=== PATIENT | male | born 1965 | race African-American/Black ===

== ENCOUNTER → 2018-03-05 15:12 | Outpatient (REF) | payer OTHER, SELFPAY ==
[2018-03-05 18:56] LABS: Basophils # 0.1 K/mm3 (0-0.2); Eosinophils # 0.3 K/mm3 (0.0-0.4); Eosinophils % 1.8 % (0.1-12.0); Hematocrit 46.4 % (42.0-52.0); Hemoglobin 14.4 g/dL (14.1-18.0); Lymphocytes # 3.6 K/mm3 (0.7-4.5); Lymphocytes % 26.8 K/mm3 (10-50); Mean Corpuscular HGB Conc 31.1 g/dL (31.8-35.4); Mean Corpuscular Hemoglobin 31.3 pg (27.0-31.2); Mean Corpuscular Volume 100.8 fl (80-94); Monocytes # 0.6 K/mm3 (0.1-1.0); Monocytes % 4.6 % (1.7-9.3); Neutrophils # 8.9 K/mm3 (1.8-7.8); Neutrophils % 65.8 % (37.0-80.0); Platelet Count 376 K/mm3 (142-424); Red Cell Distribution Width 13.5 % (11.5-17.5); White Blood Count 13.6 K/mm3 (4.8-10.8)
[2018-03-05 19:02] LABS: Alanine Aminotransferase 27 U/L (12-78); Albumin Level 3.9 gm/dL (3.4-5.0); Albumin/Globulin Ratio 0.8 (1.1-1.8); Alkaline Phosphatase 94 U/L (46-116); Anion Gap 15.7 mEq/L (5-15); Aspartate Amino Transferase 73 U/L (15-37); Bilirubin,Total 0.9 mg/dL (0.2-1.0); Blood Urea Nitrogen 21 mg/dL (7-18); Calcium 10.3 mg/dL (8.5-10.1); Carbon Dioxide 28 mmol/L (21.0-32.0); Chloride 96 mmol/L (98-107); Chol/HDL Ratio 1.6 (1-3.5); Cholesterol 221 mg/dL (140-200); Creatinine,Serum 1.35 mg/dL (0.70-1.30); Estimated Glomerular Filt Rate 55 ml/min (>60); GFR (African American) 66 ML/MIN (>60); Globulin 5.2 gm/dl (1.3-3.2); Glucose 99 mg/dL (74-106); HDL Cholesterol 134 mg/dL (27-67); LDL Cholesterol 73 mg/dL (0-130); Potassium 4.7 mmoL/L (3.5-5.1); Sodium 135 mmol/L (136-145); Thyroid Stimulating Hormone 5.54 uIU/ml (0.358-3.740); Total Protein,Serum 9.1 gm/dL (6.4-8.2); Triglycerides 69 mg/dL (30-200); VLDL Cholesterol 14 mg/dL (0-40)
[2018-03-07 16:59] LABS: Vitamin D 25 Hydroxy 8.6 ng/mL (30.0-100.0)
== END ==
LOC: LAB 15:12
PROVIDERS: Visit Provider Nurse Practitioner Family
DX: M79.89 Other specified soft tissue disorders (principal); R60.0 Localized edema; Z79.899 Other long term (current) drug therapy; R53.83 Other fatigue
CPT/HCPCS: 80053; 80061; 82652; 84439; 84443; 85025

== ENCOUNTER → 2018-03-18 11:54 | Outpatient (CLI) | payer OTHER, SELFPAY ==
[2018-03-18 12:04] LABS: Basophils # 0.1 K/mm3 (0-0.2); Basophils % 0.9 % (0.1-2.0); Eosinophils # 0.2 K/mm3 (0.0-0.4); Eosinophils % 1.5 % (0.1-12.0); Hematocrit 41.4 % (42.0-52.0); Lymphocytes # 3.2 K/mm3 (0.7-4.5); Mean Corpuscular HGB Conc 31.5 g/dL (31.8-35.4); Mean Corpuscular Hemoglobin 30.6 pg (27.0-31.2); Mean Corpuscular Volume 97.3 fl (80-94); Mean Platelet Volume 9.1 fl (7.4-10.4); Monocytes # 1.1 K/mm3 (0.1-1.0); Neutrophils # 9.1 K/mm3 (1.8-7.8); Neutrophils % 66.6 % (37.0-80.0); Platelet Count 495 K/mm3 (142-424); Red Blood Count 4.25 M/mm3 (4.60-6.20); Red Cell Distribution Width 12.9 % (11.5-17.5); White Blood Count 13.7 K/mm3 (4.8-10.8)
[2018-03-18 12:14] LABS: Anion Gap 17.5 mEq/L (5-15); Blood Urea Nitrogen 29 mg/dL (7-18); Calcium 9.7 mg/dL (8.5-10.1); Carbon Dioxide 21 mmol/L (21.0-32.0); Chloride 98 mmol/L (98-107); Creatinine,Serum 1.49 mg/dL (0.70-1.30); Estimated Glomerular Filt Rate 49 ml/min (>60); GFR (African American) 59 ML/MIN (>60); Glucose 102 mg/dL (74-106); Potassium 4.5 mmoL/L (3.5-5.1); Sodium 132 mmol/L (136-145)
[2018-03-19 13:57] LABS: Folate 7.4 ng/mL (>3.0); Vitamin B12 335 pg/mL (232-1245)
== END ==
PROVIDERS: Family Provider Nurse Practitioner Family; PCP Emergency Medicine; Visit Provider Physician Assistant
DX: R60.0 Localized edema (principal); R94.31 Abnormal electrocardiogram [ECG] [EKG]; M10.9 Gout, unspecified; I10 Essential (primary) hypertension; R07.89 Other chest pain; F41.9 Anxiety disorder, unspecified; F32.9 Major depressive disorder, single episode, unspecified
CPT/HCPCS: 80048; 82607; 82746; 85025

== ENCOUNTER 2018-03-18 20:36 | Observation (INO) ==
[2018-03-18 21:20] LABS: Microscopic, Urine URINE MICROSCOPIC (MICROSCOPIC)
[2018-03-18 21:25] LABS: Appearance,Urine CLEAR (Clear); Bilirubin,Urine Negative (Negative); Blood, Urine Negative (Negative); Color,Urine YELLOW (Yellow); Glucose,Urine (UA) Negative (Negative); Ketones,Urine Negative (Negative); Leukocyte Esterase,Urine Negative (Negative); PH,Urine 5.5 (5.0-8.5); Protein,Urine Negative (Negative); Urobilinogen,Urine 0.2 EU/dl (0.2)
[2018-03-18 21:34] LABS: Amphetamine/Metha Screen,Urine Negative ng/mL (<1000); Barbiturates Screen,Urine Negative ng/mL (<200); Benzodiazepines Screen,Urine Negative ng/mL (200); Cannabinoid Screen,Urine Negative ng/mL (<50); Cocaine Screen,Urine Negative ng/g (<300); Methadone Screen,Urine Negative ng/mL (<300); Opiate Screen,Urine Negative ng/mL (<300); Phencyclidine Screen,Urine Negative ng/mL (<25)
[2018-03-18 21:48] LABS: Bacteria,Urine Trace /lpf; WBC,Urine Occasional #/hpf (0-3)
--- NOTE | 2018-03-18 21:53 | Emergency Department Note ---
ED Disposition Clinical Impression: Bilateral lower extremity edema, Arthritis, Renal insufficiency Disposition: Admitted as Observation Condition on Discharge: Good - Critical Care Critical Care Time: No Attestation: On 03/18/18, the high probability of a clinically significant, sudden or life threatening deterioration of the following system(s) required my full and direct attention, intervention and personal management. The time I documented below is in addition to time spent performing reported procedures but includes the following listed in this critical care notation. Medical Decision Making - Medical Records Medical records reviewed: Yes: I reviewed the patient's medical records. - Rodolfo Inquiry Pt receiving controlled substance: No Vital Signs: 03/18/18 20:36 03/18/18 22:05 Temperature 100.2 F H Temperature Source Oral Pulse Rate [Right Radial] 106 H 88 Respiratory Rate 20 18 Blood Pressure [Right Arm] 151/108 154/95 Blood Pressure Mean [Right Arm] 122 114 Blood Pressure Source [Right Arm] Automatic Cuff Blood Pressure Position [Right Arm] Sitting 02 Sat by Pulse Oximetry 100 99 Oxygen Delivery Method Room Air - Lab Data Lab results reviewed: Yes: I reviewed the patient's lab results. Lab Results 03/18/18 21:15: Urine Color Yellow, Urine Appearance Clear, Urine pH 5.5, Ur Specific [place] 1.010, Urine Protein Negative, Urine Glucose (UA) Negative, Urine Ketones Negative, Urine Blood Negative, Urine Nitrate Negative, Urine Bilirubin Negative, Urine Urobilinogen 0.2, Ur Leukocyte Esterase Negative, Urine RBC 3-5, Urine WBC Occasional, Ur Squamous Epith Cells 5-10, Urine Bacteria Trace, Hyaline Casts 3-5 03/18/18 21:15: Urine Opiates Screen Negative, Urine Methadone Screen Negative, Ur Barbituates Screen Negative, Ur Phencyclidine Scrn Negative, Ur Amphetamines Screen Negative, U Benzodiazepines Scrn Negative, Urine Cocaine Screen Negative , U Marijuana (THC) Screen Negative 03/18/18 21:51: WBC 17.5 H D, RBC 4.18 L, Hgb 12.6 L, Hct 40.0 L, MCV 95.7 H, MCH 30.1, MCHC 31.4 L, RDW 12.9, Plt Count 486 H, MPV 7.9, Neut % (Auto) 76.4, Lymph % (Auto) 14.3, [place] % (Auto) 7.8, Eos % (Auto) 1.0, Baso % (Auto) 0.6, Neut # (Auto) 13.4 H, Lymph # (Auto) 2.5, [place] # (Auto) 1.4 H, Eos # (Auto) 0.2 , Baso # (Auto) 0.1, Total Counted 100, Neutrophils % (Manual) 82 H, Lymphocytes % (Manual) 11, Monocytes % (Manual) 5, Eosinophils % (Manual) 1, Basophils % (Manual) 1.0, Platelet Estimate Normal, Anisocytosis 1+ 03/18/18 21:51: Sodium 130 L, Potassium 4.3, Chloride 97 L, Carbon Dioxide 20 L , Anion Gap 17.3 H, BUN 29 H, Creatinine 1.44 H, Estimated Creat Clear 55, Estimated GFR 51 L, Est GFR ( Amer) 62, Glucose 104, Uric Acid 9.8 H, Calcium 9.8, C-Reactive Protein 14.0 H 03/18/18 21:52: Total Bilirubin 0.9, Direct Bilirubin 0.4 H, Indirect Bilirubin 0.5, AST 43 H, ALT 21, Alkaline Phosphatase 78, Total Protein 8.5 H, Albumin 2.7 L Result diagrams: 03/18/18 21:51 03/18/18 21:51 Orders (Tests/Meds): ED MEDICATIONS Discontinued Medications Generic Name Dose Route Start Last Admin Trade Name Jared PRN Reason Stop Dose Admin Ketorolac Tromethamine 30 mg 03/18/18 21:57 03/18/18 22:00 Toradol 30mg/Ml Vial IV 03/18/18 21:58 30 mg ONCE ONE Administration Methylprednisolone Sodium Succinate 125 mg 03/18/18 21:57 03/18/18 22:00 Solu-Medrol 125mg/2ml Vial IV 03/18/18 21:58 125 mg ONCE ONE Administration Extremity Problem HPI - General Chief complaint: Weakness Stated complaint: swelling of lower extremities Time Seen by Provider: 03/18/18 20:50 Mode of Arrival: EMS Source of Information: Patient, Relative, Medical Record Limitations: Physical Limitations Description of Symptoms (Recalled from ER Triage Doc. by RN): pt seen in ed today earlier today, lower extremity doppler completed, pt followed up with dr odonnell, sent home. pt states he is returning to ed because he is unable to care for himself at home. pt states he can not walk and is "peeing in a coffee cup at home." - History of Present Illness HPI Narrative: pt with progressive lower ext edema and assoc pain in lower ext and had seen pcp and was seen in ed this am with neg doppler for dvt and seen by card - and was treated for htn and card disease - has hx of gout - MD Complaint: extremity pain, extremity swelling, joint swelling, joint paint Onset (ago): day(s) Consistency: constant Location: lower extremity Exacerbating factors: range of motion, weight bearing, walking - Related Data Home Medications Medication Instructions Recorded Confirmed cetirizine 10 mg tablet 10 mg PO DAILY tab 03/05/18 03/18/18 hydralazine 25 mg tablet 25 mg PO TID 03/05/18 03/18/18 indomethacin 25 mg capsule 25 mg PO TID 03/05/18 03/18/18 Cholecalciferol (Vitamin D3) 5,000 unit PO DAILY 03/18/18 03/18/18 [Vitamin D3] Ergocalciferol (Vitamin D2) 50,000 unit PO QWEEK 03/18/18 03/18/18 [Drisdol] Furosemide [Furosemide 40MG tAB] 40 mg PO DAILY 03/18/18 03/18/18 Levothyroxine Sodium [Synthroid 25 mcg PO DAILY 03/18/18 03/18/18 25mcg (0.025mg) tablet] Lisinopril [Prinivil 10mg Tablet] 10 mg PO DAILY 03/18/18 03/18/18 Allergies Allergy/AdvReac Type Severity Reaction Status Date / Time aspirin [ASPIRIN] Allergy Unknown Verified 03/18/18 20:42 Penicillins [PENICILLINS] Allergy Unknown Verified 03/18/18 20:42 [facility] History I have reviewed the patient's past medical history: Yes Medical History: Reports:: Anxiety, Depression, Hypertension Denies:: Cancer, Diabetes Mellitus Type 1, Diabetes Mellitus Type 2, MRSA Other Medical History: Reports: Thyroid Disease Comment: Gout Other Surgeries: Yes: No Previous Surgery Amputation: No Fractures: No - Social History Smoking Status: Never smoker Alcohol Intake: never Alcohol Intake Frequency:: a few times a week Substance Use Type: denies use Occupational Status: disabled Housing: apartment Household Members: none - Psychiatric History Expresses thoughts of harming self/others: None Suicide Plan Description: No Plan Pschychiatric History:: Reports:: Anxiety, Depression Family Hx:: Hypertension ROS Obtained: Yes All systems reviewed & no additional complaints - Constitutional Constitutional: Reports fever(s) - Eyes Eyes: Denies change in vision - ENT Ears, Nose, Mouth, and Throat: Denies sore throat - Cardiovascular Cardiovascular: Denies chest pain - Respiratory Respiratory: No cough - Gastrointestinal Gastrointestingal: Denies: abdominal pain - Genitourinary Male Genitourinary: Denies hematuria - Musculoskeletal Musculoskeletal: Reports as per HPI, Reports joint pain, Reports joint swelling , Reports limited range of motion - Integumentary/Breasts Skin/Breast: Denies rash - Neurologic Neurologic: Denies headache(s), Denies seizure-like activity Physical Exam - General General appearance: alert, in no apparent distress - Head Head exam: normocephalic - Eye Eye exam: Present: PERRL, EOMI. Absent: scleral icterus - ENT ENT exam: Present: mucous membranes dry - Neck Neck exam: Present: trachea midline - Respiratory Respiratory exam: Present: normal lung sounds bilaterally. Absent: respiratory distress - Cardiovascular Cardiovascular exam: Present: regular rate, systolic murmur, +S4 - Abdominal Exam Abdominal exam: Present: soft - Extremities Exam Extremities exam: Present: tenderness, pedal edema. Absent: calf tenderness - Neurological Exam Neurological exam: Present: alert, oriented X3, CN II-XII intact - Psychiatric Psychiatric exam: Present: normal affect - Skin Skin exam: Absent: rash
[2018-03-18 22:31] LABS: Basophils # 0.1 K/mm3 (0-0.2); Basophils % 0.6 % (0.1-2.0); Eosinophils # 0.2 K/mm3 (0.0-0.4); Hemoglobin 12.6 g/dL (14.1-18.0); Lymphocytes # 2.5 K/mm3 (0.7-4.5); Lymphocytes % 14.3 K/mm3 (10-50); Mean Corpuscular HGB Conc 31.4 g/dL (31.8-35.4); Mean Corpuscular Hemoglobin 30.1 pg (27.0-31.2); Mean Corpuscular Volume 95.7 fl (80-94); Mean Platelet Volume 7.9 fl (7.4-10.4); Monocytes # 1.4 K/mm3 (0.1-1.0); Monocytes % 7.8 % (1.7-9.3); Neutrophils # 13.4 K/mm3 (1.8-7.8); Neutrophils % 76.4 % (37.0-80.0); Platelet Count 486 K/mm3 (142-424); Red Blood Count 4.18 M/mm3 (4.60-6.20); Red Cell Distribution Width 12.9 % (11.5-17.5); White Blood Count 17.5 K/mm3 (4.8-10.8)
[2018-03-18 22:42] LABS: Albumin Level 2.7 gm/dL (3.4-5.0); Bilirubin,Total 0.9 mg/dL (0.2-1.0); Total Protein,Serum 8.5 gm/dL (6.4-8.2)
[2018-03-18 23:00] LABS: Bilirubin,Direct 0.4 mg/dL (0.0-0.2); Bilirubin,Indirect 0.5 mg/dL (0.0-0.9)
[2018-03-18 23:06] LABS: Eosinophils % 1 % (0-3); Lymphocytes % 11 % (10-50); Monocytes % 5 % (2-9); Neutrophils % 82 % (42-76); Total Cells Counted 100
[2018-03-18 23:07] LABS: Anisocytosis 1+
[2018-03-18 23:22] LABS: Anion Gap 17.3 mEq/L (5-15); Calcium 9.8 mg/dL (8.5-10.1); Potassium 4.3 mmoL/L (3.5-5.1); Uric Acid 9.8 mg/dL (2.6-7.2)
[2018-03-19 06:08] LABS: Basophils % 0.3 % (0.1-2.0); Eosinophils % 0.2 % (0.1-12.0); Hematocrit 43.3 % (42.0-52.0); Hemoglobin 13.4 g/dL (14.1-18.0); Lymphocytes # 1.5 K/mm3 (0.7-4.5); Lymphocytes % 10.4 K/mm3 (10-50); Mean Corpuscular HGB Conc 30.9 g/dL (31.8-35.4); Mean Corpuscular Hemoglobin 29.9 pg (27.0-31.2); Mean Corpuscular Volume 96.9 fl (80-94); Mean Platelet Volume 8.3 fl (7.4-10.4); Monocytes # 0.2 K/mm3 (0.1-1.0); Monocytes % 1.5 % (1.7-9.3); Neutrophils # 12.9 K/mm3 (1.8-7.8); Neutrophils % 87.6 % (37.0-80.0); Platelet Count 521 K/mm3 (142-424); Red Blood Count 4.47 M/mm3 (4.60-6.20); White Blood Count 14.7 K/mm3 (4.8-10.8)
[2018-03-19 06:30] LABS: Anion Gap 19.3 mEq/L (5-15); Calcium 9.7 mg/dL (8.5-10.1); Potassium 5.3 mmoL/L (3.5-5.1)
--- NOTE | 2018-03-19 07:03 | History & Physical Report ---
*Admission Date: 03/18/18 *Chief complaint: joint pain *History of present illness: this pt has progressive swelling and tenderness to lower ext with pain swollen jts - no trauma has hx of gout - he saw pcp last week and was seen in the ed and card clinic yesterday -There is no evidence of significant Reflux. 2. No evidence of deep or superficial vein thrombosis involving the right lower extremity and left lower extremity ere for a new patient from [facility] [employer] for swelling in BLE's Has had some occasional chest pain at times mainly with rest, and it feels like a sharp, stabbing chest pain and only lasts for a few seconds. Sob with exertion. BP is high today. Weight is stable. He is in a wheelchair today because he states the swelling has been bad in his lower extremities for him to walk or even use his cane. He states the swelling has been going on for around 3 weeks, and he states everyone keeps saying its his gout. Denies ever smoking. He states he does have a few beers but not every day. Denies ever having a heart attack, he did have a stroke around 3 years ago. He had fallen into a cabinet/table, hitting his head above his left eye, with trauma and bleeding noted. Then a few days later he suffered a bad stroke, he couldn't walk or talk. He spent several weeks in rehab to learn to walk and talk again. Family history of heart disease is present. Venous doppler in the ER today was negative. He has bounding pulses bilaterally in BLE's along with 2+ pitting edema. He is shaking today, he states he is cold and he doesn't due this all time. LDL was 73, TSH: 5.54 and he was started on synthroid by his PCP. BUN: 21, Creat : 1.35 EKG is NSR, anterior infarct, age undetermined, rate 69 bpm. He is to start lasix 40 mg daily. He is to start lisinopril 10 mg daily for better BP control. BMP, CBC, B12, and Folate today along with urinalysis. I am concerned that he may have either Cardiomyopathy with CHF or something like nephrotic syndrome due to long standing poorly treated HTN. ECHO to look at LV function. BMP in 1 [facility] History I have reviewed the patient's past medical history: Yes Medical History: Reports:: Anxiety, Depression, Hypertension Denies:: Cancer, Diabetes Mellitus Type 1, Diabetes Mellitus Type 2, MRSA Other Medical History: Reports: Thyroid Disease Other Surgeries: Yes: No Previous Surgery Amputation: No Fractures: No - *Social History Smoking Status: Light tobacco smoker Tobacco Type: cigarettes Alcohol Intake: current Alcohol Intake Frequency:: holidays/special occasions only Substance Use Type: denies use Occupational Status: disabled Housing: apartment Household Members: none - Psychiatric History Expresses thoughts of harming self/others: None Suicide Plan Description: No Plan Pschychiatric History:: Reports:: Anxiety, Depression *Family Hx:: Hypertension Review of Systems - Review of Systems Review of systems:: pertinent systems reviewed and negative unless documented below - Constitutional Denies headache(s) - Eyes Denies change in vision - ENT Denies sinus pain - *Cardiovascular Denies chest pain at rest - *Respiratory Denies cough - *Gastrointestinal Denies abdominal pain - *Genitourinary Denies blood in urine - *Musculoskeletal Reports joint pain, Reports joint swelling, Reports limited joint movement - Integumentary/Breasts Denies rash - *Neurologic Denies headache(s), Denies seizure-like activity - Psychiatric Denies anxiety Meds Home Medications Medication Instructions Recorded Confirmed Type cetirizine 10 mg tablet 10 mg PO DAILY tab 03/05/18 03/18/18 History hydralazine 25 mg tablet 25 mg PO TID 03/05/18 03/18/18 History indomethacin 25 mg capsule 25 mg PO TIDWM 03/05/18 03/19/18 History Cholecalciferol (Vitamin D3) 5,000 unit PO DAILY 03/18/18 03/18/18 History [Vitamin D3] Ergocalciferol (Vitamin D2) 50,000 unit PO QWEEK 03/18/18 03/18/18 History [Drisdol] Furosemide [Furosemide 40MG tAB] 40 mg PO DAILY 03/18/18 03/18/18 History Levothyroxine Sodium [Synthroid 25 mcg PO DAILY 03/18/18 03/18/18 History 25mcg (0.025mg) tablet] Lisinopril [Prinivil 10mg Tablet] 10 mg PO DAILY 03/18/18 03/18/18 History Allergies Allergy/AdvReac Type Severity Reaction Status Date / Time aspirin [ASPIRIN] Allergy Unknown Verified 03/18/18 20:42 Penicillins [PENICILLINS] Allergy Unknown Verified 03/18/18 20:42 Exam Vital signs and Labs for Last 24 Hours: Temp Pulse Resp BP Pulse Ox 97.6 F 76 18 148/94 100 03/19/18 00:41 03/19/18 00:41 03/19/18 00:41 03/19/18 00:41 03/19/18 01:00 Laboratory Results - last 24 hr 03/18/18 21:15: Urine Color Yellow, Urine Appearance Clear, Urine pH 5.5, Ur Specific [place] 1.010, Urine Protein Negative, Urine Glucose (UA) Negative, Urine Ketones Negative, Urine Blood Negative, Urine Nitrate Negative, Urine Bilirubin Negative, Urine Urobilinogen 0.2, Ur Leukocyte Esterase Negative, Urine RBC 3-5, Urine WBC Occasional, Ur Squamous Epith Cells 5-10, Urine Bacteria Trace, Hyaline Casts 3-5 03/18/18 21:15: Urine Opiates Screen Negative, Urine Methadone Screen Negative, Ur Barbituates Screen Negative, Ur Phencyclidine Scrn Negative, Ur Amphetamines Screen Negative, U Benzodiazepines Scrn Negative, Urine Cocaine Screen Negative , U Marijuana (THC) Screen Negative 03/18/18 21:51: WBC 17.5 H D, RBC 4.18 L, Hgb 12.6 L, Hct 40.0 L, MCV 95.7 H, MCH 30.1, MCHC 31.4 L, RDW 12.9, Plt Count 486 H, MPV 7.9, Neut % (Auto) 76.4, Lymph % (Auto) 14.3, [place] % (Auto) 7.8, Eos % (Auto) 1.0, Baso % (Auto) 0.6, Neut # (Auto) 13.4 H, Lymph # (Auto) 2.5, [place] # (Auto) 1.4 H, Eos # (Auto) 0.2 , Baso # (Auto) 0.1, Total Counted 100, Neutrophils % (Manual) 82 H, Lymphocytes % (Manual) 11, Monocytes % (Manual) 5, Eosinophils % (Manual) 1, Basophils % (Manual) 1.0, Platelet Estimate Normal, Anisocytosis 1+ 03/18/18 21:51: Sodium 130 L, Potassium 4.3, Chloride 97 L, Carbon Dioxide 20 L , Anion Gap 17.3 H, BUN 29 H, Creatinine 1.44 H, Estimated Creat Clear 55, Estimated GFR 51 L, Est GFR ( Amer) 62, Glucose 104, Uric Acid 9.8 H, Calcium 9.8, C-Reactive Protein 14.0 H 03/18/18 21:52: Total Bilirubin 0.9, Direct Bilirubin 0.4 H, Indirect Bilirubin 0.5, AST 43 H, ALT 21, Alkaline Phosphatase 78, Total Protein 8.5 H, Albumin 2.7 L 03/18/18 22:20: ESR 111 H 03/19/18 05:05: WBC 14.7 H, RBC 4.47 L, Hgb 13.4 L, Hct 43.3, MCV 96.9 H, MCH 29.9, MCHC 30.9 L, RDW 13.0, Plt Count 521 H, MPV 8.3, Neut % (Auto) 87.6 H, Lymph % (Auto) 10.4, [place] % (Auto) 1.5 L, Eos % (Auto) 0.2, Baso % (Auto) 0.3, Neut # (Auto) 12.9 H, Lymph # (Auto) 1.5, [place] # (Auto) 0.2, Eos # (Auto) 0.0, Baso # (Auto) 0.0 03/19/18 05:05: Sodium 133 L, Potassium 5.3 H D, Chloride 98, Carbon Dioxide 21 , Anion Gap 19.3 H, BUN 34 H, Creatinine 1.62 H, Estimated Creat Clear 45, Estimated GFR 44 L, Est GFR ( Amer) 54 L, Glucose 129 H D, Calcium 9.7 I & O for Last 24 hours: Intake & Output 03/16/18 03/17/18 03/18/18 03/19/18 11:59 11:59 11:59 11:59 Intake Total 258 / 258 Output Total 200 / 200 Balance 58 / 58 Weight 137 lb - Constitutional no acute distress - *Routine HEENT Exam Head: Present: normocephalic Eye: Present: EOMI, PERRL ENT: Present: mucous membranes dry - *Routine Neck Exam Absent: JVD - *Routine Respiratory Exam Present: CTA bilaterally - *Routine Cardiovascular Exam Present: RRR, murmur - *Routine Abdominal Exam Present: soft - *Routine Extremities Exam Comments: jts less tender today and less edema - *Routine Skin Exam Present: intact - *Routine Neurological Exam Present: alert, oriented X3, CN II-XII intact - Routine Psychiatric Exam Present: normal affect H&P: Result - Labs Labs: Short CBC 03/18/18 03/19/18 Range/Units 21:51 05:05 WBC 17.5 H D 14.7 H (4.8-10.8) K/mm3 Hgb 12.6 L 13.4 L (14.1-18.0) g/dL Hct 40.0 L 43.3 (42.0-52.0) % Plt Count 486 H 521 H (142-424) K/mm3 BMP 03/18/18 03/19/18 21:51 05:05 Sodium 130 L 133 L Potassium 4.3 5.3 H D Chloride 97 L 98 Carbon Dioxide 20 L 21 BUN 29 H 34 H Creatinine 1.44 H 1.62 H Glucose 104 129 H D Calcium 9.8 9.7 Liver Function 03/18/18 Range/Units 21:52 Total Bilirubin 0.9 (0.2-1.0) mg/dL Direct Bilirubin 0.4 H (0.0-0.2) mg/dL AST 43 H (15-37) U/L ALT 21 (12-78) U/L Alkaline Phosphatase 78 (46-116) U/L Albumin 2.7 L (3.4-5.0) gm/dL Urine 03/18/18 Range/Units 21:15 Urine Color Yellow (Yellow) Urine Appearance Clear (Clear) Urine pH 5.5 (5.0-8.5) Ur Specific [place] 1.010 (1.005-1.030) Urine Protein Negative (Negative) Urine Glucose (UA) Negative (Negative) Assessment and Plan (1) Edema of both legs Current visit: Yes Status: Acute Category: Medical Code(s): R60.0 - Localized edema (2) Arthritis Current visit: Yes Status: Acute Category: Medical Code(s): M19.90 - Unspecified osteoarthritis, unspecified site (3) Renal insufficiency Current visit: Yes Status: Acute Category: Medical Code(s): N28.9 - Disorder of kidney and ureter, unspecified (4) Gout Current visit: No Status: Acute Qualifiers: Gout site: unspecified site Gout etiology: unspecified cause Chronicity: unspecified Qualified Code(s): M10.9 - Gout, unspecified Category: Medical Code(s): M10.9 - Gout, unspecified (5) Hypertension Current visit: No Status: Acute Qualifiers: Hypertension type: essential hypertension Qualified Code(s): I10 - Essential (primary) hypertension Category: Medical Code(s): I10 - Essential (primary) hypertension
--- NOTE | 2018-03-19 07:08 | Pharmacy Consult Notes ---
[facility] Pharmacy VTE Monitoring - Patient Demographics Admission date: 03/19/18 Report Date: 03/19/18 Time: 07:07 Allergies/Adverse Reactions: Patient Allergies aspirin [ASPIRIN] Allergy (Unknown, Verified 03/18/18 20:42) Penicillins [PENICILLINS] Allergy (Unknown, Verified 03/18/18 20:42) Height: 1.63 m Weight: 62.142 kg Patient Problems: Current Active Problems Edema of both legs (Acute) Arthritis (Acute) Renal insufficiency (Acute) - VTE Risk Labs: VTE Related Lab Results Hgb 13.4 g/dL (14.1-18.0) L 03/19/18 05:05 Hct 43.3 % (42.0-52.0) 03/19/18 05:05 Plt Count 521 K/mm3 (142-424) H 03/19/18 05:05 BUN 34 mg/dL (7-18) H 03/19/18 05:05 Creatinine 1.62 mg/dL (0.70-1.30) H 03/19/18 05:05 Estimated Creat Clear 45 mL/min (0-300) 03/19/18 05:05 Was VTE Risk Assessment Performed: Yes VTE Score: 2 VTE Risk Level: Low Risk Clinical Trial Participant: No - Prophylaxis VTE Prophylaxis Ordered?: Yes Types of VTE Prophylaxis: TEDS Knee High
--- NOTE | 2018-03-19 08:32 | Consult Report ---
History of Present Illness Consult date: 03/19/18 Requesting physician: Daljit Aguilar Chief complaint: LE edema, unable to walk Additional Medical History:: 1. HTN 2. Gout with elevated CRP and ESR (14.0 and 111, respectively), 02/2018 3. ETOH use 4. Hypothyroid, on supplement 5. 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 History of present illness: 53-year-old black male admitted through the emergency department for complaint of lower extremity edema and inability to walk. Patient had been seen in the emergency department the night before with lower extremity venous Dopplers negative for DVT. It was felt that he had a gout that was causing the lower extremity edema and was started on occasion for that. He is referred to cardiology for further evaluation. He was seen in our office yesterday with plans to obtain an echocardiogram to evaluate left ventricular ejection fraction and rule out congestive heart failure. Patient was started on lisinopril for blood pressure and Lasix for the edema. However he returned to the emergency department due to inability to care for himself stating that he was unable to get up to go the bathroom was having to urinate and. Patient does have some atypical chest pain described as a sharp stinging sensation that lasts only a few seconds time. He denies any history of hyperlipidemia, diabetes or tobacco use. Patient was admitted for treatment. His sed rate noted to be markedly elevated at greater than 100 and his CRP was 14. Patient was started on IV steroids with improvement in his edema and discomfort this a.m. Potassium noted to be elevated at 5.3 and slightly elevated BUN and creatinine after 1 dose of lisinopril. Cardiology consulted for evaluation recommendations. Echocardiogram is in progress at this time with preliminary evaluation showing preserved ejection fraction. [facility] History Medical History: Reports:: Anxiety, Depression, Hypertension Denies:: Cancer, Diabetes Mellitus Type 1, Diabetes Mellitus Type 2, MRSA Other Medical History: Reports: Thyroid Disease Other Surgeries: Yes: No Previous Surgery Amputation: No Fractures: No - *Social History Smoking Status: Light tobacco smoker Tobacco Type: cigarettes Alcohol Intake: current Alcohol Intake Frequency:: holidays/special occasions only Substance Use Type: denies use Occupational Status: disabled Housing: apartment Household Members: none - Psychiatric History Expresses thoughts of harming self/others: None Suicide Plan Description: No Plan Pschychiatric History:: Reports:: Anxiety, Depression *Family Hx:: Hypertension Meds Home Medications Medication Instructions Recorded Confirmed Type cetirizine 10 mg tablet 10 mg PO DAILY tab 03/05/18 03/18/18 History hydralazine 25 mg tablet 25 mg PO TID 03/05/18 03/18/18 History indomethacin 25 mg capsule 25 mg PO TIDWM 03/05/18 03/19/18 History Cholecalciferol (Vitamin D3) 5,000 unit PO DAILY 03/18/18 03/18/18 History [Vitamin D3] Ergocalciferol (Vitamin D2) 50,000 unit PO QWEEK 03/18/18 03/18/18 History [Drisdol] Furosemide [Furosemide 40MG tAB] 40 mg PO DAILY 03/18/18 03/18/18 History Levothyroxine Sodium [Synthroid 25 mcg PO DAILY 03/18/18 03/18/18 History 25mcg (0.025mg) tablet] Lisinopril [Prinivil 10mg Tablet] 10 mg PO DAILY 03/18/18 03/18/18 History Allergies Allergy/AdvReac Type Severity Reaction Status Date / Time aspirin [ASPIRIN] Allergy Unknown Verified 03/18/18 20:42 Penicillins [PENICILLINS] Allergy Unknown Verified 03/18/18 20:42 Review of Systems - *Cardiovascular Reports chest pain, Reports shortness of breath with activity - *Respiratory Reports shortness of breath with activity - *Gastrointestinal Denies abdominal pain - *Genitourinary Denies difficulty urinating - *Neurologic Denies headache(s), Denies seizure-like activity Exam Vital signs and Labs for Last 24 Hours: Temp Pulse Resp BP Pulse Ox 97.2 F L 73 18 146/95 98 03/19/18 07:51 03/19/18 07:51 03/19/18 07:51 03/19/18 07:51 03/19/18 07:51 Laboratory Results - last 24 hr 03/18/18 21:15: Urine Color Yellow, Urine Appearance Clear, Urine pH 5.5, Ur Specific Mohler 1.010, Urine Protein Negative, Urine Glucose (UA) Negative, Urine Ketones Negative, Urine Blood Negative, Urine Nitrate Negative, Urine Bilirubin Negative, Urine Urobilinogen 0.2, Ur Leukocyte Esterase Negative, Urine RBC 3-5, Urine WBC Occasional, Ur Squamous Epith Cells 5-10, Urine Bacteria Trace, Hyaline Casts 3-5 03/18/18 21:15: Urine Opiates Screen Negative, Urine Methadone Screen Negative, Ur Barbituates Screen Negative, Ur Phencyclidine Scrn Negative, Ur Amphetamines Screen Negative, U Benzodiazepines Scrn Negative, Urine Cocaine Screen Negative , U Marijuana (THC) Screen Negative 03/18/18 21:51: WBC 17.5 H D, RBC 4.18 L, Hgb 12.6 L, Hct 40.0 L, MCV 95.7 H, MCH 30.1, MCHC 31.4 L, RDW 12.9, Plt Count 486 H, MPV 7.9, Neut % (Auto) 76.4, Lymph % (Auto) 14.3, Hendricks % (Auto) 7.8, Eos % (Auto) 1.0, Baso % (Auto) 0.6, Neut # (Auto) 13.4 H, Lymph # (Auto) 2.5, Hendricks # (Auto) 1.4 H, Eos # (Auto) 0.2 , Baso # (Auto) 0.1, Total Counted 100, Neutrophils % (Manual) 82 H, Lymphocytes % (Manual) 11, Monocytes % (Manual) 5, Eosinophils % (Manual) 1, Basophils % (Manual) 1.0, Platelet Estimate Normal, Anisocytosis 1+ 03/18/18 21:51: Sodium 130 L, Potassium 4.3, Chloride 97 L, Carbon Dioxide 20 L , Anion Gap 17.3 H, BUN 29 H, Creatinine 1.44 H, Estimated Creat Clear 55, Estimated GFR 51 L, Est GFR ( Amer) 62, Glucose 104, Uric Acid 9.8 H, Calcium 9.8, C-Reactive Protein 14.0 H 03/18/18 21:52: Total Bilirubin 0.9, Direct Bilirubin 0.4 H, Indirect Bilirubin 0.5, AST 43 H, ALT 21, Alkaline Phosphatase 78, Total Protein 8.5 H, Albumin 2.7 L 03/18/18 22:20: ESR 111 H 03/19/18 05:05: WBC 14.7 H, RBC 4.47 L, Hgb 13.4 L, Hct 43.3, MCV 96.9 H, MCH 29.9, MCHC 30.9 L, RDW 13.0, Plt Count 521 H, MPV 8.3, Neut % (Auto) 87.6 H, Lymph % (Auto) 10.4, Hendricks % (Auto) 1.5 L, Eos % (Auto) 0.2, Baso % (Auto) 0.3, Neut # (Auto) 12.9 H, Lymph # (Auto) 1.5, Hendricks # (Auto) 0.2, Eos # (Auto) 0.0, Baso # (Auto) 0.0 03/19/18 05:05: Sodium 133 L, Potassium 5.3 H D, Chloride 98, Carbon Dioxide 21 , Anion Gap 19.3 H, BUN 34 H, Creatinine 1.62 H, Estimated Creat Clear 45, Estimated GFR 44 L, Est GFR ( Amer) 54 L, Glucose 129 H D, Calcium 9.7 03/19/18 05:05: B-Natriuretic Peptide 103 H I & O for Last 24 hours: Intake & Output 03/16/18 03/17/18 03/18/18 03/19/18 11:59 11:59 11:59 11:59 Intake Total 258 / 258 Output Total 200 / 200 Balance 58 / 58 Weight 137 lb - *Routine Neck Exam Absent: JVD - *Routine Respiratory Exam Present: CTA bilaterally - *Routine Cardiovascular Exam Present: RRR, murmur. Absent: gallop, rubs - *Routine Abdominal Exam Present: soft. Absent: tenderness - *Routine Extremities Exam Present: edema - *Routine Neurological Exam Present: alert, oriented X3, moving all extremities Assessment and Plan (1) Edema of both legs Current visit: Yes Status: Acute Category: Medical Code(s): R60.0 - Localized edema (2) Arthritis Current visit: Yes Status: Acute Category: Medical Code(s): M19.90 - Unspecified osteoarthritis, unspecified site (3) Renal insufficiency Current visit: Yes Status: Acute Category: Medical Code(s): N28.9 - Disorder of kidney and ureter, unspecified (4) Gout Current visit: No Status: Acute Qualifiers: Gout site: unspecified site Gout etiology: unspecified cause Chronicity: unspecified Qualified Code(s): M10.9 - Gout, unspecified Category: Medical Code(s): M10.9 - Gout, unspecified (5) Hypertension Current visit: No Status: Acute Qualifiers: Hypertension type: essential hypertension Qualified Code(s): I10 - Essential (primary) hypertension Category: Medical Code(s): I10 - Essential (primary) hypertension - Assessment and plan all Dx Assessment and Plan for all problems:: 1. Will await the results of the echocardiogram but unofficially the ejection fraction appeared preserved with some mild aortic regurgitation. 2. In light of the hyperkalemia and slightly increased renal functions, will recommend discontinuing lisinopril and using lasix only short term if needed. 3. Due to elevated blood pressure and heart rate on admission we will try low- dose beta-rena therapy in the form of metoprolol 25 mg twice daily. 4. No further cardiac workup at this time. Okay from cardiology standpoint for discharge home with outpatient follow-up.
--- NOTE | 2018-03-19 15:20 | Cardiology Report ---
PROCEDURE: 2-D M-mode and color Doppler study INDICATIONS FOR THE TEST: Chest pain+ COPD Heart Murmur Tobacco Smoking+ Palpitations Fatigue+ Syncope Edema+ Hypertension+Diabetes Mellitus Rheumatic Fever SOB+AKERS Obesity Hyperlipidemia Family History HD+ Additional History Old CVA PATIENT INFORMATION HEIGHT: 64 WEIGHT: 149 GENDER: Male B/P: 162/102 2-D/M-MODE INTERPRETATION: 2-D MEASUREMENTS OBSERVED VALUES IN CMS Right Ventricular Dimension (RVDd) 1.6 Interventricular Septum (Thickness)(IVsd) 0.7 Left Ventricular Internal Dimensions(LVIDd) 4.0 Left Ventricular Posterior Wall (Thickness)(LVPWd) 0.8 Aortic Root 2.7 Aortic Cusp Separation 2.0 Left Atrial Dimensions (LAD) 2.5 2D 1. Left atrium is mildly enlarged, left ventricle is normal size, mild concentric left ventricular hypertrophy, visually estimated ejection fraction 55% with no obvious regional wall motion abnormality. 2. The right atrium and right ventricle are normal size and contractility. 3. The aortic valve is minimally thickened and fibrosed. 4. The mitral and tricuspid valve leaflets are minimally thickened. 5. The pulmonic valve is poorly visualized. 6. No significant pericardial effusion noted. DOPPLER INTERROGATION: Doppler interrogation of the aortic, mitral and tricuspid presence of mild aortic, mild mitral and tricuspid regurgitation, tricuspid and jet velocity insufficient for calculation of the right ventricular systolic pressure, grade 1 diastolic dysfunction seen with tissue Doppler evidence of raised left atrial pressure. CONCLUSION: 1. Mildly enlarged left atrium, normal left ventricular size, mild concentric left ventricular hypertrophy, visually estimated ejection fraction 55% with no obvious regional wall motion abnormality, grade 1 diastolic dysfunction seen with tissue Doppler evidence of raised left atrial pressure. 2. Mild aortic, mild mitral and tricuspid regurgitation 3. No significant pericardial effusion noted.
[2018-03-20 07:10] LABS: Basophils % 0.1 % (0.1-2.0); Eosinophils # 0.2 K/mm3 (0.0-0.4); Hematocrit 39.9 % (42.0-52.0); Hemoglobin 12.5 g/dL (14.1-18.0); Lymphocytes # 1.8 K/mm3 (0.7-4.5); Lymphocytes % 8.3 K/mm3 (10-50); Mean Corpuscular HGB Conc 31.2 g/dL (31.8-35.4); Mean Corpuscular Hemoglobin 29.9 pg (27.0-31.2); Mean Corpuscular Volume 95.7 fl (80-94); Mean Platelet Volume 7.8 fl (7.4-10.4); Monocytes % 4.7 % (1.7-9.3); Neutrophils # 18.7 K/mm3 (1.8-7.8); Neutrophils % 85.9 % (37.0-80.0); Platelet Count 572 K/mm3 (142-424); Red Blood Count 4.18 M/mm3 (4.60-6.20); Red Cell Distribution Width 12.9 % (11.5-17.5); White Blood Count 21.7 K/mm3 (4.8-10.8)
[2018-03-20 07:15] LABS: Calcium 8.9 mg/dL (8.5-10.1)
[2018-03-20 07:40] LABS: Lymphocytes % 6 % (10-50); Monocytes % 10 % (2-9); Neutrophils % 84 % (42-76); Total Cells Counted 100
[2018-03-20 07:41] LABS: RBC Morphology Normal
--- NOTE | 2018-03-21 07:43 | Progress Note ---
Internal Medicine - PN: Subj *Date: 03/20/18 *Time: 07:40 Interval history: pt seen and doing better Exam Vital signs and Labs for Last 24 Hours: Temp Pulse Resp BP Pulse Ox 98.2 F 60 18 147/78 100 03/21/18 07:28 03/21/18 07:28 03/21/18 07:28 03/21/18 07:28 03/21/18 07:28 Laboratory Results - last 24 hr 03/20/18 07:00: Total Counted 100, Neutrophils % (Manual) 84 H, Lymphocytes % ( Manual) 6 L, Monocytes % (Manual) 10 H, Platelet Estimate Moderate i, RBC Morphology Normal I & O for Last 24 hours: Intake & Output 03/18/18 03/19/18 03/20/18 03/21/18 11:59 11:59 11:59 11:59 Intake Total 738 / 738 2795 / 2795 780 / 780 Output Total 200 / 200 850 / 850 325 / 325 Balance 538 / 538 1945 / 1945 455 / 455 Weight 137 lb 138 lb 7 oz 138 lb - Constitutional no acute distress Comments: pt seen on 03/[address] note - *Routine HEENT Exam Head: Present: normocephalic Eye: Present: EOMI, PERRL ENT: Present: mucous membranes dry - *Routine Neck Exam Present: supple - *Routine Respiratory Exam Present: CTA bilaterally - *Routine Cardiovascular Exam Present: RRR - *Routine Abdominal Exam Present: soft - *Routine Extremities Exam Absent: calf tenderness - *Routine Skin Exam Present: intact - *Routine Neurological Exam Present: alert, CN II-XII intact - Routine Psychiatric Exam Present: normal affect Assessment and Plan (1) Edema of both legs Current visit: Yes Status: Acute Category: Medical Code(s): R60.0 - Localized edema (2) Arthritis Current visit: Yes Status: Acute Category: Medical Code(s): M19.90 - Unspecified osteoarthritis, unspecified site (3) Renal insufficiency Current visit: Yes Status: Acute Category: Medical Code(s): N28.9 - Disorder of kidney and ureter, unspecified (4) Gout Current visit: No Status: Acute Qualifiers: Gout site: unspecified site Gout etiology: unspecified cause Chronicity: unspecified Qualified Code(s): M10.9 - Gout, unspecified Category: Medical Code(s): M10.9 - Gout, unspecified (5) Hypertension Current visit: No Status: Acute Qualifiers: Hypertension type: essential hypertension Qualified Code(s): I10 - Essential (primary) hypertension Category: Medical Code(s): I10 - Essential (primary) hypertension
--- NOTE | 2018-03-21 07:45 | Discharge Summary ---
General - General Admission date:: 03/19/18 Discharge date: 03/21/18 HPI HPI: this pt has progressive swelling and tenderness to lower ext with pain swollen jts - no trauma has hx of gout - he saw pcp last week and was seen in the ed and card clinic yesterday -There is no evidence of significant Reflux. 2. No evidence of deep or superficial vein thrombosis involving the right lower extremity and left lower extremity ere for a new patient from [facility] for swelling in BLE's Has had some occasional chest pain at times mainly with rest, and it feels like a sharp, stabbing chest pain and only lasts for a few seconds. Sob with exertion. BP is high today. Weight is stable. He is in a wheelchair today because he states the swelling has been bad in his lower extremities for him to walk or even use his cane. He states the swelling has been going on for around 3 weeks, and he states everyone keeps saying its his gout. Denies ever smoking. He states he does have a few beers but not every day. Denies ever having a heart attack, he did have a stroke around 3 years ago. He had fallen into a cabinet/table, hitting his head above his left eye, with trauma and bleeding noted. Then a few days later he suffered a bad stroke, he couldn't walk or talk. He spent several weeks in rehab to learn to walk and talk again. Family history of heart disease is present. Venous doppler in the ER today was negative. He has bounding pulses bilaterally in BLE's along with 2+ pitting edema. He is shaking today, he states he is cold and he doesn't due this all time. LDL was 73, TSH: 5.54 and he was started on synthroid by his PCP. BUN: 21, Creat : 1.35 EKG is NSR, anterior infarct, age undetermined, rate 69 bpm. He is to start lasix 40 mg daily. He is to start lisinopril 10 mg daily for better BP control. BMP, CBC, B12, and Folate today along with urinalysis. I am concerned that he may have either Cardiomyopathy with CHF or something like nephrotic syndrome due to long standing poorly treated HTN. ECHO to look at LV function. BMP in 1 Hospital Course Hospital Course: pt responded well to iv steroids with dec jt pain and swelling and no reddness - wbc elevated thought to be due to steroids and has inc bun/cr - uncertain etiology but pt with ability to ambulate and yoshi diet - will review meds - pt was seen by rosette ANGEL 2. Gout with elevated CRP and ESR (14.0 and 111, respectively), 02/2018 3. ETOH use 4. Hypothyroid, on supplement 5. 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 History of present illness: 53-year-old black male admitted through the emergency department for complaint of lower extremity edema and inability to walk. Patient had been seen in the emergency department the night before with lower extremity venous Dopplers negative for DVT. It was felt that he had a gout that was causing the lower extremity edema and was started on occasion for that. He is referred to cardiology for further evaluation. He was seen in our office yesterday with plans to obtain an echocardiogram to evaluate left ventricular ejection fraction and rule out congestive heart failure. Patient was started on lisinopril for blood pressure and Lasix for the edema. However he returned to the emergency department due to inability to care for himself stating that he was unable to get up to go the bathroom was having to urinate and. Patient does have some atypical chest pain described as a sharp stinging sensation that lasts only a few seconds time. He denies any history of hyperlipidemia, diabetes or tobacco use. Patient was admitted for treatment. His sed rate noted to be markedly elevated at greater than 100 and his CRP was 14. Patient was started on IV steroids with improvement in his edema and discomfort this a.m. Potassium noted to be elevated at 5.3 and slightly elevated BUN and creatinine after 1 dose of lisinopril. Cardiology consulted for evaluation recommendations. Echocardiogram is in progress at this time with preliminary evaluation showing preserved ejection fraction. l await the results of the echocardiogram but unofficially the ejection fraction appeared preserved with some mild aortic regurgitation. 2. In light of the hyperkalemia and slightly increased renal functions, will recommend discontinuing lisinopril and using lasix only short term if needed. 3. Due to elevated blood pressure and heart rate on admission we will try low- dose beta-rena therapy in the form of metoprolol 25 mg twice daily. 4. No further cardiac workup at this time. Okay from cardiology standpoint for discharge home with outpatient follow-up. Objective Vital signs: Temp Pulse Resp BP Pulse Ox 98.2 F 60 18 147/78 100 03/21/18 07:28 03/21/18 07:28 03/21/18 07:28 03/21/18 07:28 03/21/18 07:28 no acute distress - *Routine HEENT Exam Head: Present: normocephalic Eye: Present: EOMI, PERRL ENT: Present: mucous membranes moist - *Routine Neck Exam Present: supple - *Routine Respiratory Exam Present: CTA bilaterally - *Routine Cardiovascular Exam Present: RRR, murmur - *Routine Abdominal Exam Present: soft - *Routine Extremities Exam Absent: calf tenderness Comments: pt with no swollen jt and no edema - *Routine Skin Exam Present: intact - *Routine Neurological Exam Present: alert, oriented X3, CN II-XII intact - Routine Psychiatric Exam Present: normal affect DS: Diagnosis - Discharge Diagnosis (1) Edema of both legs Status: Acute (2) Arthritis Status: Acute (3) Renal insufficiency Status: Acute (4) Gout Status: Acute (5) Hypertension Status: Acute Discharge Plan - Patient Discharge Instructions ACTIVITY: Continue current activity DIET: continue same diet Patient Instructions: Low-Purine Diet, Low-Sodium Diet - Follow up Plan Disposition: Home, Self-Detention Medications: Home Medications Medication Instructions Recorded Confirmed Type cetirizine 10 mg tablet 10 mg PO DAILY tab 03/05/18 03/18/18 History hydralazine 25 mg tablet 25 mg PO TID 03/05/18 03/18/18 History indomethacin 25 mg capsule 25 mg PO TIDWM 03/05/18 03/19/18 History Cholecalciferol (Vitamin D3) 5,000 unit PO DAILY 03/18/18 03/18/18 History [Vitamin D3] Ergocalciferol (Vitamin D2) 50,000 unit PO QWEEK 03/18/18 03/18/18 History [Drisdol] Furosemide [Furosemide 40MG tAB] 40 mg PO DAILY 03/18/18 03/18/18 History Levothyroxine Sodium [Synthroid 25 mcg PO DAILY 03/18/18 03/18/18 History 25mcg (0.025mg) tablet] Lisinopril [Prinivil 10mg Tablet] 10 mg PO DAILY 03/18/18 03/18/18 History Prescriptions/Medication Reconciliation: New Metoprolol Tartrate [Lopressor 25mg tablet] 25 mg PO BID tablet Continue hydralazine 25 mg tablet 25 mg PO TID Ergocalciferol (Vitamin D2) [Drisdol] 50,000 unit PO QWEEK Cholecalciferol (Vitamin D3) [Vitamin D3] 5,000 unit PO DAILY Levothyroxine Sodium [Synthroid 25mcg (0.025mg) tablet] 25 mcg PO DAILY Discontinued cetirizine 10 mg tablet 10 mg PO DAILY tab indomethacin 25 mg capsule 25 mg PO TIDWM Lisinopril [Prinivil 10mg Tablet] 10 mg PO DAILY Furosemide [Furosemide 40MG tAB] 40 mg PO DAILY
== END 2018-03-21 10:10 | disposition home or self-care (01) ==
LOC: ER 20:36 → 2ND 20:36
PROVIDERS: ADMIT Emergency Medicine; ATTEND Emergency Medicine

== ENCOUNTER → 2018-03-27 14:36 | Outpatient (CLI) | payer OTHER, SELFPAY ==
[2018-03-27 17:11] LABS: Basophils # 0.2 K/mm3 (0-0.2); Basophils % 1.3 % (0.1-2.0); Eosinophils # 0.3 K/mm3 (0.0-0.4); Eosinophils % 2.2 % (0.1-12.0); Hematocrit 42.3 % (42.0-52.0); Lymphocytes # 3.8 K/mm3 (0.7-4.5); Lymphocytes % 28.8 K/mm3 (10-50); Mean Corpuscular HGB Conc 30.8 g/dL (31.8-35.4); Mean Corpuscular Hemoglobin 30.2 pg (27.0-31.2); Mean Corpuscular Volume 98.3 fl (80-94); Mean Platelet Volume 8.1 fl (7.4-10.4); Monocytes # 0.8 K/mm3 (0.1-1.0); Neutrophils # 8.1 K/mm3 (1.8-7.8); Neutrophils % 61.8 % (37.0-80.0); Red Cell Distribution Width 13.3 % (11.5-17.5); White Blood Count 13.1 K/mm3 (4.8-10.8)
[2018-03-27 17:14] LABS: Platelet Count 689 K/mm3 (142-424)
[2018-03-27 17:39] LABS: Anion Gap 16.4 mEq/L (5-15); Blood Urea Nitrogen 32 mg/dL (7-18); Calcium 9.8 mg/dL (8.5-10.1); Carbon Dioxide 24 mmol/L (21.0-32.0); Chloride 101 mmol/L (98-107); Creatinine,Serum 1.83 mg/dL (0.70-1.30); Estimated Glomerular Filt Rate 39 ml/min (>60); GFR (African American) 47 ML/MIN (>60); Glucose 108 mg/dL (74-106); Potassium 4.4 mmoL/L (3.5-5.1); Sodium 137 mmol/L (136-145)
[2018-03-27 17:43] LABS: Uric Acid 12.5 mg/dL (2.6-7.2)
== END ==
PROVIDERS: Visit Provider Emergency Medicine
DX: I10 Essential (primary) hypertension (principal)
CPT/HCPCS: 80048; 84550; 85025

== ENCOUNTER 2019-02-03 14:05 | Observation (INO) | payer OTHER, SELFPAY ==
[2019-02-03] VITALS (12 sets, daily range): BP systolic 79–135; BP diastolic 57–89; PULSE 70–108; RESP 15–20; TEMP 36.5–37.1; O2SAT 92–100; BMI 22.3
--- NOTE | 2019-02-03 14:11 | CT_ITS ---
CT head/brain wo con HISTORY: Headache, pain, injury/contusion/abrasion/hematoma following injury ITS.REASON: fall ORDERING PHYSICIAN: Delfino London MD PATIENT AGE: 53 years COMPARISON: 07/12/2017 TECHNIQUE: Axial images obtained without contrast. Brain and bone windows reviewed. All CT scans at the facility use one or more dose reduction, viz: automated exposure control, ma/kV adjustment per patient size (including targeted exams where dose is matched to indication, i.e. head), or iterative reconstruction technique. FINDINGS: No midline shift, mass effect, intracranial hemorrhage, hydrocephalus, or extra-axial fluid collection is evident. There is generalized atrophy with periventricular ischemic gliotic change. Encephalomalacia changes are present in the right cerebellar hemisphere. There is a 7 mm isodensity in the left cerebellar hemisphere. Previously there was a hyperdense nodule at this area. This could represent a treated neoplasm. No pertinent history made available. The calvarium has an unremarkable appearance. No mastoid effusion. No sinus air-fluid levels.. IMPRESSION: 1. No acute intracranial findings. 2. Atrophy with chronic ischemic changes with encephalomalacia change in the right cerebellar hemisphere. 3. Rounded area of low density in the left cerebellar hemisphere previously occupied by hyperdense nodule and could be due to small area of encephalomalacia. Please correlate with clinical findings
--- NOTE | 2019-02-03 14:11 | CT_ITS ---
CT abdomen pelvis wo con CLINICAL INDICATION: Generalized abdominal pain following injury ITS.REASON: fall ORDERING PHYSICIAN: Delfino London MD PATIENT AGE: 53 years COMPARISON: None TECHNIQUE: Axial images obtained with sagittal and coronal reformats. All CT scans at the facility use one or more dose reduction, viz: automated exposure control, ma/kV adjustment per patient size (including targeted exams where dose is matched to indication, i.e. head), or iterative reconstruction technique. PROCEDURE: Oral Contrast: None IV Contrast: None . FINDINGS: There is bilateral gynecomastia. Coronary artery calcifications are present. There is diffuse fatty liver infiltration with some sparing of fatty liver in the pericholecystic region. Spleen, adrenal glands, and pancreas are unremarkable. No renal or ureteral calculi. There is no evidence of intestinal obstruction or free air. No evidence of appendicitis. Urinary bladder wall is thickened and may in part be due to nondistention. Cystitis is also a consideration. There is diverticulosis of the colon with no evidence of diverticulitis. No intestinal obstruction or free air. No acute bony findings. IMPRESSION: 1. Colonic diverticulosis. No evidence of diverticulitis. 2. Thickened urinary bladder which may in part be due to nondistention. Cystitis is also considered 3. Diffuse hepatic steatosis
--- NOTE | 2019-02-03 14:11 | CT_ITS ---
CT CERVICAL SPINE WITHOUT CONTRAST CT RECONSTRUCTIONS HISTORY:Neck pain following injury ORDERING PHYSICIAN: Delfino London MD PATIENT AGE: 53 years COMPARISON: 07/12/2017 Technique: All CT scans at the facility use one or more dose reduction, viz: automated exposure control, ma/kV adjustment per patient size (including targeted exams where dose is matched to indication, i.e. head), or iterative reconstruction technique PROCEDURE: Axial spiral CT scanning performed of the cervical spine beginning at the base of the skull and continuing to the upper T-spine. 3-D multiplanar reconstruction with 3-D manipulation of volumetric data set in image rendering was completed by the radiologist and/or technologist with the supervision of the radiologist on independent workstation. FINDINGS: Multiple dental caries noted. Normal cervical alignment. No acute fracture or dislocation. There is degenerative disc disease from C2 to T1 with mild endplate hypertrophic change and uncovertebral hypertrophy. Left-sided foraminal narrowing C4-C5, bilateral foraminal narrowing C5-C6, mild bilateral foraminal narrowing C6-C7. Lung apices are clear. IMPRESSION: 1. No acute fracture. 2. Multilevel spondylosis
--- NOTE | 2019-02-03 14:14 | HMH.EDGENADL ---
ED Disposition Clinical Impression: Syncope and collapse, Dehydration, Gastroenteritis Closed head injury Qualifiers: Encounter type: initial encounter Qualified Code(s): S09.90XA - Unspecified injury of head, initial encounter Cervical strain Qualifiers: Encounter type: initial encounter Qualified Code(s): S16.1XXA - Strain of muscle, fascia and tendon at neck level, initial encounter Acute renal failure Qualifiers: Acute renal failure type: unspecified Qualified Code(s): N17.9 - Acute kidney failure, unspecified Sepsis Qualifiers: Sepsis type: sepsis due to unspecified organism Qualified Code(s): A41.9 - Sepsis, unspecified organism Disposition: Admitted As Inpatient Condition on Discharge: Fair - Critical Care Critical Care Time: Yes Attestation: On 02/03/19, the high probability of a clinically significant, sudden or life threatening deterioration of the following system(s) required my full and direct attention, intervention and personal management. The time I documented below is in addition to time spent performing reported procedures but includes the following listed in this critical care notation. Total Critical Care Time: 35 Vital system(s) involved:: Circulatory Failure, Renal Failure My critical care processes included: Assessment & monitoring of V/S, Initial and Re-exams, Data Review/Interpretation, Coordinating Care, Medication Orders and management, Documentation Medical Decision Making - Rodolfo Inquiry Pt receiving controlled substance: No Vital Signs: 02/03/19 14:05 02/03/19 14:28 02/03/19 14:39 Temperature 97.7 F Temperature Source Oral Pulse Rate [Left Radial] 70 104 H 102 H Respiratory Rate 15 Blood Pressure [Right Arm] 83/57 L 79/64 L 100/73 L Blood Pressure Mean [Right Arm] 65 69 82 Blood Pressure Source [Right Arm] Automatic Cuff Automatic Cuff Blood Pressure Position [Right Arm] Sitting Sitting 02 Sat by Pulse Oximetry 98 92 L 99 Oxygen Delivery Method Room Air 02/03/19 16:29 02/03/19 17:03 02/03/19 17:41 Temperature Temperature Source Pulse Rate [Left Radial] 103 H 89 88 Respiratory Rate Blood Pressure [Right Arm] 126/81 128/89 135/86 Blood Pressure Mean [Right Arm] 96 102 102 Blood Pressure Source [Right Arm] Automatic Cuff Blood Pressure Position [Right Arm] Sitting 02 Sat by Pulse Oximetry 100 100 100 Oxygen Delivery Method - Lab Data Lab Results 02/03/19 14:40: WBC 12.7 H, RBC 3.73 L, Hgb 11.8 L, Hct 36.2 L, MCV 97.1 H, MCH 31.7 H, MCHC 32.7, RDW 13.6, Plt Count 327, MPV 8.7, Neut % (Auto) 67.6, Lymph % (Auto) 21.4, Millard % (Auto) 8.7, Eos % (Auto) 1.3, Baso % (Auto) 1.0, Neut # (Auto) 8.6 H, Lymph # (Auto) 2.7, Millard # (Auto) 1.1 H, Eos # (Auto) 0.2, Baso # (Auto) 0.1 02/03/19 14:40: Sodium 134 L, Potassium 3.5, Chloride 92 L, Carbon Dioxide 25, Anion Gap 20.5 H, BUN 36 H, Creatinine 2.53 H, Estimated Creat Clear 28, Estimated GFR 27 L, Est GFR ( Amer) 32 L, Glucose 107 H, Calcium 10.9 H, Total Bilirubin 0.6, AST 52 H, ALT 43, Alkaline Phosphatase 65, Troponin I < 0.02, Total Protein 9.3 H, Albumin 3.8, Globulin 5.5 H, Albumin/Globulin Ratio 0.7 L, Plasma/Serum Alcohol 52 02/03/19 14:40: Lactate 4.8 H 02/03/19 14:40: Magnesium 1.6 02/03/19 15:15: PT 10.5, INR 1.01 02/03/19 16:42: Urine Color Yellow, Urine Appearance Clear, Urine pH 6.0, Ur Specific [place] 1.010, Urine Protein Negative, Urine Glucose (UA) Negative, Urine Ketones Negative, Urine Blood Negative, Urine Nitrate Negative, Urine Bilirubin Negative, Urine Urobilinogen 0.2, Ur Leukocyte Esterase Negative, Urine WBC Occasional, Ur Squamous Epith Cells Occasional, Urine Bacteria Trace, Hyaline Casts Occasional 02/03/19 16:42: Urine Opiates Screen Negative, Urine Methadone Screen Negative, Ur Barbituates Screen Negative, Ur Phencyclidine Scrn Negative, Ur Amphetamines Screen Negative, U Benzodiazepines Scrn Negative, Urine Cocaine Screen Negative, U Marijuana (THC) Screen Negative Resu
--- NOTE | 2019-02-03 14:22 | XR_ITS ---
XR chest portable HISTORY: Shortness of air ITS.REASON: syncope, abdo pain, soa ORDERING PHYSICIAN: Delfino London MD PATIENT AGE: 53 years COMPARISON: 07/12/2017 FINDINGS: The cardiomediastinal silhouette and pulmonary vascularity are within normal limits. The lungs are clear without infiltrates, suspicious nodules, or pleural effusions. No acute bony abnormalities. IMPRESSION: Negative chest, no acute finding
[2019-02-03 14:56] LABS: Basophils # 0.1 K/mm3 (0-0.2); Eosinophils # 0.2 K/mm3 (0.0-0.4); Eosinophils % 1.3 % (0.1-12.0); Hematocrit 36.2 % (42.0-52.0); Hemoglobin 11.8 g/dL (14.1-18.0); Lymphocytes # 2.7 K/mm3 (0.7-4.5); Lymphocytes % 21.4 % (10-50); Mean Corpuscular HGB Conc 32.7 g/dL (31.8-35.4); Mean Corpuscular Hemoglobin 31.7 pg (27.0-31.2); Mean Corpuscular Volume 97.1 fl (80-94); Mean Platelet Volume 8.7 fl (7.4-10.4); Monocytes # 1.1 K/mm3 (0.1-1.0); Monocytes % 8.7 % (1.7-9.3); Neutrophils # 8.6 K/mm3 (1.8-7.8); Neutrophils % 67.6 % (37.0-80.0); Platelet Count 327 K/mm3 (142-424); Red Blood Count 3.73 M/mm3 (4.60-6.20); Red Cell Distribution Width 13.6 % (11.5-17.5); White Blood Count 12.7 K/mm3 (4.8-10.8)
[2019-02-03 15:13] LABS: Alanine Aminotransferase 43 U/L (12-78); Albumin Level 3.8 gm/dL (3.4-5.0); Albumin/Globulin Ratio 0.7 (1.1-1.8); Alkaline Phosphatase 65 U/L (46-116); Anion Gap 20.5 mEq/L (5-15); Aspartate Amino Transferase 52 U/L (15-37); Bilirubin,Total 0.6 mg/dL (0.2-1.0); Blood Urea Nitrogen 36 mg/dL (7-18); Calcium 10.9 mg/dL (8.5-10.1); Carbon Dioxide 25 mmol/L (21.0-32.0); Chloride 92 mmol/L (98-107); Creatinine Clearance Estimated 28 mL/min (50-200); Creatinine,Serum 2.53 mg/dL (0.70-1.30); Estimated Glomerular Filt Rate 27 ml/min (>60); Ethyl Alcohol 52 mg/dL (0-99); GFR (African American) 32 ML/MIN (>60); Globulin 5.5 gm/dl (1.3-3.2); Glucose 107 mg/dL (74-106); Potassium 3.5 mmoL/L (3.5-5.1); Sodium 134 mmol/L (136-145); Total Protein,Serum 9.3 gm/dL (6.4-8.2); Troponin I < 0.02 ng/ml (0.00-0.06)
[2019-02-03 15:14] LABS: Lactic Acid 4.8 mmol/L (0.4-2.0)
[2019-02-03 15:17] LABS: Magnesium 1.6 mg/dL (1.4-2.2)
--- NOTE | 2019-02-03 15:21 | PC.NURSE ---
dr gil informed of lactic acid of 4.8
[2019-02-03 15:34] LABS: INR 1.01 (0.9-1.1); Prothrombin Time 10.5 seconds (9.4-11.8)
--- NOTE | 2019-02-03 15:52 | XR_ITS ---
XR pelvis 1-2V HISTORY: Fall with injury and pain ITS.REASON: FALL ORDERING PHYSICIAN: Delfino London MD PATIENT AGE: 53 years Comparison: None FINDINGS: No fracture or dislocation is evident. No significant degenerative change. No lytic or blastic change. The SI joints have an unremarkable appearance. Unremarkable soft tissues. There is minimal heterotopic ossification along the left greater trochanter IMPRESSION: No acute finding.
--- NOTE | 2019-02-03 16:45 | PC.NURSE ---
speaking to dr richard
[2019-02-03 16:47] LABS: Microscopic, Urine URINE MICROSCOPIC (MICROSCOPIC)
[2019-02-03 16:51] LABS: Appearance,Urine CLEAR (Clear); Blood, Urine Negative (Negative); Color,Urine YELLOW (Yellow); Glucose,Urine (UA) Negative (Negative); Ketones,Urine Negative (Negative); Leukocyte Esterase,Urine Negative (Negative); Nitrate,Urine Negative (Negative); Protein,Urine Negative (Negative); Urobilinogen,Urine 0.2 EU/dl (0.2)
--- NOTE | 2019-02-03 16:56 | PC.NURSE ---
states that pt does meet criteria for sepsis workup although he feels at this time that the pt does need antibiotics for the gastroenteritis at this time for pt. Contacting Lauren at this time to follow up about antibiotic administration for pt.
[2019-02-03 17:00] LABS: Amphetamine/Metha Screen,Urine Negative ng/mL (<1000); Barbiturates Screen,Urine Negative ng/mL (<200); Benzodiazepines Screen,Urine Negative ng/mL (<200); Cannabinoid Screen,Urine Negative ng/mL (<50); Cocaine Screen,Urine Negative ng/mL (<300); Methadone Screen,Urine Negative ng/mL (<300); Opiate Screen,Urine Negative ng/mL (<300); Phencyclidine Screen,Urine Negative ng/mL (<25)
[2019-02-03 17:05] LABS: Bilirubin,Urine Negative (Negative)
[2019-02-03 17:11] LABS: WBC,Urine Occasional #/hpf (0-3)
[2019-02-03 17:12] LABS: Bacteria,Urine Trace /lpf; Hyaline Casts,Urine Occasional #/lpf (0); Squamous Epithelial Cell,Urine Occasional #/hpf (0-5)
[2019-02-03 17:58] LABS: Activated Partial Thrombo Time 25.7 seconds (23.6-34.0)
[2019-02-03 18:21] LABS: Phosphorous 4.4 mg/dL (2.4-4.9)
--- NOTE | 2019-02-03 18:22 | PC.NURSE ---
Report received from Beth Tesfaye RN. She states they will bring him to the floor as soon as someone is available to do so.
--- NOTE | 2019-02-03 18:24 | PC.NURSE ---
Artem pack mixed and sent with pt to nurse on the floor
--- NOTE | 2019-02-03 18:29 | PC.NURSE ---
Pt states he is too weak to stand to weigh him
[2019-02-03 18:35] LABS: Thyroid Stimulating Hormone 3.15 uIU/ml (0.358-3.740)
[2019-02-03 18:49] LABS: Reflex Lactic Add Lactic Reflex
[2019-02-03 19:22] LABS: Lactic Acid Follow Up (RFLX 1) 1.8 (0.4-2.0)
--- NOTE | 2019-02-03 20:01 | HMH.HP ---
*Admission Date: 02/03/19 *Chief complaint: syncope- *History of present illness: this patient presented to the ed with tates he has been feeling bad with stomach pain and vomiting for the last week but felt better today so he walked to his friends house where he passed out and hit the porch, states he doesnt recall anything other than waking up on the porch. He tried to get up a few times after sitting for a some time but no improvement. c/o headache and neck pain with some abdomen pain. States he started drinking beer this morning. History obtained from patient and sister. Patient brought in by ambulance after syncopal episode. States he started getting sick on Friday 4 days ago. He has had vomiting and diarrhea and abdominal pain which she locates is being diffuse periumbilical and lower abdomen. He felt better today, no vomiting or diarrhea, so he walked to a friend's house. While there, he alon from sitting position and became dizzy and passed out. He tried to get up and got dizzy and fell down again. He says he hit the back of his head, but no loss of consciousness. Admits to being a daily drinker, sister says that he drinks vodka and beer, as much as he can get his hands on . Admits to drinking today. pt was admitted for eval and treatment [facility] History I have reviewed the patient's past medical history: Yes Medical History: Reports:: Anxiety, Depression, Hypertension Denies:: Cancer, Diabetes Mellitus Type 1, Diabetes Mellitus Type 2, MRSA *Have you ever received a pneumonia vaccine?: No *Have you received a flu vaccine this season?: No Other Medical History: Reports: Thyroid Disease Other Surgeries: Yes: No Previous Surgery Amputation: No Fractures: No - *Social History Educational Level: Attended High School Smoking Status: Light tobacco smoker Tobacco Type: cigarettes Alcohol Intake: current Alcohol Intake Frequency:: 3 or more drinks per day Substance Use Type: denies use *Occupational Status:: disabled Housing: apartment Household Members: none *Travel in the last 8 weeks: None - Psychiatric History Expresses thoughts of harming self/others: None Suicide Plan Description: No Plan Pschychiatric History:: Reports:: Anxiety, Depression Family Hx:: Hypertension Review of Systems - Review of Systems Review of systems:: pertinent systems reviewed and negative unless documented below - Constitutional Reports weakness - Eyes Denies change in vision - ENT Denies mouth lesions, Denies sore throat - *Cardiovascular Reports chest pain, Denies shortness of breath, Denies generalized swelling - *Respiratory Reports shortness of breath, Denies cough - *Gastrointestinal Reports nausea, Reports vomiting, Denies abdominal pain - *Genitourinary Denies blood in urine - *Musculoskeletal Denies joint pain, Denies neck pain - Integumentary/Breasts Denies rash - *Neurologic Reports fainting, Denies abnormal speech, Denies localized weakness, Denies numbness - Psychiatric Denies anxiety Meds Home Medications Medication Instructions Recorded Confirmed Type hydralazine 25 mg tablet 25 mg PO TID #270 tab 10/19/18 02/03/19 Rx cholecalciferol (vitamin D3) 5,000 5,000 unit PO DAILY #90 cap 12/29/18 02/03/19 Rx unit capsule Ergocalciferol (Vitamin D2) See Rx Instructions .ROUTE .COMPLEX 02/03/19 02/03/19 History [Drisdol] Furosemide [Furosemide 40MG tAB] 40 mg PO DAILY 02/03/19 02/03/19 History Indomethacin 50 mg PO TID 02/03/19 02/03/19 History Lisinopril [Lisinopril 10mg Tab] 10 mg PO DAILY 02/03/19 02/03/19 History Cetirizine HCl 10 mg PO DAILY 02/04/19 02/04/19 History Allergies Allergy/AdvReac Type Severity Reaction Status Date / Time aspirin [ASPIRIN] Allergy Unknown Verified 04/16/18 08:58 Penicillins [PENICILLINS] Allergy Unknown Verified 04/16/18 08:58 Exam Vital signs and Labs for Last 24 Hours: Temp Pulse Resp BP Pulse Ox 98.7 F 96 H 16 116/65 99 05/1
[2019-02-04] VITALS (20 sets, daily range): BP systolic 101–156; BP diastolic 60–97; PULSE 65–110; RESP 14–18; TEMP 36.6–36.8; O2SAT 97–100; BMI 23.1
--- NOTE | 2019-02-04 | IR_ITS ---
CARDIAC CATHETERIZATION DATE OF CATHETERIZATION:02/04/2019 12:13 PM PROCEDURES: 1. Left heart catheterization 2. Left ventriculogram 3. Selective coronary angiogram INDICATION FOR TEST: 1. Syncope 2. Suspected acute coronary syndrome 3. Chronic renal failure creatinine 1.9 Informed consent was obtained prior to the procedure. COMPLICATIONS: None ESTIMATED BLOOD LOSS: Less than 10 ml. TECHNIQUE: One percent lidocaine used to anesthetize the right anterior aspect of the wrist. The right radial artery was accessed via the Seldinger technique. A 6 Ghanaian sheath was placed in the right radial artery. 2.5 mg of verapamil, 800 mcg of nitroglycerin, 1mg Lidocaine and 5000 U Heparin were given through the arterial sheath. The trap catheter was also used to perform left heart catheterization, left ventriculogram and selective coronary angiogram. At the end of the procedure the sheath was removed good hemostasis was achieved using Traclet band, patient was transferred to the postop holding area in stable condition . ANGIOGRAPHIC RESULTS: 1. The left main artery normal 2. The left anterior descending artery has external calcifications with no intraluminal compression greater than 10% 3. The circumflex artery is a large dominant vessel and normal 4. The right coronary artery vestigial and normal 5. The [facility] ventriculogram reveals normal 65% 6. The left ventricular end-diastolic pressure 10 mmHg IMPRESSION: 1. Mild nonflow limiting coronary artery disease 2. Normal ejection fraction 3. Normal left ventricular end-diastolic pressure PLAN: 1. Medical management
--- NOTE | 2019-02-04 06:30 | PC.NURSE ---
Awake most of shift w/ no complaints voiced. Remains on room air w/ no s/s of resp distress. Requires standby assistance to BSC d/t weakness. Currently NSR on teley w/ HR in 70's. #20 RAC w/ NS @ 75 mls/hr. VSS. Will continue to monitor.
--- NOTE | 2019-02-04 07:36 | HMH.PHAVTE ---
[facility] Pharmacy VTE Monitoring - Patient Demographics Admission date: 02/03/19 Report Date: 02/04/19 Time: 07:36 Allergies/Adverse Reactions: Patient Allergies aspirin [ASPIRIN] Allergy (Unknown, Verified 04/16/18 08:58) Penicillins [PENICILLINS] Allergy (Unknown, Verified 04/16/18 08:58) Height: 1.63 m Weight: 58.967 kg Patient Problems: Current Active Problems (Updated 02/03/19 @ 16:56 by Delfino oLndon MD) Syncope and collapse (Acute) Closed head injury (Acute) Cervical strain (Acute) Acute renal failure (Acute) Dehydration (Acute) Gastroenteritis (Acute) Sepsis (Acute) - VTE Risk Labs: VTE Related Lab Results Hgb 11.8 g/dL (14.1-18.0) L 02/03/19 14:40 Hct 36.2 % (42.0-52.0) L 02/03/19 14:40 Plt Count 327 K/mm3 (142-424) 02/03/19 14:40 PT 10.5 seconds (9.4-11.8) 02/03/19 15:15 INR 1.01 (0.9-1.1) 02/03/19 15:15 APTT 25.7 seconds (23.6-34.0) 02/03/19 15:15 BUN 36 mg/dL (7-18) H 02/03/19 14:40 Creatinine 2.53 mg/dL (0.70-1.30) H 02/03/19 14:40 Estimated Creat Clear 28 mL/min (50-200) 02/03/19 14:40 Was VTE Risk Assessment Performed: Yes VTE Score: 4 VTE Risk Level: Low Risk - Prophylaxis VTE Prophylaxis Ordered?: Yes Types of VTE Prophylaxis: TEDS Knee High Location of Applied Device: Bilateral Lower Extremeties - VTE Diagnosis Confirmed Treatment or plan recommended: Continue Current Treatment
[2019-02-04 07:41] LABS: Anion Gap 12.7 mEq/L (5-15); Blood Urea Nitrogen 34 mg/dL (7-18); Carbon Dioxide 26 mmol/L (21.0-32.0); Chloride 102 mmol/L (98-107); Creatinine Clearance Estimated 37 mL/min (50-200); Creatinine,Serum 1.86 mg/dL (0.70-1.30); Estimated Glomerular Filt Rate 38 ml/min (>60); GFR (African American) 46 ML/MIN (>60); Glucose 94 mg/dL (74-106); Potassium 3.7 mmoL/L (3.5-5.1); Sodium 137 mmol/L (136-145)
--- NOTE | 2019-02-04 07:44 | HMH.PHAINT ---
MEDICATION RECONCILIATION COMPLETED ON PATIENT USING EXTERNAL FILL HISTORY FROM PHARMACY. -ANKITA FABIAN, ISAACD
--- NOTE | 2019-02-04 07:50 | CA_ITS ---
PROCEDURE: 2-D M-mode and color Doppler study INDICATIONS FOR THE TEST: Chest pain+ COPD Heart Murmur Tobacco Smoking+ Palpitations Fatigue+ Syncope+ Edema+ Hypertension+Diabetes Mellitus Rheumatic Fever SOB+AKERS Obesity Hyperlipidemia Family History HD+ Additional History old CVA, alcohol abuse, septic, renal failure, CAD PATIENT INFORMATION HEIGHT: 64 WEIGHT: 130 GENDER: Male B/P: 116/65 2-D/M-MODE INTERPRETATION: 2-D MEASUREMENTS OBSERVED VALUES IN CMS Right Ventricular Dimension (RVDd) 2.3 Interventricular Septum (Thickness)(IVsd) 0.9 Left Ventricular Internal Dimensions(LVIDd) 3.7 Left Ventricular Posterior Wall (Thickness)(LVPWd) 1.0 Aortic Root 2.5 Aortic Cusp Separation 2.0 Left Atrial Dimensions (LAD) 2.6 2D 1. Left atrium is mildly enlarged, left ventricle is normal size, mild concentric left ventricular hypertrophy, visually estimated ejection fraction 55% with no regional wall motion abnormality. 2. The right atrium and right ventricle are mildly enlarged with normal contractility. 3. The aortic valve is thickened and calcified leaflet continue to display mobility. 4. The mitral and tricuspid valve are grossly normal. 5. The pulmonic valve is poorly present. 6. No significant pericardial effusion noted. DOPPLER INTERROGATION: Doppler interrogation of the aortic, mitral and tricuspid valvular presence of mild aortic, mild mitral and tricuspid regurgitation, calculated right ventricular systolic pressure is 40 mmHg consistent with mild pulmonary hypertension, grade 1 diastolic dysfunction seen with tissue Doppler evidence of raised left atrial pressure. CONCLUSION: 1. Mildly enlarged left atrium, normal left ventricular size, mild concentric left ventricular hypertrophy, visually estimated ejection fraction 55% with no regional wall motion abnormality, grade 1 diastolic dysfunction seen with tissue Doppler evidence of raised left atrial pressure. 2. Mildly enlarged right ventricle with normal contractility. 3. Mild aortic, mild mitral and tricuspid regurgitation, calculated right ventricular systolic pressure is 40 mmHg consistent with mild pulmonary hypertension, inferior vena cava is not well visualized. 4. No significant pericardial effusion noted.
[2019-02-04 07:51] LABS: Calcium 8.9 mg/dL (8.5-10.1)
[2019-02-04 08:47] LABS: Adenovirus F 40/41, stool Not Detected (NotDetected); Astrovirus Not Detected (NotDetected); Campylobacter Not Detected (NotDetected); Cryptosporidium Not Detected (NotDetected); Cyclospora Cayetanesis Not Detected (NotDetected); Entamoeba histolytica Not Detected (NotDetected); Enteroaggregative E coli Not Detected (NotDetected); Enteropathogenic E coli Not Detected (NotDetected); Enterotoxigenic E coli Not Detected (NotDetected); Giardia lamblia Not Detected (NotDetected); Norovirus Not Detected (NotDetected); Plesimonas Shigalloides, PCR Not Detected (NotDetected); Rotavirus A Not Detected (NotDetected); Salmonella, PCR Not Detected (NotDetected); Sapovirus Not Detected (NotDetected); Shiga-like toxin E coli Not Detected (NotDetected); Shigella Enterovasive E coli Not Detected (NotDetected); Vibrio Cholerae Not Detected (NotDetected); Vibrio, PCR Not Detected (NotDetected); Yersinia Entercolitica, PCR Not Detected (NotDetected)
--- NOTE | 2019-02-04 09:11 | CI_ITS ---
Cerebrovascular Exam Indications: 785.9 Bruit. IMPRESSIONS 1. The bilateral vertebral arteries are patent with normal antegrade flow. 2. Study suggests 20-49% stenosis involving the right internal carotid artery and the left internal carotid artery. 3. Tortuous carotid arteries seen bilaterally. Carotid duplex study. Complete study and Doppler flow study including spectral analysis, color and christie scale imaging. Height: Height: 162.6cm. Height: 64in. Weight: Weight: 59kg. Weight: 129.7lb. Body mass index: BMI: 22.3kg/m^2. Body surface area: BSA: 1.64m^2. Location: Bedside. Patient status: Inpatient. Tables: Arterial flow: + +--------+--------+ Location V sys V ed + +--------+--------+ Right CCA - proximal 95.1cm/s 22.8cm/s + +--------+--------+ Right CCA - distal 87.2cm/s 36.9cm/s + +--------+--------+ Right ECA 73.9cm/s -------- + +--------+--------+ Right ICA - proximal 87.7cm/s 38.6cm/s + +--------+--------+ Right ICA - mid 89.9cm/s 46.3cm/s + +--------+--------+ Right ICA - distal 80.6cm/s 40.3cm/s + +--------+--------+ Right vertebral 51.1cm/s -------- + +--------+--------+ Left CCA - proximal 93.2cm/s 40.3cm/s + +--------+--------+ Left CCA - distal 84cm/s 33.4cm/s + +--------+--------+ Left ECA 78.1cm/s -------- + +--------+--------+ Left ICA - proximal 87.4cm/s 43.7cm/s + +--------+--------+ Left ICA - mid 117cm/s 56.2cm/s + +--------+--------+ Left ICA - distal 95.9cm/s 48.9cm/s + +--------+--------+ Left vertebral 61.4cm/s -------- + +--------+--------+ Velocity ratios: + + + + + + Right, V sys Right, V ed Left, V sys Left, V ed + + + + + + Max ICA/dist CCA 1.03 1.25 1.39 1.68 + + + + + + (Report amended ) Electronically signed by: Aren Bermeo [id number]
--- NOTE | 2019-02-04 09:12 | HMH.CNCARD ---
History of Present Illness Consult date: 02/04/19 Requesting physician: Daljit Aguilar Chief complaint: syncope Additional Medical History:: 1. tobacco use 2. 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 CT of head, 01/2019, 1. No acute intracranial findings. 2. Atrophy with chronic ischemic changes with encephalomalacia change in the right cerebellar hemisphere. 3. Rounded area of low density in the left cerebellar hemisphere previously occupied by hyperdense nodule and could be due to small area of encephalomalacia. Please correlate with clinical findings 4. HTN A. Echo, 02/2018, 1. Mildly enlarged left atrium, normal left ventricular size, mild concentric left ventricular hypertrophy, visually estimated ejection fraction 55% with no obvious regional wall motion abnormality, grade 1 diastolic dysfunction seen with tissue Doppler evidence of raised left atrial pressure. 2. Mild aortic, mild mitral and tricuspid regurgitation 3. No significant pericardial effusion noted 5. Syncope, 01/2019, with N/V/Diarrhea A. CT of head, no acute changes. See above results. B. CT of Abd/pelvis, 1. Colonic diverticulosis. No evidence of diverticulitis. 2. Thickened urinary bladder which may in part be due to nondistention. Cystitis is also considered 3. Diffuse hepatic steatosis C. Cervical spine CT, 1. No acute fracture. 2. Multilevel spondylosis History of present illness: this patient presented to the ed with states he has been feeling bad with stomach pain and vomiting for the last week but felt better today so he walked to his friends house where he passed out and hit the porch, states he doesnt recall anything other than waking up on the porch. He tried to get up a few times after sitting for a some time but no improvement. c/o headache and neck pain with some abdomen pain. States he started drinking beer this morning. History obtained from patient and sister. Patient brought in by ambulance after syncopal episode. States he started getting sick on Friday 4 days ago. He has had vomiting and diarrhea and abdominal pain which she locates is being diffuse periumbilical and lower abdomen. He felt better today, no vomiting or diarrhea, so he walked to a friend's house. While there, he alon from sitting position and became dizzy and passed out. He tried to get up and got dizzy and fell down again. He says he hit the back of his head, but no loss of consciousness. Admits to being a daily drinker, sister says that he drinks vodka and beer, as much as he can get his hands on . Admits to drinking today. pt was admitted for eval and treatment The above per Dr. Aguilar Pt relates exertional chest pain with routine activities recently that resolves with rest. Denies any previous cardiac history or workup. EKG is sinus with early repolarization abnormalities. Preliminary echo shows preserved to hyperdynamic LVEF with mild to mod valve disease unchanged from echo last year. CT of abdomen and chest shows significant coronary calcification of the left coronary artery system. [facility] History Medical History: Reports:: Anxiety, Depression, Hypertension Denies:: Cancer, Diabetes Mellitus Type 1, Diabetes Mellitus Type 2, MRSA *Have you ever received a pneumonia vaccine?: No *Have you received a flu vaccine this season?: No Other Medical History: Reports: Thyroid Disease Other Surgeries: Yes: No Previous Surgery Amputation: No Fractures: No - *Social History Educational Level: Attended High School Smoking Status: Light tobacco smoker Tobacco Type: cigarettes Alcohol Intake: current Alcohol Intake Frequency:: 3 or more drinks per day Substance Use Type: denies use *Occupational Status:: disabled Housing: apartment Household Members: none *Travel in the last 8 weeks: None - Psychiatric History Expresses thoughts of harming self/others: None Suicide Plan Description: No Plan Pschychiatric History:: Reports:: Anxiety, Depres
--- NOTE | 2019-02-04 09:36 | HMH.ACPN2 ---
Internal Medicine - PN: Subj *Date: 02/04/19 *Time: 09:39 Interval history: 53-year-old male patient sitting up in bed this morning. He does report abd tenderness and he denies nausea. this patient presented to the ed with states he has been feeling bad with stomach pain and vomiting for the last week but felt better today so he walked to his friends house where he passed out and hit the porch, states he doesnt recall anything other than waking up on the porch. He tried to get up a few times after sitting for a some time but no improvement. c/o headache and neck pain with some abdomen pain. States he started drinking beer this morning. History obtained from patient and sister. Patient brought in by ambulance after syncopal episode. States he started getting sick on Friday 4 days ago. He has had vomiting and diarrhea and abdominal pain which she locates is being diffuse periumbilical and lower abdomen. He felt better today, no vomiting or diarrhea, so he walked to a friend's house. While there, he alon from sitting position and became dizzy and passed out. He tried to get up and got dizzy and fell down again. He says he hit the back of his head, but no loss of consciousness. Admits to being a daily drinker, sister says that he drinks vodka and beer, as much as he can get his hands on . Admits to drinking today. (Per Dr. Aguilar) Exam Vital signs and Labs for Last 24 Hours: Temp Pulse Resp BP Pulse Ox 98.2 F 95 H 16 135/97 H 97 02/04/19 08:00 02/04/19 08:00 02/04/19 08:00 02/04/19 08:00 02/04/19 08:00 Laboratory Results - last 24 hr 02/03/19 14:40: WBC 12.7 H, RBC 3.73 L, Hgb 11.8 L, Hct 36.2 L, MCV 97.1 H, MCH 31.7 H, MCHC 32.7, RDW 13.6, Plt Count 327, MPV 8.7, Neut % (Auto) 67.6, Lymph % (Auto) 21.4, [place] % (Auto) 8.7, Eos % (Auto) 1.3, Baso % (Auto) 1.0, Neut # (Auto) 8.6 H, Lymph # (Auto) 2.7, [place] # (Auto) 1.1 H, Eos # (Auto) 0.2, Baso # (Auto) 0.1 02/03/19 14:40: Sodium 134 L, Potassium 3.5, Chloride 92 L, Carbon Dioxide 25, Anion Gap 20.5 H, BUN 36 H, Creatinine 2.53 H, Estimated Creat Clear 28, Estimated GFR 27 L, Est GFR ( Amer) 32 L, Glucose 107 H, Calcium 10.9 H, Total Bilirubin 0.6, AST 52 H, ALT 43, Alkaline Phosphatase 65, Troponin I < 0.02, Total Protein 9.3 H, Albumin 3.8, Globulin 5.5 H, Albumin/Globulin Ratio 0.7 L, Plasma/Serum Alcohol 52 02/03/19 14:40: Lactate 4.8 H 02/03/19 14:40: Magnesium 1.6 02/03/19 14:40: TSH 3.15 D 02/03/19 15:15: PT 10.5, INR 1.01 02/03/19 15:15: APTT 25.7 02/03/19 15:15: Phosphorus 4.4 02/03/19 16:42: Urine Color Yellow, Urine Appearance Clear, Urine pH 6.0, Ur Specific [place] 1.010, Urine Protein Negative, Urine Glucose (UA) Negative, Urine Ketones Negative, Urine Blood Negative, Urine Nitrate Negative, Urine Bilirubin Negative, Urine Urobilinogen 0.2, Ur Leukocyte Esterase Negative, Urine WBC Occasional, Ur Squamous Epith Cells Occasional, Urine Bacteria Trace, Hyaline Casts Occasional 02/03/19 16:42: Urine Opiates Screen Negative, Urine Methadone Screen Negative, Ur Barbituates Screen Negative, Ur Phencyclidine Scrn Negative, Ur Amphetamines Screen Negative, U Benzodiazepines Scrn Negative, Urine Cocaine Screen Negative, U Marijuana (THC) Screen Negative 02/03/19 19:00: Lactate 1.8 02/04/19 06:18: Sodium 137, Potassium 3.7, Chloride 102, Carbon Dioxide 26, Anion Gap 12.7, BUN 34 H, Creatinine 1.86 H D, Estimated Creat Clear 37, Estimated GFR 38 L, Est GFR ( Amer) 46 L D, Glucose 94, Calcium 8.9 D I & O for Last 24 hours: Intake & Output 02/01/19 02/02/19 02/03/19 02/04/19 23:59 23:59 23:59 23:59 Intake Total 1276 / 1276 Output Total 400 / 400 300 / 300 Balance -400 / -400 976 / 976 Weight 130 lb - Constitutional no acute distress - *Routine HEENT Exam Head: Present: normocephalic Eye: Present: EOMI, PERRL - *Routine Neck Exam Present: supple, full ROM. Absent: JVD - *Routine Respiratory Exam Present: CTA bilaterally - *
[2019-02-04 11:06] LABS: Clostridium Difficile A/B, PCR Detected (NotDetected)
--- NOTE | 2019-02-04 11:08 | PC.NURSE ---
CALLED MD OFFICE TO REPORT POSITIVE CDIFF RESULT. UNABLE TO GET AHOLD OF AT THIS TIME. LEFT MESSAGE TO HAVE RN AT OFFICE RETURN CALL.
--- NOTE | 2019-02-04 12:12 | PC.NURSE ---
moses gustafson rn from dr. rodriguez office returned call and relayed to her about patient postive cdiff test
[2019-02-04 12:50] LABS: Occult Blood,Stool Positive (Negative)
--- NOTE | 2019-02-04 17:11 | PC.NURSE ---
tracelet removed cleaned with chloraprep and telfa and tegaderm placed on site. no signs of hematoma or bleeding
--- NOTE | 2019-02-04 18:26 | PC.NURSE ---
patient has done well this shift. some shaking noted and patient complaining of being cold. sister concerned of patient getting gout in ankles will pass this along to oncoming nurse. patient also complaints of having redness to penis stating it was from where he had a lot of diarrhea and couldn't clean self. his vss will continue to monitor.
[2019-02-05] VITALS (7 sets, daily range): BP systolic 133–160; BP diastolic 80–97; PULSE 100–130; RESP 15–20; TEMP 36.9–37.7; O2SAT 93–100; BMI 23.0
--- NOTE | 2019-02-05 02:55 | PC.NURSE ---
PT C/O BOTH HIS KNEES HURTING. NO EDEMA NOTED. PT DID FALL AT LEAST 2 TIMES PRIOR TO EMS BRINGING HIM TO HOSPITAL ON 02/03. NO ABRASIONS NOTED, BUT PT VERY LIKELY COULD BE SORE FROM HIS FALLS. CAPILLARY REFILL <3SECS, BILATERAL POPLITEAL PULSES AND BILATERAL PEDAL PULSES STRONG. PT RECEIVING HIS SCHEDULED OXAZEPAM AT THIS TIME. WILL CONTINUE TO MONITOR.
--- NOTE | 2019-02-05 05:32 | PC.NURSE ---
PT SLEPT INTERVALS TONIGHT. C/O KNEE PAIN. PULSES IN BILATERAL EXTREMITIES +. RESPIRATIONS EVEN AND UNLABORED ON ROOM AIR. BREATH SOUNDS CLEAR. PT HAD TREMORS NOTED FIRST SEVERAL HOURS OF SHIFT. PT IS RECEIVING SCHEDULED OXAZEPAM, ALSO RECEIVED A DOSE OF HALDOL AND PRN TYLENOL. RT RADIAL DSG INTACT FROM HEART CATH SITE YESTERDAY, NO ACTIVE BLEEDING NOTED. IV SECURE AND PATENT, INFUSING NS@ 75/HR. PT IN CONTACT ENTERIC PRECAUTIONS FOR C-DIFF. PT VOIDING, USING URINAL W/O ASSISTANCE, NO STOOL NOTED THIS SHIFT OF THIS TIME. NSR ON MONITOR. NO C/O CHEST PAIN OR SOA. ONLY PAIN COMPLAINT PT HAS REPORTED THIS SHIFT OF THIS TIME HAS BEEN CHERI. KNEE PAIN. PT STABLE. WILL CONTINUE TO MONITOR. REPORT TO BE GIVEN TO ONCOMING NURSE.
[2019-02-05 08:01] LABS: Anion Gap 13.9 mEq/L (5-15); Blood Urea Nitrogen 25 mg/dL (7-18); Calcium 8.9 mg/dL (8.5-10.1); Carbon Dioxide 24 mmol/L (21.0-32.0); Chloride 105 mmol/L (98-107); Creatinine Clearance Estimated 44 mL/min (50-200); Creatinine,Serum 1.64 mg/dL (0.70-1.30); Estimated Glomerular Filt Rate 44 ml/min (>60); GFR (African American) 53 ML/MIN (>60); Glucose 131 mg/dL (74-106); Potassium 3.9 mmoL/L (3.5-5.1); Sodium 139 mmol/L (136-145)
--- NOTE | 2019-02-05 08:06 | HMH.PNCARD ---
Subjective Date: 02/05/19 Time: 08:06 Principal diagnosis: syncope Interval history: 53 yo BM in bed in NAD. Involuntary shaking noted. Pt states he has pain in both knees this AM that started after moving in bed. No chest pain. Last ETOH was the day of admission. Exam Vital signs and Labs for Last 24 Hours: Temp Pulse Resp BP Pulse Ox 98.5 F 112 H 15 145/80 H 93 L 02/05/19 04:00 02/05/19 04:00 02/05/19 04:00 02/05/19 04:00 02/05/19 04:00 Laboratory Results - last 24 hr 02/04/19 08:20: Stl Aeromonas (PCR) Not detected, Stl C. cayetanensis PCR Not detected, Stool Rotavirus (PCR) Not detected, Stl Adenov F 40/41 PCR Not detected, Stool Astrovirus (PCR) Not detected, Stool Campylobacter PCR Not detected, Stl C.difficile Tox PCR Detected A, Stool Cryptosporidium PCR Not detected, Stl E.coli Shiga Tox PCR Not detected, Stool E coli O157 PCR Not detected, Stl Enterotoxigenic E PCR Not detected, Stool EPEC (PCR) Not detected, Stool EAEC (PCR) Not detected, Stl E. histolytica PCR Not detected, Stool Giardia Lamblia PCR Not detected, Stool Salmonella PCR Not detected, Stool Sapovirus (PCR) Not detected, Stl P. shigelloides PCR Not detected, Stl Shigella/EIEC PCR Not detected, St Y.enterocolitica PCR Not detected, Stool Vibrio (PCR) Not detected, Stl Vibrio cholerae PCR Not detected, Stl Norovirus GI/GII PCR Not detected 02/04/19 08:20: Stool Occult Blood Positive A 02/05/19 07:35: Sodium 139, Potassium 3.9, Chloride 105, Carbon Dioxide 24, Anion Gap 13.9, BUN 25 H D, Creatinine 1.64 H, Estimated Creat Clear 44, Estimated GFR 44 L, Est GFR ( Amer) 53 L, Glucose 131 H, Calcium 8.9 I & O for Last 24 hours: Intake & Output 02/02/19 02/03/19 02/04/19 02/05/19 11:59 11:59 11:59 11:59 Intake Total 1516 / 1516 1979 / 1979 Output Total 900 / 900 775 / 775 Balance 616 / 616 1205 / 1205 Weight 135 lb 134 lb 2 oz - *Routine HEENT Exam Head: Present: normocephalic Eye: Present: EOMI, PERRL ENT: Present: mucous membranes moist - *Routine Respiratory Exam Present: CTA bilaterally. Absent: accessory muscle use, rales, rhonchi, wheezes - *Routine Cardiovascular Exam Present: RRR. Absent: murmur, gallop, rubs - *Routine Extremities Exam Present: edema. Absent: calf tenderness Comments: mild swelling of the knees noted. - *Routine Neurological Exam Present: alert, oriented X3, moving all extremities Progress Note: A&P (1) Severe sepsis Status: Acute Current Visit: Yes (2) Acute renal failure Status: Acute Current Visit: Yes (3) Cervical strain Status: Acute Current Visit: Yes (4) Closed head injury Status: Acute Current Visit: Yes (5) Syncope and collapse Status: Acute Current Visit: Yes (6) Septic shock Status: Acute Current Visit: Yes (7) Encephalomalacia Status: Acute Current Visit: Yes (8) Cervical spondylolysis Status: Acute Current Visit: Yes (9) Diverticulosis Status: Acute Current Visit: Yes (10) Alcohol abuse Status: Acute Current Visit: Yes (11) Gynecomastia, male Status: Acute Current Visit: Yes (12) CAD (coronary artery disease) Status: Acute Current Visit: Yes Assessment and Plan for All Diagnoses:: Cardiac status stable. No significant CAD by cardiac cath. Echo shows normal LVEF without significant valve disease and only mild pulmonary HTN with RVSP of 40 mm Hg. Resume home BP meds (lisinopril and hydralazine). Nothing further to add. OK for discharge home from Cardiology standpoint.
[2019-02-05 08:08] LABS: Basophils % 0.2 % (0.1-2.0); Eosinophils % 0.4 % (0.1-12.0); Hematocrit 27.5 % (42.0-52.0); Hemoglobin 9.1 g/dL (14.1-18.0); Lymphocytes # 1.5 K/mm3 (0.7-4.5); Lymphocytes % 17.3 % (10-50); Mean Corpuscular HGB Conc 33.1 g/dL (31.8-35.4); Mean Corpuscular Hemoglobin 32.1 pg (27.0-31.2); Mean Corpuscular Volume 96.9 fl (80-94); Mean Platelet Volume 8.3 fl (7.4-10.4); Monocytes # 0.8 K/mm3 (0.1-1.0); Monocytes % 9.9 % (1.7-9.3); Neutrophils # 6.1 K/mm3 (1.8-7.8); Neutrophils % 72.2 % (37.0-80.0); Platelet Count 233 K/mm3 (142-424); Red Blood Count 2.84 M/mm3 (4.60-6.20); Red Cell Distribution Width 13.7 % (11.5-17.5); White Blood Count 8.4 K/mm3 (4.8-10.8)
--- NOTE | 2019-02-05 08:32 | HMH.ACPN2 ---
Internal Medicine - PN: Subj *Date: 02/05/19 *Time: 08:35 Interval history: Patient complaining of bilateral knee pain. Refused OT this morning due to knee pain. Exam Vital signs and Labs for Last 24 Hours: Temp Pulse Resp BP Pulse Ox 98.5 F 112 H 15 145/80 H 93 L 02/05/19 04:00 02/05/19 04:00 02/05/19 04:00 02/05/19 04:00 02/05/19 04:00 Laboratory Results - last 24 hr 02/04/19 08:20: Stl Aeromonas (PCR) Not detected, Stl C. cayetanensis PCR Not detected, Stool Rotavirus (PCR) Not detected, Stl Adenov F 40/41 PCR Not detected, Stool Astrovirus (PCR) Not detected, Stool Campylobacter PCR Not detected, Stl C.difficile Tox PCR Detected A, Stool Cryptosporidium PCR Not detected, Stl E.coli Shiga Tox PCR Not detected, Stool E coli O157 PCR Not detected, Stl Enterotoxigenic E PCR Not detected, Stool EPEC (PCR) Not detected, Stool EAEC (PCR) Not detected, Stl E. histolytica PCR Not detected, Stool Giardia Lamblia PCR Not detected, Stool Salmonella PCR Not detected, Stool Sapovirus (PCR) Not detected, Stl P. shigelloides PCR Not detected, Stl Shigella/EIEC PCR Not detected, St Y.enterocolitica PCR Not detected, Stool Vibrio (PCR) Not detected, Stl Vibrio cholerae PCR Not detected, Stl Norovirus GI/GII PCR Not detected 02/04/19 08:20: Stool Occult Blood Positive A 02/05/19 07:35: WBC 8.4 D, RBC 2.84 L, Hgb 9.1 L, Hct 27.5 L, MCV 96.9 H, MCH 32.1 H, MCHC 33.1, RDW 13.7, Plt Count 233 D, MPV 8.3, Neut % (Auto) 72.2, Lymph % (Auto) 17.3, [place] % (Auto) 9.9 H, Eos % (Auto) 0.4, Baso % (Auto) 0.2, Neut # (Auto) 6.1, Lymph # (Auto) 1.5, [place] # (Auto) 0.8, Eos # (Auto) 0.0, Baso # (Auto) 0.0 02/05/19 07:35: Sodium 139, Potassium 3.9, Chloride 105, Carbon Dioxide 24, Anion Gap 13.9, BUN 25 H D, Creatinine 1.64 H, Estimated Creat Clear 44, Estimated GFR 44 L, Est GFR ( Amer) 53 L, Glucose 131 H, Calcium 8.9 I & O for Last 24 hours: Intake & Output 02/02/19 02/03/19 02/04/19 02/05/19 11:59 11:59 11:59 11:59 Intake Total 1516 / 1516 1979 Output Total 900 / 900 775 / 775 Balance 616 / 616 1205 / 1205 Weight 135 lb 134 lb 2 oz - Constitutional no acute distress - *Routine HEENT Exam Head: Present: normocephalic Eye: Present: PERRL ENT: Present: mucous membranes moist - *Routine Neck Exam Present: supple. Absent: lymphadenopathy - *Routine Respiratory Exam Present: CTA bilaterally - *Routine Cardiovascular Exam Present: RRR - *Routine Abdominal Exam Present: soft, normoactive bowel sounds, tenderness - *Routine Extremities Exam Present: normal capillary refill. Absent: cyanosis, clubbing, edema Comments: effusion to left knee tender to palpate - *Routine Skin Exam Present: warm. Absent: rash - *Routine Neurological Exam Present: alert, oriented X3 - Routine Psychiatric Exam Present: normal affect Assessment and Plan (1) Severe sepsis Current visit: Yes Status: Acute Category: Medical Code(s): A41.9 - Sepsis, unspecified organism; R65.20 - Severe sepsis without septic shock (2) Acute renal failure Current visit: Yes Status: Acute Qualifiers: Acute renal failure type: unspecified Qualified Code(s): N17.9 - Acute kidney failure, unspecified Category: Medical Code(s): N17.9 - Acute kidney failure, unspecified (3) Cervical strain Current visit: Yes Status: Acute Qualifiers: Encounter type: initial encounter Qualified Code(s): S16.1XXA - Strain of muscle, fascia and tendon at neck level, initial encounter Category: Medical Code(s): S16.1XXA - Strain of muscle, fascia and tendon at neck level, initial encounter (4) Closed head injury Current visit: Yes Status: Acute Qualifiers: Encounter type: initial encounter Qualified Code(s): S09.90XA - Unspecified injury of head, initial encounter Category: Medical Code(s): S09.90XA - Unspecified injury of head, initial encounter (5) Syncope and collapse Current visit: Yes
--- NOTE | 2019-02-05 09:07 | XR_ITS ---
XR knee LT 4V HISTORY: ITS.REASON: bilateral knee pain ORDERING PHYSICIAN: Daljit Aguilar MD PATIENT AGE: 53 years COMPARISON: None FINDINGS: No fracture or dislocation. No lytic or blastic change. Normal mineralization. Minimal spurring is noted along the posterior patella. No fracture or dislocation. There is a moderate size suprapatellar effusion. There is an area of sclerosis involving the proximal tibia at 14 mm seen only on the lateral view. IMPRESSION: Moderate size knee joint effusion
--- NOTE | 2019-02-05 09:07 | XR_ITS ---
XR knee RT 4V HISTORY: ITS.REASON: bilateral knee pain ORDERING PHYSICIAN: Daljit Aguilar MD PATIENT AGE: 53 years COMPARISON: Her FINDINGS: No fracture or dislocation. No lytic or blastic change. Normal mineralization. There is slight decrease in the joint space medially suggesting early osteoarthritic change. There is a suprapatellar effusion. IMPRESSION: Minimal osteoarthritic change with suprapatellar effusion
[2019-02-05 13:00] LABS: Uric Acid 8.5 mg/dL (2.6-7.2)
--- NOTE | 2019-02-05 14:32 | HMH.OTEV ---
OT Inpatient Evaluation Rehab OT IP Evaluation Start: 02/04/19 09:46 Freq: ONCE Status: Complete Protocol: [facility] (Rec: 02/05/19 14:32 [facility] [id number]) Rehab OT IP Assessment Subjective History Pt oriented x 2 upon arrival. Pt agreeable to engage in therapy evaluation. Pt reports he lived at [facility] alone prior to being admitted to the hospital. Pt claims he was independent with all ADL's and IADL's before he became ill. Pt used a cane in order to transfer prior. Subjective I haven't felt well in a while. Objective Upper Extremity Gross ROM Min Limitation <25% Shoulder ROM Limitations Muscle Weakness Elbow ROM Limitations Muscle Weakness Wrist Limitations of Range of Motion Muscle Weakness Bed Mobility bed mobility-scooting,bed mobility - supine/sit,bed mobility - rolling Assist Level Maximum x 2 (75% assist) Transfer Training Sit/Stand Transfer Assist Level Maximum x 2 (75% assist) Chair Transfer Ability Maximum x 2 (75% assist) Chair Transfer Technique Sit to/from Ambulatory Chair Transfer Assistive Devices Rolling Walker decrease in endurance Yes Rehab OT IP prob,goals,plan Problems Date of Evaluation: 02/05/19 OT IP Problems Bed Mobility,Transfers,Gait, Balance,Self care,Safety Rehab Potential Rehab Potential Good Equipment Needs Assistive Devices Rolling / Wheeled Walker Plan OT intervention Plan Bed Mobility,Transfers,Gait, Balance,Self care,Safety, Therapeutic Exercise OT Plan Frequency Daily Duration LOS Discharge Goals Bed Mobility Ability Standby Assistance Sit to Stand Chair Transfer Ability Minimal x 1 (25% assist) Chair Transfer Ability Minimal x 1 (25% assist) Chair Transfer Technique Sit to/from Ambulatory Chair Transfer Assistive Devices Rolling Walker Feeding Ability Independent Lower Body Dressing Ability Assistance X1 Upper Body Dressing Ability Standby Assistance Bathing Ability Assistance x1 Performing Toilet Hygiene Ability Standby Assistance Overall Commode/Toilet Transfer Ability Standby Assistance Commode/Toilet Transfer Technique Sit to/from Ambulatory Oral Care Ability Indepen
--- NOTE | 2019-02-05 15:18 | HMH.ORTHOCON ---
*Admission Date: 02/03/19 *Chief complaint: Bilateral knee pain and swelling *History of present illness: 53-year-old gentleman with a chief complaint of bilateral knee pain and swelling present x3 days. He was admitted for work-up of the syncopal episode in which he fell but denies LOC. He reports 2 separate incidences of dizziness with possible hypotension upon standing. He is a daily alcohol consumer and has often had withdrawal symptoms when he does not drink. He says he has considered quitting and has stopped for periods of time in the past but when a major life event has occurred he has resumed drinking; no history of detox/rehab or AA attendance. He also reports a history of gout with occasional flares but never anything this severe and mostly confined to the feet. His knees began hurting on the evening of 02/02/2019 but he does not recall having any fevers or chills. No redness or warmth to the knees, no wounds or drainage. It hurts to stand or bend the knees at all. He is never had surgery on the knees in his gout treatment has been medical thus far. The left knee is currently more painful than the right. Afebrile since admission, but mild hypotension/leukocytosis. Found to have an KAMLESH and positive for c. diff; being treated with oral vanc. Review of Systems - Review of Systems Review of systems:: pertinent systems reviewed and negative unless documented below - Constitutional Denies chills, Denies fever(s) - *Cardiovascular Denies chest pain - *Gastrointestinal Denies abdominal pain - *Musculoskeletal Reports abnormal walking, Reports joint pain, Reports joint swelling - *Neurologic Reports fainting, Reports weakness, Denies abnormal speech, Denies localized weakness, Denies numbness [facility] History I have reviewed the patient's past medical history: Yes Medical History: Reports:: Anxiety, Depression, Hypertension Denies:: Cancer, Diabetes Mellitus Type 1, Diabetes Mellitus Type 2, MRSA *Have you ever received a pneumonia vaccine?: No *Have you received a flu vaccine this season?: No Other Medical History: Reports: Thyroid Disease Comment:: gout Other Surgeries: Yes: No Previous Surgery Amputation: No Fractures: No - *Social History Educational Level: Attended High School Smoking Status: Light tobacco smoker Tobacco Type: cigarettes Alcohol Intake: current Alcohol Intake Frequency:: 3 or more drinks per day Substance Use Type: denies use *Occupational Status:: disabled Housing: apartment Household Members: none *Travel in the last 8 weeks: None - Psychiatric History Expresses thoughts of harming self/others: None Suicide Plan Description: No Plan Pschychiatric History:: Reports:: Anxiety, Depression Family Hx:: Hypertension Meds Home Medications Medication Instructions Recorded Confirmed Type hydralazine 25 mg tablet 25 mg PO TID #270 tab 10/19/18 02/03/19 Rx cholecalciferol (vitamin D3) 5,000 5,000 unit PO DAILY #90 cap 12/29/18 02/03/19 Rx unit capsule Ergocalciferol (Vitamin D2) 50,000 units PO WEEKLY 02/03/19 02/04/19 History [Drisdol] Furosemide [Furosemide 40MG tAB] 40 mg PO DAILY 02/03/19 02/03/19 History Indomethacin 50 mg PO TID 02/03/19 02/03/19 History Lisinopril [Lisinopril 10mg Tab] 10 mg PO DAILY 02/03/19 02/03/19 History Cetirizine HCl 10 mg PO DAILY 02/04/19 02/04/19 History Allergies Allergy/AdvReac Type Severity Reaction Status Date / Time aspirin [ASPIRIN] Allergy Unknown Verified 04/16/18 08:58 Penicillins [PENICILLINS] Allergy Unknown Verified 04/16/18 08:58 Exam Vital signs and Labs for Last 24 Hours: Temp Pulse Resp BP Pulse Ox 98.5 F 117 H 19 141/82 H 100 02/05/19 12:00 02/05/19 12:00 02/05/19 12:00 02/05/19 12:00 02/05/19 12:00 Laboratory Results - last 24 hr 02/05/19 07:35: WBC 8.4 D, RBC 2.84 L, Hgb 9.1 L, Hct 27.5 L, MCV 96.9 H, MCH 32.1 H, MCHC 33.1, RDW 13.7, Plt Count 233 D, MPV 8.3, Neut % (Auto) 72.2, Lymph % (Auto) 17.3, [place] %
--- NOTE | 2019-02-05 15:21 | P.CONS_ITS ---
*Admission Date: 02/03/19 *Chief complaint: Bilateral knee pain and swelling *History of present illness: 53-year-old gentleman with a chief complaint of bilateral knee pain and swelling present x3 days. He was admitted for work-up of the syncopal episode in which he fell but denies LOC. He reports 2 separate incidences of dizziness with possible hypotension upon standing. He is a daily alcohol consumer and has often had withdrawal symptoms when he does not drink. He says he has considered quitting and has stopped for periods of time in the past but when a major life event has occurred he has resumed drinking; no history of detox/rehab or AA attendance. He also reports a history of gout with occasional flares but never anything this severe and mostly confined to the feet. His knees began hurting on the evening of 02/02/2019 but he does not recall having any fevers or chills. No redness or warmth to the knees, no wounds or drainage. It hurts to stand or bend the knees at all. He is never had surgery on the knees in his gout treatment has been medical thus far. The left knee is currently more painful than the right. Afebrile since admission, but mild hypotension/leukocytosis. Found to have an KAMLESH and positive for c. diff; being treated with oral vanc. Review of Systems - Review of Systems Review of systems:: pertinent systems reviewed and negative unless documented below - Constitutional Denies chills, Denies fever(s) - *Cardiovascular Denies chest pain - *Gastrointestinal Denies abdominal pain - *Musculoskeletal Reports abnormal walking, Reports joint pain, Reports joint swelling - *Neurologic Reports fainting, Reports weakness, Denies abnormal speech, Denies localized weakness, Denies numbness [facility] History I have reviewed the patient's past medical history: Yes Medical History: Reports:: Anxiety, Depression, Hypertension Denies:: Cancer, Diabetes Mellitus Type 1, Diabetes Mellitus Type 2, MRSA *Have you ever received a pneumonia vaccine?: No *Have you received a flu vaccine this season?: No Other Medical History: Reports: Thyroid Disease Comment:: gout Other Surgeries: Yes: No Previous Surgery Amputation: No Fractures: No - *Social History Educational Level: Attended High School Smoking Status: Light tobacco smoker Tobacco Type: cigarettes Alcohol Intake: current Alcohol Intake Frequency:: 3 or more drinks per day Substance Use Type: denies use *Occupational Status:: disabled Housing: apartment Household Members: none *Travel in the last 8 weeks: None - Psychiatric History Expresses thoughts of harming self/others: None Suicide Plan Description: No Plan Pschychiatric History:: Reports:: Anxiety, Depression Family Hx:: Hypertension Meds Home Medications Medication Instructions Recorded Confirmed Type hydralazine 25 mg tablet 25 mg PO TID #270 tab 10/19/18 02/03/19 Rx cholecalciferol (vitamin D3) 5,000 5,000 unit PO DAILY #90 cap 12/29/18 02/03/19 Rx unit capsule Ergocalciferol (Vitamin D2) 50,000 units PO WEEKLY 02/03/19 02/04/19 History [Drisdol] Furosemide [Furosemide 40MG tAB] 40 mg PO DAILY 02/03/19 02/03/19 History Indomethacin 50 mg PO TID 02/03/19 02/03/19 History Lisinopril [Lisinopril 10mg Tab] 10 mg PO DAILY 02/03/19 02/03/19 History Cetirizine HCl 10 mg PO DAILY 02/04/19 02/04/19 History Allergies Allergy/AdvReac Type Severity Reaction Status Date / Time aspirin [ASPIRIN] Allergy Unknown
--- NOTE | 2019-02-05 19:02 | PC.NURSE ---
Pt rested for most of shift. C/O knee pain. Seen by ortho. (L) knee drained and fluid sent to lab. IV (L) AC infusing IV fluids /s difficulty. No s/s of infiltration Noted.
--- NOTE | 2019-02-05 19:16 | PC.NURSE ---
report given to justin
[2019-02-05 20:44] LABS: C-Reactive Protein 16.8 mg/L (0.0-0.9)
[2019-02-05 21:06] LABS: Erythrocyte Sedimentation Rate 77 mm/hr (0-20)
[2019-02-06] VITALS (8 sets, daily range): BP systolic 133–162; BP diastolic 84–97; PULSE 120–140; RESP 16–20; TEMP 37–39.5; O2SAT 98–100; BMI 24.2
--- NOTE | 2019-02-06 03:26 | PC.NURSE ---
Late entry Spoke with MD العلي @ [phone]. stated that pt could have something to eat tonight. Make pt NPO @ 0000 02/06/19 for possible washout in AM. Orders were passed to primary nurse Mary Vaughan RN.
--- NOTE | 2019-02-06 03:31 | PC.NURSE ---
A&OX4. FINE TREMORS NOTED WHILE AWAKE; SERAX CONTINUED PER NOV. CONTACT [employer]UTIONS MAINTAINED T/O SHIFT. PT. C/O PAIN IN L KNEE WITH MOVEMENT; L KNEE +2 NONPITTING EDEMA NOTED. LOWER ABD QUADRANTS TENDER; HYPERACTIVE BOWEL SOUNDS IN ALL QUADRANTS. NEW IV SITE ACCESSED IN RAC; IV PATENT AND INFUSING SHOWING NO S/S OF INFILTRATION. PT. HAS NOT C/O N/V/D, DIZZINESS, H/A, OR SOB. VSS. WILL CONTINUE TO MONITOR.
--- NOTE | 2019-02-06 06:35 | HMH.ACPN2 ---
Internal Medicine - PN: Subj *Date: 02/06/19 *Time: 06:35 Interval history: feels a little better- lt knee still with effusion and warm with dec rom -but has temp 103--will talk to phar to change abx this am Exam Vital signs and Labs for Last 24 Hours: Temp Pulse Resp BP Pulse Ox 98.6 F 129 H 18 157/95 H 99 02/06/19 04:00 02/06/19 04:00 02/06/19 04:00 02/06/19 04:00 02/06/19 04:00 Laboratory Results - last 24 hr 02/05/19 07:35: WBC 8.4 D, RBC 2.84 L, Hgb 9.1 L, Hct 27.5 L, MCV 96.9 H, MCH 32.1 H, MCHC 33.1, RDW 13.7, Plt Count 233 D, MPV 8.3, Neut % (Auto) 72.2, Lymph % (Auto) 17.3, [place] % (Auto) 9.9 H, Eos % (Auto) 0.4, Baso % (Auto) 0.2, Neut # (Auto) 6.1, Lymph # (Auto) 1.5, [place] # (Auto) 0.8, Eos # (Auto) 0.0, Baso # (Auto) 0.0 02/05/19 07:35: Sodium 139, Potassium 3.9, Chloride 105, Carbon Dioxide 24, Anion Gap 13.9, BUN 25 H D, Creatinine 1.64 H, Estimated Creat Clear 44, Estimated GFR 44 L, Est GFR ( Amer) 53 L, Glucose 131 H, Calcium 8.9 02/05/19 07:35: Uric Acid 8.5 H 02/05/19 20:25: C-Reactive Protein 16.8 H 02/05/19 20:25: ESR 77 H I & O for Last 24 hours: Intake & Output 02/03/19 02/04/19 02/05/19 02/06/19 11:59 11:59 11:59 11:59 Intake Total 1516 / 1516 2100 / 2100 1461 / 1461 Output Total 900 / 900 775 / 775 Balance 616 / 616 1325 / 1325 1461 / 1461 Weight 135 lb 134 lb 2 oz 141 lb 4 oz Microbiology Reports for the Last 24 Hours: Microbiology 02/03/19 14:40 Blood Blood Culture - Preliminary NO GROWTH AFTER 48 HOURS 02/03/19 14:40 Blood Blood Culture - Preliminary NO GROWTH AFTER 48 HOURS 02/05/19 12:45 Synovial Fluid Gram Stain - Final - Constitutional no acute distress - *Routine HEENT Exam Head: Present: normocephalic Eye: Present: EOMI, PERRL ENT: Present: mucous membranes dry - *Routine Neck Exam Present: supple. Absent: JVD - *Routine Respiratory Exam Present: CTA bilaterally - *Routine Cardiovascular Exam Present: RRR, murmur - *Routine Abdominal Exam Present: soft - *Routine Extremities Exam Absent: Candace's sign Comments: lt knee with effusion - *Routine Skin Exam Present: intact - *Routine Neurological Exam Present: alert, oriented X3, CN II-XII intact - Routine Psychiatric Exam Present: normal affect Assessment and Plan (1) Alcohol abuse Current visit: Yes Status: Acute Category: Medical Code(s): F10.10 - Alcohol abuse, uncomplicated (2) Gout attack Current visit: Yes Status: Acute Category: Medical Code(s): M10.9 - Gout, unspecified (3) Bilateral knee effusions Current visit: Yes Status: Acute Category: Medical Code(s): M25.461 - Effusion, right knee; M25.462 - Effusion, left knee (4) Pulmonary HTN Current visit: Yes Status: Acute Category: Medical Code(s): I27.20 - Pulmonary hypertension, unspecified
[2019-02-06 07:41] LABS: Basophils % 0.1 % (0.1-2.0); Eosinophils % 0.4 % (0.1-12.0); Hematocrit 26.3 % (42.0-52.0); Hemoglobin 8.8 g/dL (14.1-18.0); Lymphocytes # 1.4 K/mm3 (0.7-4.5); Lymphocytes % 14.3 % (10-50); Mean Corpuscular HGB Conc 33.3 g/dL (31.8-35.4); Mean Corpuscular Hemoglobin 31.7 pg (27.0-31.2); Mean Corpuscular Volume 95.3 fl (80-94); Mean Platelet Volume 8.5 fl (7.4-10.4); Monocytes # 1.4 K/mm3 (0.1-1.0); Monocytes % 14.2 % (1.7-9.3); Neutrophils % 70.8 % (37.0-80.0); Platelet Count 243 K/mm3 (142-424); Red Blood Count 2.76 M/mm3 (4.60-6.20); Red Cell Distribution Width 13.8 % (11.5-17.5); White Blood Count 9.9 K/mm3 (4.8-10.8)
[2019-02-06 07:46] LABS: Anion Gap 15.6 mEq/L (5-15); Blood Urea Nitrogen 16 mg/dL (7-18); Calcium 8.8 mg/dL (8.5-10.1); Carbon Dioxide 22 mmol/L (21.0-32.0); Chloride 103 mmol/L (98-107); Creatinine Clearance Estimated 48 mL/min (50-200); Creatinine,Serum 1.56 mg/dL (0.70-1.30); Estimated Glomerular Filt Rate 46 ml/min (>60); GFR (African American) 56 ML/MIN (>60); Glucose 106 mg/dL (74-106); Potassium 3.6 mmoL/L (3.5-5.1); Sodium 137 mmol/L (136-145)
--- NOTE | 2019-02-06 09:31 | HMH.PHACONS ---
- Pharmacy Consult Date: 02/06/19 Time: 09:31 Referring provider: DR. HARGROVE Reason for Consult:: VANCOMYCIN DOSING Allergies and ADEs:: Allergies Allergy/AdvReac Type Severity Reaction Status Date / Time aspirin [ASPIRIN] Allergy Unknown Verified 04/16/18 08:58 Penicillins [PENICILLINS] Allergy Unknown Verified 04/16/18 08:58 Home Medications:: Home Medications Medication Instructions Recorded Confirmed Type hydralazine 25 mg tablet 25 mg PO TID #270 tab 10/19/18 02/03/19 Rx cholecalciferol (vitamin D3) 5,000 5,000 unit PO DAILY #90 cap 12/29/18 02/03/19 Rx unit capsule Ergocalciferol (Vitamin D2) 50,000 units PO WEEKLY 02/03/19 02/04/19 History [Drisdol] Furosemide [Furosemide 40MG tAB] 40 mg PO DAILY 02/03/19 02/03/19 History Indomethacin 50 mg PO TID 02/03/19 02/03/19 History Lisinopril [Lisinopril 10mg Tab] 10 mg PO DAILY 02/03/19 02/03/19 History Cetirizine HCl 10 mg PO DAILY 02/04/19 02/04/19 History Height: 1.63 m Weight: 64.07 kg Laboratory Results:: Laboratory Results - last 24 hr 02/05/19 07:35: Uric Acid 8.5 H 02/05/19 20:25: C-Reactive Protein 16.8 H 02/05/19 20:25: ESR 77 H 02/06/19 07:30: WBC 9.9, RBC 2.76 L, Hgb 8.8 L, Hct 26.3 L, MCV 95.3 H, MCH 31.7 H, MCHC 33.3, RDW 13.8, Plt Count 243, MPV 8.5, Neut % (Auto) 70.8, Lymph % (Auto) 14.3, [place] % (Auto) 14.2 H, Eos % (Auto) 0.4, Baso % (Auto) 0.1, Neut # (Auto) 7.0, Lymph # (Auto) 1.4, [place] # (Auto) 1.4 H, Eos # (Auto) 0.0, Baso # (Auto) 0.0 02/06/19 07:30: Sodium 137, Potassium 3.6, Chloride 103, Carbon Dioxide 22, Anion Gap 15.6 H, BUN 16 D, Creatinine 1.56 H, Estimated Creat Clear 48, Estimated GFR 46 L, Est GFR ( Amer) 56 L, Glucose 106, Calcium 8.8 Medical History: Reports:: Anxiety, Depression, Hypertension Denies:: Cancer, Diabetes Mellitus Type 1, Diabetes Mellitus Type 2, MRSA Assessment and Plan (1) Alcohol abuse Current visit: Yes Status: Acute Category: Medical Code(s): F10.10 - Alcohol abuse, uncomplicated (2) Gout attack Current visit: Yes Status: Acute Category: Medical Code(s): M10.9 - Gout, unspecified (3) Bilateral knee effusions Current visit: Yes Status: Acute Category: Medical Code(s): M25.461 - Effusion, right knee; M25.462 - Effusion, left knee (4) Pulmonary HTN Current visit: Yes Status: Acute Category: Medical Code(s): I27.20 - Pulmonary hypertension, unspecified - Assessment and plan all Dx Assessment and Plan for all problems:: BASED ON PATIENT FACTORS, RECOMMEND VANCOMYCIN 1GM IV EVERY 24 HOURS. PHARMACY WILL MONITOR AND ADJUST DOSE APPROPRIATE. -ANKITA FABIAN, ISAACD
--- NOTE | 2019-02-06 11:15 | HMH.ORTHPN ---
Subjective Date: 02/06/19 Time: 10:00 Principal diagnosis: syncope, KAMLESH, c. diff, knee pain/effusion Interval history: The patient spiked a fever overnight to 103.1, tachy to 130's with chills and sweats. His left knee feels a little better today after the aspiration but bilateral knee pain/effusions persist. IV vanc started this morning. PN: Obj Ex Vital signs: Temp Pulse Resp BP Pulse Ox 103.1 F H 129 H 18 157/95 H 99 02/06/19 06:37 02/06/19 04:00 02/06/19 04:00 02/06/19 04:00 02/06/19 04:00 - Routine Extremities Exam Comments: AAOx3, NAD bilateral knees with moderate effusions, L > R no erythema of B/L knees, mild warmth, diffusely tender patient does not tolerate ROM of the knees beyond 30-40 degrees flexion able to perform unassisted SLR BLE +DF/PF/EHL BLE B/L calves soft, nontender palpable pedal pulses BLE, feet warm/well-perfused Progress Note: A&P (1) Alcohol abuse Status: Acute Current Visit: Yes (2) Gout attack Status: Acute Current Visit: Yes (3) Bilateral knee effusions Status: Acute Current Visit: Yes (4) Pulmonary HTN Status: Acute Current Visit: Yes Assessment and Plan for All Diagnoses:: 53yo M with bilateral knee pain/effusion; admitted for syncope, +c. diff, KAMLESH -- knee aspirate from yesterday had to be sent out, only results thus far are <10 WBC per LPF and no organisms seen on gram stain; everything else pending -- L knee aspirated again today (separate arthrocentesis site), fluid had the same thick/creamy white appearance as yesterday; does not appear purulent but possibly chylous or tophaceous --> will have lab at [facility] place sample under microscope for micro/crystal eval and send the remainder to the outside lab to add on lipid profile, fungal/mycobacterial cultures -- R knee aspirated today, appeared inflammatory but much closer to normal synovial fluid; cloudy yellow fluid, non-purulent --> will send for cell count/diff, gram stain/culture, crystals will order serum RPR, hepatitis panel, HIV, TB, Lyme tests -- serum uric acid elevated at 8.5, ESR/CRP elevated at 77/16.8 as well -- repeat blood cultures drawn today; original cultures NGTD -- patient on [facility] protocol for EtOH withdrawl
--- NOTE | 2019-02-06 11:22 | P.PN_ITS ---
Subjective Date: 02/06/19 Time: 10:00 Principal diagnosis: syncope, KAMLESH, c. diff, knee pain/effusion Interval history: The patient spiked a fever overnight to 103.1, tachy to 130's with chills and sweats. His left knee feels a little better today after the aspiration but bilateral knee pain/effusions persist. IV vanc started this morning. PN: Obj Ex Vital signs: Temp Pulse Resp BP Pulse Ox 103.1 F H 129 H 18 157/95 H 99 02/06/19 06:37 02/06/19 04:00 02/06/19 04:00 02/06/19 04:00 02/06/19 04:00 - Routine Extremities Exam Comments: AAOx3, NAD bilateral knees with moderate effusions, L > R no erythema of B/L knees, mild warmth, diffusely tender patient does not tolerate ROM of the knees beyond 30-40 degrees flexion able to perform unassisted SLR BLE +DF/PF/EHL BLE B/L calves soft, nontender palpable pedal pulses BLE, feet warm/well-perfused Progress Note: A&P (1) Alcohol abuse Status: Acute Current Visit: Yes (2) Gout attack Status: Acute Current Visit: Yes (3) Bilateral knee effusions Status: Acute Current Visit: Yes (4) Pulmonary HTN Status: Acute Current Visit: Yes Assessment and Plan for All Diagnoses:: 53yo M with bilateral knee pain/effusion; admitted for syncope, +c. diff, KAMLESH -- knee aspirate from yesterday had to be sent out, only results thus far are <10 WBC per LPF and no organisms seen on gram stain; everything else pending -- L knee aspirated again today (separate arthrocentesis site), fluid had the same thick/creamy white appearance as yesterday; does not appear purulent but possibly chylous or tophaceous --> will have lab at [facility] place sample under microscope for micro/crystal eval and send the remainder to the outside lab to add on lipid profile, fungal/mycobacterial cultures -- R knee aspirated today, appeared inflammatory but much closer to normal synovial fluid; cloudy yellow fluid, non-purulent --> will send for cell count/diff, gram stain/culture, crystals will order serum RPR, hepatitis panel, HIV, TB, Lyme tests -- serum uric acid elevated at 8.5, ESR/CRP elevated at 77/16.8 as well -- repeat blood cultures drawn today; original cultures NGTD -- patient on [facility] protocol for EtOH withdrawl
--- NOTE | 2019-02-06 11:26 | PC.NURSE ---
nurse aware of heart rate 139
--- NOTE | 2019-02-06 11:29 | PC.NURSE ---
1030 physician at bedside, to perform needle aspiration of bilateral knees. consent obtained and specimens sent to lab. patient tolerated procedure with mild distress. denies needing pain medications at this time.
--- NOTE | 2019-02-06 13:43 | PC.NURSE ---
patient nurse on break, charge notified of elevated bp
[2019-02-06 13:55] LABS: Lactic Acid 0.9 mmol/L (0.4-2.0)
--- NOTE | 2019-02-06 14:57 | PC.NURSE ---
patient has had chills on and off throughout shift. low grade temperatures noted throughout the day. complains of pain after drainage of bilateral knees. treated with tylenol effectively. patient has had no further chills and pain is acceptable to him. left leg elevated on pillow for patient comfort. heart rate has been between 120s at rest and up to 150s with activity
--- NOTE | 2019-02-06 16:41 | PC.NURSE ---
nurse made aware of patients elevated vital signs
--- NOTE | 2019-02-06 20:15 | PC.NURSE ---
rn made aware of all vs
[2019-02-07] VITALS (10 sets, daily range): BP systolic 114–138; BP diastolic 74–93; PULSE 100–144; RESP 16–18; TEMP 36.8–38.9; O2SAT 98–100; BMI 23.1
--- NOTE | 2019-02-07 00:23 | PC.NURSE ---
rn made aware of all vs
--- NOTE | 2019-02-07 01:06 | PC.NURSE ---
Dr Aguilar in room, discussed lumbar puncture, pt agreed. Karla CruzRN getting consent and providing education at this time.
--- NOTE | 2019-02-07 01:40 | PC.NURSE ---
0106 - Consent obtained for lumbar puncture, education provided, questions answered at this time. Dr. Aguilar discussed need for procedure, all risk/possible side effects. 0111 - Assisted Dr. Aguilar with lumbar puncture procedure. After multiple attempts, no success. Pt tolerated procedure fairly well with minimal pain reported. Dr Aguilar informed patient that he would contact anesthesia later on this morning to have them perform the LP. Pt agreeable at this time. Afterwards, patient received linen change, attends were changed, and patient repositioned back in the bed. 0132 - Paged Bruno in pharmacy for Acyclovir dosing. 0134 - Jenny Suarez returned call. Stated the dose of Acyclovir to use would be 10mg/kg Q8H, therefore patient's dose is to be 640mg IV Acyclovir Q8H. Informed Dr Aguilar, and he stated he would enter in the order. 0136 - Relayed information to Neel RN - pt primary RN.
--- NOTE | 2019-02-07 01:45 | HMH.ACPN2 ---
Internal Medicine - PN: Subj *Date: 02/07/19 *Time: 01:45 Interval history: pt with high fever and has neck pain which started today and worse but has no sig shipley and cogniive clear and looks better uyen earlier - discussed lp with pt and consent given Exam Vital signs and Labs for Last 24 Hours: Temp Pulse Resp BP Pulse Ox 102.0 F H 135 H 17 133/93 H 100 02/07/19 00:00 02/07/19 00:00 02/07/19 00:00 02/07/19 00:00 02/07/19 00:00 Laboratory Results - last 24 hr 02/06/19 07:30: WBC 9.9, RBC 2.76 L, Hgb 8.8 L, Hct 26.3 L, MCV 95.3 H, MCH 31.7 H, MCHC 33.3, RDW 13.8, Plt Count 243, MPV 8.5, Neut % (Auto) 70.8, Lymph % (Auto) 14.3, [place] % (Auto) 14.2 H, Eos % (Auto) 0.4, Baso % (Auto) 0.1, Neut # (Auto) 7.0, Lymph # (Auto) 1.4, [place] # (Auto) 1.4 H, Eos # (Auto) 0.0, Baso # (Auto) 0.0 02/06/19 07:30: Sodium 137, Potassium 3.6, Chloride 103, Carbon Dioxide 22, Anion Gap 15.6 H, BUN 16 D, Creatinine 1.56 H, Estimated Creat Clear 48, Estimated GFR 46 L, Est GFR ( Amer) 56 L, Glucose 106, Calcium 8.8 02/06/19 13:26: Lactate 0.9 I & O for Last 24 hours: Intake & Output 02/04/19 02/05/19 02/06/19 02/07/19 11:59 11:59 11:59 11:59 Intake Total 1516 / 1516 2100 / 2100 1461 / 1461 1229 / 1229 Output Total 900 / 900 775 / 775 Balance 616 / 616 1325 / 1325 1461 / 1461 1229 / 1229 Weight 135 lb 134 lb 2 oz 141 lb 4 oz Microbiology Reports for the Last 24 Hours: Microbiology 02/06/19 10:22 Synovial Fluid Gram Stain - Final 02/05/19 12:45 Synovial Fluid Gram Stain - Final 02/05/19 12:45 Synovial Fluid Body Fluid Culture - Preliminary NO GROWTH AFTER 24 HOURS - Constitutional no acute distress, cooperative - *Routine HEENT Exam Head: Present: normocephalic Eye: Present: EOMI, PERRL ENT: Present: mucous membranes dry - *Routine Neck Exam Present: trachea midline. Absent: full ROM Comments: dec rom but no gross meningitis - kernigs/brudzinski neg - *Routine Respiratory Exam Present: CTA bilaterally - *Routine Cardiovascular Exam Present: RRR. Absent: murmur - *Routine Abdominal Exam Present: soft - *Routine Extremities Exam Present: pulses intact Comments: has swollen tender knees bilat - *Routine Skin Exam Present: intact - *Routine Neurological Exam Present: alert, CN II-XII intact - Routine Psychiatric Exam Present: normal affect Assessment and Plan (1) Alcohol abuse Current visit: Yes Status: Acute Category: Medical Code(s): F10.10 - Alcohol abuse, uncomplicated (2) Gout attack Current visit: Yes Status: Acute Category: Medical Code(s): M10.9 - Gout, unspecified (3) Bilateral knee effusions Current visit: Yes Status: Acute Category: Medical Code(s): M25.461 - Effusion, right knee; M25.462 - Effusion, left knee (4) Pulmonary HTN Current visit: Yes Status: Acute Category: Medical Code(s): I27.20 - Pulmonary hypertension, unspecified
--- NOTE | 2019-02-07 05:15 | PC.NURSE ---
Pt had a rough night. Febrile 101.3, 102, 99.6, tachycardia continues. Pt shook and c/o being cold. Tylenol would bring fever down to acceptable level but the chills and fever would begin again before time for the tylenol to be given again. Bilateral knee dressing/marlyn wraps are c/d/i and in place. Hyperactive bowel sounds with one bm thus far. Dr Aguilar here at 0100 for round and discussion. His assessment revealed pt had a stiff neck and c/o pain with MD moving head around. MD decided to do a spinal tap to check for meningitis. Spinal tap unsuccessful, pt needed bath and bed change following attempts. MD voiced he would get anesthesia to do spinal tap today. Following the bath, administration of Ketorolac, tylenol, and oxazepam and two new antibiotics were ordered; Ceftriaxone and Acyclovir were infused per MD order. Following education concerning new meds, phoning Jhonatan Suarez, PHA concerning appropriate dosing of Acyclovir, pt slept well, not awakening on rounds. 0400 round pt was 99.6 and appeared comfortable, only waking momentarily for vital signs. Pt remained safe during my care, will continue monitoring.
--- NOTE | 2019-02-07 07:16 | PC.NURSE ---
Shift report given to Eleazar Baker RN with no changes from previous note.
[2019-02-07 07:39] LABS: Basophils % 0.2 % (0.1-2.0); Eosinophils % 0.1 % (0.1-12.0); Hemoglobin 8.6 g/dL (14.1-18.0); Lymphocytes # 1.5 K/mm3 (0.7-4.5); Lymphocytes % 12.4 % (10-50); Mean Corpuscular Hemoglobin 31.7 pg (27.0-31.2); Mean Corpuscular Volume 96.1 fl (80-94); Mean Platelet Volume 10.5 fl (7.4-10.4); Monocytes # 1.5 K/mm3 (0.1-1.0); Monocytes % 11.9 % (1.7-9.3); Neutrophils # 9.2 K/mm3 (1.8-7.8); Neutrophils % 75.4 % (37.0-80.0); Platelet Count 230 K/mm3 (142-424); Red Cell Distribution Width 13.9 % (11.5-17.5); White Blood Count 12.2 K/mm3 (4.8-10.8)
[2019-02-07 07:48] LABS: Anion Gap 17.6 mEq/L (5-15); Blood Urea Nitrogen 19 mg/dL (7-18); Calcium 8.1 mg/dL (8.5-10.1); Carbon Dioxide 20 mmol/L (21.0-32.0); Chloride 103 mmol/L (98-107); Creatinine Clearance Estimated 41 mL/min (50-200); Creatinine,Serum 1.76 mg/dL (0.70-1.30); Estimated Glomerular Filt Rate 40 ml/min (>60); GFR (African American) 49 ML/MIN (>60); Glucose 136 mg/dL (74-106); Potassium 3.6 mmoL/L (3.5-5.1); Sodium 137 mmol/L (136-145)
--- NOTE | 2019-02-07 09:07 | P.PN_ITS ---
Internal Medicine - PN: Subj *Date: 02/07/19 *Time: 09:07 Exam Vital signs and Labs for Last 24 Hours: Temp Pulse Resp BP Pulse Ox 98.3 F 121 H 18 115/81 100 02/07/19 08:00 02/07/19 08:00 02/07/19 08:00 02/07/19 08:00 02/07/19 08:00 Laboratory Results - last 24 hr 02/06/19 13:26: Lactate 0.9 02/07/19 07:31: WBC 12.2 H, RBC 2.70 L, Hgb 8.6 L, Hct 26.0 L, MCV 96.1 H, MCH 31.7 H, MCHC 33.0, RDW 13.9, Plt Count 230, MPV 10.5 H, Neut % (Auto) 75.4, Lymph % (Auto) 12.4, [place] % (Auto) 11.9 H, Eos % (Auto) 0.1, Baso % (Auto) 0.2, Neut # (Auto) 9.2 H, Lymph # (Auto) 1.5, [place] # (Auto) 1.5 H, Eos # (Auto) 0.0, Baso # (Auto) 0.0 02/07/19 07:31: Sodium 137, Potassium 3.6, Chloride 103, Carbon Dioxide 20 L, Anion Gap 17.6 H, BUN 19 H, Creatinine 1.76 H, Estimated Creat Clear 41, Estimated GFR 40 L, Est GFR ( Amer) 49 L, Glucose 136 H, Calcium 8.1 L I & O for Last 24 hours: Intake & Output 02/04/19 02/05/19 02/06/19 02/07/19 23:59 23:59 23:59 23:59 Intake Total 2527 / 2527 2186 / 2186 1593 / 1593 1280 / 1280 Output Total 1100 / 1100 175 / 175 Balance 1427 / 1427 2010 1593 / 1593 1280 / 1280 Weight 61.235 kg 60.838 kg 64.07 kg 61.235 kg Microbiology Reports for the Last 24 Hours: Microbiology 02/06/19 10:22 Synovial Fluid Gram Stain - Final 02/05/19 12:45 Synovial Fluid Gram Stain - Final 02/05/19 12:45 Synovial Fluid Body Fluid Culture - Preliminary NO GROWTH AFTER 24 HOURS Assessment and Plan (1) Alcohol abuse Current visit: Yes Status: Acute Category: Medical Code(s): F10.10 - Alcohol abuse, uncomplicated (2) Gout attack Current visit: Yes Status: Acute Category: Medical Code(s): M10.9 - Gout, unspecified (3) Bilateral knee effusions Current visit: Yes Status: Acute Category: Medical Code(s): M25.461 - Effusion, right knee; M25.462 - Effusion, left knee (4) Pulmonary HTN Current visit: Yes Status: Acute Category: Medical Code(s): I27.20 - Pulmonary hypertension, unspecified The patient's infection will respond to the chosen ABx?: Yes Is the patient receiving the right drug, dose, and route?: Yes Could a more targeted ABx be ordered?: No (PATIENT BEING TREATED FOR POSSIBLE MENINGITIS )
--- NOTE | 2019-02-07 09:18 | P.PN_ITS ---
Internal Medicine - PN: Subj *Date: 02/07/19 *Time: 23:35 Interval history: looks better - lp done with ansthesia Exam Vital signs and Labs for Last 24 Hours: Temp Pulse Resp BP Pulse Ox 98.3 F 121 H 18 115/81 100 02/07/19 08:00 02/07/19 08:00 02/07/19 08:00 02/07/19 08:00 02/07/19 08:00 Laboratory Results - last 24 hr 02/06/19 13:26: Lactate 0.9 02/07/19 07:31: WBC 12.2 H, RBC 2.70 L, Hgb 8.6 L, Hct 26.0 L, MCV 96.1 H, MCH 31.7 H, MCHC 33.0, RDW 13.9, Plt Count 230, MPV 10.5 H, Neut % (Auto) 75.4, Lymph % (Auto) 12.4, [place] % (Auto) 11.9 H, Eos % (Auto) 0.1, Baso % (Auto) 0.2, Neut # (Auto) 9.2 H, Lymph # (Auto) 1.5, [place] # (Auto) 1.5 H, Eos # (Auto) 0.0, Baso # (Auto) 0.0 02/07/19 07:31: Sodium 137, Potassium 3.6, Chloride 103, Carbon Dioxide 20 L, Anion Gap 17.6 H, BUN 19 H, Creatinine 1.76 H, Estimated Creat Clear 41, Estimated GFR 40 L, Est GFR ( Amer) 49 L, Glucose 136 H, Calcium 8.1 L I & O for Last 24 hours: Intake & Output 02/04/19 02/05/19 02/06/19 02/07/19 11:59 11:59 11:59 11:59 Intake Total 1516 / 1516 2100 / 2100 1461 / 1461 2509 / 2509 Output Total 900 / 900 775 / 775 Balance 616 / 616 1325 / 1325 1461 / 1461 2509 / 2509 Weight 135 lb 134 lb 2 oz 141 lb 4 oz 135 lb Microbiology Reports for the Last 24 Hours: Microbiology 02/06/19 10:22 Synovial Fluid Gram Stain - Final 02/05/19 12:45 Synovial Fluid Gram Stain - Final 02/05/19 12:45 Synovial Fluid Body Fluid Culture - Preliminary NO GROWTH AFTER 24 HOURS - Constitutional no acute distress, thin - *Routine HEENT Exam Head: Present: normocephalic Eye: Present: EOMI, PERRL. Absent: conjunctival icterus ENT: Present: mucous membranes dry - *Routine Neck Exam Absent: meningismus - *Routine Respiratory Exam Present: CTA bilaterally - *Routine Cardiovascular Exam Present: RRR, murmur - *Routine Abdominal Exam Present: soft - *Routine Extremities Exam Comments: bilat knee chhanges - *Routine Skin Exam Present: intact - *Routine Neurological Exam Present: alert, oriented X3, CN II-XII intact - Routine Psychiatric Exam Present: normal affect Assessment and Plan (1) Alcohol abuse Current visit: Yes Status: Acute Category: Medical Code(s): F10.10 - Alcohol abuse, uncomplicated (2) Gout attack Current visit: Yes Status: Acute Category: Medical Code(s): M10.9 - Gout, unspecified (3) Bilateral knee effusions Current visit: Yes Status: Acute Category: Medical Code(s): M25.461 - Effusion, right knee; M25.462 - Effusion, left knee (4) Pulmonary HTN Current visit: Yes Status: Acute Category: Medical Code(s): I27.20 - Pulmonary hypertension, unspecified
[2019-02-07 09:22] LABS: Glucose,CSF 73 mg/dL (40-70); Total Protein,CSF 49.9 mg/dL (15-45)
--- NOTE | 2019-02-07 09:42 | P.PN_ITS ---
[facility] Anesthesia Checklist - Patient Identification Patient Identification: Arm Band, Verbal (Name & ) - Structural Data Admitted From: Inpatient Planned Operative Procedure/s: LP Consent for Planned Operative Procedure(s) Verified: Yes Verified Documents: History and Physical - Additional verifications Patient : No Anesthesia Reactions: No Hx Blood Transfusions: No Blood Transfusion Reaction: No Cephalosporin Allergy: No Previous Colonoscopy: No - Cardiovascular Assessment Heart Sounds: S1 & S2 Pulse Strength: Baseline Pulse Rhythm: Regular Peripheral Edema: No - Airway Assessment C-Spine Mobility Assessed: Yes TMJ Mobility Assessed: Yes Dentition: Good Dentition - Neurological Assessment Level of Consciousness: Awake, Alert, Appropriate Hx Seizures: No Numbness or tingling in extremities: No - Anesthesia Plan Anesthesia Risk discussed: Yes Anesthesia Plan: Verified ASA Class: III Anesthesia Type: Spinal [facility] History I have reviewed the patient's past medical history: Yes Medical History: Reports:: Anxiety, Depression, Hypertension Denies:: Cancer, Diabetes Mellitus Type 1, Diabetes Mellitus Type 2, MRSA *Have you ever received a pneumonia vaccine?: No *Have you received a flu vaccine this season?: No Other Medical History: Reports: Thyroid Disease Other Surgeries: Yes: No Previous Surgery Amputation: No Fractures: No - *Social History Educational Level: Attended High School Smoking Status: Light tobacco smoker Tobacco Type: cigarettes Alcohol Intake: current Alcohol Intake Frequency:: 3 or more drinks per day Substance Use Type: denies use *Occupational Status:: disabled Housing: apartment Household Members: none *Travel in the last 8 weeks: None - Psychiatric History Expresses thoughts of harming self/others: None Suicide Plan Description: No Plan Pschychiatric History:: Reports:: Anxiety, Depression Family Hx:: Hypertension
[2019-02-07 09:52] LABS: Appearance,CSF Clear (Clear); Red Blood Cell,CSF 22 cells/uL (0); Volume,CSF 2.8 mL; White Blood Cell,CSF 2 cells/uL (0-5)
[2019-02-07 09:53] LABS: Mononuclear WBCs,CSF 100 %; Polynuclear WBCs,CSF 0 %
[2019-02-07 11:07] LABS: Hep A Ab, IgM Negative (Negative); Hepatitis B Core Antibody IgM Negative (Negative); Hepatitis B Surface Antigen Negative (Negative)
--- NOTE | 2019-02-07 11:43 | PC.NURSE ---
LUMBAR PUNCTURE PERFORMED THIS MORNING 842 BY DENISE SUMNER CRNA. AREA INJECTED WITH LIDOCAINE 1% ACCESS WAS SOMEWHAT DIFFICULT, INVOLVING 6 SEPARATE STICKS UNTIL ABLE TO GAIN ASSESS TO CSF. PT TOLERATES PROCEDURE FAIRLY.
--- NOTE | 2019-02-07 13:08 | HMH.ORTHPN ---
Subjective Date: 02/07/19 Time: 11:00 Principal diagnosis: syncope, KAMLESH, c. diff, knee pain/effusion Interval history: The patient has persistent headache/stiff neck, LP done this morning. Knees feel slightly better but pain/effusion still present. Intermittent fevers, chills. Shaking from likely EtOH withdrawl has improved; on CIWA protocol. PN: Obj Ex Vital signs: Temp Pulse Resp BP Pulse Ox 98.3 F 115 H 16 132/85 99 02/07/19 11:18 02/07/19 11:18 02/07/19 11:18 02/07/19 11:18 02/07/19 11:18 - Routine Extremities Exam Comments: AAOx3, NAD bilateral knees with mild effusions, L > R no erythema of B/L knees, mild warmth, diffusely tender but less so than yesterday patient does not tolerate ROM of the knees beyond 30-40 degrees flexion able to perform unassisted SLR BLE +DF/PF/EHL BLE B/L calves soft, nontender palpable pedal pulses BLE, feet warm/well-perfused Progress Note: A&P (1) Alcohol abuse Status: Acute Current Visit: Yes (2) Gout attack Status: Acute Current Visit: Yes (3) Bilateral knee effusions Status: Acute Current Visit: Yes (4) Pulmonary HTN Status: Acute Current Visit: Yes Assessment and Plan for All Diagnoses:: 53yo M admitted with syncope, found to have KAMLESH, c. diff, sepsis, EtOH withdrawl, intermittent fevers and bilateral knee pain/effusions -- LP performed today, awaiting results -- blood cultures pending -- knee aspirate studies/cultures pending -- lab work from yesterday pending: RPR, hepatitis panel, HIV, TB, Lyme -- being treated with IV vancomycin, ceftriaxone and acyclovir -- will continue to follow closely
[2019-02-07 17:32] LABS: HIV Screen 4th Generation wRfx Non Reactive (Non Reactive); Hepatitis C Antibody <0.1 s/co ratio (0.0-0.9); Rapid Plasma Reagin Ab Titer Non Reactive (NonRea<1:1)
--- NOTE | 2019-02-07 17:51 | PC.NURSE ---
1535: advised dr richard that one of pt's aerobic BC bottles came back positive for gram + cocci in clusters, but PCR is negative. no further orders.
--- NOTE | 2019-02-07 20:10 | PC.NURSE ---
rn made aware of all vs
[2019-02-08] VITALS (10 sets, daily range): BP systolic 122–165; BP diastolic 66–99; PULSE 110–160; RESP 16–20; TEMP 37.3–38.7; O2SAT 97–100; BMI 23.6; BMI 23.4
--- NOTE | 2019-02-08 05:35 | PC.NURSE ---
Pt appeared to be in better spirits this shift versus last shift. Talking more, reporting he had several visitors yesterday. Physically pt remains unchanged, right hand with noted swelling from gout, both legs remain marlyn wrapped, pedal pulses palpable. Pt is unable to move his legs on his own, therefore ask to be repositioned. He reported, I am tired of laying in this bed, but I know if I even tried to get up, my legs would collapse and not hold me, so I am thankful to be in this bed. Encouraged pt that spinal tap did not show meningitis being a positive thing. Fever continued throughout the shift, 100.2, 101.7, 99.2, manageable with Tylenol. Pt shakes and shivers when spiking a temperature causing telemetry readings to be false. Heart rate remains tachy. Unless pt moves his pain is manageable. Remained safe during my care, will continue monitoring.
--- NOTE | 2019-02-08 07:18 | PC.NURSE ---
Shift report given to Arden Cherry RN with no changes from previous note.
[2019-02-08 08:51] LABS: Basophils % 0.2 % (0.1-2.0); Eosinophils # 0.1 K/mm3 (0.0-0.4); Eosinophils % 0.5 % (0.1-12.0); Hematocrit 26.8 % (42.0-52.0); Hemoglobin 8.7 g/dL (14.1-18.0); Lymphocytes # 1.6 K/mm3 (0.7-4.5); Lymphocytes % 10.8 % (10-50); Mean Corpuscular HGB Conc 32.5 g/dL (31.8-35.4); Mean Corpuscular Hemoglobin 31.5 pg (27.0-31.2); Mean Corpuscular Volume 96.9 fl (80-94); Monocytes # 1.1 K/mm3 (0.1-1.0); Monocytes % 7.5 % (1.7-9.3); Neutrophils # 11.6 K/mm3 (1.8-7.8); Neutrophils % 81.1 % (37.0-80.0); Platelet Count 302 K/mm3 (142-424); Red Blood Count 2.77 M/mm3 (4.60-6.20); Red Cell Distribution Width 13.8 % (11.5-17.5); White Blood Count 14.4 K/mm3 (4.8-10.8)
[2019-02-08 08:57] LABS: Anion Gap 17.4 mEq/L (5-15); Blood Urea Nitrogen 21 mg/dL (7-18); Calcium 8.1 mg/dL (8.5-10.1); Carbon Dioxide 20 mmol/L (21.0-32.0); Chloride 103 mmol/L (98-107); Creatinine Clearance Estimated 45 mL/min (50-200); Creatinine,Serum 1.65 mg/dL (0.70-1.30); Estimated Glomerular Filt Rate 44 ml/min (>60); GFR (African American) 53 ML/MIN (>60); Glucose 118 mg/dL (74-106); Potassium 3.4 mmoL/L (3.5-5.1); Sodium 137 mmol/L (136-145)
--- NOTE | 2019-02-08 09:16 | XR_ITS ---
XR chest portable HISTORY: ITS.REASON: sob ORDERING PHYSICIAN: Daljit Aguilar MD PATIENT AGE: 53 years COMPARISON: [facility] spine chest 02/03/2019 FINDINGS: The cardiomediastinal silhouette and pulmonary vascularity are within normal limits. The lungs are clear without infiltrates, suspicious nodules, or pleural effusions. There may be some minimal atelectasis at the left base. No acute bony abnormalities. IMPRESSION: Negative chest, no acute finding other than minimal left basilar atelectasis
--- NOTE | 2019-02-08 09:33 | PC.NURSE ---
0915 dr. pickett at bedside, chart reviewed and assessment completed. discussed applying ice packs 15 min q 2 hrs to swollen areas. patient is agreeable. also discussed the need to quit drinking and how it effects the build up of uric acid.
--- NOTE | 2019-02-08 12:36 | HMH.ORTHPN ---
Subjective Date: 02/08/19 Time: 10:00 Principal diagnosis: syncope, KAMLESH, c. diff, knee pain/effusion Interval history: Patient feels better this morning but still having intermittent low-grade fevers and chills. Now reports pain and swelling in right hand. All joint fluid cultures are negative to date but 1 blood culture positive for GPC this morning. No crystal analysis back on the joint fluid. 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 diff, sepsis, EtOH withdrawl, intermittent fevers and bilateral knee pain/effusions -- cultures from joint aspirates + LP negative to date; blood culture +GPC -- awaiting crystal analysis of joint aspirate -- RPR, HIV, hepatitis panel negative thus far; awaiting TB quantiferon + Lyme -- being treated with IV vancomycin, ceftriaxone -- will continue to follow closely
[2019-02-08 14:28] LABS: Color,Fluid White (Yellow)
--- NOTE | 2019-02-08 14:34 | PC.NURSE ---
patient temerature back up to 100. degrees farenheit, patient shivering. tylenol 650 mg given po.
--- NOTE | 2019-02-08 19:19 | PC.NURSE ---
report given to mackenzie
--- NOTE | 2019-02-08 20:10 | HMH.ACPN2 ---
Internal Medicine - PN: Subj *Date: 02/09/19 *Time: 08:19 Interval history: still with episodes of fever but less Exam Vital signs and Labs for Last 24 Hours: Temp Pulse Resp BP Pulse Ox 99.8 F H 132 H 20 151/66 H 100 02/08/19 16:00 02/08/19 16:00 02/08/19 16:00 02/08/19 16:00 02/08/19 16:00 Laboratory Results - last 24 hr 02/08/19 08:35: WBC 14.4 H, RBC 2.77 L, Hgb 8.7 L, Hct 26.8 L, MCV 96.9 H, MCH 31.5 H, MCHC 32.5, RDW 13.8, Plt Count 302 D, MPV 9.0, Neut % (Auto) 81.1 H, Lymph % (Auto) 10.8, [place] % (Auto) 7.5, Eos % (Auto) 0.5, Baso % (Auto) 0.2, Neut # (Auto) 11.6 H, Lymph # (Auto) 1.6, [place] # (Auto) 1.1 H, Eos # (Auto) 0.1, Baso # (Auto) 0.0 02/08/19 08:35: Sodium 137, Potassium 3.4 L, Chloride 103, Carbon Dioxide 20 L, Anion Gap 17.4 H, BUN 21 H, Creatinine 1.65 H, Estimated Creat Clear 45, Estimated GFR 44 L, Est GFR ( Amer) 53 L, Glucose 118 H, Calcium 8.1 L I & O for Last 24 hours: Intake & Output 02/06/19 02/07/19 02/08/19 02/09/19 11:59 11:59 11:59 11:59 Intake Total 1461 / 1461 2509 / 2509 2551 / 2551 1527 / 1527 Balance 1461 / 1461 2509 / 2509 2551 / 2551 1527 / 1527 Weight 141 lb 4 oz 135 lb 137 lb 6 oz 137 lb 5.991 oz Microbiology Reports for the Last 24 Hours: Microbiology 02/03/19 14:40 Blood Blood Culture - Final NO GROWTH AFTER 5 DAYS 02/03/19 14:40 Blood Blood Culture - Final NO GROWTH AFTER 5 DAYS 02/06/19 10:22 Synovial Fluid Gram Stain - Final 02/06/19 10:22 Synovial Fluid Body Fluid Culture - Preliminary NO GROWTH AFTER 48 HOURS 02/05/19 12:45 Synovial Fluid Gram Stain - Final 02/05/19 12:45 Synovial Fluid Body Fluid Culture - Preliminary NO GROWTH AFTER 72 HOURS 02/06/19 07:30 Blood Blood Culture - Preliminary Gram Positive Cocci 02/07/19 08:55 Cerebral Spinal Fluid Gram Stain - Final 02/07/19 08:55 Cerebral Spinal Fluid CSF Culture - Preliminary NO GROWTH AFTER 24 HOURS 02/06/19 07:30 Blood Blood Culture - Preliminary NO GROWTH AFTER 48 HOURS - Constitutional no acute distress, chronically ill appearing - *Routine HEENT Exam Head: Present: normocephalic Eye: Present: EOMI, PERRL. Absent: conjunctival icterus ENT: Present: mucous membranes dry - *Routine Neck Exam Present: supple - *Routine Respiratory Exam Present: CTA bilaterally - *Routine Cardiovascular Exam Present: RRR, murmur - *Routine Abdominal Exam Present: soft - *Routine Extremities Exam Comments: has some improvement with jts - *Routine Skin Exam Present: intact - *Routine Neurological Exam Present: alert, oriented X3, CN II-XII intact - Routine Psychiatric Exam Present: normal affect Assessment and Plan (1) Alcohol abuse Current visit: Yes Status: Acute Category: Medical Code(s): F10.10 - Alcohol abuse, uncomplicated (2) Gout attack Current visit: Yes Status: Acute Category: Medical Code(s): M10.9 - Gout, unspecified (3) Bilateral knee effusions Current visit: Yes Status: Acute Category: Medical Code(s): M25.461 - Effusion, right knee; M25.462 - Effusion, left knee (4) Pulmonary HTN Current visit: Yes Status: Acute Category: Medical Code(s): I27.20 - Pulmonary hypertension, unspecified
[2019-02-09] VITALS (25 sets, daily range): BP systolic 128–171; BP diastolic 80–113; PULSE 71–130; RESP 18–22; TEMP 36.1–37.4; O2SAT 19–100; BMI 25.7
--- NOTE | 2019-02-09 05:58 | PC.NURSE ---
0600 courtesy check; pt supine asleep
--- NOTE | 2019-02-09 08:38 | PC.NURSE ---
Pt is A&O and has not ambulated OOB this shift, pt turned & repositioned PRN as he will allow. Pt refuses to shift too much and only in slow, slight increments. BLE elevated on pillows, edema noted, HERNANDEZ wraps in place from above to below bilat knees. No drainage noted, dressings CDI.
--- NOTE | 2019-02-09 08:39 | P.PN_ITS ---
Subjective Date: 02/09/19 Time: 08:00 Principal diagnosis: syncope, KAMLESH, c. diff, knee pain/effusion Interval history: The patient reports continued pain in bilateral knees, feet and R hand. No recent fevers, all cultures negative to date. One blood culture positive, bel ieved to be contaminant. Patient has not been able to do much with PT/OT so far, but is willing to keep trying today. 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 diff, sepsis, EtOH withdrawl, intermittent fevers and bilateral knee pain/effusions -- cultures from joint aspirates + LP negative to date -- crystal analysis of joint aspirate = monosodium urate crystals, confirmed with the lab -- RPR, HIV, hepatitis panel negative thus far; awaiting TB quantiferon + Lyme -- being treated with IV vancomycin, ceftriaxone -- believe this to be a severe, acute gout flare; IV steroids may help, recommend medial management with allopurinol/colchicine and abstinence from alcohol -- will continue to follow closely
--- NOTE | 2019-02-09 08:40 | HMH.ACPN2 ---
Internal Medicine - PN: Subj *Date: 02/09/19 *Time: 08:45 Interval history: 53-year-old patient sitting up in bed this morning eating his breakfast denies any increase in pain. Right hand is still edematous and painful. Is agreeable to being out of bed up to chair and physical therapy Exam Vital signs and Labs for Last 24 Hours: Temp Pulse Resp BP Pulse Ox 99.0 F 115 H 20 155/92 H 99 02/09/19 08:00 02/09/19 08:00 02/09/19 08:00 02/09/19 08:00 02/09/19 08:00 Laboratory Results - last 24 hr 02/08/19 08:35: WBC 14.4 H, RBC 2.77 L, Hgb 8.7 L, Hct 26.8 L, MCV 96.9 H, MCH 31.5 H, MCHC 32.5, RDW 13.8, Plt Count 302 D, MPV 9.0, Neut % (Auto) 81.1 H, Lymph % (Auto) 10.8, [place] % (Auto) 7.5, Eos % (Auto) 0.5, Baso % (Auto) 0.2, Neut # (Auto) 11.6 H, Lymph # (Auto) 1.6, [place] # (Auto) 1.1 H, Eos # (Auto) 0.1, Baso # (Auto) 0.0 02/08/19 08:35: Sodium 137, Potassium 3.4 L, Chloride 103, Carbon Dioxide 20 L, Anion Gap 17.4 H, BUN 21 H, Creatinine 1.65 H, Estimated Creat Clear 45, Estimated GFR 44 L, Est GFR ( Amer) 53 L, Glucose 118 H, Calcium 8.1 L I & O for Last 24 hours: Intake & Output 02/06/19 02/07/19 02/08/19 02/09/19 23:59 23:59 23:59 23:59 Intake Total 1593 / 1593 2916 / 2916 2442 / 2442 1732 / 1732 Balance 1593 / 1593 2916 / 2916 2442 / 2442 1732 / 1732 Weight 141 lb 4 oz 135 lb 137 lb 5.991 oz 150 lb 7 oz Microbiology Reports for the Last 24 Hours: Microbiology 02/06/19 07:30 Blood Blood Culture - Preliminary Micrococcus luteus/lylae 02/06/19 10:22 Knee,Left - Final 02/06/19 10:22 Knee,Left - Final 02/06/19 10:22 Knee,Left - Final 02/06/19 10:22 Knee,Left Acid Fast Bacilli Smear - Final 02/03/19 14:40 Blood Blood Culture - Final NO GROWTH AFTER 5 DAYS 02/03/19 14:40 Blood Blood Culture - Final NO GROWTH AFTER 5 DAYS 02/06/19 10:22 Synovial Fluid Gram Stain - Final 02/06/19 10:22 Synovial Fluid Body Fluid Culture - Preliminary NO GROWTH AFTER 48 HOURS 02/05/19 12:45 Synovial Fluid Gram Stain - Final 02/05/19 12:45 Synovial Fluid Body Fluid Culture - Preliminary NO GROWTH AFTER 72 HOURS 02/07/19 08:55 Cerebral Spinal Fluid Gram Stain - Final 02/07/19 08:55 Cerebral Spinal Fluid CSF Culture - Preliminary NO GROWTH AFTER 24 HOURS 02/06/19 07:30 Blood Blood Culture - Preliminary NO GROWTH AFTER 48 HOURS - Constitutional no acute distress - *Routine HEENT Exam Head: Present: normocephalic Eye: Present: EOMI, PERRL ENT: Present: mucous membranes dry - *Routine Neck Exam Present: supple - *Routine Respiratory Exam Present: CTA bilaterally - *Routine Cardiovascular Exam Present: RRR, murmur - *Routine Abdominal Exam Present: soft, normoactive bowel sounds - *Routine Extremities Exam Present: pulses intact, joint swelling - Routine Back/Spine/Pelvis Exam Back/Spine: Present: full ROM - *Routine Skin Exam Present: intact, erythema - *Routine Neurological Exam Present: alert, oriented X3, CN II-XII intact - Routine Psychiatric Exam Present: normal affect Assessment and Plan (1) Alcohol abuse Current visit: Yes Status: Acute Category: Medical Code(s): F10.10 - Alcohol abuse, uncomplicated (2) Gout attack Current visit: Yes Status: Acute Category: Medical Code(s): M10.9 - Gout, unspecified (3) Bilateral knee effusions Current visit: Yes Status: Acute Category: Medical Code(s): M25.461 - Effusion, right knee; M25.462 - Effusion, left knee (4) Pulmonary HTN Current visit: Yes Status: Acute Category: Medical Code(s): I27.20 - Pulmonary hypertension, unspecified - Assessment and plan all Dx Assessment and Plan for all problems:: Rounded with Dr. Aguilar all orders per Dr. Aguilar Will
[2019-02-09 09:13] LABS: MANUAL DIFFERENTIAL MANUAL DIFFERENTIAL (MANUAL DIFF)
[2019-02-09 09:16] LABS: Basophils % 0.2 % (0.1-2.0); Eosinophils # 0.2 K/mm3 (0.0-0.4); Eosinophils % 1.4 % (0.1-12.0); Lymphocytes % 13.7 % (10-50); Mean Corpuscular HGB Conc 32.5 g/dL (31.8-35.4); Mean Corpuscular Hemoglobin 31.7 pg (27.0-31.2); Mean Corpuscular Volume 97.8 fl (80-94); Monocytes # 0.9 K/mm3 (0.1-1.0); Monocytes % 5.9 % (1.7-9.3); Neutrophils # 11.6 K/mm3 (1.8-7.8); Neutrophils % 78.7 % (37.0-80.0); Platelet Count 356 K/mm3 (142-424); Red Blood Count 2.33 M/mm3 (4.60-6.20); Red Cell Distribution Width 14.3 % (11.5-17.5); White Blood Count 14.8 K/mm3 (4.8-10.8)
[2019-02-09 09:26] LABS: Anion Gap 16.4 mEq/L (5-15); Blood Urea Nitrogen 19 mg/dL (7-18); Calcium 8.2 mg/dL (8.5-10.1); Carbon Dioxide 20 mmol/L (21.0-32.0); Chloride 104 mmol/L (98-107); Creatinine Clearance Estimated 55 mL/min (50-200); Creatinine,Serum 1.47 mg/dL (0.70-1.30); Estimated Glomerular Filt Rate 50 ml/min (>60); GFR (African American) 60 ML/MIN (>60); Glucose 115 mg/dL (74-106); Sodium 136 mmol/L (136-145)
[2019-02-09 09:30] LABS: Potassium 4.4 mmoL/L (3.5-5.1)
[2019-02-09 09:32] LABS: Hematocrit 22.8 % (42.0-52.0); Hemoglobin 7.4 g/dL (14.1-18.0)
[2019-02-09 09:42] LABS: Vancomycin,Trough 12.9 mcg/ml (10.0-20.0)
--- NOTE | 2019-02-09 09:55 | HMH.PHACONS ---
- Pharmacy Consult Date: 02/09/19 Time: 09:55 Referring provider: DR. HARGROVE Reason for Consult:: VANCOMYCIN TROUGH LEVEL Allergies and ADEs:: Allergies Allergy/AdvReac Type Severity Reaction Status Date / Time aspirin [ASPIRIN] Allergy Unknown Verified 04/16/18 08:58 Penicillins [PENICILLINS] Allergy Unknown Verified 04/16/18 08:58 Home Medications:: Home Medications Medication Instructions Recorded Confirmed Type hydralazine 25 mg tablet 25 mg PO TID #270 tab 10/19/18 02/03/19 Rx cholecalciferol (vitamin D3) 5,000 5,000 unit PO DAILY #90 cap 12/29/18 02/03/19 Rx unit capsule Ergocalciferol (Vitamin D2) 50,000 units PO WEEKLY 02/03/19 02/04/19 History [Drisdol] Furosemide [Furosemide 40MG tAB] 40 mg PO DAILY 02/03/19 02/03/19 History Indomethacin 50 mg PO TID 02/03/19 02/03/19 History Lisinopril [Lisinopril 10mg Tab] 10 mg PO DAILY 02/03/19 02/03/19 History Cetirizine HCl 10 mg PO DAILY 02/04/19 02/04/19 History Height: 1.63 m Weight: 68.237 kg Laboratory Results:: Laboratory Results - last 24 hr 02/05/19 12:45: Synovial Crystals Comment 02/05/19 12:45: Fluid Clarity Milky., Fluid Lining Cell TNP, Synovial Color White, Synovial RBC TNP, Synovial Tot Nuc Cell Comment, Synovial Eosinophils% TNP, Synovial Polynuclear % TNP, Synovial Lymphocytes % TNP, Synovial Macrophages % TNP, Synovial Crystal ID Comment, Synovial Fluid Comment TNP 02/09/19 09:05: Vancomycin Trough 12.9 02/09/19 09:05: WBC 14.8 H, RBC 2.33 L, Hgb 7.4 L*, Hct 22.8 L*, MCV 97.8 H, MCH 31.7 H, MCHC 32.5, RDW 14.3, Plt Count 356, Neut % (Auto) 78.7, Lymph % (Auto) 13.7, [place] % (Auto) 5.9, Eos % (Auto) 1.4, Baso % (Auto) 0.2, Neut # (Auto) 11.6 H, Lymph # (Auto) 2.0, [place] # (Auto) 0.9, Eos # (Auto) 0.2, Baso # (Auto) 0.0 02/09/19 09:05: Sodium 136, Potassium 4.4 D, Chloride 104, Carbon Dioxide 20 L, Anion Gap 16.4 H, BUN 19 H, Creatinine 1.47 H, Estimated Creat Clear 55, Estimated GFR 50 L, Est GFR ( Amer) 60, Glucose 115 H, Calcium 8.2 L Medical History: Reports:: Anxiety, Depression, Hypertension Denies:: Cancer, Diabetes Mellitus Type 1, Diabetes Mellitus Type 2, MRSA, Seizures Assessment and Plan (1) Alcohol abuse Current visit: Yes Status: Acute Category: Medical Code(s): F10.10 - Alcohol abuse, uncomplicated (2) Gout attack Current visit: Yes Status: Acute Category: Medical Code(s): M10.9 - Gout, unspecified (3) Bilateral knee effusions Current visit: Yes Status: Acute Category: Medical Code(s): M25.461 - Effusion, right knee; M25.462 - Effusion, left knee (4) Pulmonary HTN Current visit: Yes Status: Acute Category: Medical Code(s): I27.20 - Pulmonary hypertension, unspecified - Assessment and plan all Dx Assessment and Plan for all problems:: BASED ON VANCOMYCIN TROUGH LEVEL AND PATIENT FACTORS, RECOMMEND CONTINUING VANCOMYCIN 1 GM IV Q24H. PHARMACY WILL CONTINUE TO MONITOR DAILY AND ADJUST APPROPRIATE.
--- NOTE | 2019-02-09 10:03 | PC.NURSE ---
Late entry: received critical lab results at 0932. called [facility] office to report value, message left at 0934. Called office again and spoke with Deacon Bowen, H/H 7.4/22.8 relayed. no new orders at this time. Primary RN notified of results and that [facility] notified at 0950
[2019-02-09 10:04] LABS: Eosinophils % 2 % (0-3); Lymphocytes % 12 % (10-50); Monocytes % 3 % (2-9); Neutrophils % 83 % (42-76); Total Cells Counted 100
[2019-02-09 10:05] LABS: Platelet Estimate Normal; RBC Morphology Normal
--- NOTE | 2019-02-09 10:30 | HMH.ACPN ---
Internal Medicine - PN: Subj *Date: 02/09/19 *Time: 10:30 Exam Vital signs and Labs for Last 24 Hours: Temp Pulse Resp BP Pulse Ox 99.0 F 115 H 20 155/92 H 99 02/09/19 08:00 02/09/19 08:00 02/09/19 08:00 02/09/19 08:00 02/09/19 08:00 Laboratory Results - last 24 hr 02/05/19 12:45: Synovial Crystals Comment 02/05/19 12:45: Fluid Clarity Milky., Fluid Lining Cell TNP, Synovial Color White, Synovial RBC TNP, Synovial Tot Nuc Cell Comment, Synovial Eosinophils% TNP, Synovial Polynuclear % TNP, Synovial Lymphocytes % TNP, Synovial Macrophages % TNP, Synovial Crystal ID Comment, Synovial Fluid Comment TNP 02/09/19 09:05: Vancomycin Trough 12.9 02/09/19 09:05: WBC 14.8 H, RBC 2.33 L, Hgb 7.4 L*, Hct 22.8 L*, MCV 97.8 H, MCH 31.7 H, MCHC 32.5, RDW 14.3, Plt Count 356, Neut % (Auto) 78.7, Lymph % (Auto) 13.7, [place] % (Auto) 5.9, Eos % (Auto) 1.4, Baso % (Auto) 0.2, Neut # (Auto) 11.6 H, Lymph # (Auto) 2.0, [place] # (Auto) 0.9, Eos # (Auto) 0.2, Baso # (Auto) 0.0, Total Counted 100, Neutrophils % (Manual) 83 H, Lymphocytes % (Manual) 12, Monocytes % (Manual) 3, Eosinophils % (Manual) 2, Platelet Estimate Normal, RBC Morphology Normal 02/09/19 09:05: Sodium 136, Potassium 4.4 D, Chloride 104, Carbon Dioxide 20 L, Anion Gap 16.4 H, BUN 19 H, Creatinine 1.47 H, Estimated Creat Clear 55, Estimated GFR 50 L, Est GFR ( Amer) 60, Glucose 115 H, Calcium 8.2 L I & O for Last 24 hours: Intake & Output 02/06/19 02/07/19 02/08/19 02/09/19 23:59 23:59 23:59 23:59 Intake Total 1593 / 1593 2916 / 2916 2442 / 2442 1732 / 1732 Balance 1593 / 1593 2916 / 2916 2442 / 2442 1732 / 1732 Weight 64.07 kg 61.235 kg 62.312 kg 68.237 kg Microbiology Reports for the Last 24 Hours: Microbiology 02/07/19 08:55 Cerebral Spinal Fluid Gram Stain - Final 02/07/19 08:55 Cerebral Spinal Fluid CSF Culture - Preliminary NO GROWTH AFTER 48 HOURS 02/06/19 07:30 Blood Blood Culture - Preliminary Micrococcus luteus/lylae 02/06/19 10:22 Knee,Left - Final 02/06/19 10:22 Knee,Left - Final 02/06/19 10:22 Knee,Left - Final 02/06/19 10:22 Knee,Left Acid Fast Bacilli Smear - Final 02/03/19 14:40 Blood Blood Culture - Final NO GROWTH AFTER 5 DAYS 02/03/19 14:40 Blood Blood Culture - Final NO GROWTH AFTER 5 DAYS 02/06/19 10:22 Synovial Fluid Gram Stain - Final 02/06/19 10:22 Synovial Fluid Body Fluid Culture - Preliminary NO GROWTH AFTER 48 HOURS 02/05/19 12:45 Synovial Fluid Gram Stain - Final 02/05/19 12:45 Synovial Fluid Body Fluid Culture - Preliminary NO GROWTH AFTER 72 HOURS 02/06/19 07:30 Blood Blood Culture - Preliminary NO GROWTH AFTER 48 HOURS Assessment and Plan (1) Alcohol abuse Current visit: Yes Status: Acute Category: Medical Code(s): F10.10 - Alcohol abuse, uncomplicated (2) Gout attack Current visit: Yes Status: Acute Category: Medical Code(s): M10.9 - Gout, unspecified (3) Bilateral knee effusions Current visit: Yes Status: Acute Category: Medical Code(s): M25.461 - Effusion, right knee; M25.462 - Effusion, left knee (4) Pulmonary HTN Current visit: Yes Status: Acute Category: Medical Code(s): I27.20 - Pulmonary hypertension, unspecified The patient's infection will respond to the chosen ABx?: Yes Is the patient receiving the right drug, dose, and route?: Yes Could a more targeted ABx be ordered?: No (MICROCOCCUS LUTEUS GROWING OUT. SENSITIVITIES NOT BACK YET.)
--- NOTE | 2019-02-09 11:23 | SW/DCPLANNER ---
I have spoke with this patient regarding discharge plans. Patient stated that he lives at home alone. Patient and I had a lengthy discussion regarding discharge plans: patient has refused placement and stated he wants to return home with assistance from family and friends. Patient has asked for a Rollator walker: this has been ordered from [facility], patient agrees to have home health services: this will be set up at time of discharge, and I have also provided this patient with outpatient alcohol rehab/resources: AA meetings in [place], [facility], and information to contact [facility] if any other further assistance is needed once patient discharges home. Patient has no other needs at this time. I will follow up with [facility] and home health prior to discharge. Patient could potentially be ready for discharge tomorrow.
--- NOTE | 2019-02-09 18:58 | PC.NURSE ---
pt has had no changes from previous assessment. telemetry shows NSR and sinus tach. pt has been up to chair this shift. 2 units PRBC ordered and pt has had 1 unit at this time with no issues. pt eating and drinking well. marlyn wraps to bilateral knees. isolation precautions remain in place. alert and oriented. iv patent and infusing per order. call light in reach. will continue to monitor pt condition. v/s/s. pt blood pressure has been elevated at times.
--- NOTE | 2019-02-09 21:18 | PC.NURSE ---
2100 courtesy check, pt supine awake, took snack, no other needs voiced
[2019-02-10] VITALS (13 sets, daily range): BP systolic 144–158; BP diastolic 77–98; PULSE 61–90; RESP 16–20; TEMP 36.4–36.9; O2SAT 17–100; BMI 26.3
[2019-02-10 01:55] LABS: Hematocrit 30.9 % (42.0-52.0)
[2019-02-10 01:59] LABS: Hemoglobin 10.4 g/dL (14.1-18.0)
--- NOTE | 2019-02-10 06:03 | PC.NURSE ---
PT ALERT AND ORIENTED. NO C/O PAIN REPORTED. PT RECEIVED HIS 2ND UNIT OF BLOOD THIS SHIFT. 1 HOUR POST H&H IMPROVED. PT HAD ORDER FOR A.M. LABS. NEW IV PLACED. CONTINUES ON NS @ 75/HR WELL IV ABX AND STEROIDS. PT STILL HAS GENERALIZED EDEMA, MOSTLY IN EXTREMITIES. RESPIRATIONS EVEN AND UNLABORED ON ROOM AIR. BREATH SOUNDS CLEAR. PT STABLE. WILL CONTINUE TO MONITOR. REPORT TO BE GIVEN TO ONCOMING NURSE.
--- NOTE | 2019-02-10 06:31 | PC.NURSE ---
0600 courtesy check, pt sitting up asleep
--- NOTE | 2019-02-10 07:19 | PC.NURSE ---
REPORT GIVEN TO Gwendolyn ARROYO
[2019-02-10 07:33] LABS: Anion Gap 17.3 mEq/L (5-15); Blood Urea Nitrogen 26 mg/dL (7-18); Calcium 8.1 mg/dL (8.5-10.1); Carbon Dioxide 18 mmol/L (21.0-32.0); Chloride 106 mmol/L (98-107); Creatinine Clearance Estimated 60 mL/min (50-200); Creatinine,Serum 1.37 mg/dL (0.70-1.30); Estimated Glomerular Filt Rate 54 ml/min (>60); GFR (African American) 65 ML/MIN (>60); Glucose 143 mg/dL (74-106); Potassium 3.3 mmoL/L (3.5-5.1); Sodium 138 mmol/L (136-145)
[2019-02-10 07:37] LABS: Hematocrit 32.7 % (42.0-52.0); Hemoglobin 10.7 g/dL (14.1-18.0); Lymphocytes # 1.4 K/mm3 (0.7-4.5); Lymphocytes % 9.4 % (10-50); Mean Corpuscular HGB Conc 32.7 g/dL (31.8-35.4); Mean Corpuscular Hemoglobin 29.8 pg (27.0-31.2); Mean Corpuscular Volume 91.2 fl (80-94); Mean Platelet Volume 8.4 fl (7.4-10.4); Monocytes # 0.7 K/mm3 (0.1-1.0); Monocytes % 4.6 % (1.7-9.3); Neutrophils # 12.9 K/mm3 (1.8-7.8); Platelet Count 331 K/mm3 (142-424); Red Blood Count 3.58 M/mm3 (4.60-6.20)
[2019-02-10 07:43] LABS: MANUAL DIFFERENTIAL MANUAL DIFFERENTIAL (MANUAL DIFF)
--- NOTE | 2019-02-10 09:14 | SW/DCPLANNER ---
Patient is now agreeable to a rehabilitation facility. [facility] does have male beds available at this time per [facility]. Patient information has been faxed to [facility]. I will follow up with [facility] this afternoon. I will also follow up with [facility] regarding Rollator walker that was ordered and delivered yesterday. Patient is currently ready for discharge.
[2019-02-10 10:33] LABS: Lymphocytes % 7 % (10-50); Monocytes % 4 % (2-9); Neutrophils % 89 % (42-76); Total Cells Counted 100
[2019-02-10 10:37] LABS: Platelet Estimate Slight Increase; RBC Morphology Normal
--- NOTE | 2019-02-10 13:41 | DIET.NUTRFU ---
Patient complaints that he has not been receiving menus. PO intakes remain poor at 25%. He is currently on a regular diet that is being supplemented with yanni ensure. Good acceptance to [facility]. Noted weight gain from 135 lbs to current 125
--- NOTE | 2019-02-10 13:45 | DIET.NUTRFU ---
Patient complains he has not been receiving menus. He is on a regular diet with poor po intakes average 25%. Diet is supplemented with yanni Ensure and patient is drinking these. Weighted utensils have been beneficial and will continue to provide. Patient is receiving bedtime sandwiches as he is up at nights. Noted weight gain from 135 lbs to current 150 lbs. Will continue to encourage adequate intake.
--- NOTE | 2019-02-10 15:53 | PC.NURSE ---
PATIENT STOOD UP WITH ASSIST OF 2 AND HELD ONTO WALKER TO BE CHANGED.
--- NOTE | 2019-02-10 16:29 | HMH.ACPN2 ---
Internal Medicine - PN: Subj *Date: 02/10/19 *Time: 08:30 Interval history: doing better - jt better will need rehab Exam Vital signs and Labs for Last 24 Hours: Temp Pulse Resp BP Pulse Ox 97.6 F 88 16 156/98 H 99 02/10/19 15:52 02/10/19 15:52 02/10/19 15:52 02/10/19 15:52 02/10/19 15:52 Laboratory Results - last 24 hr 02/06/19 10:44: Lyme Screen IgG & IgM <0.91 02/09/19 12:25: Blood Type O Negative, Antibody Screen Negative, Crossmatch (AHG) See Detail 02/10/19 01:45: Hgb 10.4 L D, Hct 30.9 L 02/10/19 06:47: WBC 15.0 H, RBC 3.58 L D, Hgb 10.7 L, Hct 32.7 L, MCV 91.2, MCH 29.8, MCHC 32.7, RDW 16.0, Plt Count 331, MPV 8.4, Neut % (Auto) 86.0 H, Lymph % (Auto) 9.4 L, [place] % (Auto) 4.6, Eos % (Auto) 0.0 L, Baso % (Auto) 0.0 L, Neut # (Auto) 12.9 H, Lymph # (Auto) 1.4, [place] # (Auto) 0.7, Eos # (Auto) 0.0, Baso # (Auto) 0.0, Total Counted 100, Neutrophils % (Manual) 89 H, Lymphocytes % (Manual) 7 L, Monocytes % (Manual) 4, Platelet Estimate Slight increase, RBC Morphology Normal 02/10/19 06:47: Sodium 138, Potassium 3.3 L D, Chloride 106, Carbon Dioxide 18 L, Anion Gap 17.3 H, BUN 26 H D, Creatinine 1.37 H, Estimated Creat Clear 60, Estimated GFR 54 L, Est GFR ( Amer) 65, Glucose 143 H D, Calcium 8.1 L I & O for Last 24 hours: Intake & Output 02/08/19 02/09/19 02/10/19 02/11/19 11:59 11:59 11:59 11:59 Intake Total 2551 / 2551 3259 / 3259 2945 / 2945 240 / 240 Balance 2551 / 2551 3259 / 3259 2945 / 2945 240 / 240 Weight 137 lb 6 oz 150 lb 7 oz 154 lb 3 oz Microbiology Reports for the Last 24 Hours: Microbiology 02/06/19 10:22 Synovial Fluid Gram Stain - Final 02/06/19 10:22 Synovial Fluid Body Fluid Culture - Preliminary NO GROWTH AFTER 4 DAYS 02/05/19 12:45 Synovial Fluid Gram Stain - Final 02/05/19 12:45 Synovial Fluid Body Fluid Culture - Final NO GROWTH AFTER 5 DAYS 02/07/19 08:55 Cerebral Spinal Fluid Gram Stain - Final 02/07/19 08:55 Cerebral Spinal Fluid CSF Culture - Preliminary NO GROWTH AFTER 72 HOURS - Constitutional no acute distress - *Routine HEENT Exam Head: Present: normocephalic Eye: Present: EOMI, PERRL ENT: Present: mucous membranes dry - *Routine Neck Exam Absent: JVD - *Routine Respiratory Exam Present: CTA bilaterally - *Routine Cardiovascular Exam Present: RRR, murmur - *Routine Abdominal Exam Present: soft - *Routine Extremities Exam Absent: calf tenderness Comments: bilat knees better - *Routine Skin Exam Present: intact - *Routine Neurological Exam Present: alert, oriented X3, CN II-XII intact - Routine Psychiatric Exam Present: normal affect Assessment and Plan (1) Alcohol abuse Current visit: Yes Status: Acute Category: Medical Code(s): F10.10 - Alcohol abuse, uncomplicated (2) Gout attack Current visit: Yes Status: Acute Category: Medical Code(s): M10.9 - Gout, unspecified (3) Bilateral knee effusions Current visit: Yes Status: Acute Category: Medical Code(s): M25.461 - Effusion, right knee; M25.462 - Effusion, left knee (4) Pulmonary HTN Current visit: Yes Status: Acute Category: Medical Code(s): I27.20 - Pulmonary hypertension, unspecified
--- NOTE | 2019-02-10 17:19 | SW/DCPLANNER ---
This patient has been accepted to [facility] as [facility] pending. Patient will discharge to [facility] tomorrow pending no setbacks. I have informed Dr Aguilar of acceptance.
--- NOTE | 2019-02-10 19:16 | PC.NURSE ---
report given to jose
--- NOTE | 2019-02-10 19:59 | PC.NURSE ---
rn made aware of bp
[2019-02-11] VITALS: BP 158/91; PULSE 60; PULSE 81; RESP 17; TEMP 36.9; O2SAT 100
[2019-02-11 03:33] VITALS: BP 160/88; PULSE 67; RESP 19; TEMP 36.7; O2SAT 98
[2019-02-11 04:00] VITALS: PULSE 60
[2019-02-11 05:54] VITALS: BMI 26.0
[2019-02-11 07:37] VITALS: BP 170/100; PULSE 102; RESP 15; TEMP 36.8; O2SAT 98
--- NOTE | 2019-02-11 07:37 | PC.NURSE ---
NURSE NOTIFIED OF PATIENTS ELEVATED BP TAKEN MANUAL IN RT ARM 170/100
[2019-02-11 08:00] VITALS: PULSE 90
--- NOTE | 2019-02-11 08:34 | HMH.DCSUM ---
General - General Admission date:: 02/03/19 53-year-old male patient sitting up in bed this morning eating breakfast. Reports bilat knees are feeling better and his hand is feeling better now and is able to move it and use it more. States he is ready to be discharged today and that he is ready to go. Discharge date: 02/11/19 HPI HPI: this patient presented to the ed with tates he has been feeling bad with stomach pain and vomiting for the last week but felt better today so he walked to his friends house where he passed out and hit the porch, states he doesnt recall anything other than waking up on the porch. He tried to get up a few times after sitting for a some time but no improvement. c/o headache and neck pain with some abdomen pain. States he started drinking beer this morning. History obtained from patient and sister. Patient brought in by ambulance after syncopal episode. States he started getting sick on Friday 4 days ago. He has had vomiting and diarrhea and abdominal pain which she locates is being diffuse periumbilical and lower abdomen. He felt better today, no vomiting or diarrhea, so he walked to a friend's house. While there, he alon from sitting position and became dizzy and passed out. He tried to get up and got dizzy and fell down again. He says he hit the back of his head, but no loss of consciousness. Admits to being a daily drinker, sister says that he drinks vodka and beer, as much as he can get his hands on . Admits to drinking today. pt was admitted for eval and treatment Hospital Course Hospital Course: 02/03 CXR: IMPRESSION: Negative chest, no acute finding other than minimal left basilar atelectasis Dictated By: Deacon Alcocer 02/[address]: MPRESSION: 1. No acute intracranial findings. 2. Atrophy with chronic ischemic changes with encephalomalacia change in the right cerebellar hemisphere. 3. Rounded area of low density in the left cerebellar hemisphere previously occupied by hyperdense nodule and could be due to small area of encephalomalacia. Please correlate with clinical findings Dictated By: Aren Bermeo MD 02/03 Abd/Pelvic CT: IMPRESSION: 1. Colonic diverticulosis. No evidence of diverticulitis. 2. Thickened urinary bladder which may in part be due to nondistention. Cystitis is also considered 3. Diffuse hepatic steatosis 53-year-old male patient came into the ER on 02/03/2019 complaining of stomach pain and vomiting for a week. On that day he stated that he had been feeling better but then was having abd pain and walked to his friend's house and proceeded to pass out on his front porch. Brought into the emergency room head CT was negative chest x-ray was negative abdomen pelvic CT showed colonic diverticulosis with no diverticulitis also showing diffuse hepatic steatosis Orthopedics has been consulted and they have seen patient. Has aspirated bilateral knees and aspirates have been negative. Right hand edema and pain is also decreased patient will be discharged with allopurinol with acute kidney injury has been rehydrated and that has since improved. He has also went through alcohol withdrawal he is also back to baseline currently. H&H was 7.4/22.8 for that he has received 2 units of packed cells 1 hour post infusion he was to 10.4/30.9 there has been no visible blood present. Patient was also positive for C. difficile and has been receiving vancomycin IV for that, will continue 3 days with p.o. vancomycin to finish the course Patient does admit that he is a daily consumer of alcohol, alcohol abuse programs and material have been offered and refused, patient has received alcohol abuse material RPR, HIV, hepatitis panel have all been negative. Blood cultures x2 has also been negative. Patient has received IV vancomycin and ceftriaxone during his stay Objective Vital signs: Temp Pulse Resp BP Pulse Ox 98.2 F 102 H 15 170/100 H 98 02/11/19 07:37
--- NOTE | 2019-02-11 09:31 | SW/DCPLANNER ---
I have informed Florencia at [facility] that this patient will discharge to them today. Florencia stated that they are able to take this patient today.
[2019-02-11 12:33] LABS: QuantiFERON-TB Gold Plus Negative (Negative)
== END 2019-02-11 10:40 ==
LOC: ER 16:56 → ICU 18:52 → 2ND 02-04 17:25
PROVIDERS: Internal Medicine; Nurse Practitioner Family; Orthopaedic Surgery; Physician Assistant; Admitting Provider Emergency Medicine; Emergency Provider Emergency Medicine; Visit Provider Emergency Medicine
DX: F10.231 Alcohol dependence with withdrawal delirium (principal); M10.9 Gout, unspecified; M25.461 Effusion, right knee; M25.462 Effusion, left knee; I27.20 Pulmonary hypertension, unspecified; N17.9 Acute kidney failure, unspecified; S16.1XXA Strain of muscle, fascia and tendon at neck level, initial encounter; S09.90XA Unspecified injury of head, initial encounter; G93.89 Other specified disorders of brain; M43.02 Spondylolysis, cervical region; K57.90 Diverticulosis of intestine, part unspecified, without perforation or abscess without bleeding; I25.119 Atherosclerotic heart disease of native coronary artery with unspecified angina pectoris; N62 Hypertrophy of breast; R55 Syncope and collapse; R42 Dizziness and giddiness; Z88.6 Allergy status to analgesic agent; Z72.0 Tobacco use; Z88.0 Allergy status to penicillin; I70.8 Atherosclerosis of other arteries; Z79.899 Other long term (current) drug therapy; K76.0 Fatty (change of) liver, not elsewhere classified
CPT/HCPCS: 36415; 70450; 71045; 72125; 72170; 73564; 74176; 80048; 80053; 80074; 80202; 80305; 81001; 82272; 82945; 83605; 83735; 84100; 84155; 84443; 84484; 84550; 85007; 85014; 85018; 85025; 85048; 85049; 85610; 85651; 85730; 86140; 86480; 86592; 86618; 86703; 86850; 87040; 87070; 87077; 87102; 87116; 87186; 87205; 87206; 87507; 89051; 89060; 93005; 93306; 93458; 93880; 96365; 96366; 96367; 97110; 97116; 97161; 97166; 97530; 99152; 99285; C1725; C1769; G0328; G0378; G0432; J1644; J1956; J2405; J3370; P9016; Q9967

== ENCOUNTER 2019-02-19 15:38 | Inpatient (IN) | payer OTHER, SELFPAY ==
[2019-02-19 15:39] VITALS: BP 154/110; PULSE 119; RESP 18; TEMP 37.7; O2SAT 99; BMI 24.2
--- NOTE | 2019-02-19 15:45 | CT_ITS ---
CT abdomen pelvis wo con CLINICAL INDICATION: Lower abdominal pain with diarrhea ITS.REASON: pain ORDERING PHYSICIAN: Onel Arevalo MD PATIENT AGE: 54 years COMPARISON: 02/03/2019 TECHNIQUE: Axial images obtained with sagittal and coronal reformats. All CT scans at the facility use one or more dose reduction, viz: automated exposure control, ma/kV adjustment per patient size (including targeted exams where dose is matched to indication, i.e. head), or iterative reconstruction technique. PROCEDURE: Oral Contrast: None IV Contrast: None . FINDINGS: There are trace bilateral effusions with mild bibasilar atelectasis. The liver, spleen, adrenal glands and pancreas have an unremarkable appearance. No renal or ureteral calculi. Unremarkable appendix. There is pain and diverticulosis. No evidence of diverticulitis. There is mild diffuse thickening of the colon in the transverse, descending, and sigmoid colon with some minimal stranding of the pericolic fat consistent with colitis. There is moderate thickening of the urinary bladder which in part may be due to nondistention. Cystitis is also considered. There is mild haziness of the perirectal fat and presacral fat. No acute bony anomalies. IMPRESSION: 1. The findings are compatible with colitis. There is diffuse colonic diverticulosis without evidence of diverticulitis. 2. Thickened urinary bladder which may in part be due to nondistention versus cystitis 3. Trace bilateral effusions with bibasilar atelectasis
--- NOTE | 2019-02-19 15:46 | HMH.EDGENADL ---
ED Disposition Clinical Impression: Colitis Disposition: Admitted as Observation Condition on Discharge: Good - Critical Care Critical Care Time: No Attestation: On , the high probability of a clinically significant, sudden or life threatening deterioration of the following system(s) required my full and direct attention, intervention and personal management. The time I documented below is in addition to time spent performing reported procedures but includes the following listed in this critical care notation. Medical Decision Making - Medical Records Medical records reviewed: Yes: I reviewed the patient's medical records. - Rodolfo Inquiry Pt receiving controlled substance: No Vital Signs: 02/19/19 15:39 02/19/19 17:19 Temperature 99.9 F H Temperature Source Oral Pulse Rate [Right Radial] 119 H 125 H Respiratory Rate 18 Blood Pressure [Right Arm] 154/110 H 156/107 H Blood Pressure Mean [Right Arm] 124 123 Blood Pressure Source [Right Arm] Automatic Cuff Blood Pressure Position [Right Arm] Sitting Sitting 02 Sat by Pulse Oximetry 99 98 Oxygen Delivery Method Room Air Room Air - Lab Data Lab results reviewed: Yes: I reviewed the patient's lab results. Lab Results 02/19/19 15:55: WBC 23.8 H*, RBC 3.26 L, Hgb 9.8 L, Hct 28.8 L, MCV 88.5, MCH 30.0, MCHC 33.9, RDW 15.2, Plt Count 509 H, MPV 8.1, Neut % (Auto) 87.1 H, Lymph % (Auto) 7.5 L, [place] % (Auto) 4.4, Eos % (Auto) 0.7, Baso % (Auto) 0.3, Neut # (Auto) 20.8 H, Lymph # (Auto) 1.8, [place] # (Auto) 1.1 H, Eos # (Auto) 0.2, Baso # (Auto) 0.1, Total Counted 100, Neutrophils % (Manual) 81 H, Band Neutrophils % 4.0, Lymphocytes % (Manual) 8 L, Monocytes % (Manual) 6, Eosinophils % (Manual) 1, Platelet Estimate Slight increase, RBC Morphology Normal 02/19/19 15:55: Sodium 139, Potassium 3.8, Chloride 103, Carbon Dioxide 26, Anion Gap 13.8, BUN 19 H, Creatinine 1.70 H, Estimated Creat Clear 44, Estimated GFR 42 L, Est GFR ( Amer) 51 L, Glucose 106, Calcium 8.9, Total Bilirubin 0.6, AST 23, ALT 28, Alkaline Phosphatase 96, Total Protein 6.8 D, Albumin 2.1 L, Globulin 4.7 H, Albumin/Globulin Ratio 0.4 L, Lipase 59 L 02/19/19 15:55: Lactate 1.6 02/19/19 17:57: Urine Color Yellow, Urine Appearance Clear, Urine pH 7.0, Ur Specific [place] 1.015, Urine Protein Trace, Urine Glucose (UA) Negative, Urine Ketones Negative, Urine Blood Negative, Urine Nitrate Negative, Urine Bilirubin Negative, Urine Urobilinogen 0.2, Ur Leukocyte Esterase Negative, Urine WBC 10-20 Result diagrams: 02/19/19 15:55 02/19/19 15:55 Orders (Tests/Meds): ED MEDICATIONS Generic Name Dose Route Start Last Admin Trade Name Freq PRN Reason Stop Dose Admin Levofloxacin/Dextrose 500 mg in 100 mls @ 100 mls/hr 02/19/19 19:15 Levaquin 500mg/100ml Premix IV 03/05/19 19:14 Q24H FERMIN Protocol Discontinued Medications Generic Name Dose Route Start Last Admin Trade Name Freq PRN Reason Stop Dose Admin Acetaminophen 650 mg 02/19/19 17:56 02/19/19 17:57 Acetaminophen 325mg Tab PO 02/19/19 17:57 650 mg ONCE ONE Administration Sodium Chloride 1,000 mls @ 999 mls/hr 02/19/19 16:00 02/19/19 16:13 Sod Chlor 0.9% 1000ml Bag IV 02/19/19 17:00 999 mls/hr .Q1H1M FERMIN Administration Ondansetron HCl 4 mg 02/19/19 15:46 02/19/19 16:13 Zofran 4mg/2ml Vial IV 02/19/19 15:47 4 mg ONCE ONE Administration ORDERS Category Date Time Status Diarrhea 23 Panel, PCR Stat Lab 02/19/19 16:07 Ordered Blood Culture Stat Micro 02/19/19 15:55 Received Urine Culture Stat Micro 02/19/19 17:57 Received - Radiology Data #1 Image(s): Chest Image Reviewed: Yes I have reviewed radiologist's interpretation Preliminary Findings: Normal/NAD - CT Data CT Scan: Abdomen, Pelvis Time Received: 19:06 (+colitis) ED CT Reviewed: Yes: I have viewed the radiologist's interpretation Preliminary Findings: Abnormal Medical Decision Narrative: admit d/w Dr Felder
--- NOTE | 2019-02-19 15:49 | ED_ITS ---
ED Disposition Clinical Impression: Colitis Disposition: Admitted as Observation Condition on Discharge: Good - Critical Care Critical Care Time: No Attestation: On , the high probability of a clinically significant, sudden or life threatening deterioration of the following system(s) required my full and direct attention, intervention and personal management. The time I documented below is in addition to time spent performing reported procedures but includes the following listed in this critical care notation. Medical Decision Making - Medical Records Medical records reviewed: Yes: I reviewed the patient's medical records. - Rodolfo Inquiry Pt receiving controlled substance: No Vital Signs: 02/19/19 15:39 02/19/19 17:19 Temperature 99.9 F H Temperature Source Oral Pulse Rate [Right Radial] 119 H 125 H Respiratory Rate 18 Blood Pressure [Right Arm] 154/110 H 156/107 H Blood Pressure Mean [Right Arm] 124 123 Blood Pressure Source [Right Arm] Automatic Cuff Blood Pressure Position [Right Arm] Sitting Sitting 02 Sat by Pulse Oximetry 99 98 Oxygen Delivery Method Room Air Room Air - Lab Data Lab results reviewed: Yes: I reviewed the patient's lab results. Lab Results 02/19/19 15:55: WBC 23.8 H*, RBC 3.26 L, Hgb 9.8 L, Hct 28.8 L, MCV 88.5, MCH 30.0, MCHC 33.9, RDW 15.2, Plt Count 509 H, MPV 8.1, Neut % (Auto) 87.1 H, Lymph % (Auto) 7.5 L, [place] % (Auto) 4.4, Eos % (Auto) 0.7, Baso % (Auto) 0.3, Neut # (Auto) 20.8 H, Lymph # (Auto) 1.8, [place] # (Auto) 1.1 H, Eos # (Auto) 0.2, Baso # (Auto) 0.1, Total Counted 100, Neutrophils % (Manual) 81 H, Band Neutrophils % 4.0, Lymphocytes % (Manual) 8 L, Monocytes % (Manual) 6, Eosinophils % (Manual) 1, Platelet Estimate Slight increase, RBC Morphology Normal 02/19/19 15:55: Sodium 139, Potassium 3.8, Chloride 103, Carbon Dioxide 26, Anion Gap 13.8, BUN 19 H, Creatinine 1.70 H, Estimated Creat Clear 44, Estimated GFR 42 L, Est GFR ( Amer) 51 L, Glucose 106, Calcium 8.9, Total Bilirubin 0.6, AST 23, ALT 28, Alkaline Phosphatase 96, Total Protein 6.8 D, Albumin 2.1 L, Globulin 4.7 H, Albumin/Globulin Ratio 0.4 L, Lipase 59 L 02/19/19 15:55: Lactate 1.6 02/19/19 17:57: Urine Color Yellow, Urine Appearance Clear, Urine pH 7.0, Ur Specific [place] 1.015, Urine Protein Trace, Urine Glucose (UA) Negative, Urine Ketones Negative, Urine Blood Negative, Urine Nitrate Negative, Urine Bilirubin Negative, Urine Urobilinogen 0.2, Ur Leukocyte Esterase Negative, Urine WBC 10- 20 Result diagrams: 02/19/19 15:55 02/19/19 15:55 Orders (Tests/Meds): ED MEDICATIONS Generic Name Dose Route Start Last Admin Trade Name Freq PRN Reason Stop Dose Admin Levofloxacin/Dextrose 500 mg in 100 mls @ 100 mls/hr 02/19/19 19:15 Levaquin 500mg/100ml Premix IV 03/05/19 19:14 Q24H [facility] Protocol Discontinued Medications Generic Name Dose Route Start Last Admin Trade Name Freq PRN Reason Stop Dose Admin Acetaminophen 650 mg 02/19/19 17:56 02/19/19 17:57 Acetaminophen 325mg Tab PO 02/19/19 17:57 650 mg ONCE ONE Administration Sodium Chloride 1,000 mls @ 999 mls/hr 02/19/19 16:00 02/19/19 16:13 Sod Chlor 0.9% 1000ml Bag IV 02/19/19 17:00 999 mls/hr
--- NOTE | 2019-02-19 16:07 | PC.NURSE ---
pt Ct scan to be delayed r/t CT scanner is down at this time. ER MD is aware
--- NOTE | 2019-02-19 16:08 | XR_ITS ---
XR chest portable HISTORY: Fever with pain ITS.REASON: fever ORDERING PHYSICIAN: Onel Arevalo MD PATIENT AGE: 54 years COMPARISON: None FINDINGS: The cardiomediastinal silhouette and pulmonary vascularity are within normal limits. The lungs are clear without infiltrates, suspicious nodules, or pleural effusions. No acute bony abnormalities. IMPRESSION: Negative chest, no acute finding
[2019-02-19 16:14] LABS: Basophils # 0.1 K/mm3 (0-0.2); Basophils % 0.3 % (0.1-2.0); Eosinophils # 0.2 K/mm3 (0.0-0.4); Eosinophils % 0.7 % (0.1-12.0); Hematocrit 28.8 % (42.0-52.0); Hemoglobin 9.8 g/dL (14.1-18.0); Lymphocytes # 1.8 K/mm3 (0.7-4.5); Lymphocytes % 7.5 % (10-50); Mean Corpuscular HGB Conc 33.9 g/dL (31.8-35.4); Mean Corpuscular Volume 88.5 fl (80-94); Mean Platelet Volume 8.1 fl (7.4-10.4); Monocytes # 1.1 K/mm3 (0.1-1.0); Monocytes % 4.4 % (1.7-9.3); Neutrophils # 20.8 K/mm3 (1.8-7.8); Neutrophils % 87.1 % (37.0-80.0); Platelet Count 509 K/mm3 (142-424); Red Blood Count 3.26 M/mm3 (4.60-6.20); Red Cell Distribution Width 15.2 % (11.5-17.5); White Blood Count 23.8 K/mm3 (4.8-10.8)
[2019-02-19 16:22] LABS: MANUAL DIFFERENTIAL MANUAL DIFFERENTIAL (MANUAL DIFF)
[2019-02-19 16:23] LABS: Alanine Aminotransferase 28 U/L (12-78); Albumin Level 2.1 gm/dL (3.4-5.0); Albumin/Globulin Ratio 0.4 (1.1-1.8); Alkaline Phosphatase 96 U/L (46-116); Anion Gap 13.8 mEq/L (5-15); Aspartate Amino Transferase 23 U/L (15-37); Bilirubin,Total 0.6 mg/dL (0.2-1.0); Blood Urea Nitrogen 19 mg/dL (7-18); Calcium 8.9 mg/dL (8.5-10.1); Carbon Dioxide 26 mmol/L (21.0-32.0); Chloride 103 mmol/L (98-107); Creatinine Clearance Estimated 44 mL/min (50-200); Estimated Glomerular Filt Rate 42 ml/min (>60); GFR (African American) 51 ML/MIN (>60); Globulin 4.7 gm/dl (1.3-3.2); Glucose 106 mg/dL (74-106); Lipase 59 u/L (73-393); Potassium 3.8 mmoL/L (3.5-5.1); Sodium 139 mmol/L (136-145); Total Protein,Serum 6.8 gm/dL (6.4-8.2)
[2019-02-19 16:28] LABS: Lactic Acid 1.6 mmol/L (0.4-2.0)
--- NOTE | 2019-02-19 16:48 | PC.NURSE ---
pt sister at
--- NOTE | 2019-02-19 16:49 | PC.NURSE ---
Pt is awaiting transport per EMS to [facility] to receive a CT scan r/t our CT scan is down at this time. EMS is waiting on a truck to be available.
[2019-02-19 17:11] LABS: Eosinophils % 1 % (0-3); Lymphocytes % 8 % (10-50); Monocytes % 6 % (2-9); Neutrophils % 81 % (42-76); Platelet Estimate Slight Increase; RBC Morphology Normal; Total Cells Counted 100
[2019-02-19 17:19] VITALS: BP 156/107; PULSE 125; O2SAT 98
--- NOTE | 2019-02-19 17:38 | PC.NURSE ---
Gave pt a urinal and asked him to pee for a test and he stated that they stuck that thing up in him at the residential and it hurt like mitzi stated he couldn't go right now
[2019-02-19 18:01] LABS: Microscopic, Urine URINE MICROSCOPIC (MICROSCOPIC)
[2019-02-19 18:09] LABS: Appearance,Urine CLEAR (Clear); Bilirubin,Urine Negative (Negative); Blood, Urine Negative (Negative); Color,Urine YELLOW (Yellow); Glucose,Urine (UA) Negative (Negative); Ketones,Urine Negative (Negative); Leukocyte Esterase,Urine Negative (Negative); Nitrate,Urine Negative (Negative); Protein,Urine TRACE (Negative); Specific Gravity, Urine 1.015 (1.005-1.030); Urobilinogen,Urine 0.2 EU/dl (0.2)
--- NOTE | 2019-02-19 18:15 | PC.NURSE ---
pT WITH RAD.
--- NOTE | 2019-02-19 18:17 | PC.NURSE ---
notified radiology staff at [facility] that our CT scanner is back up and running
--- NOTE | 2019-02-19 18:20 | PC.NURSE ---
Pt returned from rad.
--- NOTE | 2019-02-19 18:21 | PC.NURSE ---
pt return from CT
--- NOTE | 2019-02-19 19:01 | PC.NURSE ---
being paged at this time.
--- NOTE | 2019-02-19 19:02 | PC.NURSE ---
speaking to at this time.
[2019-02-19 19:22] VITALS: BP 144/85; PULSE 123; RESP 18; TEMP 36.8; O2SAT 99
--- NOTE | 2019-02-19 19:23 | PC.NURSE ---
Pt has a bm on himself, he was cleaned and put in clean in a dry clean attends. No other needs voiced at this time.
--- NOTE | 2019-02-19 19:24 | PC.NURSE ---
report given to AleRN
[2019-02-19 19:26] LABS: Adenovirus F 40/41, stool Not Detected (NotDetected); Astrovirus Not Detected (NotDetected); Campylobacter Not Detected (NotDetected); Cryptosporidium Not Detected (NotDetected); Cyclospora Cayetanesis Not Detected (NotDetected); Entamoeba histolytica Not Detected (NotDetected); Enteroaggregative E coli Not Detected (NotDetected); Enteropathogenic E coli Not Detected (NotDetected); Enterotoxigenic E coli Not Detected (NotDetected); Giardia lamblia Not Detected (NotDetected); Norovirus Not Detected (NotDetected); Plesimonas Shigalloides, PCR Not Detected (NotDetected); Rotavirus A Not Detected (NotDetected); Salmonella, PCR Not Detected (NotDetected); Sapovirus Not Detected (NotDetected); Shiga-like toxin E coli Not Detected (NotDetected); Shigella Enterovasive E coli Not Detected (NotDetected); Vibrio Cholerae Not Detected (NotDetected); Vibrio, PCR Not Detected (NotDetected); Yersinia Entercolitica, PCR Not Detected (NotDetected)
[2019-02-19 20:25] VITALS: BP 143/89; PULSE 120; RESP 18; TEMP 37.5; O2SAT 99
--- NOTE | 2019-02-19 20:28 | PC.NURSE ---
Report called to Zohreh Lambert RN at this time.
[2019-02-19 20:36] VITALS: BP 143/89; PULSE 120; RESP 18; TEMP 37.5; O2SAT 99
[2019-02-19 20:44] VITALS: BP 135/79; PULSE 118; RESP 18; TEMP 37; O2SAT 99; BMI 23.7
--- NOTE | 2019-02-19 20:52 | PC.NURSE ---
PT ARRIVED TO FLOOR AT 2043
[2019-02-19 21:20] LABS: Clostridium Difficile A/B, PCR Detected (NotDetected)
--- NOTE | 2019-02-19 22:35 | PC.NURSE ---
2139 - Notified Dr. Merritt that diarrhea panel positive for c. diff. New orders received for: - Levaquin to be DC'd - Antibiotics to be changed to 250 mg Vanco PO Q6H - PRN Zofran 4 mg Q6H for nausea - PRN Morphine 2 mg Q4H for pain 2217 - Spoke w/ J Suarez about Vanco PO preperation. Vanco to be mixed w/ 10 cc Sterile water. 2.5 cc of prepared Vanco to be adminstered to pt. Verified w/ M RUSSELL Vaughan when mixing medication.
[2019-02-20] VITALS (13 sets, daily range): BP systolic 120–143; BP diastolic 69–93; PULSE 126–143; RESP 17–20; TEMP 37.5–39.4; O2SAT 96–98; BMI 23.7
--- NOTE | 2019-02-20 02:58 | PC.NURSE ---
Rested at intervals since arriving to floor. Pt reports that since eating supper on 02/18 he has had abdominal pain w/ diarrhea. Rates abdominal pain a 8/10, that he says feels like gas pain and cramping. Has been nauseous at times w/ no vomiting reported. Upon assessment lungs CTA. Abdomen soft, flat, tender w/ active bowel sounds. Pulses present and equal. +1 edema present to BLE. No skin breakdown noted. Does report that the skin in his dorian area is irritated d/t him being incontinent of stool so frequently. Barrier cream and powder applied frequent w/ change of attends. Pt is in contact-enteric precautions d/t diarrhea panel being positive for c. diff (physician notified of this earlier in the shift). Staff discussed and taught pt about these precautions and the reasoning for them Pt states he is able to ambulate w/ a walker and has been doing so at the assisted to transfer back and forth to bathroom, but is unable to do so safely since these symptoms have began. Pt calls out appropriately to notify staff of when he has had a bowel movement. Pt bathed per staff w/ linen change. @ VS check this AM pt running temp of 102.1, PRN 650 mg of tylenol given per NOV, will recheck. Refuses TEDS. #20 RAC w/ NS @ 50 mls/hr. VSS. Will continue to monitor.
--- NOTE | 2019-02-20 03:16 | PC.NURSE ---
rn made aware of all vs
[2019-02-20 07:40] LABS: Basophils # 0.1 K/mm3 (0-0.2); Basophils % 0.4 % (0.1-2.0); Eosinophils # 0.2 K/mm3 (0.0-0.4); Eosinophils % 0.6 % (0.1-12.0); Hematocrit 28.5 % (42.0-52.0); Hemoglobin 9.8 g/dL (14.1-18.0); Lymphocytes # 2.4 K/mm3 (0.7-4.5); Lymphocytes % 8.7 % (10-50); Mean Corpuscular HGB Conc 34.4 g/dL (31.8-35.4); Mean Corpuscular Hemoglobin 30.2 pg (27.0-31.2); Mean Corpuscular Volume 87.6 fl (80-94); Mean Platelet Volume 8.9 fl (7.4-10.4); Monocytes # 1.5 K/mm3 (0.1-1.0); Monocytes % 5.4 % (1.7-9.3); Neutrophils # 23.1 K/mm3 (1.8-7.8); Neutrophils % 84.9 % (37.0-80.0); Platelet Count 375 K/mm3 (142-424); Red Blood Count 3.25 M/mm3 (4.60-6.20); Red Cell Distribution Width 15.3 % (11.5-17.5); White Blood Count 27.2 K/mm3 (4.8-10.8)
[2019-02-20 07:41] LABS: Blood Urea Nitrogen 18 mg/dL (7-18); Calcium 8.7 mg/dL (8.5-10.1); Carbon Dioxide 20 mmol/L (21.0-32.0); Chloride 107 mmol/L (98-107); Creatinine Clearance Estimated 42 mL/min (50-200); Creatinine,Serum 1.75 mg/dL (0.70-1.30); Estimated Glomerular Filt Rate 41 ml/min (>60); GFR (African American) 49 ML/MIN (>60); Glucose 86 mg/dL (74-106); Sodium 142 mmol/L (136-145)
[2019-02-20 07:44] LABS: MANUAL DIFFERENTIAL MANUAL DIFFERENTIAL (MANUAL DIFF)
--- NOTE | 2019-02-20 07:53 | HMH.HP ---
*Admission Date: 02/20/19 *Chief complaint: Abdominal pain *History of present illness: 54-year-old male with hypertension and chronic kidney disease presented to the emergency department with 2 days of abdominal pain, abdominal distention, diarrhea. Patient resides at a local alf. He was hospitalized in mid January and had a heart catheterization at that time. Patient reports he was in his normal state of health until 2 days ago when he developed symptoms. He was sent to the emergency department for work-up. Evaluation revealed significant elevation of white blood cell count, diarrhea panel positive for C. difficile, CT scan showing diffuse colitis. Patient was admitted on IV fluids and started on oral vancomycin 250 mg every 6 hours. He denies any recent antibiotic use, at least that he is aware of. This morning he complains of significant abdominal pain, loss of appetite. He denies nausea at present [facility] History I have reviewed the patient's past medical history: Yes Medical History: Reports:: Anxiety, Depression, Hypertension Denies:: Cancer, Diabetes Mellitus Type 1, Diabetes Mellitus Type 2, MRSA, Seizures *Have you ever received a pneumonia vaccine?: Yes *Have you received a flu vaccine this season?: Yes Other Medical History: Reports: Thyroid Disease. Denies: Blood Transfusion Reaction Other Surgeries: Yes: No Previous Surgery Amputation: No Fractures: No - *Social History Educational Level: Completed High School Smoking Status: Light tobacco smoker Tobacco Type: cigarettes Alcohol Intake: current Alcohol Intake Frequency:: a few times a week Substance Use Type: denies use *Occupational Status:: disabled Housing: alf Household Members: other *Travel in the last 8 weeks: None - Psychiatric History Expresses thoughts of harming self/others: None Suicide Plan Description: No Plan Pschychiatric History:: Reports:: Anxiety, Depression Family Hx:: No significant family history Review of Systems - Review of Systems Review of systems:: pertinent systems reviewed and negative unless documented below - Constitutional Reports anorexia, Reports chills, Reports fever(s), Denies excessive sweating - *Cardiovascular Denies chest pain, Denies chest pain at rest, Denies chest pain with activity, Denies shortness of breath, Denies shortness of breath with activity, Denies irregular heart rhythm - *Respiratory Denies change in phlegm color, Denies chest congestion - *Gastrointestinal Denies abdominal pain, Denies belching - *Neurologic Denies dizziness Meds Home Medications Medication Instructions Recorded Confirmed Type hydralazine 25 mg tablet 25 mg PO TID #270 tab 10/19/18 02/19/19 Rx cholecalciferol (vitamin D3) 5,000 5,000 unit PO DAILY #90 cap 12/29/18 02/19/19 Rx unit capsule Ergocalciferol (Vitamin D2) 50,000 units PO WEEKLY 02/03/19 02/19/19 History [Drisdol] Furosemide [Furosemide 40MG tAB] 40 mg PO DAILY 02/03/19 02/19/19 History Indomethacin 50 mg PO TID 02/03/19 02/19/19 History Lisinopril [Lisinopril 10mg Tab] 10 mg PO DAILY 02/03/19 02/19/19 History Cetirizine HCl 10 mg PO DAILY 02/04/19 02/19/19 History Allopurinol [Allopurinol 100mg 100 mg PO DAILY 02/19/19 02/19/19 History tablet] Allergies Allergy/AdvReac Type Severity Reaction Status Date / Time aspirin [ASPIRIN] Allergy Unknown Verified 04/16/18 08:58 Penicillins [PENICILLINS] Allergy Unknown Verified 04/16/18 08:58 Exam Vital signs and Labs for Last 24 Hours: Temp Pulse Resp BP Pulse Ox 99.5 F 133 H 18 136/91 H 96 02/20/19 07:22 02/20/19 03:15 02/20/19 03:15 02/20/19 03:15 02/20/19 03:15 Laboratory Results - last 24 hr 02/19/19 15:55: WBC 23.8 H*, RBC 3.26 L, Hgb 9.8 L, Hct 28.8 L, MCV 88.5, MCH 30.0, MCHC 33.9, RDW 15.2, Plt Count 509 H, MPV 8.1, Neut % (Auto) 87.1 H, Lymph % (Auto) 7.5 L, [place] % (Auto) 4.4, Eos % (Auto) 0.7, Baso % (Auto) 0.3, Neut # (Auto) 20.8 H, Lymph # (Auto) 1.
--- NOTE | 2019-02-20 07:57 | P.HP_ITS ---
*Admission Date: 02/20/19 *Chief complaint: Abdominal pain *History of present illness: 54-year-old male with hypertension and chronic kidney disease presented to the emergency department with 2 days of abdominal pain, abdominal distention, diarrhea. Patient resides at a local half-way. He was hospitalized in mid January and had a heart catheterization at that time. Patient reports he was in his normal state of health until 2 days ago when he developed symptoms. He was sent to the emergency department for work-up. Evaluation revealed significant elevation of white blood cell count, diarrhea panel positive for C. difficile, CT scan showing diffuse colitis. Patient was admitted on IV fluids and started on oral vancomycin 250 mg every 6 hours. He denies any recent antibiotic use, at least that he is aware of. This morning he complains of significant abdominal pain, loss of appetite. He denies nausea at present [facility] History I have reviewed the patient's past medical history: Yes Medical History: Reports:: Anxiety, Depression, Hypertension Denies:: Cancer, Diabetes Mellitus Type 1, Diabetes Mellitus Type 2, MRSA, Seizures *Have you ever received a pneumonia vaccine?: Yes *Have you received a flu vaccine this season?: Yes Other Medical History: Reports: Thyroid Disease. Denies: Blood Transfusion Reaction Other Surgeries: Yes: No Previous Surgery Amputation: No Fractures: No - *Social History Educational Level: Completed High School Smoking Status: Light tobacco smoker Tobacco Type: cigarettes Alcohol Intake: current Alcohol Intake Frequency:: a few times a week Substance Use Type: denies use *Occupational Status:: disabled Housing: half-way Household Members: other *Travel in the last 8 weeks: None - Psychiatric History Expresses thoughts of harming self/others: None Suicide Plan Description: No Plan Pschychiatric History:: Reports:: Anxiety, Depression Family Hx:: No significant family history Review of Systems - Review of Systems Review of systems:: pertinent systems reviewed and negative unless documented below - Constitutional Reports anorexia, Reports chills, Reports fever(s), Denies excessive sweating - *Cardiovascular Denies chest pain, Denies chest pain at rest, Denies chest pain with activity, Denies shortness of breath, Denies shortness of breath with activity, Denies irregular heart rhythm - *Respiratory Denies change in phlegm color, Denies chest congestion - *Gastrointestinal Denies abdominal pain, Denies belching - *Neurologic Denies dizziness Meds Home Medications Medication Instructions Recorded Confirmed Type hydralazine 25 mg tablet 25 mg PO TID #270 tab 10/19/18 02/19/19 Rx cholecalciferol (vitamin D3) 5,000 5,000 unit PO DAILY #90 cap 12/29/18 02/19/19 Rx unit capsule Ergocalciferol (Vitamin D2) 50,000 units PO WEEKLY 02/03/19 02/19/19 History [Drisdol] Furosemide [Furosemide 40MG tAB] 40 mg PO DAILY 02/03/19 02/19/19 History Indomethacin 50 mg PO TID 02/03/19 02/19/19 History Lisinopril [Lisinopril 10mg Tab] 10 mg PO DAILY 02/03/19 02/19/19 History Cetirizine HCl 10 mg PO DAILY 02/04/19 02/19/19 History Allopurinol [Allopurinol 100mg 100 mg PO DAILY 02/19/19 02/19/19 History tablet] Allergies Allergy/AdvReac Type Severity Reaction Status Date / Time aspirin [ASPIRIN] Allergy Unknown Verified 04/16/18 08:58 Penicillins [PENICILLINS] Aller
--- NOTE | 2019-02-20 08:28 | PC.NURSE ---
Addendum entered by Dionne Li CNA 02/20/19 15:31: Original Note: NURSE NOTIFIED OF PATIENTS ELEVATED PULSE & TEMP.
--- NOTE | 2019-02-20 09:00 | P.CONPHA_ITS ---
[facility] Pharmacy VTE Monitoring - Patient Demographics Admission date: 02/19/19 Report Date: 02/20/19 Time: 09:00 Allergies/Adverse Reactions: Patient Allergies aspirin [ASPIRIN] Allergy (Unknown, Verified 04/16/18 08:58) Penicillins [PENICILLINS] Allergy (Unknown, Verified 04/16/18 08:58) Height: 1.63 m Weight: 62.652 kg Patient Problems: Current Active Problems (Updated 02/20/19 @ 08:01 by Sree Merritt MD) Colitis (Acute) Chronic kidney disease (Acute) - VTE Risk Labs: VTE Related Lab Results Hgb 9.8 g/dL (14.1-18.0) L 02/20/19 07:10 Hct 28.5 % (42.0-52.0) L 02/20/19 07:10 Plt Count 375 K/mm3 (142-424) D 02/20/19 07:10 BUN 18 mg/dL (7-18) 02/20/19 07:10 Creatinine 1.75 mg/dL (0.70-1.30) H 02/20/19 07:10 Estimated Creat Clear 42 mL/min (50-200) 02/20/19 07:10 Was VTE Risk Assessment Performed: Yes VTE Score: 4 VTE Risk Level: Low Risk - Prophylaxis VTE Prophylaxis Ordered?: Yes Types of VTE Prophylaxis: TEDS Knee High Location of Applied Device: Bilateral Lower Extremeties
[2019-02-20 09:11] LABS: Lymphocytes % 5 % (10-50); Monocytes % 3 % (2-9); Neutrophils % 63 % (42-76); Platelet Estimate Normal; RBC Morphology Normal; Total Cells Counted 100
[2019-02-20 09:34] LABS: Prothrombin Time 13.4 seconds (9.4-11.8)
--- NOTE | 2019-02-20 10:46 | HMH.PHAINT ---
HOME MEDICATIONS RECONCILED BASED ON DISCHARGE LIST FROM 02/11/19.
--- NOTE | 2019-02-20 11:28 | PC.NURSE ---
NURSE NOTIFIED OF PATIENTS TEMP 100.8 ORAL
--- NOTE | 2019-02-20 15:30 | PC.NURSE ---
NURSE NOTIFIED IMMEDIATELY OF PATIENTS ELEVATED HEART RATE & TEMP.
--- NOTE | 2019-02-20 18:31 | PC.NURSE ---
PATIENT A&O X4, LUNGS CLEAR, PULSES EQUAL, CONSTRUCTION WORKER WEAK AND EQUAL. PATIENT TEMP HAS UP AND DOWN THRU THIS SHIFT. LOWEST 99.8 AND HIGHEST 102.0. RN ADMINISTERED TYLENOL, TURNED ROOM TEMP DOWN, REMOVED BLANKETS FOR ALL ELEVATED TEMPS. RN PAGED DR. ESPAÑA TO REPORT TEMPERATURE FLUCTUATIONS. MD ORDERED TORADOL IV 15MG PRN Q6HRS FOR FEVER OR PAIN. RN EDUCATED PATIENT IN REGARDS TO PAIN CONTROL. RN ADVISED PATIENT TO CALL WHEN HE IS IN PAIN SO THE RN CAN ASSESS HIM AND SEE IF IT IS APPROPRIATED FOR MEDICATIONS. PATIENT STATED WELL THEY ONLY GAVE ME MEDICATION 1X ONLY LAST NIGHT. RN EXPLAINED THAT HIS PAIN MEDICATION IS A PRN, NOT A SCHEDULED MED AND HE WILL HAVE TO CALL THE SENIOR CONSTRUCTION ESTIMATOR FOR MEDICATION. PATIENT VERBALIZED AN UNDERSTANDING. PATIENT HAD 3 LOOSE STOOLS DURING SHIFT. RIGHT AFTER A BRIEF CHANGE, PATIENT STATED OH I JUST PEED ALOT. RN ASKED PATIENT, DO YOU KNOW WHEN YOU HAVE TO PEE? PATIENT WOULD NOT ANSWER QUESTION. NO OTHER NEEDS OR CONCERNS AT THIS TIME.
--- NOTE | 2019-02-20 18:54 | PC.NURSE ---
RN REASSESSED TEMPERATURE AFTER TYLENOL ADMINISTRATION, TEMPERATURE WAS 103.. RN ADMINISTERED KETOROLAC 15MG. RN WILL PASS ALONG FINDINGS TO CORDELIA RN.
--- NOTE | 2019-02-20 19:47 | PC.NURSE ---
rn made aware of all VS
[2019-02-21] VITALS: TEMP 36.9
[2019-02-21 04:00] VITALS: BP 146/90; PULSE 129; RESP 17; TEMP 37.6; O2SAT 98
--- NOTE | 2019-02-21 04:22 | PC.NURSE ---
PT HAS SLEPT. ALERT/ORIENTED. INCONTINENT OF B/B. PT ABLE TO TURNS SELF. SWELLING NOTED AT BASE OF GREAT TOE ON BILAT FEET. NO COMPLAINTS OF PAIN.
--- NOTE | 2019-02-21 04:32 | PC.NURSE ---
rn made aware of all VS
[2019-02-21 05:00] VITALS: BMI 23.6
[2019-02-21 06:31] LABS: Basophils # 0.1 K/mm3 (0-0.2); Basophils % 0.2 % (0.1-2.0); Eosinophils # 0.2 K/mm3 (0.0-0.4); Eosinophils % 0.8 % (0.1-12.0); Lymphocytes # 1.8 K/mm3 (0.7-4.5); Lymphocytes % 7.4 % (10-50); Mean Corpuscular HGB Conc 32.8 g/dL (31.8-35.4); Mean Corpuscular Hemoglobin 29.5 pg (27.0-31.2); Mean Corpuscular Volume 89.9 fl (80-94); Mean Platelet Volume 8.9 fl (7.4-10.4); Monocytes # 1.2 K/mm3 (0.1-1.0); Monocytes % 4.8 % (1.7-9.3); Neutrophils # 21.4 K/mm3 (1.8-7.8); Neutrophils % 86.7 % (37.0-80.0); Platelet Count 414 K/mm3 (142-424); Red Blood Count 2.93 M/mm3 (4.60-6.20); Red Cell Distribution Width 15.2 % (11.5-17.5); White Blood Count 24.7 K/mm3 (4.8-10.8)
[2019-02-21 06:32] LABS: Hematocrit 26.4 % (42.0-52.0); Hemoglobin 8.6 g/dL (14.1-18.0); MANUAL DIFFERENTIAL MANUAL DIFFERENTIAL (MANUAL DIFF)
[2019-02-21 06:35] LABS: Anion Gap 14.6 mEq/L (5-15); Blood Urea Nitrogen 14 mg/dL (7-18); Carbon Dioxide 23 mmol/L (21.0-32.0); Chloride 107 mmol/L (98-107); Creatinine Clearance Estimated 45 mL/min (50-200); Creatinine,Serum 1.62 mg/dL (0.70-1.30); Estimated Glomerular Filt Rate 44 ml/min (>60); GFR (African American) 54 ML/MIN (>60); Potassium 3.6 mmoL/L (3.5-5.1); Sodium 141 mmol/L (136-145)
[2019-02-21 06:37] LABS: Glucose 115 mg/dL (74-106)
[2019-02-21 06:54] LABS: Lymphocytes % 6 % (10-50); Monocytes % 1 % (2-9); Neutrophils % 86 % (42-76); Platelet Estimate Normal; Poikilocytosis 1+; Polychromasia 1+; Total Cells Counted 100
--- NOTE | 2019-02-21 07:32 | HMH.ACPN2 ---
Internal Medicine - PN: Subj *Date: 02/21/19 *Time: 07:32 Interval history: Patient states his abdominal pain is slightly better this morning. While he has clear liquids ordered he is consumed very little because of discomfort and nausea with liquids. He is having a gout flare in his toe as well and the IV Toradol is helping this. Exam Vital signs and Labs for Last 24 Hours: Temp Pulse Resp BP Pulse Ox 99.7 F H 129 H 17 146/90 H 98 02/21/19 04:00 02/21/19 04:00 02/21/19 04:00 02/21/19 04:00 02/21/19 04:00 Laboratory Results - last 24 hr 02/20/19 07:10: WBC 27.2 H*, RBC 3.25 L, Hgb 9.8 L, Hct 28.5 L, MCV 87.6, MCH 30.2, MCHC 34.4, RDW 15.3, Plt Count 375 D, MPV 8.9, Neut % (Auto) 84.9 H, Lymph % (Auto) 8.7 L, [place] % (Auto) 5.4, Eos % (Auto) 0.6, Baso % (Auto) 0.4, Neut # (Auto) 23.1 H, Lymph # (Auto) 2.4, [place] # (Auto) 1.5 H, Eos # (Auto) 0.2, Baso # (Auto) 0.1, Total Counted 100, Neutrophils % (Manual) 63, Band Neutrophils % 29.0 H, Lymphocytes % (Manual) 5 L, Monocytes % (Manual) 3, Platelet Estimate Normal, RBC Morphology Normal 02/20/19 07:10: Sodium 142, Potassium 5.0 D, Chloride 107, Carbon Dioxide 20 L D, Anion Gap 20.0 H, BUN 18, Creatinine 1.75 H, Estimated Creat Clear 42, Estimated GFR 41 L, Est GFR ( Amer) 49 L, Glucose 86, Calcium 8.7 02/20/19 09:20: PT 13.4 H, INR 1.30 H 02/21/19 06:19: WBC 24.7 H*, RBC 2.93 L, Hgb 8.6 L D, Hct 26.4 L, MCV 89.9, MCH 29.5, MCHC 32.8, RDW 15.2, Plt Count 414, MPV 8.9, Neut % (Auto) 86.7 H, Lymph % (Auto) 7.4 L, [place] % (Auto) 4.8, Eos % (Auto) 0.8, Baso % (Auto) 0.2, Neut # (Auto) 21.4 H, Lymph # (Auto) 1.8, [place] # (Auto) 1.2 H, Eos # (Auto) 0.2, Baso # (Auto) 0.1, Total Counted 100, Neutrophils % (Manual) 86 H, Band Neutrophils % 7.0, Lymphocytes % (Manual) 6 L, Monocytes % (Manual) 1 L, Platelet Estimate Normal, Polychromasia 1+, Poikilocytosis 1+ 02/21/19 06:19: Sodium 141, Potassium 3.6 D, Chloride 107, Carbon Dioxide 23, Anion Gap 14.6, BUN 14, Creatinine 1.62 H, Estimated Creat Clear 45, Estimated GFR 44 L, Est GFR ( Amer) 54 L, Glucose 115 H D, Calcium 8.0 L I & O for Last 24 hours: Intake & Output 02/18/19 02/19/19 02/20/19 02/21/19 11:59 11:59 11:59 11:59 Intake Total 782 / 782 2351 / 2351 Balance 782 / 782 2351 / 2351 Weight 138 lb 2 oz 137 lb 4 oz Microbiology Reports for the Last 24 Hours: Microbiology 02/19/19 17:57 Urine,Clean Catch Urine Culture - Preliminary NO GROWTH AFTER 24 HOURS Narrative: He appears comfortable. Abdomen is distended and tender with hypoactive bowel sounds. Assessment and Plan (1) Colitis Current visit: Yes Status: Acute Category: Medical Code(s): K52.9 - Noninfective gastroenteritis and colitis, unspecified Clinically patient is slowly improving. White blood cell count has decreased slightly. Continue both oral vancomycin and IV Flagyl. (2) Chronic kidney disease Current visit: Yes Status: Acute Category: Medical Code(s): N18.9 - Chronic kidney disease, unspecified (3) Hypertension Current visit: No Status: Acute Qualifiers: Hypertension type: essential hypertension Qualified Code(s): I10 - Essential (primary) hypertension Category: Medical Code(s): I10 - Essential (primary) hypertension (4) Sepsis Current visit: No Status: Acute Qualifiers: Sepsis type: sepsis due to unspecified organism Qualified Code(s): A41.9 - Sepsis, unspecified organism Category: Medical Code(s): A41.9 - Sepsis, unspecified organism (5) Gout attack Current visit: No Status: Acute Category: Medical Code(s): M10.9 - Gout, unspecified Use as needed IV Toradol and patient will remain on his allopurinol
[2019-02-21 07:44] VITALS: BP 132/76; PULSE 125; RESP 20; TEMP 37.8; O2SAT 99
--- NOTE | 2019-02-21 07:44 | PC.NURSE ---
NURSE NOTIFIED OF PATIENTS TEMP 100.0 TAKEN ORAL.
[2019-02-21 07:53] VITALS: O2SAT 99
--- NOTE | 2019-02-21 15:33 | PC.NURSE ---
PATIENTS TEMPERATURE RETAKEN AT 1100, 99.3.( ORALLY ) WILL CONTINUE TO MONITOR
[2019-02-21 15:43] VITALS: BP 146/87; PULSE 128; RESP 18; TEMP 37.2; O2SAT 99
--- NOTE | 2019-02-21 15:44 | PC.NURSE ---
RN WAS NOTIFIED OF VITAL SIGNS.
--- NOTE | 2019-02-21 17:57 | PC.NURSE ---
PATIENT RESTING IN BED, HAS SLEPT MOST OF THE DAY. PATIENT ON CLEAR LIQUIDS AND HAS REFUSED ALL THREE MEALS TODAY. PATIENT IS INCONTINENT AND HAS HAD THREE SMALL SOFT BOWEL MOVEMENTS TODAY. VSS STABLE, LUNG SOUNDS CLEAR, CALL QUINONES IN REACH, BED IN LOWEST POSITION, NO DISTRESS NOTED, WILL CONTINUE TO MONITOR.
[2019-02-21 19:17] VITALS: BP 158/89; PULSE 124; RESP 18; TEMP 37.6; O2SAT 99
[2019-02-22 04:00] VITALS: BP 126/79; PULSE 101; RESP 17; TEMP 37; O2SAT 99
--- NOTE | 2019-02-22 04:26 | PC.NURSE ---
PT HAS SLEPT INTERMITTENTLY. CONTINUES TO HAVE COMPLAINTS OF ABD PAIN. RECEIVED TORADOL TIMES ONE AND MORPHINE TIMES ONE THIS SHIFT. CONTINUES WITH DIARRHEA. COCCYX WITHOUT BREAKDOWN. PT REMAINS INCONTINENT OF BOTH B/B.
[2019-02-22 05:02] VITALS: BMI 23.7
[2019-02-22 06:46] LABS: Anion Gap 16.2 mEq/L (5-15); Calcium 7.6 mg/dL (8.5-10.1); Carbon Dioxide 19 mmol/L (21.0-32.0); Chloride 110 mmol/L (98-107); Creatinine Clearance Estimated 49 mL/min (50-200); Creatinine,Serum 1.49 mg/dL (0.70-1.30); Estimated Glomerular Filt Rate 49 ml/min (>60); GFR (African American) 59 ML/MIN (>60); Glucose 98 mg/dL (74-106); Potassium 4.2 mmoL/L (3.5-5.1); Sodium 141 mmol/L (136-145)
[2019-02-22 06:58] LABS: Blood Urea Nitrogen 17 mg/dL (7-18)
[2019-02-22 07:30] LABS: Basophils % 0.2 % (0.1-2.0); Eosinophils # 0.4 K/mm3 (0.0-0.4); Eosinophils % 2.2 % (0.1-12.0); Hematocrit 26.6 % (42.0-52.0); Hemoglobin 8.5 g/dL (14.1-18.0); Lymphocytes # 2.2 K/mm3 (0.7-4.5); Lymphocytes % 13.2 % (10-50); Mean Corpuscular HGB Conc 32.1 g/dL (31.8-35.4); Mean Corpuscular Hemoglobin 29.8 pg (27.0-31.2); Mean Corpuscular Volume 92.8 fl (80-94); Mean Platelet Volume 8.1 fl (7.4-10.4); Monocytes # 0.9 K/mm3 (0.1-1.0); Monocytes % 5.1 % (1.7-9.3); Neutrophils # 13.3 K/mm3 (1.8-7.8); Neutrophils % 79.3 % (37.0-80.0); Platelet Count 383 K/mm3 (142-424); Red Blood Count 2.87 M/mm3 (4.60-6.20); Red Cell Distribution Width 15.1 % (11.5-17.5); White Blood Count 16.8 K/mm3 (4.8-10.8)
[2019-02-22 07:34] LABS: MANUAL DIFFERENTIAL MANUAL DIFFERENTIAL (MANUAL DIFF)
[2019-02-22 07:55] VITALS: BP 136/85; PULSE 99; RESP 18; TEMP 36.6; O2SAT 100
--- NOTE | 2019-02-22 08:05 | HMH.ACPN ---
Internal Medicine - PN: Subj *Date: 02/22/19 *Time: 08:05 Exam Vital signs and Labs for Last 24 Hours: Temp Pulse Resp BP Pulse Ox 97.8 F 99 H 18 136/85 100 02/22/19 07:55 02/22/19 07:55 02/22/19 07:55 02/22/19 07:55 02/22/19 07:55 Laboratory Results - last 24 hr 02/22/19 06:20: Sodium 141, Potassium 4.2, Chloride 110 H, Carbon Dioxide 19 L, Anion Gap 16.2 H, BUN 17, Creatinine 1.49 H, Estimated Creat Clear 49, Estimated GFR 49 L, Est GFR ( Amer) 59, Glucose 98, Calcium 7.6 L 02/22/19 07:14: WBC 16.8 H D, RBC 2.87 L, Hgb 8.5 L, Hct 26.6 L, MCV 92.8, MCH 29.8, MCHC 32.1, RDW 15.1, Plt Count 383, MPV 8.1, Neut % (Auto) 79.3, Lymph % (Auto) 13.2, [place] % (Auto) 5.1, Eos % (Auto) 2.2, Baso % (Auto) 0.2, Neut # (Auto) 13.3 H, Lymph # (Auto) 2.2, [place] # (Auto) 0.9, Eos # (Auto) 0.4, Baso # (Auto) 0.0 I & O for Last 24 hours: Intake & Output 02/19/19 02/20/19 02/21/19 02/22/19 23:59 23:59 23:59 23:59 Intake Total 1987 308 / 3084 3161 / 3161 Balance 1987 / 308 3161 / 3161 Weight 62.652 kg 62.652 kg 62.256 kg 63.078 kg Microbiology Reports for the Last 24 Hours: Microbiology 02/19/19 17:57 Urine,Clean Catch Urine Culture - Final NO GROWTH AFTER 48 HOURS 02/19/19 15:55 Blood Blood Culture - Preliminary NO GROWTH AFTER 48 HOURS 02/19/19 15:55 Blood Blood Culture - Preliminary NO GROWTH AFTER 48 HOURS Assessment and Plan (1) Colitis Current visit: Yes Status: Acute Category: Medical Code(s): K52.9 - Noninfective gastroenteritis and colitis, unspecified (2) Chronic kidney disease Current visit: Yes Status: Acute Category: Medical Code(s): N18.9 - Chronic kidney disease, unspecified (3) Hypertension Current visit: No Status: Acute Qualifiers: Hypertension type: essential hypertension Qualified Code(s): I10 - Essential (primary) hypertension Category: Medical Code(s): I10 - Essential (primary) hypertension (4) Sepsis Current visit: No Status: Acute Qualifiers: Sepsis type: sepsis due to unspecified organism Qualified Code(s): A41.9 - Sepsis, unspecified organism Category: Medical Code(s): A41.9 - Sepsis, unspecified organism (5) Gout attack Current visit: No Status: Acute Category: Medical Code(s): M10.9 - Gout, unspecified The patient's infection will respond to the chosen ABx?: Yes Is the patient receiving the right drug, dose, and route?: Yes Could a more targeted ABx be ordered?: No (RECOMMEND TAPERED DOSE OF PO VANCOMYCIN ONCE PATIENT IS DISCHARGED)
[2019-02-22 10:15] LABS: Eosinophils % 3 % (0-3); Lymphocytes % 13 % (10-50); Monocytes % 5 % (2-9); Neutrophils % 79 % (42-76); Total Cells Counted 100
[2019-02-22 10:16] LABS: Platelet Estimate Normal
[2019-02-22 10:17] LABS: Schistocytes 1+
--- NOTE | 2019-02-22 10:45 | SW/DCPLANNER ---
This patient currently resides at [facility]. I have spoke with Florencia from [facility] this morning and she has stated that they will accept this patient back once he is ready for discharge. I will continue to follow up with [facility] regarding this patient.
--- NOTE | 2019-02-22 11:16 | HMH.ACPN ---
Internal Medicine - PN: Subj *Date: 02/22/19 *Time: 11:16 Interval history: Patient was admitted 02/19/19 for C diff. Also has acute flare of gout in right foot causing significant discomfort. Clinically, patient seems to be improving. He states he still has significant nausea and stomach cramping at times. He has only tried liquids to this point, and has diarrhea each time. States pain meds are helping. Is fairly comfortable at rest until he tries to drink something. Exam Vital signs and Labs for Last 24 Hours: Temp Pulse Resp BP Pulse Ox 97.8 F 99 H 18 136/85 100 02/22/19 07:55 02/22/19 07:55 02/22/19 07:55 02/22/19 07:55 02/22/19 07:55 Laboratory Results - last 24 hr 02/22/19 06:20: Sodium 141, Potassium 4.2, Chloride 110 H, Carbon Dioxide 19 L, Anion Gap 16.2 H, BUN 17, Creatinine 1.49 H, Estimated Creat Clear 49, Estimated GFR 49 L, Est GFR ( Amer) 59, Glucose 98, Calcium 7.6 L 02/22/19 07:14: WBC 16.8 H D, RBC 2.87 L, Hgb 8.5 L, Hct 26.6 L, MCV 92.8, MCH 29.8, MCHC 32.1, RDW 15.1, Plt Count 383, MPV 8.1, Neut % (Auto) 79.3, Lymph % (Auto) 13.2, [place] % (Auto) 5.1, Eos % (Auto) 2.2, Baso % (Auto) 0.2, Neut # (Auto) 13.3 H, Lymph # (Auto) 2.2, [place] # (Auto) 0.9, Eos # (Auto) 0.4, Baso # (Auto) 0.0, Total Counted 100, Neutrophils % (Manual) 79 H, Lymphocytes % (Manual) 13, Monocytes % (Manual) 5, Eosinophils % (Manual) 3, Platelet Estimate Normal, Schistocytes 1+ I & O for Last 24 hours: Intake & Output 02/19/19 02/20/19 02/21/19 02/22/19 11:59 11:59 11:59 11:59 Intake Total 782 / 782 2671 / 2671 4881 / 4881 Balance 782 / 782 2670 / 2670 488 / 4881 Weight 138 lb 2 oz 137 lb 4 oz 139 lb 1 oz Microbiology Reports for the Last 24 Hours: Microbiology 02/19/19 17:57 Urine,Clean Catch Urine Culture - Final NO GROWTH AFTER 48 HOURS 02/19/19 15:55 Blood Blood Culture - Preliminary NO GROWTH AFTER 48 HOURS 02/19/19 15:55 Blood Blood Culture - Preliminary NO GROWTH AFTER 48 HOURS - Constitutional no acute distress - *Routine HEENT Exam Head: Present: normocephalic, tenderness of temporal artery ENT: Present: mucous membranes moist - *Routine Respiratory Exam Present: CTA bilaterally - *Routine Cardiovascular Exam Present: RRR - *Routine Abdominal Exam Present: soft, tenderness (mild). Absent: distended Comments: bowel sounds present all quads - *Routine Extremities Exam Present: full ROM, normal capillary refill Comments: gout right great toe - *Routine Skin Exam Present: intact - *Routine Neurological Exam Present: alert, oriented X3 Assessment and Plan (1) Colitis Start date: 02/19/19 Problem details: Still having diarrhea with PO liquids, has not yet tried solids; Current visit: Yes Status: Acute Category: Medical Code(s): K52.9 - Noninfective gastroenteritis and colitis, unspecified (2) Chronic kidney disease Problem details: Labs stable Current visit: Yes Status: Acute Category: Medical Code(s): N18.9 - Chronic kidney disease, unspecified (3) Hypertension Current visit: No Status: Acute Qualifiers: Hypertension type: essential hypertension Qualified Code(s): I10 - Essential (primary) hypertension Category: Medical Code(s): I10 - Essential (primary) hypertension (4) Sepsis Problem details: Clinically improving; WBC has decreased with antibiotics Current visit: No Status: Acute Qualifiers: Sepsis type: sepsis due to unspecified organism Qualified Code(s): A41.9 - Sepsis, unspecified organism Category: Medical Code(s): A41.9 - Sepsis, unspecified organism (5) Gout attack Current visit: No Status: Acute Category: Medical Code(s): M10.9 - Gout, unspecified - Assessment and plan all Dx Assessment and Plan for all problems:: Continue IV fluids, PO Vanc and IV flagyl, pain meds as needed
[2019-02-22 13:55] VITALS: BMI 23.7
--- NOTE | 2019-02-22 14:24 | DIET.NUTRFU ---
Nutritional assessment completed by student lazaro under my supervision. Diet will be supplemented with Breeze. Weighted utensils for tremors.
[2019-02-22 15:06] VITALS: BP 124/82; PULSE 109; RESP 18; TEMP 36.7; O2SAT 98
--- NOTE | 2019-02-22 15:17 | PC.NURSE ---
patient trash done, refused ice.
--- NOTE | 2019-02-22 17:59 | PC.NURSE ---
No acute changes since morning biophysical, patient has slept in intervals, medications per mar tolerated well, VSS, call light in place, isolation continues with proper sign noted on the door, will continue to monitor.
--- NOTE | 2019-02-22 19:15 | PC.NURSE ---
eport guy.[place]
[2019-02-22 19:34] VITALS: BP 160/86; PULSE 111; RESP 18; TEMP 37.3; O2SAT 99
--- NOTE | 2019-02-23 03:13 | PC.NURSE ---
A&OX4. ABD DISTENDED WITH HYPOACTIVE BOWEL SOUNDS; PT. REPORTS TENDERNESS IN UPPER QUADRANTS; PT. REQUESTED MORPHINE PER NOV FOR ABD PAIN RATING 8/10; SEE NOV. PT. HAS HAD ONE SMALL LOOSE BM THIS SHIFT. +1 NONPITTING R FOOT EDEMA NOTED. PT. C/O OF R FOOT PAIN; TX WITH TORADOL PER NOV; EFFECTIVENESS NOTED. INTERMITTENT NONPRODUCTIVE COUGH NOTED; CLEAR LUNG SOUND T/O BILAT. LUNGS. PT. TOLERATING CLEAR LIQUID DIET. IV PATENT AND INFUSING SHOWING NO S/S OF INFILTRATION. VSS. WILL CONTINUE TO MONITOR.
[2019-02-23 04:00] VITALS: BP 137/81; PULSE 104; RESP 20; TEMP 37; O2SAT 98
[2019-02-23 06:00] VITALS: BMI 24.9
[2019-02-23 07:04] LABS: Basophils % 0.3 % (0.1-2.0); Eosinophils # 0.4 K/mm3 (0.0-0.4); Eosinophils % 4.1 % (0.1-12.0); Hematocrit 25.7 % (42.0-52.0); Hemoglobin 8.5 g/dL (14.1-18.0); Lymphocytes % 22.3 % (10-50); Mean Corpuscular HGB Conc 33.1 g/dL (31.8-35.4); Mean Corpuscular Hemoglobin 29.9 pg (27.0-31.2); Mean Corpuscular Volume 90.4 fl (80-94); Mean Platelet Volume 8.4 fl (7.4-10.4); Monocytes # 0.8 K/mm3 (0.1-1.0); Monocytes % 9.5 % (1.7-9.3); Neutrophils # 5.6 K/mm3 (1.8-7.8); Neutrophils % 63.7 % (37.0-80.0); Platelet Count 381 K/mm3 (142-424); Red Blood Count 2.84 M/mm3 (4.60-6.20); Red Cell Distribution Width 15.2 % (11.5-17.5); White Blood Count 8.7 K/mm3 (4.8-10.8)
--- NOTE | 2019-02-23 07:25 | PC.NURSE ---
REPORT GIVEN TO Emmanuel SALEH
[2019-02-23 08:00] VITALS: BP 150/90; PULSE 100; RESP 16; TEMP 37; O2SAT 100
--- NOTE | 2019-02-23 08:16 | HMH.ACPN ---
Internal Medicine - PN: Subj *Date: 02/23/19 *Time: 08:16 Exam Vital signs and Labs for Last 24 Hours: Temp Pulse Resp BP Pulse Ox 98.6 F 104 H 20 137/81 98 02/23/19 04:00 02/23/19 04:00 02/23/19 04:00 02/23/19 04:00 02/23/19 04:00 Laboratory Results - last 24 hr 02/22/19 07:14: Total Counted 100, Neutrophils % (Manual) 79 H, Lymphocytes % (Manual) 13, Monocytes % (Manual) 5, Eosinophils % (Manual) 3, Platelet Estimate Normal, Schistocytes 1+ 02/23/19 06:22: WBC 8.7 D, RBC 2.84 L, Hgb 8.5 L, Hct 25.7 L, MCV 90.4, MCH 29.9, MCHC 33.1, RDW 15.2, Plt Count 381, MPV 8.4, Neut % (Auto) 63.7, Lymph % (Auto) 22.3, [place] % (Auto) 9.5 H, Eos % (Auto) 4.1, Baso % (Auto) 0.3, Neut # (Auto) 5.6, Lymph # (Auto) 2.0, [place] # (Auto) 0.8, Eos # (Auto) 0.4, Baso # (Auto) 0.0 I & O for Last 24 hours: Intake & Output 02/20/19 02/21/19 02/22/19 02/23/19 23:59 23:59 23:59 23:59 Intake Total 1987 / 3084 5418 / 5418 1451 / 1451 Balance 1987 / 308418 / 5418 1451 / 1451 Weight 62.652 kg 62.256 kg 63.078 kg 66.281 kg Assessment and Plan (1) Colitis Start date: 02/19/19 Problem details: Still having diarrhea with PO liquids, has not yet tried solids; Current visit: Yes Status: Acute Category: Medical Code(s): K52.9 - Noninfective gastroenteritis and colitis, unspecified (2) Chronic kidney disease Problem details: Labs stable Current visit: Yes Status: Acute Category: Medical Code(s): N18.9 - Chronic kidney disease, unspecified (3) Hypertension Current visit: No Status: Acute Qualifiers: Hypertension type: essential hypertension Qualified Code(s): I10 - Essential (primary) hypertension Category: Medical Code(s): I10 - Essential (primary) hypertension (4) Sepsis Problem details: Clinically improving; WBC has decreased with antibiotics Current visit: No Status: Acute Qualifiers: Sepsis type: sepsis due to unspecified organism Qualified Code(s): A41.9 - Sepsis, unspecified organism Category: Medical Code(s): A41.9 - Sepsis, unspecified organism (5) Gout attack Current visit: No Status: Acute Category: Medical Code(s): M10.9 - Gout, unspecified The patient's infection will respond to the chosen ABx?: Yes Is the patient receiving the right drug, dose, and route?: Yes Could a more targeted ABx be ordered?: No (wbc wnl)
--- NOTE | 2019-02-23 09:02 | HMH.DCSUM ---
General - General Admission date:: 02/19/19 HPI HPI: 54-year-old male patient sitting up in bed resting quietly tolerating breakfast without any difficulty. Reports he is ready to go back to residential. 54-year-old male with hypertension and chronic kidney disease presented to the emergency department with 2 days of abdominal pain, abdominal distention, diarrhea. Patient resides at a local residential. He was hospitalized in mid January and had a heart catheterization at that time. Patient reports he was in his normal state of health until 2 days ago when he developed symptoms. He was sent to the emergency department for work-up. Evaluation revealed significant elevation of white blood cell count, diarrhea panel positive for C. difficile, CT scan showing diffuse colitis. Patient was admitted on IV fluids and started on oral vancomycin 250 mg every 6 hours. He denies any recent antibiotic use, at least that he is aware of. This morning he complains of significant abdominal pain, loss of appetite. He denies nausea at present Hospital Course Hospital Course: 02/19/2019 CXR: IMPRESSION: Negative chest, no acute finding Dictated By: Aren Bermeo MD I02/19/2019 Abd/Pelvis CT: MPRESSION: 1. The findings are compatible with colitis. There is diffuse colonic diverticulosis without evidence of diverticulitis. 2. Thickened urinary bladder which may in part be due to nondistention versus cystitis 3. Trace bilateral effusions with bibasilar atelectasis Dictated By: Aren Bermeo MD 54-year-old male admitted to the hospital after 2 days of abdominal pain distention and diarrhea. During his stay he has had a negative UA negative blood cultures X 2. His white blood cell count on admission was 23.7 and has returned to normal at 8.7 this morning, for his C. difficile during his stay he has received Flagyl and vancomycin IV. He will be discharged with p.o. vancomycin per instruction. He will be discharged back to [facility] today to cont PT. Objective Vital signs: Temp Pulse Resp BP Pulse Ox 98.6 F 100 H 16 150/90 H 100 02/23/19 08:00 02/23/19 08:00 02/23/19 08:00 02/23/19 08:00 02/23/19 08:00 no acute distress - *Routine HEENT Exam Head: Present: normocephalic Eye: Present: EOMI, PERRL ENT: Present: mucous membranes dry - *Routine Neck Exam Present: supple - *Routine Respiratory Exam Present: CTA bilaterally. Absent: respiratory distress - *Routine Cardiovascular Exam Present: murmur - *Routine Abdominal Exam Present: soft, normoactive bowel sounds. Absent: tenderness - *Routine Extremities Exam Present: edema, pulses intact. Absent: cyanosis - Routine Back/Spine/Pelvis Exam Back/Spine: Present: full ROM. Absent: CVA tenderness - *Routine Skin Exam Present: intact - *Routine Neurological Exam Present: alert, oriented X3, CN II-XII intact - Routine Psychiatric Exam Present: normal affect, normal thought process Results Labs on day of discharge: Labs from last 24 hours 02/23/19 02/22/19 06:22 07:14 WBC 8.7 D RBC 2.84 L Hgb 8.5 L Hct 25.7 L MCV 90.4 MCH 29.9 MCHC 33.1 RDW 15.2 Plt Count 381 MPV 8.4 Neut % (Auto) 63.7 Lymph % (Auto) 22.3 [place] % (Auto) 9.5 H Eos % (Auto) 4.1 Baso % (Auto) 0.3 Neut # (Auto) 5.6 Lymph # (Auto) 2.0 [place] # (Auto) 0.8 Eos # (Auto) 0.4 Baso # (Auto) 0.0 Total Counted 100 Neutrophils % (Manual) 79 H Lymphocytes % (Manual) 13 Monocytes % (Manual) 5 Eosinophils % (Manual) 3 Platelet Estimate Normal Schistocytes 1+ Preliminary micro results at discharge 02/19/19 15:55 Blood Culture - Preliminary Blood NO GROWTH AFTER 48 HOURS 02/19/19 15:55 Blood Culture - Preliminary Blood NO GROWTH AFTER 48 HOURS - Additional Comments Rounds per Dr. Aguilar all orders per Dr. Aguilar DS: Diagnosis - Discharge Diagnosis (1) Colitis Status: Acute Problem de
[2019-02-23 09:10] LABS: Anion Gap 16.6 mEq/L (5-15); Blood Urea Nitrogen 15 mg/dL (7-18); Calcium 7.7 mg/dL (8.5-10.1); Carbon Dioxide 18 mmol/L (21.0-32.0); Chloride 112 mmol/L (98-107); Creatinine Clearance Estimated 59 mL/min (50-200); Creatinine,Serum 1.32 mg/dL (0.70-1.30); Estimated Glomerular Filt Rate 56 ml/min (>60); GFR (African American) 68 ML/MIN (>60); Glucose 85 mg/dL (74-106); Potassium 3.6 mmoL/L (3.5-5.1); Sodium 143 mmol/L (136-145)
--- NOTE | 2019-02-23 10:32 | SW/DCPLANNER ---
I have notified Florencia at [facility] that this patient will be discharging today. Patient will discharge back to [facility] level of care.
--- NOTE | 2019-02-23 11:32 | PC.NURSE ---
Report called to Porsha Carlton LPN at [facility]. [facility] called for transport.
== END 2019-02-23 11:53 | DRG 872 ==
LOC: ER 19:08 → 2ND 21:26
PROVIDERS: Admitting Provider Family Medicine; Emergency Provider Emergency Medicine Emergency Medical Services; PCP Emergency Medicine; Visit Provider Emergency Medicine
DX: A41.9 Sepsis, unspecified organism (principal); A04.72 Enterocolitis due to Clostridium difficile, not specified as recurrent; F17.210 Nicotine dependence, cigarettes, uncomplicated; F41.9 Anxiety disorder, unspecified; F32.9 Major depressive disorder, single episode, unspecified; E07.9 Disorder of thyroid, unspecified; I12.9 Hypertensive chronic kidney disease with stage 1 through stage 4 chronic kidney disease, or unspecified chronic kidney disease; N18.9 Chronic kidney disease, unspecified; M10.9 Gout, unspecified; Z79.899 Other long term (current) drug therapy; Z88.6 Allergy status to analgesic agent; Z88.0 Allergy status to penicillin
CPT/HCPCS: 36415; 71045; 74176; 80048; 80053; 81001; 83605; 83690; 85007; 85025; 85610; 87040; 87086; 87507; 96365; 96367; 96375; 99284; J1956; J2405; J3370

== ENCOUNTER 2020-10-20 23:08 | Inpatient (IN) | payer MEDICAID, SELFPAY ==
[2020-10-20 23:07] VITALS: BP 120/79; PULSE 94; RESP 16; TEMP 37.3; O2SAT 100; BMI 23.0; BMI 26.4
--- NOTE | 2020-10-20 23:24 | HMH.EDNVD ---
ED Disposition Clinical Impression: Metastatic cancer to spine, KAMLESH (acute kidney injury) Pancreatitis, acute Qualifiers: Pancreatitis type: other Acute pancreatitis complication: unspecified Qualified Code(s): K85.80 - Other acute pancreatitis without necrosis or infection Gastric cancer Qualifiers: Malignant neoplasm of stomach location: unspecified location Qualified Code(s): C16.9 - Malignant neoplasm of stomach, unspecified Anemia Qualifiers: Anemia type: unspecified type Qualified Code(s): D64.9 - Anemia, unspecified Disposition: Admitted As Inpatient Condition on Discharge: Serious Instructions: DI for Acute Abdominal Pain Referrals: Daljit Aguilar MD [Primary Care Provider] - - Critical Care Critical Care Time: No Attestation: On 10/20/20, the high probability of a clinically significant, sudden or life threatening deterioration of the following system(s) required my full and direct attention, intervention and personal management. The time I documented below is in addition to time spent performing reported procedures but includes the following listed in this critical care notation. Medical Decision Making - Medical Records Medical records reviewed: Yes: I reviewed the patient's medical records. - Rodolfo Inquiry Pt receiving controlled substance: No Vital Signs: 10/20/20 23:07 10/20/20 23:31 10/21/20 01:31 Temperature 99.2 F Temperature Source Oral Pulse Rate [Right] 94 H 95 H 83 Respiratory Rate 16 Blood Pressure [Right Arm] 120/79 127/81 114/81 Blood Pressure Mean [Right Arm] 92 96 92 Blood Pressure Source [Right Arm] Automatic Cuff Blood Pressure Position [Right Arm] Supine 02 Sat by Pulse Oximetry 100 99 98 Oxygen Delivery Method Room Air 10/21/20 03:00 Temperature Temperature Source Pulse Rate [Right] 71 Respiratory Rate Blood Pressure [Right Arm] 124/86 Blood Pressure Mean [Right Arm] 98 Blood Pressure Source [Right Arm] Blood Pressure Position [Right Arm] 02 Sat by Pulse Oximetry 97 Oxygen Delivery Method - Lab Data Lab results reviewed: Yes: I reviewed the patient's lab results. Lab Results 10/20/20 23:18: WBC 15.8 H, RBC 3.07 L, Hgb 9.2 L, Hct 29.9 L, MCV 97.6 H, MCH 29.9, MCHC 30.7 L, RDW 15.7, Plt Count 620 H, MPV 8.3, Neut % (Auto) 68.3, Lymph % (Auto) 21.7, [place] % (Auto) 6.5, Eos % (Auto) 3.0, Baso % (Auto) 0.6, Neut # (Auto) 10.8 H, Lymph # (Auto) 3.4, [place] # (Auto) 1.0, Eos # (Auto) 0.5 H, Baso # (Auto) 0.1, Total Counted 100, Neutrophils % (Manual) 80 H, Band Neutrophils % 3.0, Lymphocytes % (Manual) 15, Eosinophils % (Manual) 2, Toxic Granulation 1+, Platelet Estimate Moderate increase, Hypochromasia 1+, Macrocytosis 1+, Rouleaux 1+ 10/20/20 23:18: Sodium 138, Potassium 3.5, Chloride 104, Carbon Dioxide 20 L, Anion Gap 17.5 H, BUN 44 H, Creatinine 2.10 H, Estimated Creat Clear 38, Estimated GFR 33 L, Est GFR ( Amer) 40 L, Glucose 121 H, Calcium 9.8, Total Bilirubin 0.5, Direct Bilirubin 0.4, Conjugated Bilirubin 0.0, Indirect Bilirubin 0.1, Unconjugated Bilirubin 0.0, AST 20, ALT 7 L, Alkaline Phosphatase 117, C-Reactive Protein 77.5 H, Total Protein 7.2, Albumin 3.2 L, Amylase 1359 H*, Lipase 6802 H, Procalcitonin 0.188, Salicylates < 1.0 L, Acetaminophen < 10 L 10/20/20 23:18: Lactate 1.2 10/20/20 23:18: Plasma/Serum Alcohol < 10 10/20/20 23:18: ESR 67 H 10/20/20 23:18: Chlamy pneumoniae PCR Not detected, Adenovirus (PCR) Not detected, B. pertussis DNA (PCR) Not detected, Coronavirus OC43 (PCR) Not detected, Coronavirus HKU1 (PCR) Not detected, Coronavirus 229E (PCR) Not detected, SARS-CoV-2 (PCR) Not detected, Coronavirus NL63 (PCR) Not detected, Human Metapneumovir PCR Not detected, Influenza A (H1) PCR Not detected, Influ A (H1N1/09) PCR Not detected, Influenza A (H3) PCR Not detected, Influenza Type A (PCR) Not detected, Influenza Type B (PCR) Not detected, M. pneumoniae (PCR) Not detected, Parainfluenza 1 (PCR) Not detected, Parainfluenza 2 (P
[2020-10-20 23:25] LABS: Adenovirus,PCR Not Detected (NotDetected); Bordetella Pertussis Not Detected (NotDetected); Chlamydophila Pneumoniae, PCR Not Detected (NotDetected); Coronavirus 19, PCR Not Detected (NotDetected); Coronavirus 229E Not Detected (NotDetected); Coronavirus NL63 Not Detected (NotDetected); Coronavirus OC43 Not Detected (NotDetected); Coronovirus HKU1,PCR Not Detected (NotDetected); Human Metapneumovirus Not Detected (NotDetected); Influenza A, PCR Not Detected (NotDetected); Influenza AH1, 2009 Not Detected (NotDetected); Influenza AH1, PCR Not Detected (NotDetected); Influenza AH3,PCR Not Detected (NotDetected); Influenza B, PCR Not Detected (NotDetected); Mycoplasma Pneumoniae, PCR Not Detected (NotDetected); Parainfluenza 1, PCR Not Detected (NotDetected); Parainfluenza 2, PCR Not Detected (NotDetected); Parainfluenza 3, PCR Not Detected (NotDetected); Parainfluenza 4, PCR Not Detected (NotDetected); Respiratory Syncytial Virus Not Detected (NotDetected); Rhinovirus/Enterovirus Not Detected (NotDetected)
[2020-10-20 23:27] LABS: Basophils # 0.1 K/mm3 (0-0.2); Basophils % 0.6 % (0.1-2.0); Eosinophils # 0.5 K/mm3 (0.0-0.4); Hemoglobin 9.2 g/dL (14.1-18.0); Lymphocytes # 3.4 K/mm3 (0.7-4.5); Lymphocytes % 21.7 % (10-50); Mean Corpuscular HGB Conc 30.7 g/dL (31.8-35.4); Mean Corpuscular Hemoglobin 29.9 pg (27.0-31.2); Mean Corpuscular Volume 97.6 fl (80-94); Mean Platelet Volume 8.3 fl (7.4-10.4); Monocytes % 6.5 % (1.7-9.3); Neutrophils # 10.8 K/mm3 (1.8-7.8); Neutrophils % 68.3 % (37.0-80.0); Red Blood Count 3.07 M/mm3 (4.60-6.20); Red Cell Distribution Width 15.7 % (11.5-17.5); White Blood Count 15.8 K/mm3 (4.8-10.8)
[2020-10-20 23:30] LABS: Hematocrit 29.9 % (42.0-52.0); Platelet Count 620 K/mm3 (142-424)
[2020-10-20 23:31] VITALS: BP 127/81; PULSE 95; O2SAT 99
[2020-10-20 23:31] LABS: MANUAL DIFFERENTIAL MANUAL DIFFERENTIAL (MANUAL DIFF)
[2020-10-20 23:37] LABS: Alanine Aminotransferase 7 U/L (12-78); Albumin Level 3.2 g/dl (3.5-5.0); Alkaline Phosphatase 117 U/L (38-126); Anion Gap 17.5 mEq/L (5-15); Aspartate Amino Transferase 20 U/L (17-59); Bilirubin,Direct 0.4 mg/dl (0.0-0.4); Bilirubin,Indirect 0.1 mg/dL (0.0-0.9); Bilirubin,Total 0.5 mg/dl (0.2-1.3); Blood Urea Nitrogen 44 mg/dl (9-20); Calcium 9.8 mg/dl (8.4-10.2); Carbon Dioxide 20 mmol/L (22.0-30.0); Chloride 104 mmol/L (98-107); Creatinine Clearance Estimated 38 mL/min (50-200); Estimated Glomerular Filt Rate 33 ml/min (>60); GFR (African American) 40 ML/MIN (>60); Glucose 121 mg/dl (74-100); Potassium 3.5 mmoL/L (3.5-5.1); Sodium 138 mmol/L (136-145); Total Protein,Serum 7.2 g/dl (6.3-8.2)
[2020-10-20 23:38] LABS: Lactic Acid 1.2 mmol/L (0.7-2.1)
[2020-10-20 23:40] LABS: Acetaminophen < 10 ug/ml (10-30); Ethyl Alcohol < 10 mg/dl (0-10); Salicylate < 1.0 mg/dL (2.0-20.0)
[2020-10-20 23:43] LABS: C-Reactive Protein 77.5 mg/L (0-4)
[2020-10-20 23:46] LABS: Amylase 1359 U/L (30-110)
[2020-10-20 23:47] LABS: Lipase 6802 U/L (23-300)
[2020-10-20 23:48] LABS: Coronavirus 19 IgG Antibody Negative (Negative); Coronavirus 19 IgM Antibody Negative (Negative)
[2020-10-20 23:49] LABS: Eosinophils % 2 % (0-3); Lymphocytes % 15 % (10-50); Neutrophils % 80 % (42-76); Platelet Estimate Moderate Increase; Total Cells Counted 100
[2020-10-20 23:50] LABS: Hypochromasia 1+; Macrocytosis 1+; Rouleaux 1+; Toxic Granulation 1+
[2020-10-20 23:55] LABS: Erythrocyte Sedimentation Rate 67 mm/hr (0-20)
[2020-10-20 23:56] LABS: Procalcitonin 0.188 ng/mL (0.0-2.0)
[2020-10-21] VITALS (11 sets, daily range): BP systolic 114–139; BP diastolic 73–88; PULSE 71–102; RESP 16–20; TEMP 36.7–37.3; O2SAT 97–100; BMI 21.4
--- NOTE | 2020-10-21 00:15 | PC.NURSE ---
Pt completed oral contrast, Radiology notified
--- NOTE | 2020-10-21 00:39 | XR_ITS ---
PROCEDURE: XR CHEST PORTABLE Referring Doctor: Daljit Aguilar Patient Age:55Y CLINICAL HISTORY: ABD PAIN COMPARISON: CT CHW CT CHEST W/ CONTRAST from 07/24/2014 CR CHEST-PORTABLE from 06/26/2016 CR CXR2 CHEST-AP VIEW ONLY from 07/12/2017 CR Chest from 03/15/2019 FINDINGS: Portable upright AP chest performed. Less optimal overall inspiration with diaphragm only down to the anterior 5th rib on right previously down to the anterior 6 rib. This yield some slight crowding at the lung markings but the lung bases appear clear with no definite infiltrate or pneumonia. The less optimal inspiration accentuates heart size with borderline cardiomegaly on today's study. Normal pulmonary vascularity. Sandee and mediastinal structures satisfactory, IMPRESSION: Nothing definitely acute Less optimal inspiration slightly crowds markings at the bases but overall nothing definitely acute Dictated by: Ciro Martinez MD 10/22/2020 07:51 Ciro Martinez MD in [place] 10/22/2020 07:51
[2020-10-21 01:42] LABS: Microscopic, Urine URINE MICROSCOPIC (MICROSCOPIC)
[2020-10-21 01:43] LABS: Appearance,Urine CLEAR (Clear); Bilirubin,Urine Negative (Negative); Blood, Urine Negative (Negative); Color,Urine YELLOW (Yellow); Glucose,Urine (UA) Negative (Negative); Ketones,Urine Negative (Negative); Leukocyte Esterase,Urine Negative (Negative); Nitrate,Urine Negative (Negative); PH,Urine 5.5 (5.0-8.5); Protein,Urine Negative (Negative); Urobilinogen,Urine 0.2 EU/dl (0.2)
[2020-10-21 01:45] LABS: Squamous Epithelial Cell,Urine Occasional #/hpf (0-5)
[2020-10-21 01:46] LABS: Amorphous Sediment,Urine Trace /lpf
[2020-10-21 01:54] LABS: Barbiturates Screen,Urine Negative ng/ml (<200)
[2020-10-21 01:55] LABS: Amphetamine/Metha Screen,Urine Negative ng/ml (<1000); Benzodiazepines Screen,Urine Negative ng/ml (<200)
[2020-10-21 01:56] LABS: Cannabinoid Screen,Urine Negative ng/ml (<50)
--- NOTE | 2020-10-21 01:56 | CT_ITS ---
Procedure: CT ABDOMEN PELVIS WO CON Referring Doctor: Daljit Aguilar Patient Age:55Y CLINICAL INDICATION: abd pain leukocytosis Elevated amylase and lipase of suggesting pancreatitis. The COMPARISON: CT CSWO CT CERVICAL SPINE W/O CONT from 07/12/[address] abdomen pelvis wo con from 02/19/2019 CR Chest from 03/15/2019 CR XR CHEST PORTABLE from 10/21/2020 TECHNIQUE: No IV contrast. However oral contrast was given the Helical axial images obtained with sagittal and coronal reformats. All CT scans at the facility use one or more dose reduction, viz: automated exposure control, ma/kV adjustment per patient size (including targeted exams where dose is matched to indication, i.e. head), or iterative reconstruction technique. FINDINGS: Lower thorax: Small left pleural effusion. Atelectasis most likely accounts for the minimal airspace disease at the left lung base > right.. Borderline-mild cardiomegaly Fluid/ascites is seen surrounding the liver with minimal fluid tracking along the right gutter, associated also with the fluid passing along the anterior aspect to Gerota fascia on the right right pelvis but free fluid also surrounds the cecum as it collects inferiorly towards the right pelvis there also is a focal fluid collection is appears yield some mild mass effect upon the anterior aspect of the does seem somewhat localized. No air here to suggest abscess and could be a or resolving subcapsular hematoma or possibly a pseudocyst. With this there is also increased fluid along the anterior aspect of the stomach with fluid tracking towards the head of the pancreas adjacent to the descending duodenum. Pancreas: Fuzzy appearance about the generous head pancreas is the the suspect for pancreatitis-I believe there is some associated wall thickening of the descending duodenum as well and thickening at the distal stomach.-Again these latter features could be due to a pancreatitis rather than a neoplastic process as suggestion V RC report thus upper endoscopy required to further evaluate these regions when feasible. Liver: . no biliary ductal dilatation. Again note concavity anterior margin of left lobe related to the focal fluid collection here I suspect reflects a old hematoma or loculated pseudocyst rather than a abscess or hepatic lesion. But this is nicely seen on sagittal image 35 , also nicely seen on axial slice 20-16 where it measures up to near 10 cm length and wide X 4 cm AP Gallbladder: Likely sludge throughout noting the slight increased density throughout the gallbladder no focal stone. There is either wall thickening or possibly some low-density stones floating more anteriorly accounting for the lucent line GB axial image 29 Spleen: unremarkable normal size granulomatous calcifications Adrenals: unremarkable ---- tract --- Kidneys/ureter: Unremarkable Bladder: Diffuse generous wall thickening as seen previously the -----GI tract:----- Stomach: Thickening of the gastric antrum with fluid overlying stomach. Thickening at the descending duodenum Also suggestion of mildly hyperdense exophytic mass along lateral aspect of descending duodenum measures the 3 cm. Again a could reflect slightly hemorrhagic pseudocyst collection presuming pancreatitis in the picture,, but could not exclude developing mass lesion. Warrants follow-up postcontrast CT study as current episode resolved Small bowel: Scattered small air-fluid levels of but no dilatation. Upper normal caliber and wall thickness proximal most small bowel Large bowel.: Diffuse colonic diverticulosis most evident at left colon and sigmoid. No acute diverticulitis. Oral contrast is passed rapidly through small-bowel and majority of the large luciana
[2020-10-21 01:57] LABS: Cocaine Screen,Urine Negative ng/ml (<300); Methadone Screen,Urine Negative ng/ml (<300)
[2020-10-21 01:58] LABS: Opiate Screen,Urine Negative ng/ml (<300); Phencyclidine Screen,Urine Negative ng/ml (<25)
[2020-10-21 04:08] LABS: Prostate Specific Ag Screen 42.9 ng/ml (0.0-4.0)
--- NOTE | 2020-10-21 05:25 | PC.NURSE ---
PT ARRIVED TO THE FLOOR VIA W/C FROM ED WITH STAFF AT 0008
[2020-10-21 07:10] LABS: Basophils # 0.1 K/mm3 (0-0.2); Basophils % 0.4 % (0.1-2.0); Eosinophils # 0.5 K/mm3 (0.0-0.4); Eosinophils % 3.1 % (0.1-12.0); Hematocrit 28.9 % (42.0-52.0); Hemoglobin 9.2 g/dL (14.1-18.0); Lymphocytes # 3.2 K/mm3 (0.7-4.5); Lymphocytes % 20.9 % (10-50); Mean Corpuscular Hemoglobin 30.7 pg (27.0-31.2); Mean Corpuscular Volume 96.1 fl (80-94); Mean Platelet Volume 8.1 fl (7.4-10.4); Monocytes # 1.1 K/mm3 (0.1-1.0); Monocytes % 7.4 % (1.7-9.3); Neutrophils # 10.4 K/mm3 (1.8-7.8); Neutrophils % 68.2 % (37.0-80.0); Platelet Count 514 K/mm3 (142-424); Red Cell Distribution Width 15.6 % (11.5-17.5); White Blood Count 15.2 K/mm3 (4.8-10.8)
[2020-10-21 07:36] LABS: Blood Urea Nitrogen 41 mg/dl (9-20); Carbon Dioxide 21 mmol/L (22.0-30.0); Chloride 107 mmol/L (98-107); Creatinine Clearance Estimated 36 mL/min (50-200); Estimated Glomerular Filt Rate 39 ml/min (>60); GFR (African American) 47 ML/MIN (>60); Glucose 116 mg/dl (74-100); Sodium 137 mmol/L (136-145)
[2020-10-21 09:03] LABS: Lipase 3854 U/L (23-300)
--- NOTE | 2020-10-21 09:03 | HMH.GSCON ---
*Admission Date: 10/21/20 *Reason for consult:: Possible EGD *History of present illness: Patient is a 55-year-old male who presented to the emergency department last night with several day history of feeling generally ill with some flulike symptoms and diffuse abdominal pain and pain in his back. Evaluation in the emergency department revealed findings consistent with chemical pancreatitis with elevated amylase and lipase. Patient also describes some symptoms of early satiety. He underwent CT scanning of the abdomen and pelvis. This is most notable for blastic changes of the spine and bony pelvis consistent with metastatic disease, large hepatic subcapsular fluid collection, thickening and exophytic mass of the antrum and duodenum consistent with neoplasm, possible adenocarcinoma versus lymphoma. Surgical consultation was obtained for possible EGD. Review of Systems - Review of Systems Review of systems:: pertinent systems reviewed and negative unless documented below - *Neurologic Denies localized weakness, Denies seizure-like activity [facility] History Medical History: Reports:: Anxiety, Cancer, Depression, Hypertension Denies:: Diabetes Mellitus Type 1, Diabetes Mellitus Type 2, MRSA, Seizures *Have you ever received a pneumonia vaccine?: Yes *Have you received a flu vaccine this season?: No Other Medical History: Reports: Arthritis, Thyroid Disease. Denies: Blood Transfusion Reaction Other Surgeries: Yes: No Previous Surgery Amputation: No Fractures: No - *Social History Last grade of school completed: 11th or 12th Smoking Status: Former smoker Alcohol Intake: current Alcohol Intake Frequency:: 3 or more drinks per day Substance Use Type: denies use *Occupational Status:: disabled Housing: apartment Household Members: other *Travel in the last 8 weeks: None - Psychiatric History Pschychiatric History:: Reports:: Anxiety, Depression Family Hx:: Asthma, Cancer, Heart Attack, Hypertension, Stroke Meds Home Medications Medication Instructions Recorded Confirmed Type Cetirizine HCl 10 mg PO DAILY 10/20/20 10/21/20 History Cholecalciferol (Vitamin D3) 1 cap PO DAILY 10/20/20 10/21/20 History [Vitamin D3] Ergocalciferol (Vitamin D2) 1 tab PO DAILY 10/20/20 10/21/20 History [Drisdol] Furosemide [Furosemide 40MG tAB*] 40 mg PO DAILY 10/20/20 10/21/20 History Hydralazine HCl [Hydralazine HCl 25 mg PO TID 10/20/20 10/21/20 History 25mg Tablet] Meclizine HCl 12.5 mg PO BID PRN 10/20/20 10/21/20 History Metoprolol Succinate [Metoprolol 25 mg PO DAILY 10/20/20 10/21/20 History Succinate 25mg Tablet*] allopurinoL [Allopurinol 100mg 100 mg PO DAILY 10/20/20 10/21/20 History tablet] Allergies Allergy/AdvReac Type Severity Reaction Status Date / Time aspirin [ASPIRIN] Allergy Unknown Verified 03/23/19 18:27 Penicillins [PENICILLINS] Allergy Unknown Verified 03/23/19 18:27 Exam Vital signs and Labs for Last 24 Hours: Temp Pulse Resp BP Pulse Ox 98.1 F 84 16 134/88 100 10/21/20 08:00 10/21/20 08:00 10/21/20 08:00 10/21/20 08:00 10/21/20 08:00 Laboratory Results - last 24 hr 10/20/20 23:18: WBC 15.8 H, RBC 3.07 L, Hgb 9.2 L, Hct 29.9 L, MCV 97.6 H, MCH 29.9, MCHC 30.7 L, RDW 15.7, Plt Count 620 H, MPV 8.3, Neut % (Auto) 68.3, Lymph % (Auto) 21.7, [place] % (Auto) 6.5, Eos % (Auto) 3.0, Baso % (Auto) 0.6, Neut # (Auto) 10.8 H, Lymph # (Auto) 3.4, [place] # (Auto) 1.0, Eos # (Auto) 0.5 H, Baso # (Auto) 0.1, Total Counted 100, Neutrophils % (Manual) 80 H, Band Neutrophils % 3.0, Lymphocytes % (Manual) 15, Eosinophils % (Manual) 2, Toxic Granulation 1+, Platelet Estimate Moderate increase, Hypochromasia 1+, Macrocytosis 1+, Rouleaux 1+ 10/20/20 23:18: Sodium 138, Potassium 3.5, Chloride 104, Carbon Dioxide 20 L, Anion Gap 17.5 H, BUN 44 H, Creatinine 2.10 H, Estimated Creat Clear 38, Estimated GFR 33 L, Est GFR ( Amer) 40 L, Glucose 121 H, Calcium 9.8, Total Bilirubin 0.5, Direct Bilirubin
--- NOTE | 2020-10-21 09:17 | HMH.HP ---
*Admission Date: 10/21/20 *Chief complaint: abd pain *History of present illness: this pt presented to the ed last pm with progressive abd pain with nausea and dec po intake - no etoh - pt with no melena and no vomiting - pt was seen in the ed and noted to have abn ct of abd and pelvis and had elevated amylase and lipase - also had abn area gastric area with bone blast lesions - no known cancer - [facility] History I have reviewed the patient's past medical history: Yes Medical History: Reports:: Anxiety, Cancer, Depression, Hypertension Denies:: Diabetes Mellitus Type 1, Diabetes Mellitus Type 2, MRSA, Seizures *Have you ever received a pneumonia vaccine?: Yes *Have you received a flu vaccine this season?: No Other Medical History: Reports: Arthritis, Thyroid Disease. Denies: Blood Transfusion Reaction Other Surgeries: Yes: No Previous Surgery Amputation: No Fractures: No - *Social History Last grade of school completed: 11th or 12th Smoking Status: Former smoker Alcohol Intake: current Alcohol Intake Frequency:: 3 or more drinks per day Substance Use Type: denies use *Occupational Status:: disabled Housing: apartment Household Members: other *Travel in the last 8 weeks: None - Psychiatric History Pschychiatric History:: Reports:: Anxiety, Depression Family Hx:: Asthma, Cancer, Heart Attack, Hypertension, Stroke Review of Systems - Review of Systems Review of systems:: pertinent systems reviewed and negative unless documented below - Constitutional Reports malaise, Denies fever(s) - Eyes Denies change in vision - ENT Denies dizziness - *Cardiovascular Reports chest pain, Denies shortness of breath - *Respiratory Denies cough - *Gastrointestinal Reports abdominal pain, Reports nausea, Denies vomiting - *Genitourinary Denies blood in urine - *Musculoskeletal Denies joint pain - Integumentary/Breasts Denies rash - *Neurologic Denies dizziness, Denies localized weakness, Denies seizure-like activity Meds Home Medications Medication Instructions Recorded Confirmed Type Cetirizine HCl 10 mg PO DAILY 10/20/20 10/21/20 History Cholecalciferol (Vitamin D3) 1 cap PO DAILY 10/20/20 10/21/20 History [Vitamin D3] Ergocalciferol (Vitamin D2) 1 tab PO DAILY 10/20/20 10/21/20 History [Drisdol] Furosemide [Furosemide 40MG tAB*] 40 mg PO DAILY 10/20/20 10/21/20 History Hydralazine HCl [Hydralazine HCl 25 mg PO TID 10/20/20 10/21/20 History 25mg Tablet] Meclizine HCl 12.5 mg PO BID PRN 10/20/20 10/21/20 History Metoprolol Succinate [Metoprolol 25 mg PO DAILY 10/20/20 10/21/20 History Succinate 25mg Tablet*] allopurinoL [Allopurinol 100mg 100 mg PO DAILY 10/20/20 10/21/20 History tablet] Allergies Allergy/AdvReac Type Severity Reaction Status Date / Time aspirin [ASPIRIN] Allergy Unknown Verified 03/23/19 18:27 Penicillins [PENICILLINS] Allergy Unknown Verified 03/23/19 18:27 Exam Vital signs and Labs for Last 24 Hours: Temp Pulse Resp BP Pulse Ox 98.1 F 84 16 134/88 100 10/21/20 08:00 10/21/20 08:00 10/21/20 08:00 10/21/20 08:00 10/21/20 08:00 Laboratory Results - last 24 hr 10/20/20 23:18: WBC 15.8 H, RBC 3.07 L, Hgb 9.2 L, Hct 29.9 L, MCV 97.6 H, MCH 29.9, MCHC 30.7 L, RDW 15.7, Plt Count 620 H, MPV 8.3, Neut % (Auto) 68.3, Lymph % (Auto) 21.7, [place] % (Auto) 6.5, Eos % (Auto) 3.0, Baso % (Auto) 0.6, Neut # (Auto) 10.8 H, Lymph # (Auto) 3.4, [place] # (Auto) 1.0, Eos # (Auto) 0.5 H, Baso # (Auto) 0.1, Total Counted 100, Neutrophils % (Manual) 80 H, Band Neutrophils % 3.0, Lymphocytes % (Manual) 15, Eosinophils % (Manual) 2, Toxic Granulation 1+, Platelet Estimate Moderate increase, Hypochromasia 1+, Macrocytosis 1+, Rouleaux 1+ 10/20/20 23:18: Sodium 138, Potassium 3.5, Chloride 104, Carbon Dioxide 20 L, Anion Gap 17.5 H, BUN 44 H, Creatinine 2.10 H, Estimated Creat Clear 38, Estimated GFR 33 L, Est GFR ( Amer) 40 L, Glucose 121 H, Calcium 9.8, Total Bilir[place]
[2020-10-21 11:17] LABS: Calcium 8.8 mg/dl (8.4-10.2)
--- NOTE | 2020-10-21 15:26 | P.CONPHA_ITS ---
[facility] VTE Monitoring - Patient Demographics Admission date: 10/21/20 Report Date: 10/21/20 Time: 15:27 Allergies/Adverse Reactions: Patient Allergies aspirin [ASPIRIN] Allergy (Unknown, Verified 03/23/19 18:27) Penicillins [PENICILLINS] Allergy (Unknown, Verified 03/23/19 18:27) Height: 1.63 m Weight: 56.699 kg Patient Problems: Current Active Problems Pancreatitis, acute (Acute) Gastric cancer (Acute) Metastatic cancer to spine (Acute) KAMLESH (acute kidney injury) (Acute) Anemia (Acute) Elevated prostate specific antigen (PSA) (Acute) - VTE Risk Labs: VTE Related Lab Results Hgb 9.2 g/dL (14.1-18.0) L 10/21/20 06:57 Hct 28.9 % (42.0-52.0) L 10/21/20 06:57 Plt Count 514 K/mm3 (142-424) H 10/21/20 06:57 BUN 41 mg/dl (9-20) H 10/21/20 06:57 Creatinine 1.80 mg/dl (0.66-1.25) H 10/21/20 06:57 Estimated Creat Clear 36 mL/min (50-200) 10/21/20 06:57 VTE Score: 3 VTE Risk Level: Low Risk - Prophylaxis VTE Prophylaxis Ordered?: Yes Types of VTE Prophylaxis: TEDS Knee High, Pharmacological Location of Applied Device: Bilateral Lower Extremeties Pharmacologic Type: Enoxaparin
--- NOTE | 2020-10-21 20:30 | PC.NURSE ---
PT ASSESSED AT THIS TIME. PAIN STATES STABBING PAIN 10/10 ON VU IN ABD THAT RADIATES TO BACK. WILL MEDICATE PER EMAR ACCORDING TO SO. PT STATES THAT HE HAS BEEN HAVING DIARRHEA AND WILL CONTINUE TO OBSERVE THIS. PT ON CLEAR LIQUID DIET STATES THAT WATER WAS HURTING HIS STOMACH. RN NOTICED SERRIA MIST AT BEDSIDE. RN ENCOURAGED PT TO NOT DRINK CARBONATED BEVERAGES THIS MAY HURT STOMACH WORSE. PT VU. PT GIVEN ICE CHIPS AND GATORADE AT THIS TIME. EDEMA NOTED BILATERAL ANKLE AND PEDAL NONPITTING. BILATERAL LUNG SOUNDS CLEAR. WILL CONTINUE TO OBSERVE.
--- NOTE | 2020-10-21 22:00 | PC.NURSE ---
DR. GARCIA ON PHONE AT THIS TIME. REPORT GIVEN OF PT PAIN. NEW ORDERS FOR 4 MG MORPHINE Q4H PRN R/T SEVERE PAIN. ORDERS REPEATED AND VERIFIED.
--- NOTE | 2020-10-21 22:58 | PC.NURSE ---
PT MEDICATED PER PAIN AT THIS TIME. RATES 9/10 ON VERBAL SCALE. WILL CONTINUE TO OBSERVE.
[2020-10-22] VITALS (7 sets, daily range): BP systolic 122–143; BP diastolic 77–88; PULSE 86–104; RESP 16–18; TEMP 36.4–37; O2SAT 97–100; BMI 21.9
--- NOTE | 2020-10-22 05:55 | PC.NURSE ---
PT RESTING IN BED WITH EYES CLOSED. RESPIRATIONS EVEN AND UNLABORED. PT IS ON RA. NO CHANGES NOTED. WILL CONTINUE TO OBSRVE.
--- NOTE | 2020-10-22 07:34 | PC.NURSE ---
REPORT GIVEN TO Jenny LYLES RN
--- NOTE | 2020-10-22 09:34 | CT_ITS ---
PROCEDURE: CT HEAD/BRAIN WO CON Referring Doctor: Daljit Aguilar Patient Age:55Y CLINICAL INDICATION: altered mental status- COMPARISON: CT HDWO CT HEAD W/O CONTRAST from 03/04/[address] HEAD W/O CONTRAST from 07/12/[address] head/brain wo con from 02/03/2019 TECHNIQUE: No IV contrast. Standard axial images were obtained. All CT scans at the facility use one or more dose reduction, viz: automated exposure control, ma/kV adjustment per patient size (including targeted exams where dose is matched to indication, i.e. head), or iterative reconstruction technique. FINDINGS: No territorial infarct. No hemorrhage. No subdural nor extra-axial collection . Diffuse cerebral atrophy. Mild prominence the lateral ventricles reflects is atrophy with ventricles and basal cisterns otherwise clear and satisfactory.. No mass or midline shift nor mass effect. The brain appears similar to previous CT brain studies listed above except for some very minor observations lateral to the head of right caudate There are chronic small vessel deep white-matter ischemic gliotic changes with most notable vague low-density is seen at lateral to the head of right caudate nucleus and towards the anterior aspect of right basal ganglia (axial 18 and 19),.-there may be slight interval progression of the deep white matter low-density this area. Would tend to favor these are more likely favor these are more likely progressive of this area chronic features at deep white matter rather than acute unless new symptoms are present.. Also noted prominent sulcus and small focal area of peripheral cortical atrophy at the left frontal lobe-image 12. This is clearly stable longstanding feature unchanged since previous studies. 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 Encephalomalacia and some volume loss and low-density again seen here similar to previous studies from 2017, 2019 Skull intact- calvarium and scalp unremarkable-stable. Nomastoid effusions. Mastoid air cells are well developed and clear. Middle ear clear. IAC's symmetric. Visualized portions of the paranasal sinuses satisfactory. IMPRESSION: No hemorrhage. No new territorial infarct. No subdural collection Cerebral atrophy w chronic small vessel deep white-matter ischemic gliotic changes. On close inspection suggestion of very subtle additional deep white matter low-density changes just lateral to the head of caudate when compared to 2019 CT head. 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
--- NOTE | 2020-10-22 09:36 | HMH.ACPN2 ---
Internal Medicine - PN: Subj *Date: 10/22/20 *Time: 09:36 Interval history: doing better today- reviewed labs/meds and vital signs - awaiting more eval at this time Exam Vital signs and Labs for Last 24 Hours: Temp Pulse Resp BP Pulse Ox 97.9 F 86 16 135/80 100 10/22/20 08:00 10/22/20 08:00 10/22/20 04:00 10/22/20 08:00 10/22/20 08:00 Laboratory Results - last 24 hr 10/21/20 06:57: Anion Gap 13.0, Estimated Creat Clear 36, Estimated GFR 39 L, Est GFR ( Amer) 47 L, Calcium 8.8 D I & O for Last 24 hours: Intake & Output 10/19/20 10/20/20 10/21/20 10/22/20 11:59 11:59 11:59 11:59 Intake Total 1000 / 1000 2360 / 2360 Balance 1000 / 1000 2360 / 2360 Weight 125 lb 128 lb 5 oz - Constitutional no acute distress, cachectic - *Routine HEENT Exam Head: Present: normocephalic Eye: Present: EOMI, PERRL ENT: Present: mucous membranes dry - *Routine Neck Exam Absent: JVD - *Routine Respiratory Exam Present: decreased breath sounds - *Routine Cardiovascular Exam Present: RRR, murmur - *Routine Abdominal Exam Present: soft, tenderness - *Routine Extremities Exam Absent: calf tenderness - *Routine Skin Exam Present: intact - *Routine Neurological Exam Present: alert, CN II-XII intact - Routine Psychiatric Exam Present: normal affect Assessment and Plan (1) Pancreatitis, acute Status: Acute Qualifiers: Pancreatitis type: other Acute pancreatitis complication: unspecified Qualified Code(s): K85.80 - Other acute pancreatitis without necrosis or infection Category: Medical Code(s): K85.90 - Acute pancreatitis without necrosis or infection, unspecified (2) Gastric cancer Status: Acute Qualifiers: Malignant neoplasm of stomach location: unspecified location Qualified Code(s): C16.9 - Malignant neoplasm of stomach, unspecified Category: Medical Code(s): C16.9 - Malignant neoplasm of stomach, unspecified (3) Metastatic 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
[2020-10-22 14:24] LABS: Basophils # 0.1 K/mm3 (0-0.2); Basophils % 0.6 % (0.1-2.0); Eosinophils # 0.5 K/mm3 (0.0-0.4); Eosinophils % 3.6 % (0.1-12.0); Hematocrit 28.8 % (42.0-52.0); Hemoglobin 8.8 g/dL (14.1-18.0); Lymphocytes # 2.9 K/mm3 (0.7-4.5); Lymphocytes % 21.5 % (10-50); Mean Corpuscular HGB Conc 30.6 g/dL (31.8-35.4); Mean Corpuscular Hemoglobin 30.3 pg (27.0-31.2); Mean Corpuscular Volume 98.9 fl (80-94); Mean Platelet Volume 9.3 fl (7.4-10.4); Neutrophils # 9.1 K/mm3 (1.8-7.8); Neutrophils % 67.4 % (37.0-80.0); Platelet Count 605 K/mm3 (142-424); Red Blood Count 2.91 M/mm3 (4.60-6.20); Red Cell Distribution Width 15.8 % (11.5-17.5); White Blood Count 13.5 K/mm3 (4.8-10.8)
[2020-10-22 14:26] LABS: Chloride 111 mmol/L (98-107); Potassium 3.4 mmoL/L (3.5-5.1); Sodium 139 mmol/L (136-145)
[2020-10-22 14:29] LABS: Anion Gap 10.4 mEq/L (5-15); Blood Urea Nitrogen 27 mg/dl (9-20); Calcium 9.2 mg/dl (8.4-10.2); Carbon Dioxide 21 mmol/L (22.0-30.0); Creatinine Clearance Estimated 48 mL/min (50-200); Estimated Glomerular Filt Rate 52 ml/min (>60); GFR (African American) 63 ML/MIN (>60); Glucose 120 mg/dl (74-100); Lipase 1903 U/L (23-300)
--- NOTE | 2020-10-22 16:21 | INFXCTL.NOTE ---
HE IS AOX4, ABLE TO MAKE NEEDS KNOWN TO TAFF, AMBULATES INDEPENDENTLY, NEEDS TO BE NPO AT MIDNIGHT FOR [facility] CONSULT TOMORROW. TOLERATING RA, NO NEEDS AT THIS TIME, WILL CONTINUE TO MONITOR.
--- NOTE | 2020-10-22 18:15 | PC.NURSE ---
AOX4, TOLERATING RA, TOLERATED DIET, NEEDS TO BE NPO AT MIDNIGHT FOR CONSULT.
[2020-10-23] VITALS (17 sets, daily range): BP systolic 112–151; BP diastolic 64–90; PULSE 79–123; RESP 16–19; TEMP 36.4–37.1; O2SAT 96–100; BMI 21.7
--- NOTE | 2020-10-23 04:22 | PC.NURSE ---
PT RESTING WITH EYES CLOSED AT THIS TIME. MEDICATED FOR PAIN X 1 THIS SHIFT.VSS, PT A&O X 4. PT WITH DIMINISHED BREATH SOUNDS, ON ROOM AIR. VOIDS PER BATHROOM. PT NPO SINCE MIDNIGHT FOR GI CONSULT TODAY. ABD SOFT, DISTENDED AND TENDER TO PALPATION. BOWEL SOUNDS ACTIVE X 4 QUADS PT DENIES ANY DIARRHEA OF THIS TIME. IV PATENT. NO NEEDS AT THIS TIME. CALL LIGHT WITHIN REACH, WILL CONTINUE TO MONITOR.
--- NOTE | 2020-10-23 08:15 | P.PN_ITS ---
Subjective Patient reports: feels better Progress Note: A&P (1) Pancreatitis, acute Status: Acute (2) Gastric cancer Status: Acute (3) Metastatic cancer to spine Status: Acute (4) KAMLESH (acute kidney injury) Status: Acute (5) Anemia Status: Acute (6) Elevated prostate specific antigen (PSA) Status: Acute Assessment and Plan for All Diagnoses:: GI consult today. Exam Vital signs and Labs for Last 24 Hours: Temp Pulse Resp BP Pulse Ox 98.0 F 101 H 16 124/73 97 10/23/20 04:00 10/23/20 04:00 10/23/20 04:00 10/23/20 04:00 10/23/20 04:00 Laboratory Results - last 24 hr 10/22/20 14:15: WBC 13.5 H, RBC 2.91 L, Hgb 8.8 L, Hct 28.8 L, MCV 98.9 H, MCH 30.3, MCHC 30.6 L, RDW 15.8, Plt Count 605 H, MPV 9.3, Neut % (Auto) 67.4, Lymph % (Auto) 21.5, [place] % (Auto) 7.0, Eos % (Auto) 3.6, Baso % (Auto) 0.6, Neut # (Auto) 9.1 H, Lymph # (Auto) 2.9, [place] # (Auto) 1.0, Eos # (Auto) 0.5 H, Baso # (Auto) 0.1 10/22/20 14:15: Sodium 139, Potassium 3.4 L, Chloride 111 H, Carbon Dioxide 21 L , Anion Gap 10.4, BUN 27 H D, Creatinine 1.40 H D, Estimated Creat Clear 48, Estimated GFR 52 L, Est GFR ( Amer) 63 D, Glucose 120 H, Calcium 9.2, Lipase 1903 H I & O for Last 24 hours: Intake & Output 10/20/20 10/21/20 10/22/20 10/23/20 11:59 11:59 11:59 11:59 Intake Total 1000 / 1000 2360 / 2360 360 / 360 Balance 1000 / 1000 2360 / 2360 360 / 360 Weight 125 lb 128 lb 5 oz 127 lb 6 oz Microbiology Reports for the Last 24 Hours: Microbiology 10/20/20 23:18 Blood Blood Culture - Preliminary NO GROWTH AFTER 48 HOURS 10/20/20 23:18 Blood Blood Culture - Preliminary NO GROWTH AFTER 48 HOURS - *Routine Abdominal Exam Present: soft, distended. Absent: tenderness
--- NOTE | 2020-10-23 09:00 | PC.NURSE ---
PT ASSESSED AT THIS TIME. BILATERAL LUNG SOUNDS CLEAR. NO EDEMA NOTED. ABD IS DISTENDED ROUND AND TENDER TO PALPATION OR WITH MOVEMENT. PAIN IS RATED 7/10 ON VERBAL SCALE. PT MEDICATED PER EMAR R.T THIS. PT IS CURRENTLY NPO AND AWAITING FOR EGD AT THIS TIME. PT LYING IN BED RESTING AT INTERVAL. DENIES ANY DIARRHEA SINCE YESTERDAY. GENERALIZED WEAKNESS. WILL CONTINUE TO OBSERVE
--- NOTE | 2020-10-23 09:16 | HMH.ACPN2 ---
Internal Medicine - PN: Subj *Date: 10/23/20 *Time: 08:20 Interval history: pt states he feels better, abd not as tender today Exam Vital signs and Labs for Last 24 Hours: Temp Pulse Resp BP Pulse Ox 98.0 F 101 H 16 124/73 97 10/23/20 04:00 10/23/20 04:00 10/23/20 04:00 10/23/20 04:00 10/23/20 04:00 Laboratory Results - last 24 hr 10/22/20 14:15: WBC 13.5 H, RBC 2.91 L, Hgb 8.8 L, Hct 28.8 L, MCV 98.9 H, MCH 30.3, MCHC 30.6 L, RDW 15.8, Plt Count 605 H, MPV 9.3, Neut % (Auto) 67.4, Lymph % (Auto) 21.5, [place] % (Auto) 7.0, Eos % (Auto) 3.6, Baso % (Auto) 0.6, Neut # (Auto) 9.1 H, Lymph # (Auto) 2.9, [place] # (Auto) 1.0, Eos # (Auto) 0.5 H, Baso # (Auto) 0.1 10/22/20 14:15: Sodium 139, Potassium 3.4 L, Chloride 111 H, Carbon Dioxide 21 L, Anion Gap 10.4, BUN 27 H D, Creatinine 1.40 H D, Estimated Creat Clear 48, Estimated GFR 52 L, Est GFR ( Amer) 63 D, Glucose 120 H, Calcium 9.2, Lipase 1903 H I & O for Last 24 hours: Intake & Output 10/20/20 10/21/20 10/22/20 10/23/20 11:59 11:59 11:59 11:59 Intake Total 1000 / 1000 2360 / 2360 360 / 360 Balance 1000 / 1000 2360 / 2360 360 / 360 Weight 125 lb 128 lb 5 oz 127 lb 6 oz Microbiology Reports for the Last 24 Hours: Microbiology 10/20/20 23:18 Blood Blood Culture - Preliminary NO GROWTH AFTER 48 HOURS 10/20/20 23:18 Blood Blood Culture - Preliminary NO GROWTH AFTER 48 HOURS - Constitutional no acute distress, thin - *Routine HEENT Exam Head: Present: normocephalic Eye: Present: PERRL ENT: Present: mucous membranes moist - *Routine Neck Exam Present: supple. Absent: lymphadenopathy - *Routine Respiratory Exam Present: CTA bilaterally - *Routine Cardiovascular Exam Present: RRR - *Routine Abdominal Exam Present: soft, normoactive bowel sounds, tenderness. Absent: distended - *Routine Extremities Exam Present: normal capillary refill. Absent: cyanosis, clubbing, edema - *Routine Skin Exam Present: warm. Absent: rash - *Routine Neurological Exam Present: alert, oriented X3 - Routine Psychiatric Exam Present: normal affect Assessment and Plan (1) Pancreatitis, acute Status: Acute Qualifiers: Pancreatitis type: other Acute pancreatitis complication: unspecified Qualified Code(s): K85.80 - Other acute pancreatitis without necrosis or infection Category: Medical Code(s): K85.90 - Acute pancreatitis without necrosis or infection, unspecified (2) Gastric cancer Status: Acute Qualifiers: Malignant neoplasm of stomach location: unspecified location Qualified Code(s): C16.9 - Malignant neoplasm of stomach, unspecified Category: Medical Code(s): C16.9 - Malignant neoplasm of stomach, unspecified (3) Metastatic 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 - Assessment and plan all Dx Assessment and Plan for all problems:: rounded with dr richard all orders per dr richard elena consult [facility] [employer] labs
[2020-10-23 10:11] LABS: Basophils % 0.3 % (0.1-2.0); Eosinophils # 0.5 K/mm3 (0.0-0.4); Eosinophils % 4.1 % (0.1-12.0); Hematocrit 26.9 % (42.0-52.0); Hemoglobin 8.4 g/dL (14.1-18.0); Lymphocytes # 2.5 K/mm3 (0.7-4.5); Lymphocytes % 20.4 % (10-50); Mean Corpuscular HGB Conc 31.1 g/dL (31.8-35.4); Mean Corpuscular Hemoglobin 30.9 pg (27.0-31.2); Mean Corpuscular Volume 99.4 fl (80-94); Mean Platelet Volume 8.5 fl (7.4-10.4); Neutrophils # 8.2 K/mm3 (1.8-7.8); Neutrophils % 67.2 % (37.0-80.0); Platelet Count 571 K/mm3 (142-424); Red Blood Count 2.71 M/mm3 (4.60-6.20); Red Cell Distribution Width 15.9 % (11.5-17.5); White Blood Count 12.2 K/mm3 (4.8-10.8)
[2020-10-23 10:18] LABS: Chloride 113 mmol/L (98-107); Sodium 140 mmol/L (136-145)
[2020-10-23 10:19] LABS: Potassium 3.8 mmoL/L (3.5-5.1)
[2020-10-23 10:22] LABS: Anion Gap 9.8 mEq/L (5-15); Blood Urea Nitrogen 21 mg/dl (9-20); Calcium 9.2 mg/dl (8.4-10.2); Carbon Dioxide 21 mmol/L (22.0-30.0); Creatinine Clearance Estimated 51 mL/min (50-200); Estimated Glomerular Filt Rate 57 ml/min (>60); GFR (African American) 69 ML/MIN (>60); Glucose 106 mg/dl (74-100)
--- NOTE | 2020-10-23 11:54 | HMH.ANESCL ---
[facility] Anesthesia Checklist - Patient Identification Patient Identification: Arm Band - Structural Data Admitted From: Inpatient Planned Operative Procedure/s: egd Consent for Planned Operative Procedure(s) Verified: Yes Verified Documents: Surgical Consent, History and Physical - NPO Status Verified Time NPO: 00:00 - Additional verifications Anesthesia Reactions: No Hx Blood Transfusions: No Blood Transfusion Reaction: No - Airway Assessment C-Spine Mobility Assessed: Yes (mp2) TMJ Mobility Assessed: Yes Dentition: Good Dentition - Neurological Assessment Level of Consciousness: Awake, Alert - Anesthesia Plan Anesthesia Risk discussed: Yes Anesthesia Plan: Verified ASA Class: III Anesthesia Type: MAC [facility] History I have reviewed the patient's past medical history: Yes Medical History: Reports:: Anxiety, Cancer, Depression, Hypertension Denies:: Diabetes Mellitus Type 1, Diabetes Mellitus Type 2, MRSA, Seizures *Have you ever received a pneumonia vaccine?: Yes *Have you received a flu vaccine this season?: No Other Medical History: Reports: Arthritis, Thyroid Disease. Denies: Blood Transfusion Reaction Anesthesia experience/problems:: nac Other Surgeries: Yes: EGD Amputation: No Fractures: No - *Social History Last grade of school completed: 11th or 12th Smoking Status: Former smoker Alcohol Intake: current Alcohol Intake Frequency:: 3 or more drinks per day Substance Use Type: denies use *Occupational Status:: disabled Housing: apartment Household Members: other *Travel in the last 8 weeks: None - Psychiatric History Pschychiatric History:: Reports:: Anxiety, Depression Family Hx:: Asthma, Cancer, Heart Attack, Hypertension, Stroke
--- NOTE | 2020-10-23 12:00 | PC.NURSE ---
PT OFF OF UNIT AT THIS TIME.
--- NOTE | 2020-10-23 12:42 | P.PCN_ITS ---
[facility] Procedure Note Procedure Note:: Upper Endoscopy Procedure Report: Esophagogastroduodenoscopy with cold biopsies Endoscopost: Donnie Momin II, MD Referring Physician: Daljit Aguilar MD Date of Procedure: October 23, 2020 Equipment: Olympus GIF 180 standard upper endoscope Sedation: MAC sedation Indications: Mr. Benton is a 55-year-old gentleman who was recently admitted to [facility] with fatigue and malaise. He has had some epigastric abdominal discomfort, nausea and early satiety. Upon admission, his amylase and lipase were elevated at [address] scan of the abdomen and pelvis showed interval development of blastic metastatic lesions within the spinal sacrum and bony pelvis. There was also evidence of free abdominal fluid. There was an exophytic mass contiguous with the first and second portion of the duodenum and possibly involving the gastric antrum. This was felt to be a possible pancreatic fluid collection or early pseudocyst (possible inflammatory). The patient does have a history of alcohol. Procedure: Prior to the procedure, a history and physical exam was performed, and patient's medications and allergies were reviewed. The risks, benefits and alternatives of the sedation and procedure were discussed with the patient. All questions were answered and informed consent was obtained. The patient was brought to the procedure room. Patient identification and proposed procedure were verified by the physician and the nurse. The patient was placed in a left lateral decubitus position and the scope was passed under direct vision. Throughout the procedure, the patient's blood pressure, pulse, and oxygen saturations were monitored continuously. The upper GI endoscopy was accomplished without difficulty. The patient tolerated the procedure well. Findings: The scope was passed directly into the upper esophagus and advanced to the third portion of the duodenum. Within the second portion of the duodenum was duodenal mucosal edema and some mild luminal stenosis and biopsies were taken from the second portion of the duodenum. The scope was withdrawn through a normal duodenal bulb and pylorus into the stomach. There was mild gastropathy of the antrum. There was mild atrophy of the fundus. The remainder of the antrum, body and fundus of the stomach were grossly normal. Upon retroflexion there was no hiatal hernia. 2 biopsies were taken in the antrum and along the lesser curvature for histology to rule out gastritis and/or H pylori. The scope was then withdrawn into the esophagus. The remainder of the esophageal mucosa was normal. Impression: 1. Moderate duodenitis/luminal narrowing (without intrinsic mass) and second portion of duodenum status post biopsies 2. Mild linear reactive gastropathy of antrum Plan: The findings suggest that the pancreas is the likely primary etiology of the mass and this certainly is most likely inflammatory secondary to acute and chronic pancreatitis. I would consider follow-up imaging within 1 to [address] scan. If this remains persistent, I would consider endoscopic ultrasound. I would also obtain CA 19-9 and CEA. I would recommend alcohol abstinence/tobacco abstinence. The patient's PSA was 42.9 and I strongly suspect the blastic lesions are secondary to metastatic prostate cancer.
--- NOTE | 2020-10-23 12:58 | PC.NURSE ---
REPORT FROM POST OP. PT TACHY. X2 BIOPSY. MAC SEDATION. Mary NIETO RN
--- NOTE | 2020-10-23 13:15 | PC.NURSE ---
PT RETURNED TO ROOM 205 AT THIS TIME. A&O X4. PT ON RA VSS. WILL CONTINUE TO OBSERVE.
--- NOTE | 2020-10-23 14:36 | SW/DCPLANNER ---
Addendum entered by Megan Colin 10/27/20 13:09: Shayna with [facility] did receive patient information/order and services will begin Friday for this patient. Addendum entered by Megan Colin 10/27/20 10:27: Patient information and order has been faxed to [facility]. I will follow up with [facility] once patient information/order is reviewed. Patient will discharge home later today. Addendum entered by Megan Colin 10/24/20 10:02: I have spoke with patients sister regarding discharge plans. Sister stated that patient does well at home right now, three different family members lives at same building as patient and checks on patient often and that patient could benefit from home health services at time of discharge. Sister did not have a home health preference. I have informed patients sister that patient will be with us till so he can be evaluated by our Oncologist Dr Saul. Patients sister agrees with this plan. I will continue to follow up with patient and his sister. Original Note: I have received a referral regarding: [email or web address]. I spoke with patient and he asked that I contact his sister. I did contact patients sister (Garry) and she stated that she will be here in the AM and would like to go over Meghan information with patient. I will follow up with patient and his sister tomorrow morning.
--- NOTE | 2020-10-23 15:48 | HMH.CONS ---
*Admission Date: 10/21/20 *Reason for consult:: Elevated PSA with blastic lesions noted on CT scan *History of present illness: Patient is a 55-year-old male who presented to the emergency department last night with several day history of feeling generally ill with some flulike symptoms and diffuse abdominal pain and pain in his back. Evaluation in the emergency department revealed findings consistent with chemical pancreatitis with elevated amylase and lipase. Patient also describes some symptoms of early satiety. He underwent CT scanning of the abdomen and pelvis. This is most notable for blastic changes of the spine and bony pelvis consistent with metastatic disease, large hepatic subcapsular fluid collection, thickening and exophytic mass of the antrum and duodenum consistent with neoplasm, possible adenocarcinoma versus lymphoma. Patient's PSA noted to be 49. He is not aware of any has had previous PSAs. He denies a history of prostate cancer or family history of prostate cancer. EGD earlier today revealed no evidence of stomach or duodenal masses. [facility] History Medical History: Reports:: Anxiety, Cancer, Depression, Hypertension Denies:: Diabetes Mellitus Type 1, Diabetes Mellitus Type 2, MRSA, Seizures *Have you ever received a pneumonia vaccine?: Yes *Have you received a flu vaccine this season?: No Other Medical History: Reports: Arthritis, Thyroid Disease. Denies: Blood Transfusion Reaction Anesthesia experience/problems:: nac Other Surgeries: Yes: No Previous Surgery, EGD Amputation: No Fractures: No - *Social History Last grade of school completed: 11th or 12th Smoking Status: Former smoker Alcohol Intake: current Alcohol Intake Frequency:: 3 or more drinks per day Substance Use Type: denies use *Occupational Status:: disabled Housing: apartment Household Members: other *Travel in the last 8 weeks: None - Psychiatric History Pschychiatric History:: Reports:: Anxiety, Depression Family Hx:: Asthma, Cancer, Heart Attack, Hypertension, Stroke Review of Systems - Review of Systems Review of systems:: pertinent systems reviewed and negative unless documented below - *Neurologic Denies dizziness, Denies localized weakness, Denies seizure-like activity Meds Home Medications Medication Instructions Recorded Confirmed Type Cetirizine HCl 10 mg PO DAILY 10/20/20 10/21/20 History Cholecalciferol (Vitamin D3) 1 cap PO DAILY 10/20/20 10/21/20 History [Vitamin D3] Furosemide [Furosemide 40MG tAB*] 40 mg PO DAILY 10/20/20 10/21/20 History Hydralazine HCl [Hydralazine HCl 25 mg PO TID 10/20/20 10/21/20 History 25mg Tablet] Meclizine HCl 12.5 mg PO QIDP PRN 10/20/20 10/21/20 History Metoprolol Succinate [Metoprolol 25 mg PO DAILY 10/20/20 10/21/20 History Succinate 25mg Tablet*] allopurinoL [Allopurinol 100mg 100 mg PO DAILY 10/20/20 10/21/20 History tablet] Ergocalciferol (Vitamin D2) 50,000 unit PO WEEKLY 10/21/20 10/21/20 History [Vitamin D2] Allergies Allergy/AdvReac Type Severity Reaction Status Date / Time aspirin [ASPIRIN] Allergy Unknown Verified 03/23/19 18:27 Penicillins [PENICILLINS] Allergy Unknown Verified 03/23/19 18:27 Exam Vital signs and Labs for Last 24 Hours: Temp Pulse Resp BP Pulse Ox 97.6 F 103 H 16 135/80 98 10/23/20 13:05 10/23/20 13:05 10/23/20 13:05 10/23/20 13:05 10/23/20 13:05 Laboratory Results - last 24 hr 10/23/20 09:52: WBC 12.2 H, RBC 2.71 L, Hgb 8.4 L, Hct 26.9 L, MCV 99.4 H, MCH 30.9, MCHC 31.1 L, RDW 15.9, Plt Count 571 H, MPV 8.5, Neut % (Auto) 67.2, Lymph % (Auto) 20.4, [place] % (Auto) 8.0, Eos % (Auto) 4.1, Baso % (Auto) 0.3, Neut # (Auto) 8.2 H, Lymph # (Auto) 2.5, [place] # (Auto) 1.0, Eos # (Auto) 0.5 H, Baso # (Auto) 0.0 10/23/20 09:52: Sodium 140, Potassium 3.8, Chloride 113 H, Carbon Dioxide 21 L, Anion Gap 9.8, BUN 21 H, Creatinine 1.30 H, Estimated Creat Clear 51, Estimated GFR 57 L, Est GFR ( Amer) 69, Glucose 106 H, Calciu
--- NOTE | 2020-10-23 19:25 | PC.NURSE ---
report given to shad chakraborty rn
--- NOTE | 2020-10-24 03:18 | PC.NURSE ---
PT. C/O LUQ ABD TENDERNESS. PT. HAS NOT C/O N/V/D, SOA, DIZZINESS OR PAIN THIS SHIFT. PT. HAS RESTED MOST OF SHIFT AND REPORTS SOME INCREASE IN APPETITE.
[2020-10-24 04:00] VITALS: BP 123/78; PULSE 104; RESP 19; TEMP 36.9; O2SAT 98
[2020-10-24 05:00] VITALS: BMI 22.2
[2020-10-24 08:00] VITALS: BP 129/81; PULSE 95; RESP 16; TEMP 36.7; O2SAT 100
--- NOTE | 2020-10-24 13:10 | HMH.ACPN2 ---
Internal Medicine - PN: Subj *Date: 10/24/20 *Time: 20:42 Interval history: 55-year-old male patient sitting up in bed respirations are easy/even he denies any abdominal pain reports he is feeling better. EGD was performed 10/23/2020: Impression: 1. Moderate duodenitis/luminal narrowing (without intrinsic mass) and second portion of duodenum status post biopsies 2. Mild linear reactive gastropathy of antrum Plan: The findings suggest that the pancreas is the likely primary etiology of the mass and this certainly is most likely inflammatory secondary to acute and chronic pancreatitis. I would consider follow-up imaging within 1 to [address] scan. If this remains persistent, I would consider endoscopic ultrasound. I would also obtain CA 19-9 and CEA. I would recommend alcohol abstinence/tobacco abstinence. The patient's PSA was 42.9 and I strongly suspect the blastic lesions are secondary to metastatic prostate cancer. Urology has seen 10/23/2020 and recommends: 55-year-old black male with elevated PSA and blastic lesions noted on CT scan. Usually in the presence of bony disease that is metastatic from the prostate the PSA is much higher and then the several 100 range. His prostate examination today is benign. I favor another source for metastatic disease but not out of the question that is from his prostate. Usually prostate examination is very notable as well however with very hard and nodular prostate in the presence of metastatic disease. We will continue to follow along with you. Exam Vital signs and Labs for Last 24 Hours: Temp Pulse Resp BP Pulse Ox 98.0 F 95 H 16 129/81 100 10/24/20 08:00 10/24/20 08:00 10/24/20 08:00 10/24/20 08:00 10/24/20 08:00 I & O for Last 24 hours: Intake & Output 10/21/20 10/22/20 10/23/20 10/24/20 23:59 23:59 23:59 23:59 Intake Total 1120 / 1120 2600 / 2600 840 / 840 2337 / 2337 Balance 1120 / 1120 2600 / 2600 840 / 840 2337 / 2337 Weight 125 lb 128 lb 5 oz 127 lb 6 oz 130 lb 2 oz - Constitutional no acute distress - *Routine HEENT Exam Head: Present: normocephalic Eye: Present: EOMI, implant - *Routine Respiratory Exam Present: CTA bilaterally. Absent: accessory muscle use - *Routine Cardiovascular Exam Present: RRR - *Routine Abdominal Exam Present: soft, normoactive bowel sounds. Absent: tenderness, firm - *Routine Extremities Exam Present: full ROM, pulses intact. Absent: cyanosis, calf tenderness - *Routine Skin Exam Present: intact, dry, warm. Absent: cyanosis, erythema - *Routine Neurological Exam Present: alert, oriented X3, motor deficit - Routine Psychiatric Exam Present: normal affect, normal thought process. Absent: homicidal ideation, auditory hallucinations Assessment and Plan (1) Pancreatitis, acute Status: Acute Qualifiers: Pancreatitis type: other Acute pancreatitis complication: unspecified Qualified Code(s): K85.80 - Other acute pancreatitis without necrosis or infection Category: Medical Code(s): K85.90 - Acute pancreatitis without necrosis or infection, unspecified (2) Gastric cancer Status: Acute Qualifiers: Malignant neoplasm of stomach location: unspecified location Qualified Code(s): C16.9 - Malignant neoplasm of stomach, unspecified Category: Medical Code(s): C16.9 - Malignant neoplasm of stomach, unspecified (3) Metastatic cancer to spine Status: Acute Category: Medical Code(s): C79.51 - Secondary malignant neoplasm of bone (4) KAMLESH (acute kidney injury) Status: Acute Category: Medical Code(s): N17.9 - Acute kidney failure, unspecified (5) Anemia Status: Acute Qualifiers: Anemia type: unspecified type Qualified Code(s): D64.9 - Anemia, unspecified Category: Medical Code(s): D64.9 - Anemia, unspecified (6) Elevated prostate specific antigen (PSA) Status: Acute Category: Medical Code(s): R97.20 - Elevated prostate specif
--- NOTE | 2020-10-24 14:25 | P.PN_ITS ---
Internal Medicine - PN: Subj *Date: 10/24/20 *Time: 14:25 Interval history: Patient is a 55-year-old male with blastic bony lesions confirmed by bone scan earlier today. EGD is revealed no evidence of GI malignancy. He was admitted with abdominal pain and is pancreatic enzymes were very elevated and pancreatitis was suspected. His abdominal pain is improving and he is tolerating some liquids. His pancreatic enzymes are improving as is his kidney function. His PSA is elevated at 49. His prostate examination is benign. Exam Vital signs and Labs for Last 24 Hours: Temp Pulse Resp BP Pulse Ox 98.0 F 95 H 16 129/81 100 10/24/20 08:00 10/24/20 08:00 10/24/20 08:00 10/24/20 08:00 10/24/20 08:00 I & O for Last 24 hours: Intake & Output 10/21/20 10/22/20 10/23/20 10/24/20 23:59 23:59 23:59 23:59 Intake Total 1120 / 1120 2600 / 2600 840 / 840 2337 / 2337 Balance 1120 / 1120 2600 / 2600 840 / 840 2337 / 2337 Weight 56.699 kg 58.202 kg 57.776 kg 59.024 kg - *Routine HEENT Exam Head: Present: normocephalic Eye: Present: EOMI, PERRL ENT: Present: mucous membranes moist - *Routine Neck Exam Present: supple. Absent: lymphadenopathy - *Routine Respiratory Exam Present: CTA bilaterally - *Routine Cardiovascular Exam Present: RRR - *Routine Abdominal Exam Present: soft, normoactive bowel sounds. Absent: tenderness - *Routine Neurological Exam Present: alert, oriented X3 Assessment and Plan (1) Pancreatitis, acute Status: Acute Qualifiers: Pancreatitis type: other Acute pancreatitis complication: unspecified Qualified Code(s): K85.80 - Other acute pancreatitis without necrosis or infect ion Category: Medical Code(s): K85.90 - Acute pancreatitis without necrosis or infection, unspecified (2) Gastric cancer Status: Acute Qualifiers: Malignant neoplasm of stomach location: unspecified location Qualified Code(s): C16.9 - Malignant neoplasm of stomach, unspecified Category: Medical Code(s): C16.9 - Malignant neoplasm of stomach, unspecified (3) Metastatic cancer to spine Status: Acute Category: Medical Code(s): C79.51 - Secondary malignant neoplasm of bone (4) KAMLESH (acute kidney injury) Status: Acute Category: Medical Code(s): N17.9 - Acute kidney failure, unspecified (5) Anemia Status: Acute Qualifiers: Anemia type: unspecified type Qualified Code(s): D64.9 - Anemia, unspeci fied Category: Medical Code(s): D64.9 - Anemia, unspecified (6) Elevated prostate specific antigen (PSA) Status: Acute Category: Medical Code(s): R97.20 - Elevated prostate specific antigen [PSA] 55-year-old white male with blastic bony lesions and elevated PSA. Usually with metastatic prostatic disease the PSA is much higher than 49 and the prostate is notable for palpable abnormality. While it is possible he has prostate cancer it may not be the source of the blastic lesions. Biopsy of the bony lesions is an option to definitively no what type of cancer we are dealing with. Oncology consult is pending.
[2020-10-24 16:00] VITALS: BP 133/78; PULSE 103; RESP 16; TEMP 37; O2SAT 100
--- NOTE | 2020-10-24 17:03 | NM_ITS ---
PROCEDURE: NM BONE SCAN WHOLE BODY CLINICAL INDICATION: abnormal ct, mets to spine and rib COMPARISON: CT CT ABDOMEN PELVIS WO CON from 10/21/2020 TECHNIQUE: Dose 25.5 mCi technetium MDP FINDINGS: Multifocal areas of intense increased activity are present in the thoracic and lumbar spine and multiple ribs as well as the scapula on both sides, the right ischium and the medial wall of the left acetabulum suspicious for metastatic disease. These correspond to the multiple small foci blastic foci noted on the recent CT scan. The most intense areas of increased activity are in the right is skin, the L3 vertebral body, and the T1 vertebral body. There is a focus of increased activity at both glenohumeral regions and could be either within the glenoid fossa or the humeral head medially. No abnormal activity evident within the long bones otherwise. IMPRESSION: Multiple blastic foci consistent with metastatic disease. Dictated by: Aren Bermeo MD 10/24/2020 12:25 Aren Bermeo MD in [facility] 10/24/2020 12:25
--- NOTE | 2020-10-24 18:53 | PC.NURSE ---
PATIENT A&O X4, LUNGS ARE CLEAR, PULSES EQUAL. PATIENT AMBULATES IN ROOM, TOLERATES WELL. PATIENT HAS HAD NO COMPLAINTS DURING THIS RN SHIFT, EXCEPT THE MEALS. PATIENT WOULD LIKE MORE SOLID FOODS.
[2020-10-24 20:00] VITALS: BP 138/84; PULSE 93; RESP 16; TEMP 36.9; O2SAT 98
[2020-10-25 04:00] VITALS: BP 126/82; PULSE 87; RESP 16; TEMP 36.6; O2SAT 100
--- NOTE | 2020-10-25 04:02 | PC.NURSE ---
Pt is A&O x4 this shift. Lung sounds CTA. Abdomen appears distended and is tender at the L&R lower quads. Pt has c/o abdominal pain x1 this shift, PRN pain meds administered per MAR. Pt has taken self to the restroom this shift w/ steady gait and balance. No other acute changes or complaints at this time.
[2020-10-25 05:00] VITALS: BMI 22.4
--- NOTE | 2020-10-25 07:12 | HMH.GSPN ---
Subjective Narrative: Patient is without complaints. He has undergone urology and gastroenterology consultations. Upper endoscopy revealed no evidence of any gastric or duodenal tumor. Bone scan reveals multiple blastic lesions. Urology consultation feels it is less likely metastatic prostate cancer given examination and level of PSA elevation. Progress Note: A&P (1) Pancreatitis, acute Status: Acute (2) Gastric cancer Status: Acute (3) Metastatic cancer to spine Status: Acute (4) KAMLESH (acute kidney injury) Status: Acute (5) Anemia Status: Acute (6) Elevated prostate specific antigen (PSA) Status: Acute Assessment and Plan for All Diagnoses:: No additional general surgery recommendations at this time. Exam Vital signs and Labs for Last 24 Hours: Temp Pulse Resp BP Pulse Ox 98 F 87 16 126/82 100 10/25/20 04:00 10/25/20 04:00 10/25/20 04:00 10/25/20 04:00 10/25/20 04:00 I & O for Last 24 hours: Intake & Output 10/22/20 10/23/20 10/24/20 10/25/20 11:59 11:59 11:59 11:59 Intake Total 2360 / 2360 360 / 360 2697 / 2697 1100 / 1100 Balance 2360 / 2360 360 / 360 2697 / 2697 1100 / 1100 Weight 128 lb 5 oz 127 lb 6 oz 130 lb 2 oz 131 lb 8 oz - *Routine Abdominal Exam Present: soft. Absent: tenderness
[2020-10-25 08:00] VITALS: BP 123/78; PULSE 93; RESP 16; TEMP 36.4; O2SAT 100
[2020-10-25 08:36] LABS: CA 19-9 12 U/mL (0-35); CEA 1.1 ng/mL (0.0-4.7)
[2020-10-25 09:10] LABS: Chloride 114 mmol/L (98-107); Sodium 140 mmol/L (136-145)
[2020-10-25 09:11] LABS: Basophils # 0.1 K/mm3 (0-0.2); Eosinophils # 0.7 K/mm3 (0.0-0.4); Eosinophils % 6.2 % (0.1-12.0); Hematocrit 26.4 % (42.0-52.0); Lymphocytes # 2.4 K/mm3 (0.7-4.5); Lymphocytes % 22.6 % (10-50); Mean Corpuscular HGB Conc 30.4 g/dL (31.8-35.4); Mean Corpuscular Hemoglobin 30.5 pg (27.0-31.2); Mean Corpuscular Volume 100.5 fl (80-94); Mean Platelet Volume 9.3 fl (7.4-10.4); Monocytes # 0.8 K/mm3 (0.1-1.0); Monocytes % 7.3 % (1.7-9.3); Neutrophils # 6.7 K/mm3 (1.8-7.8); Neutrophils % 62.9 % (37.0-80.0); Platelet Count 673 K/mm3 (142-424); Potassium 3.7 mmoL/L (3.5-5.1); Red Blood Count 2.63 M/mm3 (4.60-6.20); Red Cell Distribution Width 16.4 % (11.5-17.5); White Blood Count 10.7 K/mm3 (4.8-10.8)
[2020-10-25 09:13] LABS: Blood Urea Nitrogen 11 mg/dl (9-20); Creatinine Clearance Estimated 53 mL/min (50-200); Estimated Glomerular Filt Rate 57 ml/min (>60); GFR (African American) 69 ML/MIN (>60)
[2020-10-25 09:14] LABS: Anion Gap 7.7 mEq/L (5-15); Calcium 9.3 mg/dl (8.4-10.2); Carbon Dioxide 22 mmol/L (22.0-30.0); Glucose 124 mg/dl (74-100)
[2020-10-25 10:59] VITALS: BMI 22.6
--- NOTE | 2020-10-25 11:23 | HMH.ACPN2 ---
Internal Medicine - PN: Subj *Date: 10/25/20 *Time: 09:30 Interval history: 55-year-old male patient sitting up in bed reports he has good evening denies any respiratory distress or chest pain. Denies any abdominal pain and voiding without difficulty. Oncology consult is seen and will be seen tomorrow. Exam Vital signs and Labs for Last 24 Hours: Temp Pulse Resp BP Pulse Ox 97.6 F 93 H 16 123/78 100 10/25/20 08:00 10/25/20 08:00 10/25/20 08:00 10/25/20 08:00 10/25/20 08:00 Laboratory Results - last 24 hr 10/23/20 09:52: Carcinoembryonic Ag 1.1, CA 19-9 Antigen 12 10/25/20 08:39: WBC 10.7, RBC 2.63 L, Hgb 8.0 L, Hct 26.4 L, MCV 100.5 H, MCH 30.5, MCHC 30.4 L, RDW 16.4, Plt Count 673 H, MPV 9.3, Neut % (Auto) 62.9, Lymph % (Auto) 22.6, [place] % (Auto) 7.3, Eos % (Auto) 6.2, Baso % (Auto) 1.0, Neut # (Auto) 6.7, Lymph # (Auto) 2.4, [place] # (Auto) 0.8, Eos # (Auto) 0.7 H, Baso # (Auto) 0.1 10/25/20 08:39: Sodium 140, Potassium 3.7, Chloride 114 H, Carbon Dioxide 22, Anion Gap 7.7, BUN 11 D, Creatinine 1.30 H, Estimated Creat Clear 53, Estimated GFR 57 L, Est GFR ( Amer) 69, Glucose 124 H, Calcium 9.3 I & O for Last 24 hours: Intake & Output 10/22/20 10/23/20 10/24/20 10/25/20 23:59 23:59 23:59 23:59 Intake Total 2600 / 2600 840 / 840 2957 / 2957 620 / 620 Balance 2600 / 2600 840 / 840 2957 / 2957 620 / 620 Weight 128 lb 5 oz 127 lb 6 oz 130 lb 2 oz 132 lb 4.438 oz - Constitutional no acute distress - *Routine HEENT Exam Head: Present: normocephalic Eye: Present: EOMI ENT: Present: mucous membranes moist - *Routine Neck Exam Present: trachea midline. Absent: tracheal deviation - *Routine Respiratory Exam Present: CTA bilaterally. Absent: accessory muscle use - *Routine Cardiovascular Exam Present: RRR. Absent: bradycardia - *Routine Abdominal Exam Present: soft, normoactive bowel sounds. Absent: tenderness, rigid - *Routine Extremities Exam Present: cyanosis, full ROM, pulses intact. Absent: clubbing, calf tenderness - *Routine Skin Exam Present: intact, dry, warm. Absent: cyanosis, erythema - *Routine Neurological Exam Present: alert, oriented X3. Absent: altered mental status - Routine Psychiatric Exam Present: normal affect, normal thought process. Absent: auditory hallucinations, visual hallucinations Assessment and Plan (1) Pancreatitis, acute Status: Acute Qualifiers: Pancreatitis type: other Acute pancreatitis complication: unspecified Qualified Code(s): K85.80 - Other acute pancreatitis without necrosis or infection Category: Medical Code(s): K85.90 - Acute pancreatitis without necrosis or infection, unspecified (2) Gastric cancer Status: Acute Qualifiers: Malignant neoplasm of stomach location: unspecified location Qualified Code(s): C16.9 - Malignant neoplasm of stomach, unspecified Category: Medical Code(s): C16.9 - Malignant neoplasm of stomach, unspecified (3) Metastatic 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 - Assessment and plan all Dx Assessment and Plan for all problems:: Rounded with Dr. Aguilar, all orders per Dr. Aguilar 1. Continue current medical regimen 2. Oncology to see tomorrow
[2020-10-25 16:00] VITALS: BP 120/81; PULSE 92; RESP 18; TEMP 36.7; O2SAT 99
--- NOTE | 2020-10-25 19:04 | PC.NURSE ---
Addendum entered by Mayela Messina RN 10/25/20 19:09: PT DID NOT C/O PAIN THIS SHIFT. PT DID REQUEST TO BE UNHOOKED FORM IV FLUIDS. Original Note: NO ACUTE CHANGES NOTED. PT AMBULATED INDEPENDENTLY IN ROOM. VSS. WILL CONT. TO MONITOR.
[2020-10-25 20:00] VITALS: BP 139/89; PULSE 75; RESP 15; TEMP 36.9; O2SAT 99
[2020-10-26] VITALS (21 sets, daily range): BP systolic 110–151; BP diastolic 68–97; PULSE 63–93; RESP 14–20; TEMP 36.6–37.5; O2SAT 98–100; BMI 21.9
--- NOTE | 2020-10-26 05:00 | PC.NURSE ---
Pt is A&O x4 this shift. Lung sounds CTA. Abdomen appears distended, pt denies any pain or N/V/D. Pt has ambulated independently and tolerated well. Pt has refused to have IVF in place. No other acute changes or complaints at this time. VSS, call light within reach
[2020-10-26 06:48] LABS: Basophils # 0.1 K/mm3 (0-0.2); Basophils % 0.6 % (0.1-2.0); Eosinophils # 0.6 K/mm3 (0.0-0.4); Lymphocytes # 3.2 K/mm3 (0.7-4.5); Lymphocytes % 27.7 % (10-50); Mean Corpuscular HGB Conc 30.4 g/dL (31.8-35.4); Mean Corpuscular Hemoglobin 29.6 pg (27.0-31.2); Mean Corpuscular Volume 97.4 fl (80-94); Mean Platelet Volume 8.1 fl (7.4-10.4); Monocytes # 0.8 K/mm3 (0.1-1.0); Monocytes % 6.9 % (1.7-9.3); Neutrophils % 59.9 % (37.0-80.0); Platelet Count 607 K/mm3 (142-424); Red Blood Count 2.36 M/mm3 (4.60-6.20); Red Cell Distribution Width 15.7 % (11.5-17.5); White Blood Count 11.7 K/mm3 (4.8-10.8)
[2020-10-26 07:26] LABS: Chloride 111 mmol/L (98-107); Sodium 138 mmol/L (136-145)
[2020-10-26 07:27] LABS: Potassium 3.5 mmoL/L (3.5-5.1)
[2020-10-26 07:29] LABS: Blood Urea Nitrogen 11 mg/dl (9-20)
[2020-10-26 07:30] LABS: Anion Gap 7.5 mEq/L (5-15); Calcium 8.9 mg/dl (8.4-10.2); Carbon Dioxide 23 mmol/L (22.0-30.0); Creatinine Clearance Estimated 48 mL/min (50-200); Estimated Glomerular Filt Rate 52 ml/min (>60); GFR (African American) 63 ML/MIN (>60); Glucose 98 mg/dl (74-100)
--- NOTE | 2020-10-26 12:35 | CT_ITS ---
PROCEDURE: CT CHEST W CON CLINCAL INDICATION: r/o lung cancer Metastatic disease of unknown primary COMPARISON: CT [facility] CT CHEST W/ CONTRAST from 07/24/[address] abdomen pelvis wo con from 02/19/[address] ABDOMEN PELVIS WO CON from 10/21/2020 NM NM BONE SCAN WHOLE BODY from 10/24/2020 TECHNIQUE: IV Contrast: 75ml Isovue 370 Axial images obtained with sagittal and coronal reformats. All CT scans at the facility use one or more dose reduction, viz: automated exposure control, ma/kV adjustment per patient size (including targeted exams where dose is matched to indication, i.e. head), or iterative reconstruction technique. FINDINGS: No mediastinal or hilar mass or adenopathy. Coronary artery calcifications are present. There is mild ectasia of the ascending aorta 3 point cm. No evidence of aortic dissection. No evidence of central pulmonary embolus. No mediastinal or hilar mass or adenopathy. There are small bilateral pleural effusions. Bilateral lower lobe atelectatic changes are present. No suspicious pulmonary nodules are apparent. Scattered blastic lesions are present within the thoracic spine including T1, T2, T5, T6, T9, T11, and T12 consistent with metastatic disease. Small central sclerotic focus is present in the manubrium as well as blastic foci within the scapula on both sides. Incidental note is made of gynecomastia. No adenopathy apparent. A loculated subcapsular fluid collection is present in the left lobe of the liver as described on the recent abdomen CT report measuring up to 14 cm in transverse dimension. Subcapsular collections also noted along the posterior aspect of the left hepatic lobe. Perigastric fluid collection also noted along the fundus of the stomach contiguous with the subcapsular fluid collection of the liver. IMPRESSION: 1. Bilateral pleural effusions with bibasilar atelectasis. No suspicious pulmonary lesions are evident. 2. Subcapsular fluid collections along the left hepatic lobe anteriorly and posteriorly with contiguous [place] gastric fluid collection along the fundus of the stomach. These could represent pseudo cysts. 3. Numerous blastic lesions of the spine suspicious for metastatic disease. Dictated by: Aren Bermeo MD 10/26/2020 17:07 Aren Bermeo MD in [facility] 10/26/2020 17:07
--- NOTE | 2020-10-26 12:40 | HMH.CONS ---
*Admission Date: 10/21/20 *History of present illness: 55 yo aam admitted for abdl pain. ct scan done notebly demonstrates multiple blastic lesions and findings c/w pancreatitis. also concern for duodenal mass. scope was done and no mass idenitified and bx of duodenum demonstrated no malignancy. pt hgb has been 7-8 and he is supposed to get 2 units of prbc this afternoon. his psa was elevated at 42. he has been eval by urology. he has not had ct of chest. he denies smoking. he denies bone pain. [facility] History Medical History: Reports:: Anxiety, Cancer, Depression, Hypertension Denies:: Diabetes Mellitus Type 1, Diabetes Mellitus Type 2, MRSA, Seizures *Have you ever received a pneumonia vaccine?: Yes *Have you received a flu vaccine this season?: No Other Medical History: Reports: Arthritis, Thyroid Disease. Denies: Blood Transfusion Reaction Anesthesia experience/problems:: nac Other Surgeries: Yes: No Previous Surgery, EGD Amputation: No Fractures: No - *Social History Last grade of school completed: 11th or 12th Smoking Status: Former smoker Alcohol Intake: current Alcohol Intake Frequency:: 3 or more drinks per day Substance Use Type: denies use *Occupational Status:: disabled Housing: apartment Household Members: other *Travel in the last 8 weeks: None - Psychiatric History Pschychiatric History:: Reports:: Anxiety, Depression Family Hx:: Asthma, Cancer, Heart Attack, Hypertension, Stroke Review of Systems - *Neurologic Denies dizziness, Denies localized weakness, Denies seizure-like activity Meds Home Medications Medication Instructions Recorded Confirmed Type Cetirizine HCl 10 mg PO DAILY 10/20/20 10/21/20 History Cholecalciferol (Vitamin D3) 1 cap PO DAILY 10/20/20 10/21/20 History [Vitamin D3] Furosemide [Furosemide 40MG tAB*] 40 mg PO DAILY 10/20/20 10/21/20 History Hydralazine HCl [Hydralazine HCl 25 mg PO TID 10/20/20 10/21/20 History 25mg Tablet] Meclizine HCl 12.5 mg PO QIDP PRN 10/20/20 10/21/20 History Metoprolol Succinate [Metoprolol 25 mg PO DAILY 10/20/20 10/21/20 History Succinate 25mg Tablet*] allopurinoL [Allopurinol 100mg 100 mg PO DAILY 10/20/20 10/21/20 History tablet] Ergocalciferol (Vitamin D2) 50,000 unit PO WEEKLY 10/21/20 10/21/20 History [Vitamin D2] Allergies Allergy/AdvReac Type Severity Reaction Status Date / Time aspirin [ASPIRIN] Allergy Unknown Verified 03/23/19 18:27 Penicillins [PENICILLINS] Allergy Unknown Verified 03/23/19 18:27 Exam Vital signs and Labs for Last 24 Hours: Temp Pulse Resp BP Pulse Ox 98.8 F 93 H 18 117/76 100 10/26/20 08:00 10/26/20 08:00 10/26/20 08:00 10/26/20 08:00 10/26/20 08:00 Laboratory Results - last 24 hr 10/26/20 06:36: WBC 11.7 H, RBC 2.36 L, Hgb 7.0 L*, Hct 23.0 L*, MCV 97.4 H, MCH 29.6, MCHC 30.4 L, RDW 15.7, Plt Count 607 H, MPV 8.1, Neut % (Auto) 59.9, Lymph % (Auto) 27.7, [place] % (Auto) 6.9, Eos % (Auto) 5.0, Baso % (Auto) 0.6, Neut # (Auto) 7.0, Lymph # (Auto) 3.2, [place] # (Auto) 0.8, Eos # (Auto) 0.6 H, Baso # (Auto) 0.1 10/26/20 06:36: Sodium 138, Potassium 3.5, Chloride 111 H, Carbon Dioxide 23, Anion Gap 7.5, BUN 11, Creatinine 1.40 H, Estimated Creat Clear 48, Estimated GFR 52 L, Est GFR ( Amer) 63, Glucose 98 D, Calcium 8.9 10/26/20 11:05: Crossmatch ([facility]) See Detail I & O for Last 24 hours: Intake & Output 10/24/20 10/25/20 10/26/20 10/27/20 11:59 11:59 11:59 11:59 Intake Total 2697 / 2697 1720 / 1720 1200 / 1200 Output Total 1200 / 1200 Balance 2697 / 2697 1720 / 1720 0 / 0 Weight 130 lb 2 oz 132 lb 4.438 oz 128 lb 9 oz Microbiology Reports for the Last 24 Hours: Microbiology 10/20/20 23:18 Blood Blood Culture - Final NO GROWTH AFTER 5 DAYS 10/20/20 23:18 Blood Blood Culture - Final NO GROWTH AFTER 5 DAYS Internal Medicine - CN: Res - Labs CBC & Chem 7: 10/26/20 06:36 02
--- NOTE | 2020-10-26 13:51 | HMH.OTEV ---
OT Inpatient Evaluation Rehab OT IP Evaluation Start: 10/26/20 11:08 Freq: ONCE Status: Complete Protocol: [facility] 10[facility]26[facility]20 [facility] (Rec: 10/26/20 13:51 [facility] [id number]) Rehab OT IP Assessment Subjective History Pt oriented x 3 on arrival. Pt was admitted via ED on 10/21 due to worsening abdominal pain over the past few days. Pt found to have a mass in stomach with mets. Pt has a past medical history of anxiety, depression, and HTN. Pt reports prior to being in hospital he lived at [facility] on the 3rd floor alone. Pt claims he was independent with all ADLs and IADLs. Pt also explains his sister lives two doors down from him. His brother and father live on the first floor. Pt plans to return home with family assistance if needed. Subjective My stomach has just been hurting. Objective Patient Orientation Person,Place,Birthday Upper Extremity Gross ROM WFL Bed Mobility bed mobility-scooting,bed mobility - supine/sit,bed mobility - rolling Assist Level Supervision/Stand by Transfer Training Sit/Stand Transfer Assist Level Supervision/Stand by Chair Transfer Ability Supervision/Stand by Chair Transfer Technique Sit to/from Ambulatory Chair Transfer Assistive Devices None Lower Body Dressing Ability Standby Assistance Rehab OT IP prob,goals,plan Problems Date of Evaluation: 10/26/20 Rehab Potential Rehab Potential Innapropriate for Skilled Therapy Discharge Plan OT Discharge Plan Pt safe to return home once medically stable with family supervision at times. Pt appears to be at baseline functionally. No further therapy tx required at this time. Eval Complexity Eval Charge Codes 36276 - Low Complexity G Codes G -code Required No PHYSICIAN CERTIFICATION: I certify the specified therapy services for Toi Slaughter So
--- NOTE | 2020-10-26 14:11 | HMH.PTEV ---
Physical Therapy Evaluation Rehab PT IP Evaluation Start: 10/26/20 11:08 Freq: ONCE Status: Active Protocol: Document 10/26/20 13:00 TOR (Rec: 10/26/20 14:11 TOR [id number]) Subjective/History History History 55 y/o male admitted to [facility] thru ED w/ c/o abdominal pain and weakness Subjective Subjective pt reports c/o pain in abdomen all the time Rehab PT IP Eval Objective Appearance Patient Behavior Appropriate,Cooperative Patient Orientation Person,Place,Time Difficulty following instructions none Speech Pattern Clear,Appropriate Ambulation Patient Able to Ambulate Yes Ambulation Observation IP General Gait Pattern Observation No Deviations/Normal Ambulation Distance (feet) 50 Ambulation Assistive Device None Ambulation Ability Independent Balance Ability to Arise Able, w/o using arms Sitting Balance Steady, safe Standing Balance Narrow stance w/o support Dynamic Sitting Balance Ability Normal Dynamic Standing Balance Ability Good Transfers Bed Transfer Ability Independent Chair Transfer Ability Independent Sit to Stand Bed Transfer Ability Independent Sit to Stand Chair Transfer Ability Independent ROM All Extremities PT ROM Status WFL MMT All Extremities PT MMT WFL Rehab PT IP prob,goals,plan Problems Date of Evaluation: 10/26/20 Rehab Potential Rehab Potential Innapropriate for Skilled Therapy Discharge Plan PT Discharge Plan Pt safe to dc home once medically stable from a functional stand point G -code Required No Eval Complexity Eval Charge Codes 60315 - Low Complexity PHYSICIAN CERTIFICATION: I certify the specified therapy services for Toi Benton are required, authorized, and reviewed every 30 days.
--- NOTE | 2020-10-26 14:11 | HMH.ACPN2 ---
Internal Medicine - PN: Subj *Date: 10/26/20 *Time: 08:05 Interval history: pt laying in bed states no c/o having abd tenderness Exam Vital signs and Labs for Last 24 Hours: Temp Pulse Resp BP Pulse Ox 99.5 F 89 20 110/69 99 10/26/20 13:40 10/26/20 13:50 10/26/20 13:55 10/26/20 13:55 10/26/20 13:55 Laboratory Results - last 24 hr 10/26/20 06:36: WBC 11.7 H, RBC 2.36 L, Hgb 7.0 L*, Hct 23.0 L*, MCV 97.4 H, MCH 29.6, MCHC 30.4 L, RDW 15.7, Plt Count 607 H, MPV 8.1, Neut % (Auto) 59.9, Lymph % (Auto) 27.7, [place] % (Auto) 6.9, Eos % (Auto) 5.0, Baso % (Auto) 0.6, Neut # (Auto) 7.0, Lymph # (Auto) 3.2, [place] # (Auto) 0.8, Eos # (Auto) 0.6 H, Baso # (Auto) 0.1 10/26/20 06:36: Sodium 138, Potassium 3.5, Chloride 111 H, Carbon Dioxide 23, Anion Gap 7.5, BUN 11, Creatinine 1.40 H, Estimated Creat Clear 48, Estimated GFR 52 L, Est GFR ( Amer) 63, Glucose 98 D, Calcium 8.9 10/26/20 11:05: Blood Type O Negative, Antibody Screen Negative, Crossmatch ([facility]) See Detail I & O for Last 24 hours: Intake & Output 10/24/20 10/25/20 10/26/20 10/27/20 11:59 11:59 11:59 11:59 Intake Total 2697 / 2697 1720 / 1720 1200 / 1200 240 / 240 Output Total 1200 / 1200 Balance 2697 / 2697 1720 / 1720 0 / 0 240 / 240 Weight 130 lb 2 oz 132 lb 4.438 oz 128 lb 9 oz Microbiology Reports for the Last 24 Hours: Microbiology 10/20/20 23:18 Blood Blood Culture - Final NO GROWTH AFTER 5 DAYS 10/20/20 23:18 Blood Blood Culture - Final NO GROWTH AFTER 5 DAYS - Constitutional no acute distress, thin - *Routine HEENT Exam Head: Present: normocephalic Eye: Present: PERRL ENT: Present: mucous membranes moist - *Routine Neck Exam Present: supple. Absent: lymphadenopathy - *Routine Respiratory Exam Present: CTA bilaterally - *Routine Cardiovascular Exam Present: RRR - *Routine Abdominal Exam Present: soft, normoactive bowel sounds, tenderness - *Routine Extremities Exam Present: normal capillary refill. Absent: cyanosis, clubbing, edema - *Routine Skin Exam Present: warm. Absent: rash - *Routine Neurological Exam Present: alert, oriented X3 - Routine Psychiatric Exam Present: normal affect Assessment and Plan (1) Pancreatitis, acute Status: Acute Qualifiers: Pancreatitis type: other Acute pancreatitis complication: unspecified Qualified Code(s): K85.80 - Other acute pancreatitis without necrosis or infection Category: Medical Code(s): K85.90 - Acute pancreatitis without necrosis or infection, unspecified (2) Gastric cancer Status: Acute Qualifiers: Malignant neoplasm of stomach location: unspecified location Qualified Code(s): C16.9 - Malignant neoplasm of stomach, unspecified Category: Medical Code(s): C16.9 - Malignant neoplasm of stomach, unspecified (3) Metastatic 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 - Assessment and plan all Dx Assessment and Plan for all problems:: rounded with dr boyer all order per dr boyer elena to see pt today
--- NOTE | 2020-10-26 15:39 | HMH.CONFU ---
Internal Medicine - PN: Subj *Date: 10/26/20 *Time: 15:39 Interval history: 55-year-old white male with blastic lesions of the bony skeleton. Etiology of the blastic lesions is unknown to date. Dr. Saul with oncology has seen the patient and I agree with the bone biopsy. His PSA is elevated and I would like to repeat a PSA in 3 to 4 weeks to ensure he is not acutely elevated from another process. We discussed prostate biopsy if it does remain elevated. If he had high-grade disease on biopsy and that would make it more likely that the blastic lesions could be from the prostate. CT scan of the chest has been ordered as well. Patient is feeling better regarding his abdominal pain his pancreatitis is improving. Exam Vital signs and Labs for Last 24 Hours: Temp Pulse Resp BP Pulse Ox 98.8 F 63 16 123/73 100 10/26/20 14:50 10/26/20 14:35 10/26/20 14:50 10/26/20 14:50 10/26/20 14:50 Laboratory Results - last 24 hr 10/26/20 06:36: WBC 11.7 H, RBC 2.36 L, Hgb 7.0 L*, Hct 23.0 L*, MCV 97.4 H, MCH 29.6, MCHC 30.4 L, RDW 15.7, Plt Count 607 H, MPV 8.1, Neut % (Auto) 59.9, Lymph % (Auto) 27.7, [place] % (Auto) 6.9, Eos % (Auto) 5.0, Baso % (Auto) 0.6, Neut # (Auto) 7.0, Lymph # (Auto) 3.2, [place] # (Auto) 0.8, Eos # (Auto) 0.6 H, Baso # (Auto) 0.1 10/26/20 06:36: Sodium 138, Potassium 3.5, Chloride 111 H, Carbon Dioxide 23, Anion Gap 7.5, BUN 11, Creatinine 1.40 H, Estimated Creat Clear 48, Estimated GFR 52 L, Est GFR ( Amer) 63, Glucose 98 D, Calcium 8.9 10/26/20 11:05: Blood Type O Negative, Antibody Screen Negative, Crossmatch ([facility]) See Detail I & O for Last 24 hours: Intake & Output 10/23/20 10/24/20 10/25/20 10/26/20 23:59 23:59 23:59 23:59 Intake Total 840 / 840 2957 / 2957 1580 / 1580 480 / 480 Output Total 1100 / 1200 100 / 100 Balance 840 / 840 2957 / 2957 480 / 380 380 / 380 Weight 57.776 kg 59.024 kg 60 kg 58.315 kg Microbiology Reports for the Last 24 Hours: Microbiology 10/20/20 23:18 Blood Blood Culture - Final NO GROWTH AFTER 5 DAYS 10/20/20 23:18 Blood Blood Culture - Final NO GROWTH AFTER 5 DAYS - *Routine HEENT Exam Head: Present: normocephalic Eye: Present: EOMI, PERRL ENT: Present: mucous membranes moist - *Routine Neck Exam Present: supple. Absent: lymphadenopathy - *Routine Respiratory Exam Present: CTA bilaterally - *Routine Cardiovascular Exam Present: RRR - *Routine Abdominal Exam Present: soft, normoactive bowel sounds. Absent: tenderness - *Routine Extremities Exam Absent: cyanosis, clubbing, edema - *Routine Skin Exam Present: warm. Absent: rash - *Routine Neurological Exam Present: alert, oriented X3 Assessment and Plan (1) Pancreatitis, acute Status: Acute Qualifiers: Pancreatitis type: other Acute pancreatitis complication: unspecified Qualified Code(s): K85.80 - Other acute pancreatitis without necrosis or infection Category: Medical Code(s): K85.90 - Acute pancreatitis without necrosis or infection, unspecified (2) Gastric cancer Status: Acute Qualifiers: Malignant neoplasm of stomach location: unspecified location Qualified Code(s): C16.9 - Malignant neoplasm of stomach, unspecified Category: Medical Code(s): C16.9 - Malignant neoplasm of stomach, unspecified (3) Metastatic 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
--- NOTE | 2020-10-26 18:26 | PC.NURSE ---
Assumed care of patient at 1530. He is alert and oriented x4. He has ambulated to the bathroom with 1 assist. He has had 1 unit of PRBC's this shift. No change from morning assessment. No questions or concerns at this time. Will continue to monitor.
--- NOTE | 2020-10-26 23:44 | PC.NURSE ---
2100 COURTESY ROUND PT AWAKE . PT VOICED NO NEEDS AT THIS TIME. TRASH AND LINEN EMPTIED
[2020-10-27 00:30] VITALS: BP 149/89; PULSE 71; RESP 16; TEMP 36.8; O2SAT 99
[2020-10-27 01:30] VITALS: BP 150/88; PULSE 75; RESP 16; TEMP 37.3; O2SAT 98
[2020-10-27 01:37] LABS: Hematocrit 32.2 % (42.0-52.0)
[2020-10-27 01:43] LABS: Hemoglobin 10.1 g/dL (14.1-18.0)
[2020-10-27 04:00] VITALS: BP 135/84; PULSE 90; RESP 18; TEMP 36.6; O2SAT 97
--- NOTE | 2020-10-27 04:11 | PC.NURSE ---
0130 blood transfusion completed at this time, no s/s of transfusion reaction
--- NOTE | 2020-10-27 04:24 | PC.NURSE ---
pt AxOx4, ambulating to independently, received one unit of PRBCs this shift, no s/s of transfusion reaction, has complained of fullness and nausea one time this shift and was treated per MAR
[2020-10-27 05:00] VITALS: BMI 21.3
--- NOTE | 2020-10-27 06:07 | PC.NURSE ---
0600 COURTESY [address]OUND PATIENT ASLEEP AT THIS TIME. TRASH EMPTIED AND WATER PITCHER REFILLED
[2020-10-27 07:44] LABS: Basophils # 0.1 K/mm3 (0-0.2); Basophils % 0.4 % (0.1-2.0); Eosinophils # 0.4 K/mm3 (0.0-0.4); Eosinophils % 2.4 % (0.1-12.0); Hematocrit 33.6 % (42.0-52.0); Hemoglobin 10.3 g/dL (14.1-18.0); Lymphocytes # 3.1 K/mm3 (0.7-4.5); Lymphocytes % 19.8 % (10-50); Mean Corpuscular HGB Conc 30.8 g/dL (31.8-35.4); Mean Corpuscular Hemoglobin 28.7 pg (27.0-31.2); Mean Corpuscular Volume 93.2 fl (80-94); Mean Platelet Volume 8.9 fl (7.4-10.4); Monocytes # 1.3 K/mm3 (0.1-1.0); Monocytes % 8.1 % (1.7-9.3); Neutrophils # 10.8 K/mm3 (1.8-7.8); Neutrophils % 69.3 % (37.0-80.0); Platelet Count 587 K/mm3 (142-424); Red Cell Distribution Width 16.4 % (11.5-17.5); White Blood Count 15.5 K/mm3 (4.8-10.8)
[2020-10-27 07:45] LABS: MANUAL DIFFERENTIAL MANUAL DIFFERENTIAL (MANUAL DIFF)
[2020-10-27 07:48] LABS: Chloride 107 mmol/L (98-107)
[2020-10-27 07:49] VITALS: BP 136/91; PULSE 89; RESP 16; TEMP 37.2; O2SAT 97
[2020-10-27 07:49] LABS: Potassium 3.3 mmoL/L (3.5-5.1); Sodium 137 mmol/L (136-145)
[2020-10-27 07:52] LABS: Anion Gap 7.3 mEq/L (5-15); Blood Urea Nitrogen 13 mg/dl (9-20); Calcium 8.7 mg/dl (8.4-10.2); Carbon Dioxide 26 mmol/L (22.0-30.0); Creatinine Clearance Estimated 47 mL/min (50-200); Estimated Glomerular Filt Rate 52 ml/min (>60); GFR (African American) 63 ML/MIN (>60); Glucose 107 mg/dl (74-100)
[2020-10-27 08:41] LABS: Lymphocytes % 9 % (10-50); Monocytes % 3 % (2-9); Neutrophils % 88 % (42-76); Platelet Estimate Normal; RBC Morphology Normal; Total Cells Counted 100
--- NOTE | 2020-10-27 09:26 | HMH.DCSUM ---
General - General Admission date:: 10/21/20 Discharge date: 10/27/20 HPI HPI: this pt presented to the ed last pm with progressive abd pain with nausea and dec po intake - no etoh - pt with no melena and no vomiting - pt was seen in the ed and noted to have abn ct of abd and pelvis and had elevated amylase and lipase - also had abn area gastric area with bone blast lesions - no known cancer - Hospital Course Hospital Course: Laboratory Tests 10/20/20 10/20/20 10/20/20 23:18 23:18 23:18 WBC 15.8 H RBC 3.07 L Hgb 9.2 L Hct 29.9 L MCV 97.6 H MCH 29.9 MCHC 30.7 L RDW 15.7 Plt Count 620 H MPV 8.3 Neut % (Auto) 68.3 Lymph % (Auto) 21.7 [place] % (Auto) 6.5 Eos % (Auto) 3.0 Baso % (Auto) 0.6 Neut # (Auto) 10.8 H Lymph # (Auto) 3.4 [place] # (Auto) 1.0 Eos # (Auto) 0.5 H Baso # (Auto) 0.1 Total Counted 100 Neutrophils % (Manual) 80 H Band Neutrophils % 3.0 Lymphocytes % (Manual) 15 Monocytes % (Manual) Eosinophils % (Manual) 2 Toxic Granulation 1+ Platelet Estimate Moderate increase RBC Morphology Hypochromasia 1+ Macrocytosis 1+ Rouleaux 1+ ESR Sodium 138 Potassium 3.5 Chloride 104 Carbon Dioxide 20 L Anion Gap 17.5 H BUN 44 H Creatinine 2.10 H Estimated Creat Clear 38 Estimated GFR 33 L Est GFR ( Amer) 40 L Glucose 121 H Lactate 1.2 Calcium 9.8 Total Bilirubin 0.5 Direct Bilirubin 0.4 Conjugated Bilirubin 0.0 Indirect Bilirubin 0.1 Unconjugated Bilirubin 0.0 AST 20 ALT 7 L Alkaline Phosphatase 117 C-Reactive Protein 77.5 H Total Protein 7.2 Albumin 3.2 L Amylase 1359 H* Lipase 6802 H Carcinoembryonic Ag CA 19-9 Antigen PSA Screen Procalcitonin 0.188 Urine Color Urine Appearance Urine pH Ur Specific [place] Urine Protein Urine Glucose (UA) Urine Ketones Urine Blood Urine Nitrate Urine Bilirubin Urine Urobilinogen Ur Leukocyte Esterase Ur Squamous Epith Cells Amorphous Sediment Salicylates < 1.0 L Urine Opiates Screen Urine Methadone Screen Acetaminophen < 10 L Ur Barbituates Screen Ur Phencyclidine Scrn Ur Amphetamines Screen U Benzodiazepines Scrn Urine Cocaine Screen U Marijuana (THC) Screen Plasma/Serum Alcohol Chlamy pneumoniae PCR Adenovirus (PCR) B. pertussis DNA (PCR) Coronavirus OC43 (PCR) Coronavirus HKU1 (PCR) Coronavirus 229E (PCR) SARS-CoV-2 (PCR) Coronavirus NL63 (PCR) Human Metapneumovir PCR Influenza A (H1) PCR Influ A (H1N1/09) PCR Influenza A (H3) PCR Influenza Type A (PCR) Influenza Type B (PCR) M. pneumoniae (PCR) Parainfluenza 1 (PCR) Parainfluenza 2 (PCR) Parainfluenza 3 (PCR) Parainfluenza 4 (PCR) RSV (PCR) Entero/Rhino (PCR) SARS-CoV-2 IgG Ab (Rapid) SARS-CoV-2 IgM Ab (Rapid) Blood Type Antibody Screen Crossmatch ([facility]) 10/20/20 10/20/20 10/20/20 23:18 23:18 23:18 WBC RBC Hgb Hct MCV MCH MCHC RDW Plt Count MPV Neut % (Auto) Lymph % (Auto) [place] % (Auto) Eos % (Auto) Baso % (Auto) Neut # (Auto) Lymph # (Auto) [place] # (Auto) Eos # (Auto) Baso # (Auto) Total Counted Neutrophils % (Manual) Band Neutrophils % Lymphocytes % (Manual) Monocytes % (Manual) Eosinophils % (Manual) Toxic Granulation Platelet Estimate RBC Morphology Hypochromasia Macrocytosis Rouleaux ESR 67 H Sodium Potassium Chloride Carbon Dioxide Anion Gap BUN Creatinine Estimated Creat Clear Estimated GFR Est GFR ( Amer) Glucose Lactate Calcium Total Bilirubin Direct Bilirubin Conjugated Bilirubin Indirect Bilirubin Unconjugated Bilirubin AST AL
[2020-10-27 19:03] LABS: Free Kappa Lt Chains 123.7 mg/L (3.3-19.4); Free Lambda Lt Chains 106.5 mg/L (5.7-26.3)
[2020-10-30 17:15] LABS: Albumin 2.3 g/dL (2.9-4.4); Alpha-1-Globulin 0.4 g/dL (0.0-0.4); Alpha-2-Globulin 0.7 g/dL (0.4-1.0); Gamma Globulin 1.5 g/dL (0.4-1.8); Immunoglobulin A, Qn 298 mg/dL (90-386); Immunoglobulin G, Qn 1539 mg/dL (603-1613); Protein, Total 5.8 g/dL (6.0-8.5)
[2020-10-30 19:26] LABS: Immunoglobulin M, Qn 46 mg/dL (20-172)
== END 2020-10-27 12:15 | disposition home or self-care (01) | DRG 439 ==
LOC: ER 23:58 → 2ND 10-21 04:16
PROVIDERS: Family Medicine; Internal Medicine Gastroenterology; Internal Medicine Medical Oncology; Nurse Practitioner Family; Admitting Provider Emergency Medicine; Emergency Provider Emergency Medicine; PCP Emergency Medicine; Visit Provider Emergency Medicine
PROC: 0DJ08ZZ Inspection of Upper Intestinal Tract, Via Natural or Artificial Opening Endoscopic (ICD-10-PCS; CPT 43235; principal; 2020-10-23 10:00)
DX: K85.90 Acute pancreatitis without necrosis or infection, unspecified (principal); C16.9 Malignant neoplasm of stomach, unspecified; C79.51 Secondary malignant neoplasm of bone; N17.9 Acute kidney failure, unspecified; R97.20 Elevated prostate specific antigen [PSA]; Z87.891 Personal history of nicotine dependence; D64.9 Anemia, unspecified; Z88.0 Allergy status to penicillin; Z88.8 Allergy status to other drugs, medicaments and biological substances; Z79.899 Other long term (current) drug therapy; I10 Essential (primary) hypertension
CPT/HCPCS: 36415; 70450; 71045; 71260; 74176; 78306; 80048; 80076; 80305; 80329; 81001; 82150; 82378; 82784; 83605; 83690; 83883; 84145; 84155; 84165; 85007; 85014; 85018; 85025; 85651; 86140; 86316; 86328; 86334; 86850; 87040; 87581; 87633; 87798; 88305; 88342; 96365; 97161; 97165; 99285; G0103; A9503; J2405; P9016; Q9967

== ENCOUNTER → 2020-11-01 08:50 | Outpatient (CLI) | payer MEDICAID, SELFPAY ==
--- NOTE | 2020-11-01 | MR_ITS ---
PROCEDURE: MR LUMBAR SPINE WO/W CON CLINICAL INDICATION: Numerous blastic lesions of the spine suspicious for metastatic disease on prior ct scans. COMPARISON: CT CT ABDOMEN PELVIS WO CON from 10/21/2020 MR MR THORACIC SPINE WO/W CON from 11/01/2020 TECHNIQUE: Standard multiplanar multiecho sequences are performed without and with contrast. 3-D MIP and myelographic images are also rendered and reviewed FINDINGS: There is normal alignment. There is transitional segment at the lumbosacral junction labeled as L5 but there may only be 4 actual lumbar vertebra. Lumbar spine films may confirm. T1 and T2 hypointense lesion is present at the L3 vertebral body at 18 mm consistent with a blastic lesion. This does not demonstrate contrast enhancement. No epidural extension evident. No disc herniation canal stenosis or other significant anomalies evident. There is a 7 mm hypointense lesion involving the left ilium medially suspicious for blastic lesion. IMPRESSION: 1. Blastic lesions at L3 and along the left ilium. 2. No disc herniation or canal stenosis. Dictated by: Aren Bermeo MD 11/02/2020 16:38 Aren Bermeo MD in [place] 11/02/2020 16:38
--- NOTE | 2020-11-01 08:58 | MR_ITS ---
PROCEDURE: MR CERVICAL SPINE WO/W CON CLINICAL INDICATION: Numerous blastic lesions of the spine suspicious for metastatic disease on prior ct scans. COMPARISON: CT HEADWO CT head/brain wo con from 02/03/[address] cervical spine wo con from 02/03/[address] HEAD/BRAIN WO CON from 10/22/2020 TECHNIQUE: Standard multiplanar multiecho sequences are performed without contrast. 3-D MIP and myelographic images are also rendered and reviewed FINDINGS: There is slight reversal of the cervical lordosis. This may be due to patient positioning or muscle spasm. Prominent cisterna magna. C2-C3: Mild degenerative disc disease C3-C4: Mild degenerative disc disease C4-C5: Mild degenerative disc disease with bulging disc and endplate ridging. There is canal stenosis at 9 mm and there is mild bilateral foraminal narrowing from facet hypertrophic change slightly greater on the left. There is minimal flattening of the cord anteriorly. C5-C6: Degenerative disc disease with bulging disc and ridging of the endplates with canal stenosis and bilateral lateral recess and foraminal narrowing. C6-C7: Degenerative disc disease with bulging disc eccentric toward the right with canal stenosis at 9 mm with right lateral recess narrowing C7-T1: This is bulging disc with endplate ridging. The disc is eccentric toward the right with lateral recess and foraminal narrowing. There arm numerous anterior osteophytes the. Lesions are present at T1 and T2 and will be described in the thoracic spine report. No metastatic lesions are demonstrated in the cervical spine Incidental note is made of a 9 mm cystic appearing nodule within the medial aspect of the left lobe of the cerebellum inferiorly. This does demonstrate some enhancement and is suspicious for metastatic lesion. There is a 2 x 0.6 cm lesion in the right cerebellar hemisphere superiorly which could represent an area of old infarction. IMPRESSION: 1. Multilevel cervical spondylosis with degenerative disc disease and bulging disc along with endplate hypertrophic change and uncovertebral and foraminal hypertrophy resulting in lateral recess narrowing foraminal narrowing and canal stenosis. Please see above for detailed description at each level. 2. No evidence of metastatic disease of the cervical spine. 3. 9 mm cystic lesion of the cerebellar hemisphere on the left. This does demonstrate enhancement and may represent a metastatic focus. MRI of the brain without and with enhancement may provide further evaluation The Dictated by: Aren Bermeo MD 11/02/2020 16:27 Aren Bermeo MD in [place] 11/02/2020 16:27
--- NOTE | 2020-11-01 08:58 | MR_ITS ---
PROCEDURE: MR THORACIC SPINE WO/W CON CLINICAL INDICATION: BONE LESIONS Numerous blastic lesions of the spine suspicious for metastatic disease on prior ct scans. COMPARISON: US CA echo doppler complete from 02/04/[address] CHEST W CON from 10/26/2020 TECHNIQUE: Routine multiplanar multi echo sequences are performed without gadolinium enhancement. FINDINGS: There is normal alignment. No acute fracture or dislocation is evident. There is a 10 mm hypointense T1 and T2 lesion at the T1 vertebral body. A 10 mm T1 and T2 hypointense lesion is present along the right aspect of the T2 vertebral body. Along the inferior aspect of T6 there is a 5 mm hypointense lesion. Along the superior endplate of T11 14 mm hypointense lesion and the posterior aspect of T11 there is a 10 mm hypointense lesion. Posterior aspect of T12 there is a 6 mm hypointense lesion these areas do not demonstrate contrast enhancement and correspond to blastic areas noted on the recent CT scan. There is some bone marrow edema around the lesions at T1 and T2. There is mild degenerative disc disease at T9-T10 and T10-T11. No disc herniations are evident. The spinal cord has an unremarkable appearance. No disc herniations or acute fractures. IMPRESSION: Multiple blastic lesions in the thoracic spine as described above consistent with metastatic disease. Dictated by: Aren Bermeo MD 11/02/2020 16:33 Aren Bermeo MD in [place] 11/02/2020 16:33
== END ==
PROVIDERS: PCP Emergency Medicine; Visit Provider Internal Medicine Medical Oncology
DX: C16.9 Malignant neoplasm of stomach, unspecified (principal); C79.51 Secondary malignant neoplasm of bone
CPT/HCPCS: 72156; 72157; 72158; 76376; A9576

== ENCOUNTER → 2020-11-08 13:02 | Outpatient (CLI) | payer MEDICAID, SELFPAY ==
--- NOTE | 2020-11-08 13:05 | MR_ITS ---
PROCEDURE: MR HEAD/BRAIN WO/W CON CLINICAL INDICATION: ABNORMAL MRI CERVICAL, LESION LEFT LOBE CEREBELLUM COMPARISON: MR MR CERVICAL SPINE WO/W CON from 11/01/2020 spine 11/01/2020 TECHNIQUE: Routine multiplanar multi echo sequences are performed prior to and following administration of 11 cc ProHance intravenously. FINDINGS: There are no areas of restricted diffusion. There is no hydrocephalus. There is a 9 millimeter left cerebellar lesion with peripheral low signal on FLAIR sequence indicating a hemosiderin ring within appearance consistent with a benign cavernoma. Are no suspicious masses. There is a small area of central enhancement associated with the cavernoma. No additional areas of abnormal contrast enhancement. There is mild diffuse atrophy. There is a left frontal cortical and subcortical area of high signal on FLAIR sequence under most likely an area of prior small left frontal lobe infarct. There is multiple dilated perivascular spaces in the basal ganglia greater than typical. Small area of high FLAIR signal adjacent to the right caudate nucleus consistent with an area of chronic ischemic gliotic small-vessel change. Flow voids are present in the major intracranial vasculature and within the central draining venous sinuses. The pituitary gland is unremarkable. The mastoid air cells and paranasal sinuses are clear. IMPRESSION: Left cerebellar benign cavernoma. Other chronic findings as described above. Dictated by: Sandar Meza MD 11/08/2020 15:26 Sandra Meza MD in [facility] 11/08/2020 15:26
== END ==
PROVIDERS: PCP Emergency Medicine; Visit Provider Internal Medicine Medical Oncology
DX: R93.7 Abnormal findings on diagnostic imaging of other parts of musculoskeletal system (principal); R90.89 Other abnormal findings on diagnostic imaging of central nervous system; G93.9 Disorder of brain, unspecified
CPT/HCPCS: 70553; A9576

== ENCOUNTER 2020-12-07 13:08 | Outpatient (CLI) | payer MEDICAID, SELFPAY ==
[2020-12-07 13:31] VITALS: BP 110/70; PULSE 95; RESP 18; TEMP 36.4; O2SAT 98
== END 2020-12-07 13:31 | disposition home or self-care (01) ==
LOC: INF 13:08
PROVIDERS: Visit Provider Internal Medicine Medical Oncology
DX: C61 Malignant neoplasm of prostate (principal); Z51.11 Encounter for antineoplastic chemotherapy
CPT/HCPCS: 96402; J9217

== ENCOUNTER → 2020-12-26 15:36 | Outpatient (CLI) | payer MEDICAID, SELFPAY ==
[2020-12-26 16:23] LABS: Basophils # 0.1 K/mm3 (0-0.2); Basophils % 0.3 % (0.1-2.0); Eosinophils # 0.1 K/mm3 (0.0-0.4); Eosinophils % 0.5 % (0.1-12.0); Hematocrit 27.1 % (42.0-52.0); Hemoglobin 8.4 g/dL (14.1-18.0); Lymphocytes # 2.1 K/mm3 (0.7-4.5); Lymphocytes % 12.5 % (10-50); Mean Corpuscular HGB Conc 30.9 g/dL (31.8-35.4); Mean Corpuscular Hemoglobin 30.8 pg (27.0-31.2); Mean Corpuscular Volume 99.5 fl (80-94); Monocytes # 0.9 K/mm3 (0.1-1.0); Monocytes % 5.5 % (1.7-9.3); Neutrophils # 13.9 K/mm3 (1.8-7.8); Neutrophils % 81.2 % (37.0-80.0); Platelet Count 701 K/mm3 (142-424); Red Blood Count 2.72 M/mm3 (4.60-6.20); Red Cell Distribution Width 17.2 % (11.5-17.5); White Blood Count 17.1 K/mm3 (4.8-10.8)
[2020-12-26 16:41] LABS: MANUAL DIFFERENTIAL MANUAL DIFFERENTIAL (MANUAL DIFF)
[2020-12-26 17:11] LABS: Alanine Aminotransferase 10 U/L (12-78); Albumin Level 3.5 g/dl (3.5-5.0); Alkaline Phosphatase 167 U/L (38-126); Anion Gap 15.7 mEq/L (5-15); Aspartate Amino Transferase 21 U/L (17-59); Bilirubin,Total 0.4 mg/dl (0.2-1.3); Blood Urea Nitrogen 30 mg/dl (9-20); Calcium 9.5 mg/dl (8.4-10.2); Carbon Dioxide 23 mmol/L (22.0-30.0); Chloride 102 mmol/L (98-107); Estimated Glomerular Filt Rate 62 ml/min (>60); GFR (African American) 76 ML/MIN (>60); Globulin 3.4 g/dL (1.3-3.2); Glucose 105 mg/dl (74-100); Potassium 3.7 mmoL/L (3.5-5.1); Sodium 137 mmol/L (136-145); Total Protein,Serum 6.9 g/dl (6.3-8.2)
[2020-12-26 17:44] LABS: Prostate Specific Ag, Diagnost 2.37 ng/ml (0.0-4.0)
[2020-12-26 19:23] LABS: Eosinophils % 1 % (0-3); Lymphocytes % 8 % (10-50); Monocytes % 6 % (2-9); Neutrophils % 85 % (42-76); Platelet Estimate Marked Increase; RBC Morphology Normal; Total Cells Counted 100
== END ==
PROVIDERS: Visit Provider Internal Medicine Medical Oncology
DX: C61 Malignant neoplasm of prostate (principal)
CPT/HCPCS: 36415; 80053; 84153; 85007; 85025

== ENCOUNTER 2020-12-27 19:26 | Emergency (ER) | payer MEDICAID, SELFPAY ==
[2020-12-27 19:23] VITALS: BP 122/71; PULSE 110; RESP 14; TEMP 36.9; O2SAT 97
--- NOTE | 2020-12-27 19:26 | CT_ITS ---
PROCEDURE: CT ABDOMEN PELVIS W CON CLINICAL INDICATION: abdominal pain and distention Pancreatic cancer COMPARISON: CT CT ABDOMEN PELVIS WO CON from 10/21/2020 TECHNIQUE: IV Contrast: 75ML Isovue 370 Oral Contrast None Axial images obtained with sagittal and coronal reformats. All CT scans at the facility use one or more dose reduction, viz: automated exposure control, ma/kV adjustment per patient size (including targeted exams where dose is matched to indication, i.e. head), or iterative reconstruction technique. FINDINGS: LOWER THORAX: There is a small right pleural effusion with compressive atelectatic change. ABDOMEN & PELVIS: 10 x 3 cm loculated fluid collection along the anterior aspect of the left hepatic lobe. 5.7 x 2.5 cm loculated fluid collection along the hepatic dome in the pericaval region. There is a 2.5 cm heterogeneous lesion near the genny hepatis having a multilocular appearance. There is a rounded soft tissue mass in the region of the body of the pancreas extending to compress the left hepatic lobe posteriorly measuring 10 x 8 by 6 cm. There is serpiginous enhancement along the superior aspect of this lesion. This is increased in size from the previous exam. Rounded soft tissue mass is noted lateral to the descending duodenum measuring 2.4 cm not significantly changed. There is mild prominence of the pancreatic duct distally. 12 mm heterogeneous lesion in the pancreatic head indeterminate in nature. The spleen, adrenal glands, and kidneys have an unremarkable appearance. There is colonic diverticulosis. No evidence of diverticulitis or appendicitis. Urinary bladder wall is thickened. Multifocal blastic lesions of the spine and pelvis are once again noted. IMPRESSION: 1. Enlarging mass along the body of the pancreas with compression upon the posterior aspect of the left hepatic lobe. Serpiginous hyperdensity noted the along the superior aspect of this lesion. This may represent enlarging pancreatic mass/neoplasm with puddling of contrast superiorly suggesting extravasation/hemorrhage. Hematoma is an additional consideration with active extravasation. Follow-up suggested. 2. No change in the mass along the descending duodenum concerning for neoplasm. 3. Two cystic collections within the liver possibly due to pseudo cyst. The the larger collection in the left hepatic lobe anteriorly appears stable. The collection along the superior aspect of the liver in the caval region is new. 4. There is mild urinary bladder wall thickening which may be seen with incomplete distension, chronic outflow obstruction, or cystitis. 5. Small right pleural effusion. 6. No change multi focal blastic lesions Dictated by: Aren Bermeo MD 12/28/2020 06:42 Aren Bermeo MD in [place] 12/28/2020 06:42
--- NOTE | 2020-12-27 19:40 | HMH.EDABDPAI ---
ED Disposition Condition on Discharge: Good - Critical Care Critical Care Time: No <Augusto Grififth - Last Filed: 12/27/20 19:40> - Critical Care Critical Care Time: Yes Total Critical Care Time: 60 Vital system(s) involved:: Shock (Hemorrhage) My critical care processes included: Assessment & monitoring of V/S, Initial and Re-exams, Data Review/Interpretation, Medication Orders and management, Documentation <Daljit Aguilar - Last Filed: 12/27/20 21:46> Clinical Impression: Prostate cancer, Intra-abdominal hematoma Abdominal pain Qualifiers: Abdominal location: generalized Qualified Code(s): R10.84 - Generalized abdominal pain Pancreatitis, acute Qualifiers: Pancreatitis type: unspecified pancreatitis type Acute pancreatitis complication: no infection or necrosis Qualified Code(s): K85.90 - Acute pancreatitis without necrosis or infection, unspecified Disposition: Xfer Short-Term Hosp Instructions: DI for Acute Abdominal Pain Referrals: PCP,No [Primary Care Provider] - Attestation: On 12/27/20, the high probability of a clinically significant, sudden or life threatening deterioration of the following system(s) required my full and direct attention, intervention and personal management. The time I documented below is in addition to time spent performing reported procedures but includes the following listed in this critical care notation. Medical Decision Making - Medical Records Medical records reviewed: Yes: I reviewed the patient's medical records. - Rodolfo Inquiry Pt receiving controlled substance: No <Augusto Griffith - Last Filed: 12/27/20 19:40> - Lab Data Lab results reviewed: Yes: I reviewed the patient's lab results. Result diagrams: 12/27/20 19:35 12/27/20 19:35 - CT Data CT Scan: Abdomen, Pelvis Time Received: 21:[address] Reviewed: Yes: I have viewed the radiologist's interpretation Preliminary Findings: Abnormal (see report ) - Physician Consults Physician Consulted: clarissa Gilmore Reason -: Transfer to another facilty <Daljit Aguilar - Last Filed: 12/27/20 21:46> Vital Signs: 12/27/20 19:23 Temperature 98.5 F Temperature Source Oral Pulse Rate [Right] 110 H Respiratory Rate 14 Blood Pressure [Right Arm] 122/71 Blood Pressure Mean [Right Arm] 88 02 Sat by Pulse Oximetry 97 Oxygen Delivery Method Room Air - Lab Data Lab Results 12/27/20 19:35: WBC 27.5 H* D, RBC 2.50 L, Hgb 7.6 L*, Hct 24.9 L, MCV 99.5 H, MCH 30.4, MCHC 30.6 L, RDW 17.2, Plt Count 682 H, MPV 7.8, Neut % (Auto) 74.5, Lymph % (Auto) 18.0, [place] % (Auto) 6.3, Eos % (Auto) 0.8, Baso % (Auto) 0.4, Neut # (Auto) 20.5 H, Lymph # (Auto) 5.0 H, [place] # (Auto) 1.7 H, Eos # (Auto) 0.2, Baso # (Auto) 0.1, Total Counted 100, Neutrophils % (Manual) 90 H, Lymphocytes % (Manual) 10, Platelet Estimate Normal, Target Cells 1+ 12/27/20 19:35: Sodium 140, Potassium 3.8, Chloride 106, Carbon Dioxide 24, Anion Gap 13.8, BUN 31 H, Creatinine 1.30 H, Estimated Creat Clear 47, Estimated GFR 57 L, Est GFR ( Amer) 69, Glucose 129 H, Calcium 9.4, Total Bilirubin 0.9, AST 61 H D, ALT 14 D, Alkaline Phosphatase 156 H, Total Protein 6.9, Albumin 3.4 L, Globulin 3.5 H, Albumin/Globulin Ratio 1.0 L, Lipase 15827 H 12/27/20 19:35: Amylase 3002 H* Orders (Tests/Meds): ED MEDICATIONS Discontinued Medications Generic Name Dose Route Start Last Admin Trade Name Pascualq PRN Reason Stop Dose Admin Hydromorphone HCl 1 mg 12/27/20 20:33 12/27/20 20:36 Hydromorphone 2mg/Ml Syringe IV 12/27/20 20:34 1 mg ONCE ONE Administration Sodium Chloride 1,000 mls @ 999 mls/hr 12/27/20 19:45 12/27/20 19:35 Sod Chlor 0.9% 1000ml Bag IV 12/27/20 20:45 999 mls/hr .Q1H1M FERMIN Administration Iopamidol 75 ml 12/27/20 20:09 12/27/20 20:10 Iopamidol-370 (76%);100ml Bottle IV 12/27/20 20:10 75 ml ONCE ONE Administration Morphine Sulfate 4 mg 12/27/20 19:27 12/27/20 19:36 Morphine 4mg/Ml Syringe IV 12/27/20 19:
[2020-12-27 20:02] LABS: Chloride 106 mmol/L (98-107); Potassium 3.8 mmoL/L (3.5-5.1); Sodium 140 mmol/L (136-145)
[2020-12-27 20:05] LABS: Alanine Aminotransferase 14 U/L (12-78); Albumin Level 3.4 g/dl (3.5-5.0); Alkaline Phosphatase 156 U/L (38-126); Anion Gap 13.8 mEq/L (5-15); Aspartate Amino Transferase 61 U/L (17-59); Bilirubin,Total 0.9 mg/dl (0.2-1.3); Blood Urea Nitrogen 31 mg/dl (9-20); Calcium 9.4 mg/dl (8.4-10.2); Carbon Dioxide 24 mmol/L (22.0-30.0); Creatinine Clearance Estimated 47 mL/min (50-200); Estimated Glomerular Filt Rate 57 ml/min (>60); GFR (African American) 69 ML/MIN (>60); Globulin 3.5 g/dL (1.3-3.2); Glucose 129 mg/dl (74-100); Total Protein,Serum 6.9 g/dl (6.3-8.2)
[2020-12-27 20:16] LABS: Basophils # 0.1 K/mm3 (0-0.2); Basophils % 0.4 % (0.1-2.0); Eosinophils # 0.2 K/mm3 (0.0-0.4); Eosinophils % 0.8 % (0.1-12.0); Hematocrit 24.9 % (42.0-52.0); Mean Corpuscular HGB Conc 30.6 g/dL (31.8-35.4); Mean Corpuscular Hemoglobin 30.4 pg (27.0-31.2); Mean Corpuscular Volume 99.5 fl (80-94); Mean Platelet Volume 7.8 fl (7.4-10.4); Monocytes # 1.7 K/mm3 (0.1-1.0); Monocytes % 6.3 % (1.7-9.3); Neutrophils # 20.5 K/mm3 (1.8-7.8); Neutrophils % 74.5 % (37.0-80.0); Platelet Count 682 K/mm3 (142-424); Red Cell Distribution Width 17.2 % (11.5-17.5); White Blood Count 27.5 K/mm3 (4.8-10.8)
[2020-12-27 20:17] LABS: Hemoglobin 7.6 g/dL (14.1-18.0)
[2020-12-27 20:18] LABS: MANUAL DIFFERENTIAL MANUAL DIFFERENTIAL (MANUAL DIFF)
[2020-12-27 20:44] LABS: Adenovirus,PCR Not Detected (NotDetected); Bordetella Pertussis Not Detected (NotDetected); Chlamydophila Pneumoniae, PCR Not Detected (NotDetected); Coronavirus 19, PCR Not Detected (NotDetected); Coronavirus 229E Not Detected (NotDetected); Coronavirus NL63 Not Detected (NotDetected); Coronavirus OC43 Not Detected (NotDetected); Coronovirus HKU1,PCR Not Detected (NotDetected); Human Metapneumovirus Not Detected (NotDetected); Influenza A, PCR Not Detected (NotDetected); Influenza AH1, 2009 Not Detected (NotDetected); Influenza AH1, PCR Not Detected (NotDetected); Influenza AH3,PCR Not Detected (NotDetected); Influenza B, PCR Not Detected (NotDetected); Mycoplasma Pneumoniae, PCR Not Detected (NotDetected); Parainfluenza 1, PCR Not Detected (NotDetected); Parainfluenza 2, PCR Not Detected (NotDetected); Parainfluenza 3, PCR Not Detected (NotDetected); Parainfluenza 4, PCR Not Detected (NotDetected); Respiratory Syncytial Virus Not Detected (NotDetected); Rhinovirus/Enterovirus Not Detected (NotDetected)
[2020-12-27 20:57] LABS: Lipase 10586 U/L (23-300)
--- NOTE | 2020-12-27 21:00 | PC.NURSE ---
hilary on phone with [facility]
--- NOTE | 2020-12-27 21:02 | PC.NURSE ---
[employer] accepted flight
[2020-12-27 21:14] LABS: Amylase 3002 U/L (30-110)
--- NOTE | 2020-12-27 21:15 | PC.NURSE ---
dr romo @ [facility] accepted pt to [facility]
[2020-12-27 21:23] LABS: Lymphocytes % 10 % (10-50); Neutrophils % 90 % (42-76); Total Cells Counted 100
[2020-12-27 21:25] LABS: Platelet Estimate Normal; Target Cells 1+
[2020-12-27 22:46] VITALS: BP 142/90; PULSE 90; RESP 16; TEMP 36.6; O2SAT 98
[2020-12-29 20:19] LABS: Peripheral Smear Review Scanned Result
--- NOTE | 2021-05-05 09:31 | PC.NURSE ---
patient sister,Sherlyn called about hard rx for patient for Roxanol. Sister states that she will head back to ED at this time to belt picker. Dr Aguilar aware and notified.
== END 2020-12-27 22:48 | disposition short-term general hospital (02) ==
PROVIDERS: Emergency Medicine; Emergency Provider Emergency Medicine
DX: C61 Malignant neoplasm of prostate (principal); K85.90 Acute pancreatitis without necrosis or infection, unspecified; F41.8 Other specified anxiety disorders; I10 Essential (primary) hypertension; Z20.822 Contact with and (suspected) exposure to COVID-19; Z88.0 Allergy status to penicillin; Z87.891 Personal history of nicotine dependence
CPT/HCPCS: 74177; 80053; 82150; 83690; 85007; 85025; 87581; 87633; 87798; 96366; 96375; 99284; J2405; Q9967

== ENCOUNTER 2021-03-01 14:59 | Outpatient (CLI) | payer MEDICAID, SELFPAY ==
[2021-03-01 15:10] VITALS: BMI 15.8
[2021-03-01 15:40] VITALS: BP 116/84; PULSE 98; RESP 16; TEMP 36.1; O2SAT 100
[2021-03-01 15:40] LABS: Basophils % 0.2 % (0.1-2.0); Eosinophils % 0.3 % (0.1-12.0); Hematocrit 29.5 % (42.0-52.0); Lymphocytes # 1.3 K/mm3 (0.7-4.5); Lymphocytes % 12.2 % (10-50); Mean Corpuscular HGB Conc 30.5 g/dL (31.8-35.4); Mean Corpuscular Hemoglobin 29.7 pg (27.0-31.2); Mean Corpuscular Volume 97.5 fl (80-94); Mean Platelet Volume 7.8 fl (7.4-10.4); Monocytes # 0.5 K/mm3 (0.1-1.0); Monocytes % 4.3 % (1.7-9.3); Neutrophils % 82.9 % (37.0-80.0); Platelet Count 553 K/mm3 (142-424); Red Blood Count 3.03 M/mm3 (4.60-6.20); Red Cell Distribution Width 16.3 % (11.5-17.5); White Blood Count 10.9 K/mm3 (4.8-10.8)
[2021-03-01 15:43] LABS: Chloride 92 mmol/L (98-107); Sodium 132 mmol/L (136-145)
[2021-03-01 15:45] LABS: Alanine Aminotransferase 16 U/L (12-78); Alkaline Phosphatase 149 U/L (38-126); Aspartate Amino Transferase 24 U/L (17-59); Bilirubin,Total 0.7 mg/dl (0.2-1.3); Blood Urea Nitrogen 33 mg/dl (9-20); Creatinine Clearance Estimated 37 mL/min (50-200); Estimated Glomerular Filt Rate 57 ml/min (>60); GFR (African American) 69 ML/MIN (>60)
[2021-03-01 15:46] LABS: Albumin Level 3.3 g/dl (3.5-5.0); Albumin/Globulin Ratio 0.9 (1.1-1.8); Anion Gap 11.3 mEq/L (5-15); Carbon Dioxide 31 mmol/L (22.0-30.0); Globulin 3.8 g/dL (1.3-3.2); Glucose 171 mg/dl (74-100); Total Protein,Serum 7.1 g/dl (6.3-8.2)
[2021-03-01 15:49] LABS: Potassium 2.3 mmoL/L (3.5-5.1)
[2021-03-01 16:15] LABS: Iron 64 ug/dL (49-181)
[2021-03-01 16:24] LABS: Total Iron Binding Capacity 253 ug/dL (261-462)
--- NOTE | 2021-03-01 16:28 | PC.NURSE ---
1551 NOTIFIED RUSSELL BORJA OF CRITICAL POTASSIUM RESULT.
[2021-03-01 16:36] LABS: Prostate Specific Ag, Diagnost 0.083 ng/ml (0.0-4.0)
[2021-03-01 16:52] LABS: Ferritin 598 ng/ml (17.9-464)
== END 2021-03-01 15:55 | disposition home or self-care (01) ==
LOC: INF 14:59
PROVIDERS: Visit Provider Internal Medicine Medical Oncology
DX: C61 Malignant neoplasm of prostate (principal); Z51.11 Encounter for antineoplastic chemotherapy; C79.51 Secondary malignant neoplasm of bone
CPT/HCPCS: 36415; 80053; 82728; 83540; 83550; 84153; 85025; 96402; J9217

== ENCOUNTER 2021-03-01 16:56 | Observation (INO) | payer MEDICAID, SELFPAY ==
[2021-03-01] VITALS (11 sets, daily range): BP systolic 111–139; BP diastolic 71–90; PULSE 75–91; RESP 16–22; TEMP 36.8–37.3; O2SAT 97–100; BMI 16.5; BMI 15.5
--- NOTE | 2021-03-01 17:03 | ECG_ITS ---
APPROVED REPORT Exam: Resting ECG HR:86 bpm ECG Measurements Heart Rate [address] 156 P 54 QRSd 80 QRS 30 QT 396 T 17 QTc 473 Conclusion Normal sinus rhythm Left atrial abnormality Nonspecific T wave abnormality Prolonged QT Abnormal ECG Electronically signed by : Sree Moscoso, 03/03/2021 10:56:08
[2021-03-01 18:02] LABS: Basophils % 0.3 % (0.1-2.0); Eosinophils % 0.1 % (0.1-12.0); Hematocrit 28.6 % (42.0-52.0); Hemoglobin 9.4 g/dL (14.1-18.0); Lymphocytes # 1.5 K/mm3 (0.7-4.5); Mean Corpuscular HGB Conc 32.8 g/dL (31.8-35.4); Mean Corpuscular Hemoglobin 31.1 pg (27.0-31.2); Mean Corpuscular Volume 94.9 fl (80-94); Monocytes # 0.5 K/mm3 (0.1-1.0); Monocytes % 4.4 % (1.7-9.3); Neutrophils # 8.5 K/mm3 (1.8-7.8); Neutrophils % 81.3 % (37.0-80.0); Platelet Count 528 K/mm3 (142-424); Red Blood Count 3.01 M/mm3 (4.60-6.20); Red Cell Distribution Width 16.7 % (11.5-17.5); White Blood Count 10.5 K/mm3 (4.8-10.8)
--- NOTE | 2021-03-01 18:04 | HMH.EDGENADL ---
ED Disposition Clinical Impression: Hypokalemia, Hypomagnesemia Disposition: Admitted as Observation Condition on Discharge: Good Referrals: Daljit Aguilar MD [Primary Care Provider] - - Critical Care Critical Care Time: No Attestation: On 03/01/21, the high probability of a clinically significant, sudden or life threatening deterioration of the following system(s) required my full and direct attention, intervention and personal management. The time I documented below is in addition to time spent performing reported procedures but includes the following listed in this critical care notation. Medical Decision Making - Medical Records Medical records reviewed: Yes: I reviewed the patient's medical records. - Rodolfo Inquiry Pt receiving controlled substance: No Vital Signs: 03/01/21 16:58 03/01/21 17:33 03/01/21 17:45 Temperature 99.0 F Temperature Source Oral Pulse Rate 91 H 88 Pulse Rate [Right] 85 Respiratory Rate 18 19 22 Blood Pressure 121/84 111/76 Blood Pressure [Right Arm] 135/71 Blood Pressure Mean [Right Arm] 92 02 Sat by Pulse Oximetry 97 100 100 Oxygen Delivery Method Room Air - Lab Data Lab Results 03/01/21 17:30: Sodium 132 L, Potassium 2.5 L*, Chloride 93 L, Carbon Dioxide 30, Anion Gap 11.5, BUN 33 H, Creatinine 1.30 H, Estimated Creat Clear 38, Estimated GFR 57 L, Est GFR ( Amer) 69, Glucose 178 H, Calcium 9.0, Magnesium 1.5 L 03/01/21 17:30: WBC 10.5, RBC 3.01 L, Hgb 9.4 L, Hct 28.6 L, MCV 94.9 H, MCH 31.1, MCHC 32.8, RDW 16.7, Plt Count 528 H, MPV 8.0, Neut % (Auto) 81.3 H, Lymph % (Auto) 14.0, [place] % (Auto) 4.4, Eos % (Auto) 0.1, Baso % (Auto) 0.3, Neut # (Auto) 8.5 H, Lymph # (Auto) 1.5, [place] # (Auto) 0.5, Eos # (Auto) 0.0, Baso # (Auto) 0.0 Result diagrams: 03/01/21 17:30 03/01/21 17:30 Orders (Tests/Meds): ED MEDICATIONS Generic Name Dose Route Start Last Admin Trade Name Freq PRN Reason Stop Dose Admin Magnesium Sulfate 2 gm/ Sodium 104 mls @ 100 mls/hr 03/01/21 18:32 Chloride IV 03/01/21 19:34 ONCE ONE Potassium Chloride/Water 100 mls @ 100 mls/hr 03/01/21 18:32 Potassium Chloride 10meq/100ml Ivpb IV 03/01/21 19:31 ONCE ONE Discontinued Medications Generic Name Dose Route Start Last Admin Trade Name Freq PRN Reason Stop Dose Admin Magnesium Oxide 400 mg 03/01/21 18:31 Magnesium Oxide 400mg Tablet PO 03/01/21 18:32 ONCE ONE Potassium Chloride 10 meq 03/01/21 18:32 Potassium Chloride 10meq Tablet.Er PO 03/01/21 18:33 ONCE ONE ORDERS Category Date Time Status Covid-19 Nasal PCR ([facility]) Routine Lab 03/01/21 18:34 Received Medical Decision Narrative: 56-year-old male with history of prostate cancer presents with hypokalemia. He is in no acute distress nontoxic-appearing comfortable in the bed. His EKG showed prolonged QT however no evidence of torsades or risk for that. Electrolytes were obtained for evaluation. Plan to admit pending work-up K 2.5. Magnesium 1.5. Discussed with Dr. Aguayo on-call for Dr. Aguilar plan to admit for repletion of electrolytes General Adult HPI - General Chief complaint: Recheck/Abnormal Lab/Rx Stated complaint: potassioum extremely low Time Seen by Provider: 03/01/21 17:00 Mode of Arrival: Family Vehicle Limitations: No Limitations Description of Symptoms (Recalled from ER Triage Doc. by RN): PATIENT REPORTS HE HAD LABS DRAWED PRIOR TO AN INFUSION FOR PROSTATE CANCER THIS AFTERNOON. PT REPORTS HE WE WAS NOTFIED HE HAD HYPOKALEMIA WITH A POTASSIUM OF 2.3 PER PATIENT REPORT. PT REPORTS DECREASED ORAL INTAKE IN THE LAST THREE WEEKS. - History of Present Illness HPI narrative: 56-year-old male presents with history of prostate cancer. He was getting a lab infusion today and had potassium of 2.2. He denies any nausea vomiting diarrhea abdominal pain chest pain however has had generalized weakness over the last few days and decreased p.o. intake.
[2021-03-01 18:05] LABS: Chloride 93 mmol/L (98-107); Sodium 132 mmol/L (136-145)
[2021-03-01 18:08] LABS: Anion Gap 11.5 mEq/L (5-15); Blood Urea Nitrogen 33 mg/dl (9-20); Carbon Dioxide 30 mmol/L (22.0-30.0); Creatinine Clearance Estimated 38 mL/min (50-200); Estimated Glomerular Filt Rate 57 ml/min (>60); GFR (African American) 69 ML/MIN (>60)
[2021-03-01 18:09] LABS: Glucose 178 mg/dl (74-100); Magnesium 1.5 mg/dl (1.6-2.3)
--- NOTE | 2021-03-01 18:25 | PC.NURSE ---
critical result called from lab, Potassium 2.5. notified
[2021-03-01 18:29] LABS: Potassium 2.5 mmoL/L (3.5-5.1)
--- NOTE | 2021-03-01 20:17 | PC.NURSE ---
phone call to lab approx. 40 min until covid results
--- NOTE | 2021-03-01 20:54 | PC.NURSE ---
call from [facility] in lab, patient is positive for covid
--- NOTE | 2021-03-01 21:03 | PC.NURSE ---
Pt placed in COVID isolation after positive PCR.
--- NOTE | 2021-03-01 21:53 | PC.NURSE ---
Addendum entered by Dionne Li CNA 03/01/21 23:57: CORRECTION CORRECT TIME TO FLOOR WAS 2151 Original Note: PT ARRIVED TO FLOOR VIA W/C FROM ED W/STAFF AT 1951
[2021-03-02] VITALS: BP 112/72; PULSE 69; PULSE 76; RESP 16; TEMP 36.7; O2SAT 100
--- NOTE | 2021-03-02 03:18 | PC.NURSE ---
No acute changes. Pt has rested since arrival to floor. Pt has not c/o any discomfort. Potassium infused. Pt was placed on telemetry while infusing. VSS. Pt remains on RA. Lungs are diminished. BS active. No concerns at this time. Will continue to monitor.
[2021-03-02 04:00] VITALS: BP 108/72; PULSE 85; RESP 16; TEMP 36.7; O2SAT 100
[2021-03-02 05:37] VITALS: BMI 15.5
[2021-03-02 07:06] LABS: Chloride 98 mmol/L (98-107); Sodium 132 mmol/L (136-145)
[2021-03-02 07:09] LABS: Blood Urea Nitrogen 28 mg/dl (9-20); Carbon Dioxide 31 mmol/L (22.0-30.0); Cholesterol 123 mg/dl (140-200); Creatinine Clearance Estimated 47 mL/min (50-200); Estimated Glomerular Filt Rate 77 ml/min (>60); GFR (African American) 93 ML/MIN (>60); Triglycerides 54 mg/dl (30-150); VLDL Cholesterol 11 mg/dL (0-40)
[2021-03-02 07:10] LABS: Calcium 8.5 mg/dl (8.4-10.2); Glucose 91 mg/dl (74-100); HDL Cholesterol 31 mg/dl (40-60); Magnesium 2.3 mg/dl (1.6-2.3)
[2021-03-02 07:20] LABS: Phosphorous 1.9 mg/dl (2.5-4.5)
[2021-03-02 07:43] VITALS: BP 118/66; PULSE 70; RESP 18; TEMP 36.4; O2SAT 100
[2021-03-02 08:00] VITALS: O2SAT 100
--- NOTE | 2021-03-02 08:12 | HMH.PHAVTE ---
[facility] Pharmacy VTE Monitoring - Patient Demographics Admission date: 03/02/21 Report Date: 03/02/21 Time: 08:12 Allergies/Adverse Reactions: Patient Allergies aspirin [ASPIRIN] Allergy (Unknown, Verified 03/01/21 14:18) Penicillins [PENICILLINS] Allergy (Unknown, Verified 03/01/21 14:18) Height: 1.63 m Weight: 41.39 kg Patient Problems: Current Active Problems Hypokalemia (Acute) Hypomagnesemia (Acute) - VTE Risk Labs: VTE Related Lab Results Hgb 9.4 g/dL (14.1-18.0) L 03/01/21 17:30 Hct 28.6 % (42.0-52.0) L 03/01/21 17:30 Plt Count 528 K/mm3 (142-424) H 03/01/21 17:30 BUN 28 mg/dl (9-20) H 03/02/21 06:42 Creatinine 1.00 mg/dl (0.66-1.25) D 03/02/21 06:42 Estimated Creat Clear 47 mL/min (50-200) 03/02/21 06:42 Was VTE Risk Assessment Performed: Yes VTE Score: 4 VTE Risk Level: Low Risk Clinical Trial Participant: No - Prophylaxis VTE Prophylaxis Ordered?: Yes Types of VTE Prophylaxis: TEDS Knee High
--- NOTE | 2021-03-02 08:21 | HMH.PHAINT ---
home medication list verified using list from outpatient pharmacy and pt interview
--- NOTE | 2021-03-02 08:59 | HMH.HPDC ---
General - General Admission date:: 03/01/21 Discharge date: 03/02/21 *Admission Date: 03/02/21 *Chief complaint: low kcl *History of present illness: 56-year-old male presents with history of prostate cancer. He was getting a labs due to chemo infusion yesterday and had potassium of 2.2 and mag 1.5. He denies any nausea, vomiting, diarrhea, abdominal pain, chest pain however has had generalized weakness over the last few days and decreased p.o. intake. No fever no chills. Patient admitted for low KCL and mag for replacement and iv fluids. Patient nasal swab pos for COVID. [facility] History I have reviewed the patient's past medical history: Yes Medical History: Reports:: Anxiety, Cancer (Bone), Depression, Hyperlipidemia, Hypertension, Urinary Tract Infection Denies:: Diabetes Mellitus Type 1, Diabetes Mellitus Type 2, MRSA, Seizures *Have you ever received a pneumonia vaccine?: No *Have you received a flu vaccine this season?: No Other Medical History: Reports: Arthritis, Thyroid Disease. Denies: Blood Transfusion Reaction Other Surgeries: Yes: No Previous Surgery, Colonoscopy, EGD Amputation: No Fractures: No - *Social History Smoking Status: Current some day smoker Tobacco Type: cigarettes # Packs/Day (cigarettes): 1 Alcohol Intake: former Alcohol Intake Frequency:: 3 or more drinks per day Substance Use Type: denies use *Occupational Status:: disabled Housing: house Household Members: none *Travel in the last 8 weeks: None - Psychiatric History Pschychiatric History:: Reports:: Anxiety, Depression Family Hx:: Cancer, Hyperlipidemia, Hypertension, Stroke Review of Systems - Review of Systems Review of systems:: pertinent systems reviewed and negative unless documented below - Constitutional Denies body ache(s), Denies fatigue - Eyes Denies blurry vision - ENT Denies bleeding gums - *Cardiovascular Denies chest pain at rest - *Respiratory Denies chest congestion, Denies wheezing - *Gastrointestinal Denies belching - *Genitourinary Denies urinary frequency - *Musculoskeletal Denies joint pain - Integumentary/Breasts Denies rash - *Neurologic Denies dizziness, Denies headache(s) - Psychiatric Denies lack of enjoyment - Endocrine Denies excessive sweating - Hematologic/Lymphatic Denies easy bruising - Allergic/Immunologic Denies GI upset with certain foods Exam Vital signs and Labs for Last 24 Hours: Temp Pulse Resp BP Pulse Ox 97.6 F 70 18 118/66 100 03/02/21 07:43 03/02/21 07:43 03/02/21 07:43 03/02/21 07:43 03/02/21 07:43 Laboratory Results - last 24 hr 03/01/21 17:30: Sodium 132 L, Potassium 2.5 L*, Chloride 93 L, Carbon Dioxide 30, Anion Gap 11.5, BUN 33 H, Creatinine 1.30 H, Estimated Creat Clear 38, Estimated GFR 57 L, Est GFR ( Amer) 69, Glucose 178 H, Calcium 9.0, Magnesium 1.5 L 03/01/21 17:30: WBC 10.5, RBC 3.01 L, Hgb 9.4 L, Hct 28.6 L, MCV 94.9 H, MCH 31.1, MCHC 32.8, RDW 16.7, Plt Count 528 H, MPV 8.0, Neut % (Auto) 81.3 H, Lymph % (Auto) 14.0, [place] % (Auto) 4.4, Eos % (Auto) 0.1, Baso % (Auto) 0.3, Neut # (Auto) 8.5 H, Lymph # (Auto) 1.5, [place] # (Auto) 0.5, Eos # (Auto) 0.0, Baso # (Auto) 0.0 03/02/21 06:42: Sodium 132 L, Potassium 3.0 L, Chloride 98, Carbon Dioxide 31 H, Anion Gap 6.0, BUN 28 H, Creatinine 1.00 D, Estimated Creat Clear 47, Estimated GFR 77, Est GFR ( Amer) 93 D, Glucose 91 D, Calcium 8.5, Phosphorus 1.9 L, Magnesium 2.3 D, Triglycerides 54, Cholesterol 123 L, LDL Cholesterol Direct 68.00 L, VLDL Cholesterol 11, HDL Cholesterol 31 L, Cholesterol/HDL Ratio 4.0 H I & O for Last 24 hours: Intake & Output 02/27/21 02/28/21 03/01/21 03/02/21 11:59 11:59 11:59 11:59 Intake Total 300 / 300 Output Total 300 / 300 Balance 0 / 0 Weight 91 lb 4 oz Microbiology Reports for the Last 24 Hours: Microbiology 03/01/21 18:34 Nasopharyngeal Coronavirus COVID-19 PCR - Final - Constitutional no acu
--- NOTE | 2021-03-02 10:18 | HMH.OTEV ---
OT Inpatient Evaluation Rehab OT IP Evaluation Start: 03/02/21 08:43 Freq: ONCE Status: Complete Protocol: Document 03/02/21 10:12 TOM (Rec: 03/02/21 10:18 TOM [id number]) Rehab OT IP Assessment Subjective History Admission date:: 03/01/21 Discharge date: 03/02/21 *Admission Date: 03/02/21 *Chief complaint: low kcl *History of present illness: 56-year-old male presents with history of prostate cancer. He was getting a labs due to chemo infusion yesterday and had potassium of 2.2 and mag 1 .5. He denies any nausea, vomiting, diarrhea, abdominal pain, chest pain however has had generalized weakness over the last few days and decreased p.o. intake. No fever no chills. Patient admitted for low KCL and mag for replacement and iv fluids. Patient nasal swab pos for COVID. [facility] History I have reviewed the patient's past medical history: Yes Medical History: Reports:: Anxiety, Cancer (Bone), Depression, Hyperlipidemia, Hypertension, Urinary Tract Infection Patient lives alone in 1 story apartment on the 3rd floor. Uses a elevator. Patient verbalize to use rollator and straight cane to ambulate within the facility with hx of falling. Patient verbalized completing all ADLs independently with family to assist with IADLs if needed. Subjective I'm good. I don't believe I need therapy. I can get up and move around just fine. Objective Patient Orientation Person,Place,Name,Birthday, Year Upper Extremity Gross ROM WNL Bed Mobility bed mobility - supine/sit Assist Level Supervisi
--- NOTE | 2021-03-02 11:36 | HMH.PTEV ---
Physical Therapy Evaluation Rehab PT IP Evaluation Start: 03/02/21 08:43 Freq: ONCE Status: Active Protocol: Document 03/02/21 11:34 MUSTAPHA (Rec: 03/02/21 11:36 PHORLAN [id number]) Subjective/History History History 56 yoaam adm to [facility] with general weakness, hx of prostate ca with bone mets in spine. He reports he is independent with all mobility and lives alone. He has RW at home for use with long distance ambulation. Subjective Subjective Pt reports no c/o at this time . Rehab PT IP Eval Objective Appearance Patient Behavior Appropriate Patient Orientation Person,Place,Time Difficulty following instructions none Speech Pattern Clear Ambulation Patient Able to Ambulate Yes Ambulation Observation IP General Gait Pattern Observation Wide Based Gait Ambulation Distance (feet) 20 Ambulation Assistive Device None Ambulation Ability Independent Balance Ability to Arise Able, w/o using arms Sitting Balance Steady, safe Standing Balance Steady, wide stance Dynamic Sitting Balance Ability Good Dynamic Standing Balance Ability Good Transfers Bed Transfer Ability Independent Chair Transfer Ability Independent Sit to Stand Bed Transfer Ability Independent Sit to Stand Chair Transfer Ability Independent ROM All Extremities PT ROM Status WFL MMT All Extremities PT MMT WFL Rehab PT IP prob,goals,plan Problems Date of Evaluation: 03/02/21 Discharge Plan PT Discharge Plan Pt presents at baseline for all mobility, no current inpatient therapy needs. G -code Required No Eval Complexity Eval Charge Codes 30175 - Moderate Complexity PHYSICIAN CERTIFICATION: I certify the specified therapy services for Toi Benton are required, authorized, and reviewed every 30 days.
[2021-03-02 11:39] VITALS: BMI 15.4
--- NOTE | 2021-03-02 11:51 | DIET.NUTRFU ---
Pt with severe protein calorie malnutrition rt cancer with loss 32% BW past 4mo. He relates this mostly to low energy/appetite, no reports GI s/s. Pt provided with diet edu/counseling for malnutrition with cancer as well as nutritional considerations COVID 19 recovery at home. Encouraged pt to reach out with any questions/concerns at any time, pt to dc today.
--- NOTE | 2021-03-02 11:57 | SW/DCPLANNER ---
This patient will discharge back home to [facility]. PT/OT evaluation has stated that patient is at baseline.
== END 2021-03-02 14:30 | disposition home or self-care (01) ==
LOC: ER 18:43 → 2ND 20:36
PROVIDERS: Admitting Provider Internal Medicine Adolescent Medicine; Emergency Provider Emergency Medicine; PCP Emergency Medicine; Visit Provider Emergency Medicine
DX: E87.6 Hypokalemia (principal); U07.1 COVID-19; E83.42 Hypomagnesemia; C61 Malignant neoplasm of prostate; C79.51 Secondary malignant neoplasm of bone; I10 Essential (primary) hypertension; E78.5 Hyperlipidemia, unspecified; Z79.899 Other long term (current) drug therapy; E86.0 Dehydration; F17.210 Nicotine dependence, cigarettes, uncomplicated
CPT/HCPCS: 36415; 80048; 80061; 83735; 84100; 85025; 93005; 96365; 96367; 97162; 97165; 99203; G0378; G0463; U0003

== ENCOUNTER 2021-04-16 16:10 | Inpatient (IN) | payer MEDICAID, SELFPAY ==
[2021-04-16] VITALS (9 sets, daily range): BP systolic 99–122; BP diastolic 61–83; PULSE 113–120; RESP 18–30; TEMP 36.4–36.7; O2SAT 95–100; BMI 17.3; BMI 14.7
--- NOTE | 2021-04-16 16:25 | ECG_ITS ---
APPROVED REPORT Exam: Resting ECG HR:119 bpm ECG Measurements Heart Rate 119 AXES MS 128 P 64 QRSd 66 QRS 56 QT 344 T 59 QTc 483 Conclusion Sinus tachycardia Possible Left atrial enlargement Left ventricular hypertrophy Abnormal ECG Electronically signed by : Sree Moscoso, 04/17/2021 17:00:59
--- NOTE | 2021-04-16 16:26 | XR_ITS ---
PROCEDURE: XR CHEST PORTABLE CLINICAL HISTORY: cough COMPARISON: CR CXR2 CHEST-AP VIEW ONLY from 07/12/2017 CR Chest from 03/15/2019 CR XR CHEST PORTABLE from 10/21/[address] CHEST W CON from 10/26/[address] ABDOMEN PELVIS W CON from 12/27/2020 FINDINGS: The cardiomediastinal silhouette and pulmonary vascularity are within normal limits. Minimal atelectatic changes are present in the left lung base. Metallic coil like densities noted in the left upper quadrant IMPRESSION: Minimal left basilar atelectasis Dictated by: Aren Bermeo MD 04/16/2021 16:57 Aren Bermeo MD in [place] 04/16/2021 16:57
--- NOTE | 2021-04-16 16:41 | HMH.EDGENADL ---
ED Disposition Clinical Impression: Dehydration, KAMLESH (acute kidney injury) Left lower lobe pneumonia Qualifiers: Pneumonia type: due to unspecified organism Qualified Code(s): J18.9 - Pneumonia, unspecified organism Disposition: Admitted As Inpatient Condition on Discharge: Fair - Critical Care Critical Care Time: No Attestation: On 04/16/21, the high probability of a clinically significant, sudden or life threatening deterioration of the following system(s) required my full and direct attention, intervention and personal management. The time I documented below is in addition to time spent performing reported procedures but includes the following listed in this critical care notation. Medical Decision Making - Medical Records Medical records reviewed: Yes: I reviewed the patient's medical records. - Rodolfo Inquiry Pt receiving controlled substance: No Vital Signs: 04/16/21 16:11 04/16/21 17:00 04/16/21 17:05 Temperature 98.1 F Temperature Source Oral Pulse Rate 117 H 118 H Pulse Rate [Right] 120 H Respiratory Rate 18 28 H 18 Blood Pressure 110/81 117/71 Blood Pressure [Right Arm] 113/61 Blood Pressure Mean 87 Blood Pressure Mean [Right Arm] 78 02 Sat by Pulse Oximetry 99 99 98 Oxygen Delivery Method Room Air Room Air 04/16/21 17:30 04/16/21 18:00 04/16/21 18:30 Temperature Temperature Source Pulse Rate 113 H 117 H 117 H Pulse Rate [Right] Respiratory Rate 26 H 28 H 30 H Blood Pressure 118/83 99/69 L 100/76 L Blood Pressure [Right Arm] Blood Pressure Mean 91 79 80 Blood Pressure Mean [Right Arm] 02 Sat by Pulse Oximetry 100 100 99 Oxygen Delivery Method 04/16/21 19:00 Temperature Temperature Source Pulse Rate 113 H Pulse Rate [Right] Respiratory Rate 27 H Blood Pressure 122/82 Blood Pressure [Right Arm] Blood Pressure Mean 90 Blood Pressure Mean [Right Arm] 02 Sat by Pulse Oximetry 99 Oxygen Delivery Method - Lab Data Lab Results 04/16/21 16:21: WBC 19.8 H, RBC 3.41 L, Hgb 9.6 L, Hct 31.8 L, MCV 93.2, MCH 28.2, MCHC 30.3 L, RDW 16.6, Plt Count 584 H, MPV 7.7, Neut % (Auto) 83.4 H, Lymph % (Auto) 10.2, [place] % (Auto) 5.1, Eos % (Auto) 0.3, Baso % (Auto) 1.0, Neut # (Auto) 16.5 H, Lymph # (Auto) 2.0, [place] # (Auto) 1.0, Eos # (Auto) 0.1, Baso # (Auto) 0.2 04/16/21 16:21: Sodium 133 L, Potassium 4.3, Chloride 95 L, Carbon Dioxide 17 L, Anion Gap 25.3 H, BUN 35 H, Creatinine 1.50 H, Estimated Creat Clear 35, Estimated GFR 48 L, Est GFR ( Amer) 58 L, Glucose 136 H, Calcium 10.1, Total Bilirubin 0.9, AST 44, ALT 11 L, Alkaline Phosphatase 154 H, Troponin I < 0.01, NT-Pro-B Natriuret Pep 1190 H, Total Protein 8.0, Albumin 3.4 L, Globulin 4.6 H, Albumin/Globulin Ratio 0.7 L, Lipase 312 H 04/16/21 16:26: Urine Color Yellow, Urine Appearance Clear, Urine pH 5.5, Ur Specific [place] 1.020, Urine Protein Negative, Urine Glucose (UA) Negative, Urine Ketones Negative, Urine Blood Negative, Urine Nitrate Negative, Urine Bilirubin Negative, Urine Urobilinogen 0.2, Ur Leukocyte Esterase Negative, Urine RBC None, Urine WBC None, Ur Squamous Epith Cells 3-5, Urine Bacteria None 04/16/21 16:26: Urine Opiates Screen Negative, Urine Methadone Screen Negative, Ur Barbituates Screen Negative, Ur Phencyclidine Scrn Negative, Ur Amphetamines Screen Negative, U Benzodiazepines Scrn Negative, Urine Cocaine Screen Negative, U Marijuana (THC) Screen Negative 04/16/21 16:40: Plasma/Serum Alcohol < 10 04/16/21 16:58: SARS-CoV-2 (PCR) Detected A, Influenza A Untype (PCR) Not detected, Influenza Type B (PCR) Not detected 04/16/21 19:00: Lactate 2.0 Result diagrams: 04/16/21 16:21 04/16/21 16:21 Orders (Tests/Meds): ED MEDICATIONS Generic Name Dose Route Start Last Admin Trade Name Freq PRN Reason Stop Dose Admin Furosemide 40 mg 04/16/21 19:15 04/16/21 19:26 Furosemide 40 Mg Tablet PO 05/16/21 19:14 40 mg Q48H FERMIN Administration Ceftriaxone Sodium 1 gm/ 50 m
--- NOTE | 2021-04-16 16:55 | PC.NURSE ---
Patient reports no medication changes since last admission
[2021-04-16 17:02] LABS: MANUAL DIFFERENTIAL MANUAL DIFFERENTIAL (MANUAL DIFF)
[2021-04-16 17:55] LABS: Influenza A, PCR Not Detected (NotDetected); Influenza B, PCR Not Detected (NotDetected)
[2021-04-16 18:06] LABS: Chloride 95 mmol/L (98-107)
[2021-04-16 18:07] LABS: Potassium 4.3 mmoL/L (3.5-5.1); Sodium 133 mmol/L (136-145)
[2021-04-16 18:09] LABS: Alanine Aminotransferase 11 U/L (12-78); Albumin Level 3.4 g/dl (3.5-5.0); Albumin/Globulin Ratio 0.7 (1.1-1.8); Alkaline Phosphatase 154 U/L (38-126); Anion Gap 25.3 mEq/L (5-15); Aspartate Amino Transferase 44 U/L (17-59); Bilirubin,Total 0.9 mg/dl (0.2-1.3); Blood Urea Nitrogen 35 mg/dl (9-20); Calcium 10.1 mg/dl (8.4-10.2); Carbon Dioxide 17 mmol/L (22.0-30.0); Creatinine Clearance Estimated 35 mL/min (50-200); Estimated Glomerular Filt Rate 48 ml/min (>60); GFR (African American) 58 ML/MIN (>60); Globulin 4.6 g/dL (1.3-3.2); Glucose 136 mg/dl (74-100); Lipase 312 U/L (23-300)
[2021-04-16 18:12] LABS: Coronavirus 19, PCR Detected (NotDetected)
--- NOTE | 2021-04-16 18:16 | PC.NURSE ---
Lab called with critical lab result: COVID positive. Also advised they rejected the green top and the purple top. They ran some of his chemistries off of the red top since it looked okay per Tracy in the lab.
[2021-04-16 18:19] LABS: NT Pro Brain Natriuretic Pep. 1190 pg/mL (0-125)
[2021-04-16 18:26] LABS: Troponin I < 0.01 ng/ml (0.00-0.034)
[2021-04-16 18:31] LABS: Microscopic, Urine URINE MICROSCOPIC (MICROSCOPIC)
[2021-04-16 18:33] LABS: Appearance,Urine CLEAR (Clear); Bilirubin,Urine Negative (Negative); Blood, Urine Negative (Negative); Color,Urine YELLOW (Yellow); Glucose,Urine (UA) Negative (Negative); Ketones,Urine Negative (Negative); Leukocyte Esterase,Urine Negative (Negative); Nitrate,Urine Negative (Negative); PH,Urine 5.5 (5.0-8.5); Protein,Urine Negative (Negative); Urobilinogen,Urine 0.2 EU/dl (0.2)
[2021-04-16 18:38] LABS: Ethyl Alcohol < 10 mg/dl (0-10)
[2021-04-16 18:45] LABS: Amphetamine/Metha Screen,Urine Negative ng/ml (<1000); Barbiturates Screen,Urine Negative ng/ml (<200)
[2021-04-16 18:46] LABS: Benzodiazepines Screen,Urine Negative ng/ml (<200)
[2021-04-16 18:47] LABS: Cannabinoid Screen,Urine Negative ng/ml (<50); Cocaine Screen,Urine Negative ng/ml (<300)
[2021-04-16 18:48] LABS: Methadone Screen,Urine Negative ng/ml (<300)
[2021-04-16 18:49] LABS: Opiate Screen,Urine Negative ng/ml (<300); Phencyclidine Screen,Urine Negative ng/ml (<25)
[2021-04-16 19:26] LABS: Eosinophils % 0.3 % (0.1-12.0); Hematocrit 31.8 % (42.0-52.0); Hemoglobin 9.6 g/dL (14.1-18.0); Lymphocytes % 10.2 % (10-50); Mean Corpuscular HGB Conc 30.3 g/dL (31.8-35.4); Mean Corpuscular Hemoglobin 28.2 pg (27.0-31.2); Mean Corpuscular Volume 93.2 fl (80-94); Mean Platelet Volume 7.7 fl (7.4-10.4); Monocytes % 5.1 % (1.7-9.3); Neutrophils % 83.4 % (37.0-80.0); Platelet Count 584 K/mm3 (142-424); Red Blood Count 3.41 M/mm3 (4.60-6.20); Red Cell Distribution Width 16.6 % (11.5-17.5); White Blood Count 19.8 K/mm3 (4.8-10.8)
[2021-04-16 19:27] LABS: Basophils # 0.2 K/mm3 (0-0.2); Eosinophils # 0.1 K/mm3 (0.0-0.4); Neutrophils # 16.5 K/mm3 (1.8-7.8)
--- NOTE | 2021-04-16 20:07 | HMH.HP ---
*Admission Date: 04/16/21 *Chief complaint: weakness *History of present illness: this patient presented to the ed -escription of Symptoms (Recalled from ER Triage Doc. by RN): Patient c/o general weakness worse today. Pt reports nausea but denies vomitting. Pt reports hx of bone cancer but denies undergoing any treatment. Pt [facility] This is a 56-year-old male presented to the emergency department with some generalized weakness and body pain. Patient states that he has had pain all over throughout his body. There is no focal tenderness. Patient states that the pain has been so bad that he has been unable to get out of bed. He feels so weak and rundown that he has had difficulties getting around. He denies any headache or change in vision. No focal weakness. Patient is not having any chest pain or difficulty breathing. No abdominal pain or vomiting. No diarrhea. No fevers or chills. pt with hx of recent covid-19 [facility] History I have reviewed the patient's past medical history: Yes Medical History: Reports:: Anxiety, Cancer, Depression, Hyperlipidemia, Hypertension, Urinary Tract Infection Denies:: Diabetes Mellitus Type 1, Diabetes Mellitus Type 2, MRSA, Seizures *Have you ever received a pneumonia vaccine?: No *Have you received a flu vaccine this season?: No Other Medical History: Reports: Arthritis, Thyroid Disease. Denies: Blood Transfusion Reaction Other Surgeries: Yes: No Previous Surgery, Colonoscopy, EGD Amputation: No Fractures: No - *Social History Smoking Status: Current some day smoker Tobacco Type: cigarettes # Packs/Day (cigarettes): 1 Alcohol Intake: former Alcohol Intake Frequency:: 3 or more drinks per day Substance Use Type: denies use *Occupational Status:: disabled Housing: house Household Members: none *Travel in the last 8 weeks: None - Psychiatric History Pschychiatric History:: Reports:: Anxiety, Depression Family Hx:: Cancer, Hyperlipidemia, Hypertension, Stroke Review of Systems - Review of Systems Review of systems:: pertinent systems reviewed and negative unless documented below - Constitutional Reports weakness, Denies fever(s) - Eyes Denies change in vision - ENT Denies sore throat - *Cardiovascular Denies chest pain - *Respiratory Denies cough - *Gastrointestinal Denies abdominal pain - *Genitourinary Denies blood in urine - *Musculoskeletal Reports joint pain, Reports limited joint movement - Integumentary/Breasts Denies rash - *Neurologic Reports weakness, Denies dizziness, Denies headache(s) - Psychiatric Denies thoughts of hurting/killing yourself Meds Home Medications Medication Instructions Recorded Confirmed Type abiraterone 250 mg tablet 250 mg PO DAILY 12/21/20 04/16/21 History Furosemide [Furosemide 40MG tAB*] 40 mg PO Q48H 12/27/20 04/16/21 History Cetirizine HCl 10 mg PO DAILY 03/01/21 04/16/21 History predniSONE [Deltasone 5mg 5 mg PO BID 03/01/21 04/16/21 History tablet] ergocalciferol (vitamin D2) 1,250 1,250 mcg PO WEEKLY #14 cap 03/16/21 04/16/21 Rx mcg (50,000 unit) capsule meclizine 12.5 mg tablet 12.5 mg PO QIDP PRN #40 tab 03/16/21 04/16/21 Rx ondansetron HCl 4 mg tablet 4 mg PO TIDP PRN #30 tab 03/16/21 04/16/21 Rx pantoprazole 40 mg tablet,delayed 40 mg PO HS #90 tab 03/16/21 04/16/21 Rx release sennosides 8.6 mg tablet 8.6 mg PO BID PRN #60 tab 03/16/21 04/16/21 Rx Cholecalciferol (Vitamin D3) 125 mcg PO DAILY 04/16/21 04/16/21 History [Vitamin D3] Metoprolol Succinate [Metoprolol See Rx Instructions .ROUTE .COMPLEX 04/16/21 04/16/21 History Succinate 25mg Tablet*] Omeprazole 20 mg PO DAILY 04/16/21 04/16/21 History Potassium Chloride [K-Tab ER 20 20 meq PO DAILY 04/16/21 04/16/21 History mEq] allopurinoL [Allopurinol 100mg See Rx Instructions .ROUTE .COMPLEX 04/16/21 04/16/21 History tablet] Allergies Allergy/AdvReac Type Severity Reaction Status Date / Time a
[2021-04-16 20:20] LABS: Troponin I < 0.01 ng/ml (0.00-0.034)
--- NOTE | 2021-04-16 20:21 | PC.NURSE ---
PT ARRIVED TO FLOOR VIA STRETCHER FROM ED W/STAFF AT 2020
[2021-04-16 21:34] LABS: Eosinophils % 2 % (0-3); Lymphocytes % 9 % (10-50); Monocytes % 5 % (2-9); Neutrophils % 83 % (42-76); Total Cells Counted 100
[2021-04-16 21:36] LABS: Hypochromasia 2+
[2021-04-16 21:37] LABS: Nucleated Red Blood Cells 10
[2021-04-16 21:38] LABS: Platelet Estimate Moderate Increase
[2021-04-17] VITALS: BP 113/71; PULSE 102; RESP 16; TEMP 36.6; O2SAT 98
[2021-04-17 00:23] LABS: Troponin I < 0.01 ng/ml (0.00-0.034)
--- NOTE | 2021-04-17 02:17 | PC.NURSE ---
A&OX4. TOLERATING RA WELL. X1 ASSIST, VERY WEAK, MALNOURISHED, DIRTY ON ARRIVAL. BEDBUGS NOTED. PT GIVEN SHOWER AND BELONGINGS BAGGED. NO C/O, RESTING WELL. VSS. REPORT GIVEN TO Danie CRUM RN.
[2021-04-17 04:00] VITALS: BP 103/67; PULSE 107; RESP 16; TEMP 36.6; O2SAT 100
[2021-04-17 05:10] VITALS: BMI 14.7
--- NOTE | 2021-04-17 07:13 | CA_ITS ---
APPROVED REPORT Bilateral Lower Extremity Venous Study for DVT. Pastoral Assistant: KHOA Lira Lower Extremity Pain: Bilateral Lower Extremity Swelling: Right swollen lower ext Risk Factors Covid Vein Imaging CFV (R): Non-Compressible, Thrombus, Absent Flow FEM (R): Non-Compressible, Thrombus, Absent Flow POP (R): Non-Compressible, Thrombus PTV (R): compressive, spontaneous, phasic, augmentation GSV (R): compressive, spontaneous, phasic, augmentation Peroneals (R):compressive, spontaneous, phasic, augmentation GAS (R): Non-Compressible, Absent Flow CFV (L): compressive, spontaneous, phasic, augmentation FEM (L): compressive, spontaneous, phasic, augmentation POP (L): compressive, spontaneous, phasic, augmentation PTV (L): compressive, spontaneous, phasic, augmentation GSV (L): compressive, spontaneous, phasic, augmentation Peroneals (L):compressive, spontaneous, phasic, augmentation GAS (L): compressive, spontaneous, phasic, augmentation Findings Study positive for DVT in the right lower extremity including the common femoral, femoral, popliteal and gastrocnemius veins. Conclusion Study positive for DVT in the right lower extremity including the common femoral, femoral, popliteal and gastrocnemius veins. Critical Notification Critical Value: Yes Physician Notified Date: 04/17/2021 Time: 08:40 Physician Name: 2nd floor nurse Electronically signed by : Aren Bermeo MD 04/17/2021 17:25:36
--- NOTE | 2021-04-17 07:23 | P.CONPHA_ITS ---
[facility] Pharmacy VTE Monitoring - Patient Demographics Admission date: 04/17/21 Report Date: 04/17/21 Time: 07:23 Allergies/Adverse Reactions: Patient Allergies aspirin [ASPIRIN] Allergy (Unknown, Verified 03/16/21 11:54) Penicillins [PENICILLINS] Allergy (Unknown, Verified 03/16/21 11:54) Height: 1.63 m Weight: 39.066 kg Patient Problems: Current Active Problems Dehydration (Acute) KAMLESH (acute kidney injury) (Acute) Anemia (Acute) COVID-19 (Acute) Left lower lobe pneumonia (Acute) Low body mass index (BMI) (Acute) Infestation by bed bug (Acute) - VTE Risk Labs: VTE Related Lab Results Hgb 9.6 g/dL (14.1-18.0) L 04/16/21 16:21 Hct 31.8 % (42.0-52.0) L 04/16/21 16:21 Plt Count 584 K/mm3 (142-424) H 04/16/21 16:21 BUN 35 mg/dl (9-20) H 04/16/21 16:21 Creatinine 1.50 mg/dl (0.66-1.25) H 04/16/21 16:21 Estimated Creat Clear 35 mL/min (50-200) 04/16/21 16:21 Clinical Trial Participant: No - Prophylaxis VTE Prophylaxis Ordered?: Yes Types of VTE Prophylaxis: TEDS Knee High, Pharmacological Pharmacologic Type: Enoxaparin
--- NOTE | 2021-04-17 07:32 | HMH.PHAINT ---
VERIFIED HOME MEDICATION LIST USING LIST FROM [facility]
[2021-04-17 08:00] VITALS: BP 101/56; PULSE 67; RESP 16; TEMP 36.8; O2SAT 100
[2021-04-17 08:41] LABS: Alanine Aminotransferase 5 U/L (12-78); Albumin Level 2.7 g/dl (3.5-5.0); Albumin/Globulin Ratio 0.7 (1.1-1.8); Alkaline Phosphatase 82 U/L (38-126); Anion Gap 14.8 mEq/L (5-15); Aspartate Amino Transferase 27 U/L (17-59); Bilirubin,Total 0.8 mg/dl (0.2-1.3); Blood Urea Nitrogen 36 mg/dl (9-20); Carbon Dioxide 19 mmol/L (22.0-30.0); Chloride 102 mmol/L (98-107); Creatinine Clearance Estimated 32 mL/min (50-200); Estimated Glomerular Filt Rate 52 ml/min (>60); GFR (African American) 63 ML/MIN (>60); Glucose 94 mg/dl (74-100); Potassium 3.8 mmoL/L (3.5-5.1); Sodium 132 mmol/L (136-145); Total Protein,Serum 6.7 g/dl (6.3-8.2)
[2021-04-17 08:47] LABS: Calcium 8.7 mg/dl (8.4-10.2)
--- NOTE | 2021-04-17 08:58 | SW/DCPLANNER ---
Dr Aguilar had requested that I speak with patient regarding Hospice services. Per Deacon whom spoke with patient while rounding is NOT interested in Hospice services at this time. I will continue to follow up with this patient until medically stable for discharge.
[2021-04-17 09:12] LABS: Basophils # 0.1 K/mm3 (0-0.2); Basophils % 0.6 % (0.1-2.0); Eosinophils # 0.1 K/mm3 (0.0-0.4); Eosinophils % 0.5 % (0.1-12.0); Hematocrit 28.8 % (42.0-52.0); Lymphocytes # 2.2 K/mm3 (0.7-4.5); Lymphocytes % 11.9 % (10-50); Mean Corpuscular HGB Conc 29.7 g/dL (31.8-35.4); Mean Corpuscular Hemoglobin 27.9 pg (27.0-31.2); Mean Corpuscular Volume 93.8 fl (80-94); Mean Platelet Volume 7.8 fl (7.4-10.4); Monocytes # 1.3 K/mm3 (0.1-1.0); Monocytes % 6.9 % (1.7-9.3); Neutrophils # 14.7 K/mm3 (1.8-7.8); Platelet Count 551 K/mm3 (142-424); Red Blood Count 3.07 M/mm3 (4.60-6.20); Red Cell Distribution Width 16.9 % (11.5-17.5); White Blood Count 18.3 K/mm3 (4.8-10.8)
[2021-04-17 09:14] LABS: MANUAL DIFFERENTIAL MANUAL DIFFERENTIAL (MANUAL DIFF)
[2021-04-17 09:16] LABS: Hemoglobin 8.6 g/dL (14.1-18.0)
[2021-04-17 09:44] LABS: Anisocytosis 1+; Hypochromasia 2+; Lymphocytes % 10 % (10-50); Macrocytosis 2+; Monocytes % 7 % (2-9); Neutrophils % 83 % (42-76); Platelet Estimate Normal; Total Cells Counted 100
--- NOTE | 2021-04-17 10:44 | PC.NURSE ---
haris in lab called reporting positive blood culture in one bottle of klibsiella pneumonia. verified name birthdate
[2021-04-17 11:22] VITALS: BP 98/68; PULSE 113; RESP 18; TEMP 37.2; O2SAT 100
--- NOTE | 2021-04-17 11:50 | PC.NURSE ---
reported positive blood culture to kamran álvarez aprn
--- NOTE | 2021-04-17 12:45 | HMH.ACPN2 ---
Internal Medicine - PN: Subj *Date: 04/17/21 *Time: 19:06 Interval history: 56-year-old male patient sitting up in bed resting quietly respirations easy/even, he denies any shortness of breath during the night. Discussed hospice care with patient, he refused to discuss and states my sister handles all of that. He reports his sister is on vacation in [place] and will return this Friday. Exam Vital signs and Labs for Last 24 Hours: Temp Pulse Resp BP Pulse Ox 98.9 F 113 H 18 98/68 L 100 04/17/21 11:22 04/17/21 11:22 04/17/21 11:22 04/17/21 11:22 04/17/21 11:22 Laboratory Results - last 24 hr 04/16/21 16:21: WBC 19.8 H, Corrected WBC 18.0 H, RBC 3.41 L, Hgb 9.6 L, Hct 31.8 L, MCV 93.2, MCH 28.2, MCHC 30.3 L, RDW 16.6, Plt Count 584 H, MPV 7.7, Neut % (Auto) 83.4 H, Lymph % (Auto) 10.2, [place] % (Auto) 5.1, Eos % (Auto) 0.3, Baso % (Auto) 1.0, Neut # (Auto) 16.5 H, Lymph # (Auto) 2.0, [place] # (Auto) 1.0, Eos # (Auto) 0.1, Baso # (Auto) 0.2, Total Counted 100, Neutrophils % (Manual) 83 H, Lymphocytes % (Manual) 9 L, Monocytes % (Manual) 5, Eosinophils % (Manual) 2, Basophils % (Manual) 1.0, Nucleated RBCs 10, Platelet Estimate Moderate increase, RBC Morphology Not Reportable, Hypochromasia 2+ 04/16/21 16:21: Sodium 133 L, Potassium 4.3, Chloride 95 L, Carbon Dioxide 17 L, Anion Gap 25.3 H, BUN 35 H, Creatinine 1.50 H, Estimated Creat Clear 35, Estimated GFR 48 L, Est GFR ( Amer) 58 L, Glucose 136 H, Calcium 10.1, Total Bilirubin 0.9, AST 44, ALT 11 L, Alkaline Phosphatase 154 H, Troponin I < 0.01, NT-Pro-B Natriuret Pep 1190 H, Total Protein 8.0, Albumin 3.4 L, Globulin 4.6 H, Albumin/Globulin Ratio 0.7 L, Lipase 312 H 04/16/21 16:26: Urine Color Yellow, Urine Appearance Clear, Urine pH 5.5, Ur Specific [place] 1.020, Urine Protein Negative, Urine Glucose (UA) Negative, Urine Ketones Negative, Urine Blood Negative, Urine Nitrate Negative, Urine Bilirubin Negative, Urine Urobilinogen 0.2, Ur Leukocyte Esterase Negative, Urine RBC None, Urine WBC None, Ur Squamous Epith Cells 3-5, Urine Bacteria None 04/16/21 16:26: Urine Opiates Screen Negative, Urine Methadone Screen Negative, Ur Barbituates Screen Negative, Ur Phencyclidine Scrn Negative, Ur Amphetamines Screen Negative, U Benzodiazepines Scrn Negative, Urine Cocaine Screen Negative, U Marijuana (THC) Screen Negative 04/16/21 16:40: Plasma/Serum Alcohol < 10 04/16/21 16:58: SARS-CoV-2 (PCR) Detected A, Influenza A Untype (PCR) Not detected, Influenza Type B (PCR) Not detected 04/16/21 19:00: Lactate 2.0 04/16/21 19:35: Troponin I < 0.01 04/16/21 23:13: Troponin I < 0.01 04/17/21 07:26: Sodium 132 L, Potassium 3.8, Chloride 102, Carbon Dioxide 19 L, Anion Gap 14.8, BUN 36 H, Creatinine 1.40 H, Estimated Creat Clear 32, Estimated GFR 52 L, Est GFR ( Amer) 63, Glucose 94 D, Calcium 8.7 D, Total Bilirubin 0.8, AST 27 D, ALT 5 L D, Alkaline Phosphatase 82, Total Protein 6.7, Albumin 2.7 L D, Globulin 4.0 H, Albumin/Globulin Ratio 0.7 L 04/17/21 08:51: WBC 18.3 H, RBC 3.07 L, Hgb 8.6 L D, Hct 28.8 L, MCV 93.8, MCH 27.9, MCHC 29.7 L, RDW 16.9, Plt Count 551 H, MPV 7.8, Neut % (Auto) 80.0, Lymph % (Auto) 11.9, [place] % (Auto) 6.9, Eos % (Auto) 0.5, Baso % (Auto) 0.6, Neut # (Auto) 14.7 H, Lymph # (Auto) 2.2, [place] # (Auto) 1.3 H, Eos # (Auto) 0.1, Baso # (Auto) 0.1, Total Counted 100, Neutrophils % (Manual) 83 H, Lymphocytes % (Manual) 10, Monocytes % (Manual) 7, Platelet Estimate Normal, RBC Morphology Not Reportable, Hypochromasia 2+, Anisocytosis 1+, Macrocytosis 2+ I & O for Last 24 hours: Intake & Output 04/14/21 04/15/21 04/16/21 04/17/21 23:59 23:59 23:59 23:59 Intake Total 300 / 300 920 / 920 Output Total 150 / 150 Balance 300 / 300 770 / 770 Weight 86 lb 2 oz 86 lb 2 oz Microbiology Reports for the Last 24 Hours: Microbiology 04/16/21 16:35 Blood Blood Culture - Preliminary - Constitutional no acute distress, chronically ill appearing - *R
--- NOTE | 2021-04-17 15:55 | PC.NURSE ---
patient has had an okay day. rings out as needed. appetite poor, but would drink ensure. spoke with sister about cancer medication. stated she would have someone check his home for the medication and bring it up here. patient thought he had a medicine enterprise resource planner on ambulance. however this is not in patient room checked with er and [facility]. then notified the sister as well. patient has some pain to knee. know other issues or complaints.
[2021-04-17 16:00] VITALS: BP 103/67; PULSE 104; RESP 16; TEMP 37.2; O2SAT 100
--- NOTE | 2021-04-17 19:50 | PC.NURSE ---
No acute changes this evening since taking over care of pt at approx 1530. CB in reach. Meds locked in drawer.
[2021-04-17 20:00] VITALS: BP 104/66; PULSE 110; RESP 16; TEMP 37.2; O2SAT 100
[2021-04-18] VITALS (16 sets, daily range): BP systolic 82–118; BP diastolic 57–76; PULSE 80–109; RESP 16–18; TEMP 36.6–37.1; O2SAT 94–100; BMI 15.3; BMI 15.4
--- NOTE | 2021-04-18 03:59 | PC.NURSE ---
Patient is alert & oriented x4. He has rested well through the night. Patient had complaints of his bottom hurting at the beginning of the shift, no breakdown was noted & a dressing was applied prophylactically. Patient has poor mobility and grimaces in pain when turning. Right lower extremity is edematous with +1 pitting edema. Vital signs stable, call light within reach, will continue to monitor.
[2021-04-18 07:13] LABS: Anion Gap 7.7 mEq/L (5-15); Blood Urea Nitrogen 26 mg/dl (9-20); Calcium 8.3 mg/dl (8.4-10.2); Carbon Dioxide 23 mmol/L (22.0-30.0); Chloride 107 mmol/L (98-107); Creatinine Clearance Estimated 36 mL/min (50-200); Estimated Glomerular Filt Rate 57 ml/min (>60); GFR (African American) 69 ML/MIN (>60); Glucose 117 mg/dl (74-100); Sodium 135 mmol/L (136-145)
[2021-04-18 07:15] LABS: Potassium 2.7 mmoL/L (3.5-5.1)
--- NOTE | 2021-04-18 07:20 | PC.NURSE ---
Amanda from lab called for a critical potassium of 2.[address] x2 Dr[address] Sheppard paged, waiting for phone call back at this time.
[2021-04-18 07:55] LABS: Basophils # 0.1 K/mm3 (0-0.2); Basophils % 0.4 % (0.1-2.0); Lymphocytes # 1.9 K/mm3 (0.7-4.5); Lymphocytes % 12.4 % (10-50); Mean Corpuscular HGB Conc 30.3 g/dL (31.8-35.4); Mean Corpuscular Hemoglobin 28.1 pg (27.0-31.2); Mean Corpuscular Volume 92.6 fl (80-94); Monocytes # 0.8 K/mm3 (0.1-1.0); Monocytes % 4.9 % (1.7-9.3); Neutrophils # 12.7 K/mm3 (1.8-7.8); Neutrophils % 82.3 % (37.0-80.0); Platelet Count 451 K/mm3 (142-424); Red Blood Count 2.49 M/mm3 (4.60-6.20); Red Cell Distribution Width 17.4 % (11.5-17.5); White Blood Count 15.4 K/mm3 (4.8-10.8)
[2021-04-18 08:19] LABS: Hematocrit 23.1 % (42.0-52.0)
[2021-04-18 08:20] LABS: MANUAL DIFFERENTIAL MANUAL DIFFERENTIAL (MANUAL DIFF)
[2021-04-18 08:44] LABS: Anisocytosis 1+; Hypochromasia 1+; Lymphocytes % 11 % (10-50); Macrocytosis 1+; Microcytosis 1+; Monocytes % 4 % (2-9); Neutrophils % 85 % (42-76); Platelet Estimate Normal; Total Cells Counted 100
--- NOTE | 2021-04-18 10:21 | PC.NURSE ---
late entry: severino in lab called stating patient hgb and hct were 7.0 and 23.1 verified name and birthdate, this was reported to md after lab notified. md was also relayed the earlier potassium draw
--- NOTE | 2021-04-18 10:36 | SW/DCPLANNER ---
Addendum entered by [facility] 04/19/21 15:16: I have informed Florencia with [facility] that this patient will not discharge till tomorrow now. Addendum entered by [facility] 04/19/21 09:47: This patient will discharge to [facility] today. I have informed Florencia with [facility]: no further COVID testing required. Addendum entered by [facility] 04/18/21 12:44: Florencia has accepted this patient to [facility] once medically stable for discharge. Addendum entered by [facility] 04/18/21 11:19: Patient information has been faxed to Florencia with [facility]. Original Note: I called and spoke with patients sister (Garry) regarding discharge plans. 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 Garry is currently on vacation but stated that she will call [facility] to see if they have any male beds (sister works at [facility]). I am currently waiting for Garry to contact me back regarding placement. Discharge date is unknown at this time.
--- NOTE | 2021-04-18 14:18 | PC.NURSE ---
patient has done well this shift. offered turns to patient as he needed/wanted. appetite remains poor but will drink ensure. tolerating treatment plan at this time. no issues noted with potassium. rings out as needed. sister has been in contact with staff and family. vitals stable.
--- NOTE | 2021-04-18 18:01 | PC.NURSE ---
first unit infused with no difficulty. 280ml of blood given and 40 of ns
--- NOTE | 2021-04-18 18:43 | HMH.ACPN2 ---
Internal Medicine - PN: Subj *Date: 04/18/21 *Time: 09:43 Interval history: 56-year-old male sitting up in bed resting quietly with eyes closed, he does awaken to verbal stimuli. He denies any pain or respiratory distress during the night, but does report some fatigue. Hemoglobin this morning is 7.0 and potassium is 2.7, we will order 2 units of packed red blood cells and replenish K. Case management will attempt to contact patient's sister regarding discharge to a extended care facility. Exam Vital signs and Labs for Last 24 Hours: Temp Pulse Resp BP Pulse Ox 98.1 F 95 H 16 108/75 L 99 04/18/21 18:05 04/18/21 18:05 04/18/21 18:05 04/18/21 18:05 04/18/21 18:05 Laboratory Results - last 24 hr 04/16/21 16:26: Urine Color Yellow, Urine Appearance Clear, Urine pH 5.5, Ur Specific [place] 1.020, Urine Protein Negative, Urine Glucose (UA) Negative, Urine Ketones Negative, Urine Blood Negative, Urine Nitrate Negative, Urine Bilirubin Negative, Urine Urobilinogen 0.2, Ur Leukocyte Esterase Negative, Urine RBC None, Urine WBC None, Ur Squamous Epith Cells 3-5, Urine Bacteria None 04/18/21 06:41: WBC 15.4 H, RBC 2.49 L, Hgb 7.0 L*, Hct 23.1 L*, MCV 92.6, MCH 28.1, MCHC 30.3 L, RDW 17.4, Plt Count 451 H, MPV 8.0, Neut % (Auto) 82.3 H, Lymph % (Auto) 12.4, [place] % (Auto) 4.9, Eos % (Auto) 0.0 L, Baso % (Auto) 0.4, Neut # (Auto) 12.7 H, Lymph # (Auto) 1.9, [place] # (Auto) 0.8, Eos # (Auto) 0.0, Baso # (Auto) 0.1, Total Counted 100, Neutrophils % (Manual) 85 H, Lymphocytes % (Manual) 11, Monocytes % (Manual) 4, Platelet Estimate Normal, Hypochromasia 1+, Anisocytosis 1+, Microcytosis 1+, Macrocytosis 1+ 04/18/21 06:41: Sodium 135 L, Potassium 2.7 L* D, Chloride 107, Carbon Dioxide 23 D, Anion Gap 7.7, BUN 26 H D, Creatinine 1.30 H, Estimated Creat Clear 36, Estimated GFR 57 L, Est GFR ( Amer) 69, Glucose 117 H D, Calcium 8.3 L 04/18/21 12:45: Blood Type O Negative, Antibody Screen Negative, Crossmatch (AHG) See Detail I & O for Last 24 hours: Intake & Output 04/15/21 04/16/21 04/17/21 04/18/21 23:59 23:59 23:59 23:59 Intake Total 300 / 300 1040 / 1040 3578 / 3578 Output Total 475 / 525 400 / 400 Balance 300 / 300 565 / 515 3178 / 3178 Weight 86 lb 2 oz 86 lb 2 oz 90 lb 6.232 oz Microbiology Reports for the Last 24 Hours: Microbiology 04/16/21 16:26 Blood Blood Culture - Preliminary NO GROWTH AFTER 48 HOURS 04/16/21 16:35 Blood Blood Culture - Preliminary Gram Negative Rods - Constitutional no acute distress, cachectic - *Routine HEENT Exam Head: Present: normocephalic Eye: Present: EOMI ENT: Present: mucous membranes dry - *Routine Neck Exam Present: trachea midline. Absent: tracheal deviation - *Routine Respiratory Exam Present: CTA bilaterally. Absent: accessory muscle use - *Routine Cardiovascular Exam Present: RRR - *Routine Abdominal Exam Present: soft, normoactive bowel sounds. Absent: tenderness, firm - *Routine Extremities Exam Present: full ROM, pulses intact, calf tenderness. Absent: cyanosis, clubbing, edema Comments: R Calf Tenderness - *Routine Skin Exam Present: intact, dry, warm. Absent: cyanosis, erythema - *Routine Neurological Exam Present: alert, oriented X3. Absent: motor deficit - Routine Psychiatric Exam Present: normal affect, normal thought process. Absent: auditory hallucinations, visual hallucinations Assessment and Plan (1) KAMLSEH (acute kidney injury) Status: Acute Category: Medical Code(s): N17.9 - Acute kidney failure, unspecified (2) Low body mass index (BMI) Status: Acute Category: Medical (3) Infestation by bed bug Status: Acute Category: Medical Code(s): B88.8 - Other specified infestations (4) Anemia Status: Acute Qualifiers: Anemia type: unspecified type Qualified Code(s): D64.9 - Anemia, unspecified Category: Medical Code(s): D64.9 - Ane
[2021-04-19] VITALS (18 sets, daily range): BP systolic 101–134; BP diastolic 67–80; PULSE 56–105; RESP 16–24; TEMP 36.3–36.9; O2SAT 96–100; BMI 16.0
--- NOTE | 2021-04-19 04:22 | PC.NURSE ---
alert and oriented. small bm this shift. in patent and infusing per order. pain x1 and prn med given per mar. 2nd unit of PRBC infusing at this time. no issues noted at this time. call light in reach. will continue to monitor
[2021-04-19 07:22] LABS: Hematocrit 36.9 % (42.0-52.0); Hemoglobin 11.7 g/dL (14.1-18.0)
[2021-04-19 07:53] LABS: Basophils # 0.1 K/mm3 (0-0.2); Basophils % 0.5 % (0.1-2.0); Eosinophils % 0.1 % (0.1-12.0); Hematocrit 37.7 % (42.0-52.0); Hemoglobin 11.7 g/dL (14.1-18.0); Lymphocytes % 8.4 % (10-50); Mean Corpuscular HGB Conc 31.1 g/dL (31.8-35.4); Mean Corpuscular Hemoglobin 29.1 pg (27.0-31.2); Mean Corpuscular Volume 93.6 fl (80-94); Mean Platelet Volume 8.4 fl (7.4-10.4); Monocytes # 1.2 K/mm3 (0.1-1.0); Neutrophils # 20.3 K/mm3 (1.8-7.8); Platelet Count 413 K/mm3 (142-424); Red Blood Count 4.03 M/mm3 (4.60-6.20); Red Cell Distribution Width 16.3 % (11.5-17.5); White Blood Count 23.6 K/mm3 (4.8-10.8)
[2021-04-19 07:58] LABS: MANUAL DIFFERENTIAL MANUAL DIFFERENTIAL (MANUAL DIFF)
[2021-04-19 08:01] LABS: Anion Gap 8.6 mEq/L (5-15); Blood Urea Nitrogen 23 mg/dl (9-20); Calcium 8.8 mg/dl (8.4-10.2); Carbon Dioxide 20 mmol/L (22.0-30.0); Chloride 111 mmol/L (98-107); Creatinine Clearance Estimated 49 mL/min (50-200); Estimated Glomerular Filt Rate 77 ml/min (>60); GFR (African American) 93 ML/MIN (>60); Glucose 124 mg/dl (74-100); Potassium 4.6 mmoL/L (3.5-5.1); Sodium 135 mmol/L (136-145)
[2021-04-19 08:06] LABS: Anisocytosis 1+; Hypochromasia 2+; Lymphocytes % 5 % (10-50); Macrocytosis 1+; Monocytes % 8 % (2-9); Neutrophils % 87 % (42-76); Platelet Estimate Normal; Total Cells Counted 100
--- NOTE | 2021-04-19 08:27 | HMH.ITSTN ---
went up for stat portable after pulling patient up in bed alerted nursing staffing coordinator that was helping me of a bug crawling on the covers,,they are going to bathe patient strip bed and call when we can come back to do the pcxr
--- NOTE | 2021-04-19 09:20 | HMH.DCSUM ---
General - General Admission date:: 04/16/21 Discharge date: 04/19/21 HPI HPI: this patient presented to the ed -escription of Symptoms (Recalled from ER Triage Doc. by RN): Patient c/o general weakness worse today. Pt reports nausea but denies vomitting. Pt reports hx of bone cancer but denies undergoing any treatment. Pt reports his oncologist is at [facility] This is a 56-year-old male presented to the emergency department with some generalized weakness and body pain. Patient states that he has had pain all over throughout his body. There is no focal tenderness. Patient states that the pain has been so bad that he has been unable to get out of bed. He feels so weak and rundown that he has had difficulties getting around. He denies any headache or change in vision. No focal weakness. Patient is not having any chest pain or difficulty breathing. No abdominal pain or vomiting. No diarrhea. No fevers or chills. pt with hx of recent covid-19 Hospital Course Hospital Course: 56-year-old male patient is presented to the emergency department with reports of increasing generalized weakness for several days. He also reports nausea but denies vomiting or diarrhea. He does have a history of bone cancer and his oncologist is at [facility]. He was recently with COVID-19 04/16/21 chest x-ray: FINDINGS: The cardiomediastinal silhouette and pulmonary vascularity are within normal limits. Minimal atelectatic changes are present in the left lung base. Metallic coil like densities noted in the left upper quadrant IMPRESSION: Minimal left basilar atelectasis Dictated by: Aren Bermeo MD 04/17/2021 right lower extremity venous Doppler: Findings Study positive for DVT in the right lower extremity including the common femoral, femoral, popliteal and gastrocnemius veins. Conclusion Study positive for DVT in the right lower extremity including the common femoral, femoral, popliteal and gastrocnemius veins. Critical Notification Critical Value: Yes Physician Notified Date: 04/17/2021 Time: 08:40 Physician Name: 2nd floor nurse Electronically signed by : Aren Bermeo MD A DVT was revealed in his right lower extremity and is currently being treated with Xarelto Hemoglobin was 7.0 he did receive 2 units of packed red blood cells for this and currently hemoglobin is 11.7 Potassium was 2.7 he did receive IV replenishment and currently is 4.6 Klebsiella Pneumonia was revealed and blood cultures, he will receive PICC line and will be covered with levofloxacin at [facility] 56-year-old male patient sitting up in bed resting quietly he reports tenderness in his right lower extremity. Discussed discharge to [facility], he is agreeable to this. His sister is an employee at [employer] it was discussed with her and she is agreeable to this also, she is currently on vacation and will return this weekend Objective Vital signs: Temp Pulse Resp BP Pulse Ox 97.5 F L 89 18 117/78 98 04/19/21 08:00 04/19/21 08:00 04/19/21 09:09 04/19/21 08:00 04/19/21 08:00 no acute distress, thin, cachectic - *Routine HEENT Exam Head: Present: normocephalic Eye: Present: EOMI ENT: Present: mucous membranes moist - *Routine Neck Exam Present: trachea midline. Absent: tracheal deviation - *Routine Respiratory Exam Present: CTA bilaterally. Absent: accessory muscle use - *Routine Cardiovascular Exam Present: RRR - *Routine Abdominal Exam Present: soft, normoactive bowel sounds. Absent: tenderness, firm - *Routine Extremities Exam Present: pulses intact. Absent: cyanosis, clubbing, full ROM, calf tenderness Comments: RLE Tenderness - *Routine Skin Exam Present: intact, dry, warm. Absent: cyanosis, erythema - *Routine Neurological Exam Present: alert. Absent: motor deficit, pronator drift - Routine Psychiatric Exam Present: norm
--- NOTE | 2021-04-19 09:25 | XR_ITS ---
PROCEDURE: XR CHEST PORTABLE PICC PLAC CLINICAL HISTORY: Confirm PICC line placement COMPARISON: CR Chest from 03/15/2019 CR XR CHEST PORTABLE from 10/21/[address] CHEST W CON from 10/26/[address] ABDOMEN PELVIS W CON from 12/27/2020 CR XR CHEST PORTABLE from 04/16/2021 FINDINGS: Left upper extremity PICC line has been placed. The tip is at the caval atrial junction and could be withdrawn 1-2 cm. There is some increased density in the right lower lobe which could be related to hypo expansion. An oval lucency is noted in the right upper quadrant of the abdomen measuring 3 by 1.8 cm. This is nonspecific and could be within the lower chest or upper abdomen. CT may provide further evaluation. A similar lucency but smaller is noted in the left upper quadrant and could even be related to the stomach air bubble. IMPRESSION: 1. Left upper extremity PICC line tip at the caval atrial junction and could be withdrawn 1-2 cm 2. Right lower lobe consolidation/volume loss with oval lucency in the right upper quadrant which could be related to an abscess within the lung or the abdomen versus loculated peritoneal air. CT abdomen with contrast may provide further evaluation. Dictated by: Aren Bermeo MD 04/19/2021 12:51 Aren Bermeo MD in [place] 04/19/2021 12:51
--- NOTE | 2021-04-19 13:00 | PC.NURSE ---
Notified Karla Bowen of CXR impression @ this time, to order CT Abdomen w/ contrast
--- NOTE | 2021-04-19 13:01 | CT_ITS ---
PROCEDURE: CT ABDOMEN W CON CLINICAL HISTORY: Abnormal gas collections in the upper abdomen on the recent chest x-ray COMPARISON: CT CT ABDOMEN PELVIS W CON from 12/27/2020 CR XR CHEST PORTABLE PICC PLAC from 04/19/2021 TECHNIQUE: Contrast: 75 mL Isovue 370 Axial images obtained with sagittal and coronal reformats. All CT scans at the facility use one or more dose reduction, viz: automated exposure control, ma/kV adjustment per patient size (including targeted exams where dose is matched to indication, i.e. head), or iterative reconstruction technique. FINDINGS: There are small to bilateral pleural effusions with bibasilar atelectatic changes. Metallic artifact is present in the mid abdominal region consistent vascular coils which have been placed in the interval. There are now numerous oval fluid collections within the upper abdomen. At least 2 these fluid collections in the right upper and left upper quadrant account for the radiographic abnormalities described on the recent chest x-ray. A lentiform shaped fluid collection is present in the subcapsular region of the right hepatic lobe measuring 9 cm cephalad caudad 4.4 cm transverse, and 8 cm AP. This contains some slightly hyperdense material inferiorly. This collection appears to be contiguous with an additional loculated collection containing gas along the left hepatic lobe anteriorly which measures 14 x 6 by 6 cm also with an air-fluid level and also with some interspersed gas within this region. This collection is displacing the body of the stomach slightly posteriorly. There are 2 additional loculated collections in the portal area of the liver. These appear to be connected measuring 4 cm each. An additional loculated collection is present anterior to the spleen at 8.5 x 5.6 cm. There is diffuse heterogeneous density of the body and tail the pancreas. The body of the pancreas is somewhat obscured by the overlying metallic artifact. There is heterogeneous density also of the head of the pancreas. An enlarging pseudo cyst is present along the head of the pancreas measuring 3.7 by 3 cm. No renal or ureteral calculi. The adrenal glands have an unremarkable appearance. No intestinal obstruction is evident. There is mild diffuse edema of the subcutaneous tissues IMPRESSION: Abnormal CT of the abdomen. There are numerous loculated fluid collections in the subcapsular region of the liver both right and left hepatic lobes area and in the left perisplenic region. These have increased in number and size some of which contain an air-fluid level consistent with infected pancreatic pseudocyst cysts. The pseudo cysts along the left and right up attic the subcapsular region may actually communicate with 1 another. The previously noted collection in the left hepatic lobe posteriorly appears somewhat smaller. There is no puddling of contrast within any of these collections that would indicate acute hemorrhage. There is heterogeneous density in the tail the pancreas which may be related underlying pancreatitis. Pancreatic duct does appear dilated. Bilateral pleural effusions with bibasilar atelectasis Dictated by: Aren Bermeo MD 04/19/2021 14:31 Aren Bermeo MD in [place] 04/19/2021 14:31
--- NOTE | 2021-04-19 14:43 | PC.NURSE ---
Speaking w/ Dr. Sheppard @ this time to very that it is okay to send pt to [facility]. States he will speak to Dr. aSul before pt returns to [facility]
--- NOTE | 2021-04-19 16:10 | HMH.CONS ---
*Admission Date: 04/17/21 *Reason for consult:: metastatic prostate cancer *History of present illness: 56 yo aam with h/o metastatic prostate cancer on zytiga and prednisone admitted for right lower ext pain. he states pain present for about 3 days. difficult for him to walk. + swelling. pt dx with dvt of right lower ext. pt had a ct scan this afternoon I reviewed and demonstrates various fluid collections in the abdomen c/w cysts and pancreatic pseudocysts. I don't know all the details but know the pt was admitted at earlier this year for similar issue. pt reports some abdl pain in right side. pt lives alone. he appears frail and malnourished. as far as his cancer it has been stable on zytiga/prednisone and he reports he tolerates the medication well. [facility] History Medical History: Reports:: Anxiety, Cancer, Congestive Heart Failure, Depression, Hyperlipidemia, Hypertension, Urinary Tract Infection Denies:: Diabetes Mellitus Type 1, Diabetes Mellitus Type 2, MRSA, Seizures *Have you ever received a pneumonia vaccine?: No *Have you received a flu vaccine this season?: No Other Medical History: Reports: Arthritis, Thyroid Disease. Denies: Blood Transfusion Reaction Other Surgeries: Yes: No Previous Surgery, Colonoscopy, EGD Amputation: No Fractures: No - *Social History Smoking Status: Current some day smoker Tobacco Type: cigarettes # Packs/Day (cigarettes): 1 Alcohol Intake: never Alcohol Intake Frequency:: 3 or more drinks per day Substance Use Type: denies use *Occupational Status:: unemployed Housing: house Household Members: none *Travel in the last 8 weeks: None - Psychiatric History Pschychiatric History:: Reports:: Anxiety, Depression Family Hx:: Unable to obtain Review of Systems - *Neurologic Reports weakness, Denies dizziness, Denies headache(s) Meds Home Medications Medication Instructions Recorded Confirmed Type abiraterone 250 mg tablet 250 mg PO DAILY 12/21/20 04/16/21 History Furosemide [Furosemide 40MG tAB*] 40 mg PO DAILY 12/27/20 04/17/21 History Cetirizine HCl 10 mg PO DAILY 03/01/21 04/16/21 History predniSONE [Deltasone 5mg 5 mg PO BID 03/01/21 04/16/21 History tablet] ergocalciferol (vitamin D2) 1,250 1,250 mcg PO WEEKLY #14 cap 03/16/21 04/16/21 Rx mcg (50,000 unit) capsule meclizine 12.5 mg tablet 12.5 mg PO QIDP PRN #40 tab 03/16/21 04/16/21 Rx ondansetron HCl 4 mg tablet 4 mg PO TIDP PRN #30 tab 03/16/21 04/16/21 Rx pantoprazole 40 mg tablet,delayed 40 mg PO HS #90 tab 03/16/21 04/16/21 Rx release sennosides 8.6 mg tablet 8.6 mg PO BID PRN #60 tab 03/16/21 04/16/21 Rx Cholecalciferol (Vitamin D3) 125 mcg PO DAILY 04/16/21 04/17/21 History [Vitamin D3] Metoprolol Succinate [Metoprolol 25 mg PO DAILY 04/16/21 04/17/21 History Succinate 25mg Tablet*] Potassium Chloride [K-Tab ER 20 20 meq PO DAILY 04/16/21 04/16/21 History mEq] allopurinoL [Allopurinol 100mg 100 mg PO DAILY 04/16/21 04/17/21 History tablet] Levofloxacin/D5w 750 mg/150 ml 750 mg IV Q24H 10 Days #10 bag 04/19/21 Rx [Levofloxacin 750mg/150mL Premix IVPB] Rivaroxaban [Xarelto 15mg tablet] 15 mg PO BIDWMEAL 18 Days #36 tab 04/19/21 Rx Allergies Allergy/AdvReac Type Severity Reaction Status Date / Time aspirin [ASPIRIN] Allergy Unknown Verified 03/16/21 11:54 Penicillins [PENICILLINS] Allergy Unknown Verified 03/16/21 11:54 Exam Vital signs and Labs for Last 24 Hours: Temp Pulse Resp BP Pulse Ox 97.7 F 78 18 120/80 96 04/19/21 15:07 04/19/21 15:07 04/19/21 15:07 04/19/21 15:07 04/19/21 15:07 Laboratory Results - last 24 hr 04/18/21 12:45: Blood Type O Negative, Antibody Screen Negative, Crossmatch (AHG) See Detail 04/19/21 07:11: WBC 23.6 H* D, RBC 4.03 L D, Hgb 11.7 L, Hct 37.7 L, MCV 93.6, MCH 29.1, MCHC 31.1 L, RDW 16.3, Plt Count 413, MPV 8.4, Neut % (Auto) 86.0 H, Lymph % (Auto) 8.4 L, [place] % (Auto) 5.0, Eos % (Auto) 0.1, Baso % (Auto) 0.5,
--- NOTE | 2021-04-19 19:52 | PC.NURSE ---
1315 - Picc line withdrawn to leave 2 cm exposed, recommended per Dr. Bermeo
--- NOTE | 2021-04-19 19:52 | PC.NURSE ---
1600 - Spoke w/ Kaylyn @ [facility] to let facility know that pt will not be DC to them today, likely tomorrow. Covid swab ordered for in the AM, per facility request.
[2021-04-20] VITALS (23 sets, daily range): BP systolic 80–127; BP diastolic 56–85; PULSE 85–180; RESP 16–35; TEMP 36.4–37.1; O2SAT 96–100; BMI 16.2
--- NOTE | 2021-04-20 03:29 | PC.NURSE ---
shift summary pt is alert and oriented X4. lung sounds are clear with sats maintained 90% or above on room air. pt voids per bedside urinal, urine is clear and yellow in color. pt has rested comfortably for most of the shift. pt denies any pain, nausea, vomiting, or diarrhea. no acute changes will continue to monitor
[2021-04-20 06:41] LABS: Basophils # 0.1 K/mm3 (0-0.2); Basophils % 0.3 % (0.1-2.0); Hemoglobin 10.8 g/dL (14.1-18.0); Lymphocytes % 10.1 % (10-50); Mean Corpuscular HGB Conc 31.7 g/dL (31.8-35.4); Mean Corpuscular Hemoglobin 28.6 pg (27.0-31.2); Mean Corpuscular Volume 90.2 fl (80-94); Monocytes # 1.2 K/mm3 (0.1-1.0); Monocytes % 5.9 % (1.7-9.3); Neutrophils # 16.3 K/mm3 (1.8-7.8); Neutrophils % 83.6 % (37.0-80.0); Platelet Count 405 K/mm3 (142-424); Red Blood Count 3.77 M/mm3 (4.60-6.20); Red Cell Distribution Width 16.5 % (11.5-17.5); White Blood Count 19.5 K/mm3 (4.8-10.8)
[2021-04-20 06:44] LABS: MANUAL DIFFERENTIAL MANUAL DIFFERENTIAL (MANUAL DIFF)
[2021-04-20 06:54] LABS: Anion Gap 8.9 mEq/L (5-15); Blood Urea Nitrogen 22 mg/dl (9-20); Calcium 8.9 mg/dl (8.4-10.2); Carbon Dioxide 22 mmol/L (22.0-30.0); Chloride 105 mmol/L (98-107); Creatinine Clearance Estimated 54 mL/min (50-200); Estimated Glomerular Filt Rate 87 ml/min (>60); GFR (African American) 105 ML/MIN (>60); Glucose 114 mg/dl (74-100); Potassium 3.9 mmoL/L (3.5-5.1); Sodium 132 mmol/L (136-145)
[2021-04-20 08:03] LABS: Lymphocytes % 15 % (10-50); Monocytes % 3 % (2-9); Neutrophils % 82 % (42-76); Platelet Estimate Normal; RBC Morphology Normal; Total Cells Counted 100
[2021-04-20 08:59] LABS: Coronavirus 19, PCR Not Detected (NotDetected); Influenza A, PCR Not Detected (NotDetected); Influenza B, PCR Not Detected (NotDetected)
--- NOTE | 2021-04-20 11:10 | ECG_ITS ---
APPROVED REPORT Exam: Resting ECG HR:174 bpm ECG Measurements Heart Rate 174 AXES AK 120 P QRSd 66 QRS 22 QT 268 T 43 QTc 456 Conclusion Sinus tachycardia Nonspecific ST and T wave abnormality Abnormal ECG Electronically signed by : Sree Moscoso, 04/22/2021 21:03:34
--- NOTE | 2021-04-20 11:48 | CT_ITS ---
PROCEDURE INFORMATION: Exam: CTA Chest With Contrast Exam date and time: 04/20/2021 11:48 AM Age: 56 years old Clinical indication: Other: Tachycardia TECHNIQUE: Imaging protocol: Computed tomographic angiography of the chest with contrast. 3D rendering (Not supervised by radiologist): MIP and/or 3D reconstructed images were created by the technologist. Total images: 538 Radiation optimization: All CT scans at this facility use at least one of these dose optimization techniques: automated exposure control; mA and/or kV adjustment per patient size (includes targeted exams where dose is matched to clinical indication); or iterative reconstruction. Contrast material: ISOVUE 370; Contrast volume: 70 ml; Contrast route: INTRAVENOUS (IV); COMPARISON: CT CHEST W CON 10/26/2020 4:24 PM FINDINGS: Pulmonary arteries: The pulmonary arteries enhance appropriately with no evidence of pulmonary embolism. Respiratory motion mildly limits the assessment in the bases. Aorta: Mild aortic ectasia/tortuosity. No evidence of aneurysm or dissection. No mediastinal hematoma. Thyroid: The visualized thyroid gland demonstrates no gross abnormality. Lungs: No acute tracheobronchial abnormalities. Compressive atelectasis in the posterior lower lobes. No gross infiltrates or edema pattern. No pulmonary mass lesions are identified. Granulomatous calcifications in the left perihilar region. Pleural spaces: Moderate bilateral simple pleural effusions. No pneumothorax. Heart: Mild cardiomegaly. Moderate coronary artery calcification in the LAD distribution. Minimal pericardial fluid without gross effusion. Mediastinal space: Small hiatal hernia. Lymph nodes: No supraclavicular or axillary adenopathy. No mediastinal or hilar adenopathy. Pancreas: Metallic densities with local streak artifact just superior to the pancreas probably represent prior embolization coiling. Correlate with procedural history. Intraperitoneal space: The large complex collection of loculated fluid and air extending across the anterior upper abdomen are again noted. The anterior midline component appears mildly increased in size with increased intermixed air around the GE junction. Question wall thickening at the GE junction, consider the possibility of perforated ulcer in the duodenal bulb are pylorus. There hyperdense elements in the fluid which could represent extruded bowel content, without definite contrast accumulation to suggest active hemorrhage. Bones/joints: No acute osseous abnormalities are identified. Soft tissues: Mild soft tissue stranding/edema in the peripheral subcutaneous tissues suggesting volume overload or anasarca. IMPRESSION: 1. No evidence of pulmonary embolism or aortic dissection. 2. The large loculated collections of complex fluid and air in the anterior upper abdomen are mildly increased from 04/19/2021. Mild wall thickening in the distribution of the pylorus and duodenum is marginally visualized at the edge of the scan range. Consider the possibility of perforated ulcer with abscess development. Hyperdense elements within the fluid collections may represent extruded bowel content. 3. Moderate bilateral pleural effusions and compressive atelectasis in both lungs. 4. Additional non-emergent findings detailed above. 5. These findings initiated a critical results reporting process. An addendum will be issued at the time of clinician notification.
--- NOTE | 2021-04-20 12:07 | CA_ITS ---
APPROVED REPORT EXAM: Comprehensive 2D, Doppler, and color-flow Echocardiogram Butter Production Supervisor: Destiny Kramer RDCS Ht: 5 ft 4 in Wt: 94lbs BSA: 1.42 BP: 87/65 mmHg Indications: SVT,ETOH ABUSE,HX COVID,CAD,CA 2D Dimensions LVDd 1.99 cm M: 4.2 - 5.9 M-Mode Dimensions RVDd 2.18 cm (0.9-2.6) LA Diam 2.93 cm (1.9-4.0) LVDd 3.47 cm (3.5-5.7) Ao Diam 3.26 cm (2.0-3.7) LVDs 3.07 cm (3.5-5.7) IVSd 0.57 cm (0.6-1.1) PWd 0.65 cm (0.6-1.1) EF (Teich) 25.70% FS 11.50% EDV (Teich) 49.80 mL TAPSE 1.04 (<1.7) ESV (Teich) 37.00 mL LV Diastology E Decel Time 163.00 (160-240 msec) E/A Ratio 0.9 MED E' 5.20 (< 7 cm/sec) E'/MED E' Ratio 9.63 (>14) LAT E' 4.80 (<10 cm/sec) E/LAT E' Ratio 10.44 (>14) Mitral Valve MV E Max Gee. 50.00 (40-130 cm/s) MV A Velocity 58.00 (40-130 cm/s) E/A Ratio 0.87 MV Decel. Time 163.00 (160-240 ms) MV PHT 48.00 ms Tricuspid Valve TR P. Velocity 271.00 cm/s RAP Estimate 10.00 mmHg RVSP 39.30 mmHg Left Ventricle Left atrium is mildly enlarged, left ventricle is normal size, mild concentric left ventricular hypertrophy, visually estimated ejection fraction 55% with no regional wall motion abnormality, diastolic parameters are inconclusive. Right Ventricle Right atrium and right ventricle qualitatively mildly enlarged with normal contractility. Aortic Valve Aortic valve is minimally thickened and fibrosed, there is no aortic stenosis, there is mild aortic insufficiency. Mitral Valve Mitral valve is grossly normal, there is mild mitral regurgitation. Tricuspid Valve Tricuspid valve grossly normal, there is mild tricuspid regurgitation, calculated right ventricular systolic pressure is 32 mmHg. Pulmonic Valve Pulmonic valve is poorly visualized. Great Vessels Aortic root is normal size. Pericardium No significant pericardial effusion noted. Conclusion 1. Mild biatrial enlargement, normal left ventricular size, mild concentric left ventricular hypertrophy, visually estimated ejection fraction 55% with no regional wall motion abnormality, diastolic parameters are inconclusive. 2. Mildly enlarged right ventricle with normal contractility. 3. Mild aortic, mild mitral and tricuspid regurgitation. 4. No significant pericardial effusion. Electronically signed by : Americo Chow, 04/20/2021 18:33:27
--- NOTE | 2021-04-20 12:16 | HMH.ITSTN ---
SPOKE WITH RUSSELL DELATORRE, PATIENT BEING TRANSFERRED TO ICU AT THIS TIME
--- NOTE | 2021-04-20 12:48 | HMH.ITSTN ---
SPOKE TO SHAWN WELLS PATIENT NOT STABLE ENOUGH TO COME FOR CT,,WE WILL CHECK AGAIN AT 1:30P
--- NOTE | 2021-04-20 12:50 | HMH.CNCARD ---
History of Present Illness Consult date: 04/20/21 Requesting physician: Eduin Sheppard Chief complaint: tachycardia History of present illness: 56-year-old -[place] male admitted to facility with pneumonia. Cardiology was consulted due to tachycardia. office service coordinator revealed patient was in SVT with a heart rate greater than 170 bpm. Patient denies chest pain, tightness or pressure. Patient does complain of shortness of breath. Patient states he is just feeling weak due to the pneumonia. Patient also was diagnosed with DVT in the lower right extremity. Patient is on Xarelto 15 mg p.o. twice daily for anticoagulation. PCP is managing this. Patient does have history of metastatic prostate cancer. Patient has history of coronary artery disease. Patient is unsure if he has ever had a heart catheterization. Patient is not known to this cardiology group. Patient does have history of hypertension. Hypertension is controlled. History of asthma. Patient denies tobacco use. EKG was performed on patient which revealed sinus tachycardia, nonspecific ST and T wave abnormality abnormal ECG with a heart rate of 174 bpm. Discussed plan of care with Dr. Kapoor. Orders were received from Dr. Kapoor. Start Cardizem drip at 15 mg/h. Give 15 mg Cardizem bolus now. If no improvement in heart rate in 20 minutes after starting the Cardizem drip, give Lopressor 5 mg IV push. If heart rate does not improve after Lopressor, wait 5 minutes, give another dose of Lopressor 5 mg IV push. If heart rate does not improve after the 2 doses of Lopressor, please notify cardiology. Echocardiogram to assess LV function and valve status. Pending on the results of the echocardiogram, medication and treatment therapies may be recommended. Dr. Saul was also consulted due to prostate cancer. Thank you for allowing cardiology to participate in the care of this patient. [facility] History I have reviewed the patient's past medical history: Yes Medical History: Reports:: Anxiety, Cancer, Congestive Heart Failure, Depression, Hyperlipidemia, Hypertension, Urinary Tract Infection Denies:: Diabetes Mellitus Type 1, Diabetes Mellitus Type 2, MRSA, Seizures *Have you ever received a pneumonia vaccine?: No *Have you received a flu vaccine this season?: No Other Medical History: Reports: Arthritis, Thyroid Disease. Denies: Blood Transfusion Reaction Other Surgeries: Yes: No Previous Surgery, Colonoscopy, EGD Amputation: No Fractures: No - *Social History Smoking Status: Current some day smoker Tobacco Type: cigarettes # Packs/Day (cigarettes): 1 Alcohol Intake: never Alcohol Intake Frequency:: 3 or more drinks per day Substance Use Type: denies use *Occupational Status:: unemployed Housing: house Household Members: none *Travel in the last 8 weeks: None - Psychiatric History Pschychiatric History:: Reports:: Anxiety, Depression Family Hx:: Unable to obtain Meds Home Medications Medication Instructions Recorded Confirmed Type abiraterone 250 mg tablet 250 mg PO DAILY 12/21/20 04/16/21 History Furosemide [Furosemide 40MG tAB*] 40 mg PO DAILY 12/27/20 04/17/21 History Cetirizine HCl 10 mg PO DAILY 03/01/21 04/16/21 History predniSONE [Deltasone 5mg 5 mg PO BID 03/01/21 04/16/21 History tablet] ergocalciferol (vitamin D2) 1,250 1,250 mcg PO WEEKLY #14 cap 03/16/21 04/16/21 Rx mcg (50,000 unit) capsule meclizine 12.5 mg tablet 12.5 mg PO QIDP PRN #40 tab 03/16/21 04/16/21 Rx ondansetron HCl 4 mg tablet 4 mg PO TIDP PRN #30 tab 03/16/21 04/16/21 Rx pantoprazole 40 mg tablet,delayed 40 mg PO HS #90 tab 03/16/21 04/16/21 Rx release sennosides 8.6 mg tablet 8.6 mg PO BID PRN #60 tab 03/16/21 04/16/21 Rx Cholecalciferol (Vitamin D3) 125 mcg PO DAILY 04/16/21 04/17/21 History [Vitamin D3] Metoprolol Succinate [Metoprolol 25 mg PO DAILY 04/16/21 04/17/21 History Succinate 25mg Tablet*] Potassium Chloride [K-Tab ER 20 20 meq PO DAILY 04/16/21 04/16/21 History mEq] allo
--- NOTE | 2021-04-20 13:16 | PC.NURSE ---
bedside report received from sean david at [id number]
--- NOTE | 2021-04-20 14:13 | HMH.ITSTN ---
SPOKE WITH ERICA AT 1:54pm; SHE WILL GET UPDATE FROM PATIENT NURSE AND CALL BACK
--- NOTE | 2021-04-20 14:58 | HMH.ITSTN ---
SPOKE WITH SHOSHANA IN ICU, PATIENT IS STABLE, BUT NURSE IS UNABLE TO COME DOWN WITH PATIENT AT THIS TIME. SHOSHANA/SHAWN TO CALL WHEN THEY CAN COME DOWN.
--- NOTE | 2021-04-20 16:33 | HMH.ITSTN ---
we notified icu that we do not have our crash cart back yet and it needs to be checked-- will get pt as soon as that is done since pt is very unstable-
--- NOTE | 2021-04-20 17:04 | HMH.ACPN2 ---
Internal Medicine - PN: Subj *Date: 04/20/21 *Time: 09:04 Interval history: 56-year-old male patient sitting up in bed resting quietly reports abdomen is slightly tender. Yesterday on chest x-ray after PICC Line placement pockets of fluid in abdomen were revealed and abdominal CT with contrast was ordered and revealed:here are numerous loculated fluid collections consistent with infected pancreatic pseudocyst cysts. Patient states all decisions are to be made by his sister information was given to call his sister. Phone call was placed to sister who is well versed in patient's medical history, she wishes to make patient DNR and forego any further work-up and be discharged to [facility] [employer] [facility] she is currently employed there and she will visit him when she returns from vacation this weekend Heme-onc is seen and recommends with: metastatic prostate cancer to bone- has been stable on zytiga/prednisone. recommend to continue. ok to check psa right lower ext dvt- recommend anticoagulation if no evidence of bleeding. if bleeding and not a candidate of anticoagulatoin then recommend ivc filter plct. cysts and pancreatic pseudocysts- I do not believe this is related to his prostate cancer. had been followed for this at in the past malnutrition- encourage supplements Exam Vital signs and Labs for Last 24 Hours: Temp Pulse Resp BP Pulse Ox 97.9 F 109 H 20 85/60 L 97 04/20/21 16:00 04/20/21 16:00 04/20/21 16:00 04/20/21 16:00 04/20/21 16:00 Laboratory Results - last 24 hr 04/20/21 06:11: WBC 19.5 H, RBC 3.77 L, Hgb 10.8 L, Hct 34.0 L, MCV 90.2, MCH 28.6, MCHC 31.7 L, RDW 16.5, Plt Count 405, MPV 8.0, Neut % (Auto) 83.6 H, Lymph % (Auto) 10.1, [place] % (Auto) 5.9, Eos % (Auto) 0.0 L, Baso % (Auto) 0.3, Neut # (Auto) 16.3 H, Lymph # (Auto) 2.0, [place] # (Auto) 1.2 H, Eos # (Auto) 0.0, Baso # (Auto) 0.1, Total Counted 100, Neutrophils % (Manual) 82 H, Lymphocytes % (Manual) 15, Monocytes % (Manual) 3, Platelet Estimate Normal, RBC Morphology Normal 04/20/21 06:11: Sodium 132 L, Potassium 3.9, Chloride 105, Carbon Dioxide 22, Anion Gap 8.9, BUN 22 H, Creatinine 0.90, Estimated Creat Clear 54, Estimated GFR 87, Est GFR ( Amer) 105, Glucose 114 H, Calcium 8.9 04/20/21 08:50: SARS-CoV-2 (PCR) Not detected, Influenza A Untype (PCR) Not detected, Influenza Type B (PCR) Not detected I & O for Last 24 hours: Intake & Output 04/17/21 04/18/21 04/19/21 04/20/21 23:59 23:59 23:59 23:59 Intake Total 1040 / 1040 3578 / 3758 2038 / 2038 360 / 360 Output Total 475 / 525 400 / 400 1550 / 1900 350 / 350 Balance 565 / 515 3178 / 3358 489 / 139 10 / 10 Weight 86 lb 2 oz 90 lb 6.232 oz 94 lb 94 lb 12.78 oz - Constitutional no acute distress, thin, cachectic, chronically ill appearing - *Routine HEENT Exam Head: Present: normocephalic Eye: Present: EOMI ENT: Present: mucous membranes moist - *Routine Neck Exam Present: trachea midline. Absent: tracheal deviation - *Routine Respiratory Exam Present: decreased breath sounds. Absent: accessory muscle use - *Routine Cardiovascular Exam Present: RRR - *Routine Abdominal Exam Present: soft, normoactive bowel sounds, tenderness, distended. Absent: firm - *Routine Extremities Exam Present: edema, pulses intact, tenderness. Absent: cyanosis, clubbing, calf tenderness Comments: RLE Tenderness/edema - *Routine Skin Exam Present: intact, dry, warm. Absent: cyanosis, erythema - *Routine Neurological Exam Present: alert, oriented X3. Absent: motor deficit, pronator drift - Routine Psychiatric Exam Present: normal affect, normal thought process. Absent: auditory hallucinations, visual hallucinations Assessment and Plan (1) KAMLESH (acute kidney injury) Status: Acute Category: Medical Code(s): N17.9 - Acute kidney failure, unspecified (2) Low body mass index (BMI) Status: Acute Category: Medical (3) Infestation by bed bug Status: Acute Category: Med
--- NOTE | 2021-04-20 17:16 | DIET.NUTRFU ---
Pt with severe protein calorie malnutrition rt Cancer with loss 32% BW past 4m, reports minimal intakes at home. He reports food insecurity and not being able to afford supplements. Hospice could assist with this. PO intakes 25% with BID ensure on regular diet. Weight stable, edema present likely rt malnutrition, no BM since 04/15. He likes chocolate ensure. Pt may have additional supplements/snacks by request/RN offer, please encourage/cue at meal times and offer snacks/supplements t/o day. Diet edu/counseling provided for malnutrition/cancer. Pt encouraged to reach out with questions/concerns at any time post dc.
--- NOTE | 2021-04-20 20:21 | PC.NURSE ---
telephone conversation with patients next of kin, bk humphrey. sister states that she wants pt to be a DNR. states that she has intentions of taking patient home with hospice once her home is set up for his care.
--- NOTE | 2021-04-20 20:56 | CT_ITS ---
PROCEDURE INFORMATION: Exam: CT Abdomen And Pelvis With Contrast Exam date and time: 04/20/2021 8:56 PM Age: 56 years old Clinical indication: Abdominal pain; Generalized; Additional info: Possible perforation TECHNIQUE: Imaging protocol: Computed tomography of the abdomen and pelvis with contrast. Total images: 279 Radiation optimization: All CT scans at this facility use at least one of these dose optimization techniques: automated exposure control; mA and/or kV adjustment per patient size (includes targeted exams where dose is matched to clinical indication); or iterative reconstruction. Contrast material: ISOVUE; Contrast volume: 75 ml; Contrast route: IV; COMPARISON: CT ABDOMEN W CON 04/19/2021 1:45 PM FINDINGS: Mediastinal space: Complex collection of fluid and air along the rightward margin of the distal esophagus producing mild mass effect on the esophagus. This measures about 3.5 x 1.6 cm and communicates with the upper abdominal collections. Dominant collection of fluid and air in the left anterior abdomen measures 15 by 5 cm and appears mildly increased in size. The loculated collection over the lateral liver dome is unchanged. Liver: Abnormal liver contour related to extrinsic mass effect on the left hepatic lobe and anterior right hepatic lobe from the large loculated collections of fluid and air. Heterogeneous 2.0 x 1.9 cm lesion adjacent to the falciform fissure in the anterior liver unchanged. No intrahepatic biliary ductal dilatation. Gallbladder and bile ducts: The gallbladder is largely contracted. It appears slightly thick-walled however this may be related to its contracted status. Nondilated bile ducts. Pancreas: Thickening of the pancreatic tail with adjacent stranding concerning for pancreatitis or infiltrative mass unchanged measuring about 4.4 x 2.3 cm. Small fluid collections along the superior margin of the tail may represent acute inflammatory fluid collections of pancreatitis. Ductal dilatation in the body and tail measuring up to 6 mm diameter is unchanged. Spleen: The spleen demonstrates extrinsic contour deformity adjacent to the loculated fluid collections in the left upper quadrant but is otherwise unremarkable. Adrenal glands: Normal. No adrenal mass. Kidneys and ureters: No acute abnormalities. No hydronephrosis or hydroureter. No urinary tract stones are identified. Mixed phase contrast injection with excreted contrast in the renal collecting systems limiting sensitivity for small stones. Stomach and bowel: Extrinsic mass effect on the stomach from the large anterior loculated upper abdominal collections of fluid and air. Question mild wall/fold thickening in the proximal stomach which could relate to gastritis or sludge the contracted status, correlate clinically. There is extrinsic mass effect around the duodenum and at the superior margin of the pylorus related to the adjacent loculated peripherally enhancing collections of fluid and air in these distributions. Question wall thickening at the level of the pyloric channel. No definite ulcer crater is identified although the lack of oral contrast limits exam sensitivity. Consider the possibility of perforated ulcer as a source for the numerous complex fluid collections across the anterior upper abdomen. Superinfected pseudocysts might produce this appearance as previously discussed although the collections are largely distant from the pancreas. The small bowel is nondilated with no gross abnormality. Moderate colonic diverticulosis without evidence of diverticulitis. Appendix: The appendix is normal in caliber and demonstrates no evidence of
--- NOTE | 2021-04-20 22:34 | PC.NURSE ---
He is alert to person and place. He received PRN medication for pain in his right lower back and left side. CT was ordered r/t tachycardia on previous shift. Dr. Sheppard called stating that [facility] had consulting him r/t worsening abdomen and possible duodenal perforation with free air. He requested that surgery be consulted. Dr. Quick consulted and CT of abdomen ordered. He was aware that contrast was previously used with CT chest. Dr. Quick has rounded on patient and reviewed chart. Pt's POA stated that she was aware that he has a blood clot in his right leg, klebsiella in his blood, prostate cancer, pneumonia, pocket of fluid on his liver, pockets of fluid in his abdomen, and a cyst on his pancreas. She reported that he was supposed to have surgery on his pancreas 4-5 months ago but there was concern that the surgery lasting 10 hours and his not making it through the surgery. She stated they opted to have it cauterized instead. She reports that there is some plan of having him d/c home with hospice. She is a [employer] and that if he is only prescribed IV levaquin that there is no need for him to go to a shelter because she can administer it. Dr. Quick spoke with his sister (POA) on the phone and stated that there was no need for an emergent surgery right now but if they opted for surgery that it would need to be something done at . He received a n/o for clear liquids.
--- NOTE | 2021-04-20 22:44 | HMH.GSCON ---
*Admission Date: 04/17/21 *Reason for consult:: Possible perforated ulcer *History of present illness: Patient is a 56-year-old male with known diagnosis of extensive metastatic prostate cancer and relatively recent COVID-19 diagnosis. Patient has been on Zytiga and prednisone. He actually had presented in December of this year with acute onset of abdominal pain and CT scan at that time revealed evidence of intra-abdominal hematoma with extravasation. Patient was transported to [facility] where he apparently underwent angiography with coil embolization. He presented on 04/16/2021 with generalized weakness and myalgias. He was diagnosed with left lower lobe pneumonia. Patient underwent venous Doppler and was found to have very extensive right lower extremity DVT and was started on Xarelto. Due to diminishing hemoglobin and hematocrit he required transfusion. Consideration was being given for possible discharge planning under hospice care. Patient underwent CT scan of the abdomen and pelvis yesterday on 04/19/2021 which reveals numerous loculated likely infected pockets of fluid consistent with pseudocysts. Today the patient had rapid SVT. Cardiology was consulted. He was started on a Cardizem drip. This evening he underwent CT angiogram. This revealed no evidence of any pulmonary embolism but cuts through the upper abdomen was concerning for possible intra-abdominal process including perforation of possible duodenal ulcer. This prompted ordering of general surgery consultation. I ordered a repeat CT scan of the abdomen and pelvis. Patient does complain of some abdominal discomfort. He states that he feels full early when eating with increasing discomfort. Review of Systems - Review of Systems Review of systems:: unable to obtain - *Neurologic Reports abnormal walking, Reports weakness, Denies dizziness, Denies headache(s) [facility] History I have reviewed the patient's past medical history: Yes Medical History: Reports:: Anxiety, Cancer, Congestive Heart Failure, Depression, Hyperlipidemia, Hypertension, Urinary Tract Infection Denies:: Diabetes Mellitus Type 1, Diabetes Mellitus Type 2, MRSA, Seizures *Have you ever received a pneumonia vaccine?: No *Have you received a flu vaccine this season?: No Other Medical History: Reports: Arthritis, Thyroid Disease. Denies: Blood Transfusion Reaction Other Surgeries: Yes: No Previous Surgery, Colonoscopy, EGD Amputation: No Fractures: No - *Social History Smoking Status: Current some day smoker Tobacco Type: cigarettes # Packs/Day (cigarettes): 1 Alcohol Intake: never Alcohol Intake Frequency:: 3 or more drinks per day Substance Use Type: denies use *Occupational Status:: unemployed Housing: house Household Members: none *Travel in the last 8 weeks: None - Psychiatric History Pschychiatric History:: Reports:: Anxiety, Depression Family Hx:: Unable to obtain Meds Home Medications Medication Instructions Recorded Confirmed Type abiraterone 250 mg tablet 250 mg PO DAILY 12/21/20 04/16/21 History Furosemide [Furosemide 40MG tAB*] 40 mg PO DAILY 12/27/20 04/17/21 History Cetirizine HCl 10 mg PO DAILY 03/01/21 04/16/21 History predniSONE [Deltasone 5mg 5 mg PO BID 03/01/21 04/16/21 History tablet] ergocalciferol (vitamin D2) 1,250 1,250 mcg PO WEEKLY #14 cap 03/16/21 04/16/21 Rx mcg (50,000 unit) capsule meclizine 12.5 mg tablet 12.5 mg PO QIDP PRN #40 tab 03/16/21 04/16/21 Rx ondansetron HCl 4 mg tablet 4 mg PO TIDP PRN #30 tab 03/16/21 04/16/21 Rx pantoprazole 40 mg tablet,delayed 40 mg PO HS #90 tab 03/16/21 04/16/21 Rx release sennosides 8.6 mg tablet 8.6 mg PO BID PRN #60 tab 03/16/21 04/16/21 Rx Cholecalciferol (Vitamin D3) 125 mcg PO DAILY 04/16/21 04/17/21 History [Vitamin D3] Metoprolol Succinate [Metoprolol 25 mg PO DAILY 04/16/21 04/17/21 History Succinate 25mg Tablet*] Potassium Chloride [K-Tab ER 20 20 meq PO DAILY 04/16/21
[2021-04-21] VITALS (11 sets, daily range): BP systolic 77–107; BP diastolic 56–80; PULSE 79–110; RESP 16–27; TEMP 36.6–36.8; O2SAT 97–99; BMI 17.4
--- NOTE | 2021-04-21 01:01 | PC.NURSE ---
He continues on clear liquid diet. He turns himself in bed. Voiding per urinal. Cardizem gtt d/c per Dr. Sheppard. NSR on telemetry.
[2021-04-21 06:41] LABS: Basophils # 0.1 K/mm3 (0-0.2); Basophils % 0.2 % (0.1-2.0); Lymphocytes # 1.7 K/mm3 (0.7-4.5); Lymphocytes % 7.7 % (10-50); Mean Corpuscular HGB Conc 31.2 g/dL (31.8-35.4); Mean Corpuscular Volume 92.9 fl (80-94); Mean Platelet Volume 8.8 fl (7.4-10.4); Monocytes # 1.3 K/mm3 (0.1-1.0); Monocytes % 5.9 % (1.7-9.3); Neutrophils # 18.8 K/mm3 (1.8-7.8); Neutrophils % 86.2 % (37.0-80.0); Platelet Count 307 K/mm3 (142-424); Red Blood Count 2.96 M/mm3 (4.60-6.20); Red Cell Distribution Width 16.6 % (11.5-17.5)
[2021-04-21 06:49] LABS: Anion Gap 11.1 mEq/L (5-15); Blood Urea Nitrogen 22 mg/dl (9-20); Calcium 8.2 mg/dl (8.4-10.2); Carbon Dioxide 20 mmol/L (22.0-30.0); Chloride 107 mmol/L (98-107); Creatinine Clearance Estimated 59 mL/min (50-200); Estimated Glomerular Filt Rate 87 ml/min (>60); GFR (African American) 105 ML/MIN (>60); Glucose 101 mg/dl (74-100); Hematocrit 27.5 % (42.0-52.0); Hemoglobin 8.6 g/dL (14.1-18.0); Potassium 4.1 mmoL/L (3.5-5.1); Sodium 134 mmol/L (136-145); White Blood Count 21.8 K/mm3 (4.8-10.8)
[2021-04-21 06:51] LABS: MANUAL DIFFERENTIAL MANUAL DIFFERENTIAL (MANUAL DIFF)
[2021-04-21 08:18] LABS: Lymphocytes % 11 % (10-50); Monocytes % 1 % (2-9); Neutrophils % 88 % (42-76); Platelet Estimate Normal; RBC Morphology Normal; Total Cells Counted 100
--- NOTE | 2021-04-21 10:00 | P.PN_ITS ---
Subjective Narrative: Patient states that his pain is somewhat better. He does state that it still hurts . He complains of early satiety. Progress Note: A&P (1) KAMLESH (acute kidney injury) Status: Acute (2) Low body mass index (BMI) Status: Acute (3) Infestation by bed bug Status: Acute (4) Anemia Status: Acute (5) COVID-19 Status: Acute (6) Metastatic cancer to spine Status: Acute (7) Prostate cancer Status: Acute (8) Cachexia Status: Acute (9) Sepsis Problem details: Clinically improving; WBC has decreased with antibiotics Status: Acute (10) CAD (coronary artery disease) Status: Acute (11) Hypokalemia Status: Acute (12) Klebsiella pneumoniae sepsis Status: Acute (13) Tachycardia Status: Acute (14) SVT (supraventricular tachycardia) Status: Acute Assessment and Plan for All Diagnoses:: Patient has some pain and a compressive effect characterized by early satiety from the intra-abdominal fluid collections. These could be hematoma, potentially infected, from previous bleeding and coil embolization. Currently on Xarelto for extensive right lower extremity DVT. If intervention is entertained will need transfer to tertiary facility for interventional radiology drainage of fluid collections and also for potential IVC filter deployment. Exam Vital signs and Labs for Last 24 Hours: Temp Pulse Resp BP Pulse Ox 97.9 F 84 21 94/65 L 97 04/21/21 08:00 04/21/21 08:00 04/21/21 08:00 04/21/21 08:00 04/21/21 08:00 Laboratory Results - last 24 hr 04/21/21 04:45: WBC 21.8 H*, RBC 2.96 L, Hgb 8.6 L D, Hct 27.5 L, MCV 92.9, MCH 29.0, MCHC 31.2 L, RDW 16.6, Plt Count 307, MPV 8.8, Neut % (Auto) 86.2 H, Lymph % (Auto) 7.7 L, [place] % (Auto) 5.9, Eos % (Auto) 0.0 L, Baso % (Auto) 0.2, Neut # (Auto) 18.8 H, Lymph # (Auto) 1.7, [place] # (Auto) 1.3 H, Eos # (Auto) 0.0, Baso # (Auto) 0.1, Total Counted 100, Neutrophils % (Manual) 88 H, Lymphocytes % (Manual) 11, Monocytes % (Manual) 1 L, Platelet Estimate Normal, RBC Morphology Normal 04/21/21 04:45: Sodium 134 L, Potassium 4.1, Chloride 107, Carbon Dioxide 20 L, Anion Gap 11.1, BUN 22 H, Creatinine 0.90, Estimated Creat Clear 59, Estimated GFR 87, Est GFR ( Amer) 105, Glucose 101 H, Calcium 8.2 L I & O for Last 24 hours: Intake & Output 04/18/21 04/19/21 04/20/21 04/21/21 11:59 11:59 11:59 11:59 Intake Total 1878 / 1878 3619 / 3619 600 / 600 3239 / 3239 Output Total 375 / 375 450 / 450 1800 / 1800 400 / 400 Balance 1503 / 1503 3169 / 3169 -1200 / -1200 2839 / 2839 Weight 90 lb 94 lb 94 lb 12.78 oz 102 lb 4.8 oz - *Routine Abdominal Exam Comments: His abdomen is diffusely tender.
--- NOTE | 2021-04-21 11:26 | PC.NURSE ---
Dr. Silver wilson. Updated him that pt is triggering for sepsis. Reviewed sepsis sheet with him. Family does not wish to escalate care. He ordered 1L LR bolus. Order faxed to pharmacy.
--- NOTE | 2021-04-21 12:40 | HMH.ACPN2 ---
Internal Medicine - PN: Subj *Date: 04/21/21 *Time: 12:55 Interval history: Condition has continued to decline overall. Notable events yesterday included a run of tachycardia quiring Cardizem drip for rate control. Transferred to the ICU. Patient has a white count elevated at 21,000 this morning, with a hemoglobin of 8.6. CAT scan of the chest and abdomen were performed yesterday. I received a stat call from the radiologist last night which prompted a surgery consult. Dr. Quick was kind enough to see and thoroughly evaluate the patient and his guidance is most helpful. Report is as follows IMPRESSION: 1. The large collection of complex fluid and air in the left anterior upper abdomen is increased in size in the short interim since 1:49 p.m... The fluid collection over the anterolateral liver dome is unchanged. The smaller collections along the distal esophagus and tracking around the duodenum and pancreatic tail are unchanged. 2. The findings are concerning for infected collections given the degree of complexity and gas. As suggested on the chest CT angiogram, the possibility of perforated pyloric or duodenal ulcer should also be considered as there is local wall thickening in this region although no discrete ulcer crater is identified. Consider GI consultation and endoscopic assessment. 3. There is evidence of deep venous thrombosis involving the right proximal SFV, common femoral vein, and external iliac vein. 4. Enlarged pancreatic tail which could represent pancreatitis or infiltrative mass, unchanged. 5. 2 cm heterogeneous lesion in the anterior liver which is indeterminate, unchanged. 6. Bladder wall thickening and adjacent stranding suspicious for cystitis, correlate with UA. 7. Numerous osteoblastic metastases in the spine and pelvis again noted. 8. Additional non-emergent findings detailed above. 9. These findings initiated a critical results reporting process. An addendum will be issued at the time of clinician notification. The patient does have some abdominal pain with deep palpation, however he reports that this is stable and mitigated by morphine. Patient has a DVT in the right lower extremity which is unchanged. Patient was made a DNR status officially. I had a long conversation with the patient's Sister Garry. Is currently in [place] but plans on coming up tomorrow with the family. She relays that patient was seen in [place] for a retropancreatic hemorrhage and definitive surgical options at that point were not deemed to be feasible. He underwent an interventional radiology procedure. He was told at that point he would not survive open laparotomy. After a long discussion with the sister she made it clear that her wishes are to ultimately bring her brother home with her with the assistance of hospice. He requests no further aggressive intervention with the abdomen, wishes for us to pay attention to comfort and supportive measures. Given the course of his progressive debility and very limited prognosis I think that this is an appropriate course of action and will help her proceed in that direction. Exam Vital signs and Labs for Last 24 Hours: Temp Pulse Resp BP Pulse Ox 98.2 F 89 17 107/80 L 98 04/21/21 12:00 04/21/21 12:00 04/21/21 12:00 04/21/21 12:00 04/21/21 12:00 Laboratory Results - last 24 hr 04/21/21 04:45: WBC 21.8 H*, RBC 2.96 L, Hgb 8.6 L D, Hct 27.5 L, MCV 92.9, MCH 29.0, MCHC 31.2 L, RDW 16.6, Plt Count 307, MPV 8.8, Neut % (Auto) 86.2 H, Lymph % (Auto) 7.7 L, [place] % (Auto) 5.9, Eos % (Auto) 0.0 L, Baso % (Auto) 0.2, Neut # (Auto) 18.8 H, Lymph # (Auto) 1.7, [place] # (Auto) 1.3 H, Eos # (Auto) 0.0, Baso # (Auto) 0.1, Total Counted 100, Neutrophils % (Manual) 88 H, Lymphocytes % (Manual) 11, Monocytes % (Manual) 1 L, Platelet Estimate Normal, RBC Morphology Normal 04/21/21 04:45: Sodium 134 L, Potassium 4.1, Chloride 107, Carbon Dioxi
--- NOTE | 2021-04-21 14:52 | HMH.ACPN ---
Internal Medicine - PN: Subj *Date: 04/21/21 *Time: 14:52 Exam Vital signs and Labs for Last 24 Hours: Temp Pulse Resp BP Pulse Ox 98.2 F 89 17 107/80 L 98 04/21/21 12:00 04/21/21 12:00 04/21/21 12:00 04/21/21 12:00 04/21/21 12:00 Laboratory Results - last 24 hr 04/21/21 04:45: WBC 21.8 H*, RBC 2.96 L, Hgb 8.6 L D, Hct 27.5 L, MCV 92.9, MCH 29.0, MCHC 31.2 L, RDW 16.6, Plt Count 307, MPV 8.8, Neut % (Auto) 86.2 H, Lymph % (Auto) 7.7 L, [place] % (Auto) 5.9, Eos % (Auto) 0.0 L, Baso % (Auto) 0.2, Neut # (Auto) 18.8 H, Lymph # (Auto) 1.7, [place] # (Auto) 1.3 H, Eos # (Auto) 0.0, Baso # (Auto) 0.1, Total Counted 100, Neutrophils % (Manual) 88 H, Lymphocytes % (Manual) 11, Monocytes % (Manual) 1 L, Platelet Estimate Normal, RBC Morphology Normal 04/21/21 04:45: Sodium 134 L, Potassium 4.1, Chloride 107, Carbon Dioxide 20 L, Anion Gap 11.1, BUN 22 H, Creatinine 0.90, Estimated Creat Clear 59, Estimated GFR 87, Est GFR ( Amer) 105, Glucose 101 H, Calcium 8.2 L I & O for Last 24 hours: Intake & Output 04/18/21 04/19/21 04/20/21 04/21/21 23:59 23:59 23:59 23:59 Intake Total 3578 / 3758 2039 / 2039 2839 / 2839 760 / 760 Output Total 400 / 400 1550 / 1900 550 / 550 800 / 800 Balance 3178 / 3358 489 / 139 2289 / 2289 -40 / -40 Weight 41 kg 42.638 kg 43 kg 46.402 kg Assessment and Plan (1) KAMLESH (acute kidney injury) Status: Acute Category: Medical Code(s): N17.9 - Acute kidney failure, unspecified (2) Low body mass index (BMI) Status: Acute Category: Medical (3) Infestation by bed bug Status: Acute Category: Medical Code(s): B88.8 - Other specified infestations (4) Anemia Status: Acute Qualifiers: Anemia type: unspecified type Qualified Code(s): D64.9 - Anemia, unspecified Category: Medical Code(s): D64.9 - Anemia, unspecified (5) COVID-19 Status: Acute Category: Medical Code(s): U07.1 - COVID-19 (6) Metastatic cancer to spine Status: Acute Category: Medical Code(s): C79.51 - Secondary malignant neoplasm of bone (7) Prostate cancer Status: Acute Category: Medical Code(s): C61 - Malignant neoplasm of prostate (8) Cachexia Status: Acute Category: Medical Code(s): R64 - Cachexia (9) Sepsis Problem details: Clinically improving; WBC has decreased with antibiotics Status: Acute Qualifiers: Sepsis type: sepsis due to unspecified organism Qualified Code(s): A41.9 - Sepsis, unspecified organism Category: Medical Code(s): A41.9 - Sepsis, unspecified organism (10) CAD (coronary artery disease) Status: Acute Qualifiers: Coronary Disease-Associated Artery/Lesion type: unspecified vessel or lesion type [place] vs. transplanted heart: [place] heart Associated angina: with unspecified angina Category: Medical Code(s): I25.10 - Atherosclerotic heart disease of [place] coronary artery without angina pectoris (11) Hypokalemia Status: Acute Category: Medical Code(s): E87.6 - Hypokalemia (12) Klebsiella pneumoniae sepsis Status: Acute Category: Medical Code(s): A41.4 - Sepsis due to anaerobes (13) Tachycardia Status: Acute Category: Medical Code(s): R00.0 - Tachycardia, unspecified (14) SVT (supraventricular tachycardia) Status: Acute Category: Medical Code(s): I47.1 - Supraventricular tachycardia The patient's infection will respond to the chosen ABx?: Yes Is the patient receiving the right drug, dose, and route?: Yes Could a more targeted ABx be ordered?: No (FLAGYL ADDED TODAY)
--- NOTE | 2021-04-21 23:19 | PC.NURSE ---
He is A&O3. He has received PRN medication for pain that he reports is in his lower back, bilateral sides, and abdomen. He denies SOA and nausea. He denies having a BM today but states he is passing gas. 2+ pitting edema noted to RLE. He is voiding per urinal. His urine is yellow, clear.
[2021-04-22] VITALS (8 sets, daily range): BP systolic 107–115; BP diastolic 75–82; PULSE 93–115; RESP 17; TEMP 36.5–36.8; O2SAT 97–98; BMI 17.7
[2021-04-22 06:10] LABS: Basophils # 0.1 K/mm3 (0-0.2); Basophils % 0.3 % (0.1-2.0); Eosinophils % 0.1 % (0.1-12.0); Hematocrit 27.7 % (42.0-52.0); Hemoglobin 8.7 g/dL (14.1-18.0); Lymphocytes # 1.5 K/mm3 (0.7-4.5); Lymphocytes % 8.2 % (10-50); Mean Corpuscular HGB Conc 31.4 g/dL (31.8-35.4); Mean Corpuscular Hemoglobin 29.1 pg (27.0-31.2); Mean Corpuscular Volume 92.6 fl (80-94); Mean Platelet Volume 9.1 fl (7.4-10.4); Monocytes # 1.3 K/mm3 (0.1-1.0); Monocytes % 6.8 % (1.7-9.3); Neutrophils % 84.7 % (37.0-80.0); Platelet Count 302 K/mm3 (142-424); Red Blood Count 2.99 M/mm3 (4.60-6.20); Red Cell Distribution Width 16.8 % (11.5-17.5); White Blood Count 18.9 K/mm3 (4.8-10.8)
[2021-04-22 06:18] LABS: MANUAL DIFFERENTIAL MANUAL DIFFERENTIAL (MANUAL DIFF)
[2021-04-22 07:06] LABS: Chloride 108 mmol/L (98-107); Sodium 134 mmol/L (136-145)
[2021-04-22 07:07] LABS: Potassium 3.8 mmoL/L (3.5-5.1)
[2021-04-22 07:09] LABS: Blood Urea Nitrogen 24 mg/dl (9-20); Creatinine Clearance Estimated 60 mL/min (50-200); Estimated Glomerular Filt Rate 87 ml/min (>60); GFR (African American) 105 ML/MIN (>60)
[2021-04-22 07:10] LABS: Anion Gap 5.8 mEq/L (5-15); Calcium 8.5 mg/dl (8.4-10.2); Carbon Dioxide 24 mmol/L (22.0-30.0); Glucose 109 mg/dl (74-100)
[2021-04-22 07:23] LABS: Anisocytosis 1+; Hypochromasia 1+; Lymphocytes % 6 % (10-50); Monocytes % 1 % (2-9); Neutrophils % 84 % (42-76); Platelet Estimate Normal; Total Cells Counted 100
--- NOTE | 2021-04-22 16:11 | HMH.ACPN2 ---
Internal Medicine - PN: Subj *Date: 04/22/21 *Time: 16:11 Interval history: Nursing staff is not noticing significant interval changes, ever patient does continue to have pain on the left side of his abdomen. Imaging studies, surgery consults were reviewed. Yesterday I had a talk with his sister who was in [place] at the time. She did make it home today. She relays that her plans are to place Mr. Abdullahi in [place] incidentally, then take him home with her to her hospice care. Can certainly help facilitate that process. I spoke with patient about the plan, and he is in complete agreement. He realizes that he of his prognosis. I am going to escalate his pain management. Exam Vital signs and Labs for Last 24 Hours: Temp Pulse Resp BP Pulse Ox 98.2 F 110 H 17 115/82 98 04/22/21 15:22 04/22/21 15:22 04/22/21 15:22 04/22/21 15:22 04/22/21 15:22 Laboratory Results - last 24 hr 04/22/21 04:30: WBC 18.9 H, RBC 2.99 L, Hgb 8.7 L, Hct 27.7 L, MCV 92.6, MCH 29.1, MCHC 31.4 L, RDW 16.8, Plt Count 302, MPV 9.1, Neut % (Auto) 84.7 H, Lymph % (Auto) 8.2 L, [place] % (Auto) 6.8, Eos % (Auto) 0.1, Baso % (Auto) 0.3, Neut # (Auto) 16.0 H, Lymph # (Auto) 1.5, [place] # (Auto) 1.3 H, Eos # (Auto) 0.0, Baso # (Auto) 0.1, Total Counted 100, Neutrophils % (Manual) 84 H, Band Neutrophils % 9.0 H, Lymphocytes % (Manual) 6 L, Monocytes % (Manual) 1 L, Platelet Estimate Normal, Hypochromasia 1+, Anisocytosis 1+ 04/22/21 04:30: Sodium 134 L, Potassium 3.8, Chloride 108 H, Carbon Dioxide 24, Anion Gap 5.8, BUN 24 H, Creatinine 0.90, Estimated Creat Clear 60, Estimated GFR 87, Est GFR ( Amer) 105, Glucose 109 H, Calcium 8.5 I & O for Last 24 hours: Intake & Output 04/19/21 04/20/21 04/21/21 04/22/21 23:59 23:59 23:59 23:59 Intake Total 2038 2839 / 2839 3513 / 3513 1139 / 1139 Output Total 1550 / 1900 550 / 550 1890 / 1890 1455 / 1455 Balance 489 / 139 2289 / 2289 1623 / 1623 -316 / -316 Weight 94 lb 94 lb 12.78 oz 102 lb 4.8 oz 104 lb 1.6 oz Microbiology Reports for the Last 24 Hours: Microbiology 04/16/21 16:26 Blood Blood Culture - Final NO GROWTH AFTER 5 DAYS - Constitutional mild distress, cachectic, chronically ill appearing - *Routine HEENT Exam Head: Present: normocephalic Eye: Present: EOMI, PERRL ENT: Present: mucous membranes moist - *Routine Neck Exam Present: supple. Absent: lymphadenopathy - *Routine Respiratory Exam Present: CTA bilaterally - *Routine Cardiovascular Exam Present: RRR - *Routine Abdominal Exam Present: tenderness, distended - *Routine Extremities Exam Absent: cyanosis, clubbing, edema - *Routine Skin Exam Present: warm. Absent: rash - *Routine Neurological Exam Present: alert, oriented X3 Assessment and Plan (1) KAMLESH (acute kidney injury) Status: Acute Category: Medical Code(s): N17.9 - Acute kidney failure, unspecified (2) Low body mass index (BMI) Status: Acute Category: Medical (3) Infestation by bed bug Status: Acute Category: Medical Code(s): B88.8 - Other specified infestations (4) Anemia Status: Acute Qualifiers: Anemia type: unspecified type Qualified Code(s): D64.9 - Anemia, unspecified Category: Medical Code(s): D64.9 - Anemia, unspecified (5) COVID-19 Status: Acute Category: Medical Code(s): U07.1 - COVID-19 (6) Metastatic cancer to spine Status: Acute Category: Medical Code(s): C79.51 - Secondary malignant neoplasm of bone (7) Prostate cancer Status: Acute Category: Medical Code(s): C61 - Malignant neoplasm of prostate (8) Cachexia Status: Acute Category: Medical Code(s): R64 - Cachexia (9) Sepsis Problem details: Clinically improving; WBC has decreased with antibiotics Status: Acute Qualifiers: Sepsis type: sepsis due to unspecified organism Qualified Code(s): A41.9 - Sepsis, unspecified organism Category: Medical
--- NOTE | 2021-04-22 23:20 | PC.NURSE ---
He is A&O. He has received PRN medication for pain. He has been sleeping. He reported his last BM was 04/18/21 but states he is passing gas. Continues with 2+pitting edema to RLE. Urine is yellow, clear.
[2021-04-23] VITALS: BP 115/82; PULSE 110; PULSE 128; O2SAT 95
[2021-04-23 03:42] VITALS: BMI 17.7
[2021-04-23 03:57] VITALS: PULSE 110
[2021-04-23 04:00] VITALS: BP 115/82; PULSE 111; O2SAT 95
[2021-04-23 06:01] LABS: Basophils # 0.1 K/mm3 (0-0.2); Basophils % 0.3 % (0.1-2.0); Hematocrit 27.6 % (42.0-52.0); Lymphocytes # 1.7 K/mm3 (0.7-4.5); Lymphocytes % 6.6 % (10-50); Mean Corpuscular HGB Conc 30.8 g/dL (31.8-35.4); Mean Corpuscular Hemoglobin 28.4 pg (27.0-31.2); Mean Corpuscular Volume 92.1 fl (80-94); Mean Platelet Volume 8.5 fl (7.4-10.4); Monocytes # 1.5 K/mm3 (0.1-1.0); Monocytes % 5.7 % (1.7-9.3); Neutrophils # 22.7 K/mm3 (1.8-7.8); Neutrophils % 87.4 % (37.0-80.0); Platelet Count 300 K/mm3 (142-424); Red Blood Count 2.99 M/mm3 (4.60-6.20); Red Cell Distribution Width 16.6 % (11.5-17.5)
[2021-04-23 06:31] LABS: Chloride 109 mmol/L (98-107)
[2021-04-23 06:32] LABS: Potassium 3.8 mmoL/L (3.5-5.1); Sodium 135 mmol/L (136-145)
[2021-04-23 06:35] LABS: Anion Gap 7.8 mEq/L (5-15); Blood Urea Nitrogen 23 mg/dl (9-20); Calcium 8.6 mg/dl (8.4-10.2); Carbon Dioxide 22 mmol/L (22.0-30.0); Creatinine Clearance Estimated 54 mL/min (50-200); Estimated Glomerular Filt Rate 77 ml/min (>60); GFR (African American) 93 ML/MIN (>60); Glucose 104 mg/dl (74-100)
[2021-04-23 06:38] LABS: Hemoglobin 8.6 g/dL (14.1-18.0)
[2021-04-23 06:39] LABS: MANUAL DIFFERENTIAL MANUAL DIFFERENTIAL (MANUAL DIFF)
[2021-04-23 07:43] LABS: Lymphocytes % 8 % (10-50); Monocytes % 3 % (2-9); Neutrophils % 88 % (42-76); Platelet Estimate Normal; RBC Morphology Normal; Total Cells Counted 100
--- NOTE | 2021-04-23 07:45 | SW/DCPLANNER ---
IT APPEARS SISTER IS GOING TO TAKE BROTHER HOME WITH HOSPICE WHEN PATIENT IS READY FOR DISPOSITION... WILL FOLLOW UP WITH HOSPICE THIS MORNING SINCE THIS WAS AN ORDER OVER THE WEEKEND TO ENSURE THIS IS WHAT IS GOING TO HAPPEN WHEN PATIENT IS READY FOR A DISPOSITION...
[2021-04-23 08:00] VITALS: BP 102/70; PULSE 102; PULSE 103; RESP 18; TEMP 36.8; O2SAT 98
--- NOTE | 2021-04-23 10:10 | SW/DCPLANNER ---
Addendum entered by Shauna Hansen 04/23/21 14:59: MR MAS WILL GO TO [place] AND FINISH HIS IV ANTIBIOTICS AND SOME THERAPY BEFORE SHE CAN TAKE HIM HOME UNDER HOSPICE, OF RIGHT NOW HE WILL DISCHARGE TO [place] AND THEY WILL LET HOSPICE KNOW WHEN HE IS READY TO DISCHARGE... Original Note: SENT REFERRAL FOR A HOSPICE REFERRAL FOR THIS PATIENT TO [facility]... PATIENT IS GOING TO [place] UNTIL THE DAUGHTER CAN GET HER HOME READY TO TAKE HIM HOME...I HAVE SENT REFERRAL TO HOSPICE AND PUT A CALL INTO [place] TO SPEAK WITH SISTER WHOM WORKS THERE TO MAKE SURE THIS IS STILL THE PLAN... DISCHARGING LATER IN THE DAY...
[2021-04-23 12:00] VITALS: BP 102/65; PULSE 103; RESP 20; TEMP 36.7; O2SAT 98
--- NOTE | 2021-04-23 13:05 | HMH.DCSUM ---
General - General Admission date:: 04/16/21 Discharge date: 04/23/21 HPI HPI: this patient presented to the ed -escription of Symptoms (Recalled from ER Triage Doc. by RN): Patient c/o general weakness worse today. Pt reports nausea but denies vomitting. Pt reports hx of bone cancer but denies undergoing any treatment. Pt reports his oncologist is at [facility] This is a 56-year-old male presented to the emergency department with some generalized weakness and body pain. Patient states that he has had pain all over throughout his body. There is no focal tenderness. Patient states that the pain has been so bad that he has been unable to get out of bed. He feels so weak and rundown that he has had difficulties getting around. He denies any headache or change in vision. No focal weakness. Patient is not having any chest pain or difficulty breathing. No abdominal pain or vomiting. No diarrhea. No fevers or chills. pt with hx of recent covid-19 Hospital Course Hospital Course: Laboratory Tests 04/16/21 04/16/21 04/16/21 16:21 16:21 16:26 WBC 19.8 H Corrected WBC 18.0 H RBC 3.41 L Hgb 9.6 L Hct 31.8 L MCV 93.2 MCH 28.2 MCHC 30.3 L RDW 16.6 Plt Count 584 H MPV 7.7 Neut % (Auto) 83.4 H Lymph % (Auto) 10.2 [place] % (Auto) 5.1 Eos % (Auto) 0.3 Baso % (Auto) 1.0 Neut # (Auto) 16.5 H Lymph # (Auto) 2.0 [place] # (Auto) 1.0 Eos # (Auto) 0.1 Baso # (Auto) 0.2 Total Counted 100 Neutrophils % (Manual) 83 H Band Neutrophils % Lymphocytes % (Manual) 9 L Monocytes % (Manual) 5 Eosinophils % (Manual) 2 Basophils % (Manual) 1.0 Nucleated RBCs 10 Platelet Estimate Moderate increase RBC Morphology Not Reportable Hypochromasia 2+ Anisocytosis Microcytosis Macrocytosis Sodium 133 L Potassium 4.3 Chloride 95 L Carbon Dioxide 17 L Anion Gap 25.3 H BUN 35 H Creatinine 1.50 H Estimated Creat Clear 35 Estimated GFR 48 L Est GFR ( Amer) 58 L Glucose 136 H Lactate Calcium 10.1 Total Bilirubin 0.9 AST 44 ALT 11 L Alkaline Phosphatase 154 H Troponin I < 0.01 NT-Pro-B Natriuret Pep 1190 H Total Protein 8.0 Albumin 3.4 L Globulin 4.6 H Albumin/Globulin Ratio 0.7 L Lipase 312 H Urine Color Yellow Urine Appearance Clear Urine pH 5.5 Ur Specific [place] 1.020 Urine Protein Negative Urine Glucose (UA) Negative Urine Ketones Negative Urine Blood Negative Urine Nitrate Negative Urine Bilirubin Negative Urine Urobilinogen 0.2 Ur Leukocyte Esterase Negative Urine RBC None Urine WBC None Ur Squamous Epith Cells 3-5 Urine Bacteria None Urine Opiates Screen Urine Methadone Screen Ur Barbituates Screen Ur Phencyclidine Scrn Ur Amphetamines Screen U Benzodiazepines Scrn Urine Cocaine Screen U Marijuana (THC) Screen Plasma/Serum Alcohol SARS-CoV-2 (PCR) Influenza A Untype (PCR) Influenza Type B (PCR) Blood Type Antibody Screen Crossmatch (AHG) 04/16/21 04/16/21 04/16/21 16:26 16:40 16:58 WBC Corrected WBC RBC Hgb Hct MCV MCH MCHC RDW Plt Count MPV Neut % (Auto) Lymph % (Auto) [place] % (Auto) Eos % (Auto) Baso % (Auto) Neut # (Auto) Lymph # (Auto) [place] # (Auto) Eos # (Auto) Baso # (Auto) Total Counted Neutrophils % (Manual) Band Neutrophils % Lymphocytes % (Manual) Monocytes % (Manual) Eosinophils % (Manual) Basophils % (Manual) Nucleated RBCs Platelet Estimate RBC Morphology Hypochromasia Anisocytosis Microcytosis Macrocytosis Sodium Potassium Chloride Carbon Dioxide Anion Gap BUN Creatinine Estimated Creat Clear Estimated GFR Est GFR ( Amer) Glucose Lactate Calcium
--- NOTE | 2021-04-23 14:57 | PC.NURSE ---
pt states that he had a bowel movement on 04/22
[2021-04-23 15:00] VITALS: BP 105/70; PULSE 97; RESP 17; TEMP 36.4; O2SAT 98
== END 2021-04-23 15:30 | DRG 871 ==
LOC: ER 17:04 → 2ND 19:56 → ICU 04-20 12:39
PROVIDERS: Nurse Practitioner Family; Admitting Provider Emergency Medicine; Emergency Provider Emergency Medicine; PCP Emergency Medicine; Visit Provider Emergency Medicine
DX: A41.59 Other Gram-negative sepsis (principal); U07.1 COVID-19; J18.9 Pneumonia, unspecified organism; C79.51 Secondary malignant neoplasm of bone; I82.411 Acute embolism and thrombosis of right femoral vein; I82.431 Acute embolism and thrombosis of right popliteal vein; I47.1 Supraventricular tachycardia; E46 Unspecified protein-calorie malnutrition; Z68.1 Body mass index [BMI] 19.9 or less, adult; K86.3 Pseudocyst of pancreas; I25.10 Atherosclerotic heart disease of native coronary artery without angina pectoris; M19.90 Unspecified osteoarthritis, unspecified site; B88.8 Other specified infestations; D63.0 Anemia in neoplastic disease; C61 Malignant neoplasm of prostate; E78.5 Hyperlipidemia, unspecified; I10 Essential (primary) hypertension; E87.6 Hypokalemia; F17.210 Nicotine dependence, cigarettes, uncomplicated
CPT/HCPCS: 36569; 36415; 71045; 71275; 74160; 74177; 80048; 80053; 80305; 81001; 83605; 83690; 83880; 84484; 85007; 85014; 85018; 85025; 86850; 87040; 87077; 87186; 93005; 93306; 93970; 96365; 96367; 96372; 99285; J1956; P9016; Q9967; U0003